=== PATIENT | female | born 1970 | race Caucasian/White ===

== ENCOUNTER 2024-10-30 11:43 | Outpatient (AMB) | payer BC, SELFPAY ==
--- NOTE | 2024-10-30 11:45 | MHC.OFFVIS ---
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 Pain started after she had right sided hammertoe surgery 09/16/2024 Endorses right foot pain, hypersensitive to touch, swelling and temperature changes. Currently taking gabapentin 300 mg twice daily with no improvement Taking Tylenol and ibuprofen with minimal improvement Has been doing home exercise program, starting physical therapy but pain persists States she is not even able to tolerate a bed sheet or socks secondary to the pain Pain today is rated as a 5/10, she reports that 5 is the best her pain is. At times pain will be 10/10 In terms of muscle damage condition is described as burning, throbbing, sharp, aching, tightness Pain is negatively impacting patient's mental health, normal function, normal sleep, ability to perform activities daily living, ambulation Denies current use of anticoagulants Denies implantable devices, pacemaker or defibrillator Denies current use of nicotine, tobacco, alcohol or illicit substances PFSH Medical History (Updated 10/30/24 @ 12:52 by Andressa Alford) Hypercholesterolemia Hypertension Depression Anxiety Migraine Headache Fibromyalgia Surgical History (Updated 10/30/24 @ 12:52 by Andressa Alford) H/O oral surgery H/O: hysterectomy H/O tubal ligation Hx of section Review of Systems Const All systems reviewed & are unremarkable except as noted in HPI and below Physical Exam Vital Signs: Last Vital Signs Pulse 61 10/30/24 11:50 BP 134/79 10/30/24 11:50 Pulse Ox 98 10/30/24 11:50 Oxygen Delivery Method Room Air 10/30/24 11:50 BMI result Body Mass Index 28.0 General: awake, alert, oriented. Answers questions appropriately. Fully engaged in examination. Skin: warm, dry, intact HEENT: Normocephalic. Hearing intact. Cardiac: External chest normal in appearance. Respiratory: No cough, audible wheezing or stridor. Abdomen: without gross distension. MS: No obvious swelling or deformities. Able to transition from sit to stand unassisted. Ambulates with bilaterally normal heel strike and toe off Right foot notable for allodynia. Compared to the left foot there are changes in color and temperature. Slight swelling noted. Neurological: Oriented to person, place, time and situation. Thought process intact. No gait abnormalities appreciated. Psychiatric: Appropriate mood and affect. Good judgment and insight. Assessment & Plan Assessment & Plan (1) CRPS (complex regional pain syndrome), lower limb: Code(s): G90.529 - Complex regional pain syndrome I of unspecified lower limb Category: Medical Plan Fifi is a very pleasant 54-year-old female who presented to the office today for evaluation and management of her right foot pain History, physical exam and provocative testing consistent with CRPS Patient has exhausted conservative therapy including home exercise program, NSAIDs, prescription medications, [id number] medications Will schedule for fluoroscopy guided lumbar sympathetic block with local anesthetic All questions and concerns were answered, patient agrees with the plan. Follow up after injection, sooner if needed Coding Level of Care Code New Pt Level 4 (51573) Complex EM visit Add On G2211 Diagnoses CRPS (complex regional pain syndrome), lower limb G90.529
[2024-10-30 11:50] VITALS: BP 134/79; PULSE 61; O2SAT 98; BMI 28.0
--- OUTSIDE RECORDS SUMMARY | 2024-10-30 12:46 | XMS_ITS ---
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 . . Patient had roz er toe surgery right foot on 09/16/24; having symptoms of CRPS/RSD, history of Firbomyalgia for 60 days 10/23/2024 Active Piroxicam 20 MG TAKE ONE CAPSULE BY MOUTH EVERY MORNING Oral for 30 Not-Taking Amitriptyline HCl No t-Taking Neurontin 300 MG 1 capsule Orally Thr ee times a day for 30 days 10/23/2024 Active Lyrica Not-Taking Wellbutrin XL 150 MG 1 tablet in the mor aspen Orally Once a day for 30 day(s) Not-Taking toprol Not-Taking Effexor XR 37.5 mg N ot-Taking Motegrity 2 MG 1 tablet Orally Once a day for 30 day(s) Not-Taking traZODone HCl 150 MG 1 tablet at bedtime Orally Once a day for 30 day(s) Active oxyCODONE HCl 5 MG 1 tablet as needed Orally every 6 hrs 09/29/2024 Active Crestor 10 MG 1 tablet Orally Once a day for 30 day(s) Active CeleBREX Not-Taking Zoloft Not-Taking Naltrexone - as directed Activ e Gabapentin Active Metoprolol Succinate 50 MG 1 capsule Orally Once a day for 30 day(s) Active Baby Aspirin Active Lisinopril 10 MG 1 tablet Orally Once a day for 30 day(s) Active Social History Tobacco Use: Social History Observation Description Date Details (start date - stop date) Never Smoker NA - NA Tobacco use other than smoking: Question Answer Notes Are you an other tobacco user? No Tobacco Control (Standard) Question Answer Notes Tobacco use: Nonsmoker Additional Findings: Tobacco non-user Current no nsmoker Problems Problem Type SNOMED Code ICD Code Onset Dates Problem Status W/U Status Risk Notes Problem [id number] Complex regional pain syndrome type 1 of right lower extremity (G90.521) Active confirmed Vital Signs Height 5ft5in in 10/23/2024 Weight 165 lbs 10/23/2024 BMI 27.45 kg/m2 10/23/2024 Blood pressure systolic 124 mm Hg 10/23/19 25 Blood pressure diastolic 65 mm Hg 025 Encounters Encounter Location Date Provider Diagnosis [facility] [address] [place] [address] 10/23/2024 Hilda Us Other hammer toe(s) (acquired), right foot M20.41 ; Complex regional pain syndrome type 1 of right lower extremity G90.521 and Pain in right foot M79.671 Assessments Encounter Date Diagnosis (ICD Code) Assessment Notes Treatment Notes Treatment Clinical Notes Section Notes 10/23/2024 Other hammer toe(s) (acquired), right foot (ICD-10 - M20.41) 10/23/2024 Complex regional pain syndrome type 1 of right lower extremity (ICD-10 - G90.521) 10/23/2024 Pain in right foot (ICD-10 - M79.671) Plan Of Treatment Medication Medication Name Sig Start Date Stop Date Notes Physical Therapy . . . Patient had roz er toe surgery right foot on 09/16/24; having symptoms of CRPS/RSD, history of Firbomyalgia for 60 days 10/23/2024 Neurontin 300 MG 1 capsule Orally Thr ee times a day for 30 days 10/23/2024 Pending Test Test Name Order Date X ray : Foot, right 3V 10/23/2024 Next Appt Details Follow Up: 3 Weeks, Reason: Provider Name:Hilda Roseanne cronin, 11/13/2024 09:30:00 AM, [address] [place], [address], Procedure Notes * Category Sub-Category Detail Notes Dressing Change: Type: dry sterile arturo ssing , a light compressive dressing Topical: bacitracin applied Removal of: sutures performed wi th sterile forceps/suture scissors or #15 blade, area cleaned with alcohol prior to removal Progress Notes * Camden CARTER MDOB:[birth year] (54 yo F)Acc No.[id number]:10/23/2024 PROGRESS NOTES Patient:?Camden CARTER Provider:?iHlda Us DPM :1970???Age:54 Y???Sex:Female D ate:10/23/2024 Address:[address] [place] [address], [id number] Pcp:Sebas Cutler MD Subjective: * Chief Complaints: * ???Post-op * HPI: ???Post-op:?The patient presents for post-op of?Hammertoe repair 2nd, 3rd, 4th toes, RIGHT foot.?Date of Surgery?:?09/16/2024 ?Current symptoms include?Pt denies fever, chills, nausea, calf pain, SOB,?.? Pt presents WB in soft clog with .? Patient relates extreme pain in her right foot including her forefoot and toes.? Pt states the pain is 10/10 even to light touch.? It wakes her up at night.? Pt states she has not been able to have anything even touch her foot including the blanket or a light sock.? Pt relates a history of fibromyalgia and saw a neurologist in the past, but it has been many years and is not being treated for it at the moment.? Pt takes Gabapentin 300mg at night only.? Pt has only started wearing a shoe today, states she has been limiting her WB and activites due to the pain.? Pt denies any issues with incisions at this time such as redness or drainage. * ROS:?General/Constitutional:?Nausea?denies.?Vomiting?denies.?Hunger Thirst?denies.?Loss appetite?denies.?Chills?denies.?Fatigue?denies.?Fever?denies.?Night Sweats?denies.?Unexplained weight loss?denies.?Unexplained weight gain?denies.?HEENTM:?Dentures?denies.?Dizziness?denies.?Glasses/contacts?admits.?Retinopathy?de nies.?Blurred/double vision?denies.?TMJ?denies.?Discharge/drainage?denies.?Implants?denies.?Sore throat?denies.?Dental implants?denies.?Hard of hearing ?denies.?Difficulty chewing/swallowing/speaking?denies.?Nose bleeds?denies.?Sore mouth?denies.?Respiratory:?On Oxygen?denies.?Pneumonia/pleurisy?denies.?Bronchitis?denies.?Emphysema?denies.?C oughing?denies.?Cough blood?denies.?Shortness of breath?admits.?Wheezing?denies.?Cardiovascular:?Pacemaker?denies.?MVP?denies.?WPW?denies.?CHF?denies.?Heart attack?denies.?Septal defect?denies.?Rapid beat?denies.?Chest pain ?denies.?Atrial Fib.?denies.?Murmur/Palpitations?denies.?Gastrointestinal:?Hemorrhoids?denies.?Stomach/Abdominal pain?denies.?Dark blood stool?denies.?Irritable bowel ?denies.?Constipation?admits.?Diarrhea?denies.?Hematology:?Swelling?denies.?Clots?denies.?Varicose Veins?denies.?Bruising?denies.?Bleeding problem?denies.?Genitourinary:?Blood urine?denies.?Frequent/Painfu/urination/bladder control?denies.?Kidney stones?denies.?Infection (UTI)?denies.?Nephropathy?denies.?sex trans dis (STD)?denies.?Prostate?denies.?Musculoskeletal:?Hammertoes?admits.?Bunions?denies.?Back Pain?denies.?Muscle Cramps/ Resting?denies.?Muscle cramps / walking?denies.?Generalized aches and pains?admits.?Weakness?admits.?Integ.:?Bertrand?denies.?Scars?denies.?Corns/calluses?denies.?Ingrown nails?denies.?Painful nails?admits.?Open Sores?denies.?Rashes?denies.?Neurologic:?Difficulty sleeping?denies.?Brain disorder?denies.?Numbness?denies.?Balance trouble?denies.?Confusion?denies.?Fainting/blackouts?denies.?Tingling?denies.?Tr emors?denies.? * Medical History:? * Surgical History:? s ection 2008tubal ligation 2008vesico vaginal fistula 2002hysterectomy 2010hammertoe repair R5T 1990oral surgery 06/02/2012Hammertoe Repair Left 2nd, 3rd, 4th, Capsulotomy Left MPJ 09/16/2024 * Hospitalization/Major Diagno stic Procedure:?Denies Past Hospitalization * Family History:?Mother: wing rivera, foot problems, diagnosed with Unspecified essential hypertension, Family history of arthritis.?Father: , poor circulation, kidney/liver disease, foot problems, diagnosed with Other malignant neoplasm of unspecified site, Diabetic - NIDDM, Unspecified essential hypertension, Unspecified heart disease.?Maternal Grand Mother: , diagnosed with Other malignant neoplasm of unspecified site.?Spouse: alive.?1 brother(s) . 1 son(s) , 1 daughter(s) . .? * Social History:?Tobacco Use:?Tobacco use other than smoking?Are you an other tobacco user??No ?Tobacco Control (Standard)?Tobacco use:?Nonsmoker ?Additional Findings: Tobacco non-user?Current nonsmoker ???Miscellaneous:?Caffeine: yes, 3-5 cups per day. ?Children: yes, 2. ?Exercise: yes, exercise. ?Marital status: . ?Occupation: works at home. * Medications:?TakingGabapenti n Naltrexone - Powder as directed Baby Aspirin Metoprolol Succinate 50 MG Capsule ER 24 Hour Sprinkle 1 capsule Orally Once a day Lisinopril 10 MG Tablet 1 tablet Orally Once a day traZODone HCl 150 MG Tablet 1 tablet at bedtime Orally Once a day Crestor 10 MG Tablet 1 tablet Orally Once a day oxyCODONE HCl 5 MG Tablet 1 tablet as needed Orally every 6 hrs Taking Gabapentin Taking Naltrexone - Powder as directed Taking Baby Aspirin Taking Metoprolol Succinate 50 MG Capsule ER 24 Hour Sprinkle 1 capsule Orally Once a day Taking Lisinopril 10 MG Tablet 1 tablet Orally Once a day Taking traZODone HCl 150 MG Tablet 1 tablet at bedtime Orally Once a day Taking Crestor 10 MG Tablet 1 tablet Orally Once a day Taking oxyCODONE HCl 5 MG Tablet 1 tablet as needed Orally every 6 hrs Not-Taking/PRNZoloft CeleBREX Motegrity 2 MG Tablet 1 tablet Orally Once a day Wellbutrin XL 150 MG Tablet Extended Release 24 Hour 1 tablet in the morning Orally Once a day Lyrica Effexor XR 37.5 mg toprol Piroxicam 20 MG Capsule TAKE ONE CAPSULE BY MOUTH EVERY MORNING Oral Mirtazapine Amitriptyline HCl Medication List reviewed and reconciled with the patientNot-Taking/PRN Zoloft Not-Taking/PRN CeleBREX Not-Taking/PRN Motegrity 2 MG Tablet 1 tablet Orally Once a day Not-Taking/PRN Wellbutrin XL 150 MG Tablet Extended Release 24 Hour 1 tablet in the morning Orally Once a day Not-Taking/PRN Lyrica Not-Taking/PRN Effexor XR 37.5 mg Not- Taking/PRN toprol Not-Taking/PRN Piroxicam 20 MG Capsule TAKE ONE CAPSULE BY MOUTH EVERY MORNING Oral Not-Taking/PRN Mirtazapine Not-Taking/PRN Amitriptyline HCl Medication List reviewed and reconciled with the patient * Allergies:?UltramAdhesive: u nsureyes[Allergies Verified] Objective: * Vitals:?Ht: 5ft5in, Wt:165, BMI:27.45, Shoe size: 8, BP:124/65mm Hg, Ht-cm: 165.1 cm, Wt-k.84 kg. * Examination: ???Dermatologic: ?SURGICAL SITE?Incisions present to the dorsal aspect of digits T6, T7, T8. Incisions are well coapted without dehiscense or redness. CFT is intact to all toes of the right foot. There is erythema and minimal edema of the digits consistent with post operative state. No ecchymosis to any digits. Severe pain to palpation or even light touch of the right toes 2, 3, 4 and forefoot right foot.? Pt relates skin color changes and temperature changes to the right foot.?Orthopedic: ?MUSCLE STRENGTH:?5/5 all groups in a symmetrical fashion, B/L.?DIGITAL DEFORMITIES:?alignment of toe is more rectus 2m 3m 4 right than pre-op, mild edema, no redness or eccymosis, severe pain with light touch to digits.?Neurological: ?SENSORY:?Neurological exam reveals intact sensorium, pain sensation hypersensative right foot , vibration sensation intact, pinprick sensation unable to be performed due to pain, Pt relates, burning, hyperesthesia, pins and needles sensation, shooting/radiating sensation, stinging, tingling, Forefoot, Right, especially in the evening.?Vascular: ?DP PULSES (B):?3/4, B/L.?PT PULSES (B):?3/4, B/L.?CAPILLARY FILL TIME:?immediate, all digits, B/L.?TROPHIC CONDITION-TEXTURE/ELASTICITY/TURGOR/HAIR GROWTH (B):?normal, B/L.?TEMPERTURE GRADIENT (C):?decreased, cool to cool, proximal to distal, B/L.?PIGMENTATION:?pale, Right.?X-Rays - IMAGING REPORT: ?Clinical Indication(s):?Evaluate for healing from surgery.?Views:?3 views of Foot, RIGHT, AP, LAT, LO, Taken by a trained Podiatric Hop Sorter ( SF ).?Findings:?normal bone and soft tissue density consistent for patients age and sex, radiolucent soft tissue gas absent, sign of osteomyelitis absent.?Digits:?show post-op digital alignment anatomic with proper resection of bone, smooth edges, and no bony spicules present, no gas visualized.?Fracture:?Negative fractures identified.? Assessment: * Assessment: 1.?Other hammer toe(s) (acqu ired), right foot - M20.41???2.?Complex regional pain syndrome type 1 of right lower extremity - G90.521 (Primary)???Specify :Acute problem, Complicated w/ Multiple Tx Options???3.?Pain in right foot - M79.671??? Plan: * Treatment: 2.?Other hammer toe(s) (acqu ired), right foot?Imaging: X ray : Foot, right 3V * Procedures:?Dressing Change::?Type:?dry sterile dressing , a light compressive dressing.?Topical:?bacitracin applied.?Removal of:?sutures performed with sterile forceps/suture scissors or #15 blade, area cleaned with alcohol prior to removal.? * Procedure Codes:?15648 X-RAY EXAM OF RIGHT FOOT 3V, Modifiers: 26 , RT * Preventive Medicine:? ??Counseling:?Post-op:?I reviewed with the patient the usual surgical post-op course. The patient is to call with any questions/complications, and will follow-up as scheduled. Discussed with pt and her in detail the diagnosis and treatment of CRPS. I explained how fibromyalgia can affect pt's post op recovery and pain and her symptoms of CRPS. I am RXed physical therapy and recommended [facility]-gave pt Alexsander John's information to schedule an appt, A referral to pain management for early treatment of CRPS, our office will reach out to [facility] management for an appt. I increased pt's Gabapentin, can start with BID and if no adverse affects can increase to 3 times a day. I saw pt today as Dr Butterfield is on maturnity leave, but will contact Dr Butterfield to discuss pt's current symptoms and treatment plan. Gave information regarding CRPS to the pt for education, encouraged pt to call with any questions or concerns. No gaurentees were given for pt's outcome, but expressed the importance of early treatment. Pt's hammertoe surgery is healing well, no issues with the bone on Xray. Pt can continue with an accom firm-soled shoe for stability and support, gradually increase activity to tolerance, The Pt. was counseled on the x-rays, continued treatment options, and the importance of following all homecare instructions, discussed the need to start Physical Therapy and the importance it will play in the pts recovery, Pt to continue to ice and elevate foot to help with post op swelling and pain as needed. Will see pt again in 3 weeks for evaluation..? * Follow Up:?3 Weeks * Images: * Sign off status: Completed true * Provider:?Hilda Us DPM Date:? Generated for Gladys tubbs/Angi/Preston on:?10/30/2024 12:45 PM EST History and Physical Notes * HPI (History of Present Illness) Category Sub-Category Detail Notes Category Not es Post-op The patient presents for post-op of Hammertoe repair 2nd, 3rd, 4th toes, RIGHT foot Pt presents WB in soft clog with . Patient relates extreme pain in her right foot including her forefoot and toes. Pt states the pain is 10/10 even to light touch. It wakes her up at night. Pt states she has not been able to have anything even touch her foot including the blanket or a light sock. Pt relates a history of fibromyalgia and saw a neurologist in the past, but it has been many years and is not being treated for it at the moment. Pt takes Gabapentin 300mg at night only. Pt has only started wearing a shoe today, states she has been limiting her WB and activites due to the pain. Pt denies any issues with incisions at this time such as redness or drainage. Current symptoms include Pt denies fever , chills, nausea, calf pain, SOB, Date of Surgery :: 09/16/2024 Examination Category Sub-Category Detail Notes Category Not es Neurological SENSORY: Neurological exa m reveals intact sensorium, pain sensation hypersensative right foot , vibration sensation intact, pinprick sensation unable to be performed due to pain, Pt relates, burning, hyperesthesia, pins and needles sensation, shooting/radiating sensation, stinging, tingling, Forefoot, Right, especially in the evening Dermatologic SURGICAL SITE Incisions presen t to the dorsal aspect of digits T6, T7, T8. Incisions are well coapted without dehiscense or redness. CFT is intact to all toes of the right foot. There is erythema and minimal edema of the digits consistent with post operative state. No ecchymosis to any digits. Severe pain to palpation or even light touch of the right toes 2, 3, 4 and forefoot right foot. Pt relates skin color changes and temperature changes to the right foot Orthopedic DIGITAL DEFORMITIES: alignment o f toe is more rectus 2m 3m 4 right than pre-op, mild edema, no redness or eccymosis, severe pain with light touch to digits MUSCLE STRENGTH: 5/5 all groups in a symmetrical fashion, B/L Vascular DP PULSES (B): 3/4, B/L PT PULSES (B): 3/4, B/L CAPILLARY FILL TIME: immediate, all digi ts, B/L TEMPERTURE GRADIENT (C): decreased, cool to cool, proximal to distal, B/L TROPHIC CONDITION-TEXTURE/ELASTICITY/TURGOR/HAIR GROWTH (B): normal, B/L PIGMENTATION: pale, Right X-Rays - IMAGING REPORT Findings: normal b one and soft tissue density consistent for patients age and sex, radiolucent soft tissue gas absent, sign of osteomyelitis absent Fracture: Negative fractures i dentified Digits: show post-op digital alignment anatomic with proper resection of bone, smooth edges, and no bony spicules present, no gas visualized Views: 3 views of Foot, RIG HT, AP, LAT, LO, Taken by a trained Podiatric Hop Sorter ( SF ) Clinical Indication(s): Evaluate for maria luz nj from surgery
--- OUTSIDE RECORDS SUMMARY | 2024-10-30 12:46 | XMS_ITS | Patient Health Record ---
Author Organization [facility] Address [address] [place] [phone] Care Team Providers Care Terminal Carman Name Role Phone Omayra GIRALDO, Sebas Primary Care Provider Unavailab RAMU Escalante Unavailable [phone] Cruz Briseida Unavailable [phone] Allergies Allergen (clinical drug ingredient) Drug/Non Drug Allergy documented on EMR Reaction Allergy Type Onset Date Status tramadol Ultram Unknown Drug Allergy Active Results Component Value Reference Range Notes LUPUS ANTICOAGULANT EVALUATI ON WITH REFLEX Reviewed date:06/17/2024 01:26:58 PM Interpretation: Performing Lab:[facility], [address], [place], [address] Suresh Arguello M.D.,PhD Notes/Report: Received Date: FASTING; FASTING LUPUS ANTICOAGULANT see note A Lupus Anticoagulant is not detected. Common causes for a prolonged screen and negative confirmatory test include factor deficiencies or anticoagulant therapy. Reference Range: Not Detected For additional information, please refer to http://education.ContinuityX Solutions.Amakem/faq/BKD85j8 (This link is being provided for informational/ educational purposes only.) This interpretation is based on the following test results. PTT-LA SCREEN 51 <=40 sec DRVVT SCREEN 35 <=45 sec HEXAGONAL PHASE CONFIRM Negative Negative URINALYSIS, COMPLETE W/REFLE X TO CULTURE Reviewed date:06/17/2024 01:26:58 PM Interpretation: Performing Lab:NL1, [facility], [address] [place] [address], [phone] Santy Salas M.D. Notes/Report: Received Date: [id number] FASTING; FASTING; FASTING; FASTING; NON-FASTING; FASTING; FA COLOR TNP TEST NOT PERFORMED Specimen leaked in transit. HLA-B27 ANTIGEN Reviewed date:06/17/2024 01:26:58 PM Interpretation: Performing Lab:[facility], [address], [place], [address] Suresh Arguello M.D.,PhD Notes/Report: Received Date: FASTING; FASTING; FASTING; FASTING; NON-FASTING; FASTING; FA HLA-B27 ANTIGEN Negative Negative QUANTIFERON(R)-TB GOLD Reviewed date:06/24/2024 08:50:14 AM Interpretation: Performing Lab:NL1, [facility], [address] [place] [address], [phone] Santy Salas M.D. Notes/Report: Received Date: FASTING; NON-FASTING; NON-FASTING; NON-FASTING; NON-FASTING QUANTIFERON(R)-TB GOLD PLUS, 1 TUBE NEGATIVE NEGATIVE Negative test result. M. tuberculosis complex infection unlikely. NIL 0.03 MITOGEN-NIL 9.69 TB1-NIL 0.01 TB2-NIL 0.00 The Nil tube value reflects the background interferon gamma immune response of the patient's blood sample. This value has been subtracted from the patient's displayed TB and Mitogen results. Lower than expected results with the Mitogen tube prevent false-negative Quantiferon readings by detecting a patient with a potential immune suppressive condition and/or suboptimal pre-analytical specimen handling. The TB1 Antigen tube is coated with the M. tuberculosis-specific antigens designed to elicit responses from TB antigen primed CD4+ helper T-lymphocytes. The TB2 Antigen tube is coated with the M. tuberculosis-specific antigens designed to elicit responses from TB antigen primed CD4+ helper and CD8+ cytotoxic T-lymphocytes. For additional information, please refer to https://education.Stardoll/faq/KSQ786 (This link is being provided for informational/ educational purposes only.) C-REACTIVE PROTEIN Reviewed date:06/17/2024 01:26:58 PM Interpretation: Performing Lab:NL1, [facility], [address] [place] [address], [phone] Santy Salas M.D. Notes/Report: Received Date: FASTING; FASTING; FASTING; FASTING; NON-FASTING; FASTING; FA C-REACTIVE PROTEIN <3.0 <8.0 mg/L THYROGLOBULIN ANTIBODIES Reviewed date:06/17/2024 01:26:58 PM Interpretation: Performing Lab:NL1, [facility], [address] [place] [address], [phone] Santy Salas M.D. Notes/Report: Received Date: FASTING; FASTING; FASTING; FASTING; NON-FASTING; FASTING; FA THYROGLOBULIN ANTIBODIES <1 < or = 1 IU/mL LYME DISEASE AB, TOTAL W/REF L WB (IGG, IGM) Reviewed date:06/24/2024 08:50:14 AM Interpretation: Performing Lab:NL1, [facility], [address] [place] [address], [phone] Santy Salas M.D. Notes/Report: Received Date: FASTING; NON-FASTING; NON-FASTING; NON-FASTING; NON-FASTING LYME AB SCREEN <0.90 Index Interpretation ----- < 0.90 Negative 0.90-1.09 Equivocal > 1.09 Positive As recommended by the Food and Drug Administration (FDA), all samples with positive or equivocal results in a Borrelia burgdorferi antibody screen will be tested using a blot method. Positive or equivocal screening test results should not be interpreted as truly positive until verified as such using a supplemental assay (e.g., B. burgdorferi blot). The screening test and/or blot for B. burgdorferi antibodies may be falsely negative in early stages of Lyme disease, including the period when erythema migrans is apparent. LYME DISEASE ANTIBODIES (IGG , IGM) WESTERN BLOT Reviewed date:06/17/2024 01:26:58 PM Interpretation: Performing Lab:REGINALD1, [facility], [address] [place] [address], [phone] Santy Salas M.D. Notes/Report: Received Date: FASTING; FASTING; FASTING; FASTING; NON-FASTING; FASTING; FA LYME DISEASE AB(IGG),BLOT NEGATIVE NEGATIVE 18 KD (IGG) BAND NON-REACTIVE 23 KD (IGG) BAND NON-REACTIVE 28 KD (IGG) BAND NON-REACTIVE 30 KD (IGG) BAND NON-REACTIVE 39 KD (IGG) BAND NON-REACTIVE 41 KD (IGG) BAND NON-REACTIVE 45 KD (IGG) BAND NON-REACTIVE 58 KD (IGG) BAND NON-REACTIVE 66 KD (IGG) BAND NON-REACTIVE 93 KD (IGG) BAND NON-REACTIVE LYME DISEASE AB(IGM),BLOT NEGATIVE NEGATIVE 23 KD (IGM) BAND REACTIVE 39 KD (IGM) BAND NON-REACTIVE 41 KD (IGM) BAND NON-REACTIVE Lyme immunoblot testing should only be performed on samples from patients who have had a Positive or Equivocal result in a screening assay. As per CDC criteria, a Lyme disease IgG Immunoblot must show reactivity to at least 5 of 10 specific borrelial proteins to be considered positive; similarly, a positive Lyme disease IgM immunoblot requires reactivity to 2 of 3 specific borrelial proteins. Although considered negative, IgG reactivity to fewer specific borrelial proteins or IgM reactivity to only 1 protein may indicate recent B. burgdorferi infection and warrant testing of a later sample. A positive IgM but negative IgG result obtained more than a month after onset of symptoms likely represents a false- positive IgM result rather than acute Lyme disease. In rare instances, Lyme disease immunoblot reactivity may represent antibodies induced by exposure to other spirochetes. HEPATITIS B CORE ANTIBODY (I GM) Reviewed date:06/17/2024 01:26:58 PM Interpretation: Performing Lab:1, [facility], [address] [place] [address], [phone] Santy Salas M.D. Notes/Report: Received Date: [id number] FASTING; FASTING; FASTING; FASTING; NON-FASTING; FASTING; FA HEPATITIS B CORE ANTIBODY (IGM) NON-REACTIVE NON-REACTIVE For additional information, please refer to http://education.ContinuityX Solutions.com/faq/HNE566 (This link is being provided for informational/ educational purposes only.) HEPATITIS B SURFACE ANTIGEN W/REFL CONFIRM Reviewed date:06/17/2024 01:26:58 PM Interpretation: Performing Lab:NL1, [facility], [address] [place] [address], [phone] Santy Salas M.D. Notes/Report: Received Date: [id number] FASTING; FASTING; FASTING; FASTING; NON-FASTING; FASTING; FA HEPATITIS B SURFACE ANTIGEN NON-REACTIVE NON-REACTIVE For additional information, please refer to http://Simplicita Software/faq/ENR822 (This link is being provided for informational/ educational purposes only.) VITAMIN B12/FOLATE, SERUM PA RAFA Reviewed date:06/17/2024 01:26:58 PM Interpretation: Performing Lab:NL1, [facility], [address] [place] [address], [phone] Santy Salas M.D. Notes/Report: Received Date: FASTING; FASTING VITAMIN B12 651 578-5144 pg/mL FOLATE, SERUM 15.9 Reference Range Low: <3.4 Borderline: 3.4-5.4 Normal: >5.4 FERRITIN Reviewed date:06/17/2024 01:26:58 PM Interpretation: Performing Lab:NL1, [facility], [address] [place] [address], [phone] Santy Slaas M.D. Notes/Report: Received Date: [id number] FASTING; FASTING; FASTING; FASTING; NON-FASTING; FASTING; FA FERRITIN 100 16-232 ng/mL HEPATITIS C ANTIBODY Reviewed date:06/24/2024 08:50:14 AM Interpretation: Performing Lab:NL1, [facility], [address] [place] [address], [phone] Santy Salas M.D. Notes/Report: Received Date: [id number] FASTING; NON-FASTING; NON-FASTING; NON-FASTING; NON-FASTING HEPATITIS C ANTIBODY NON-REACTIVE NON-REACTIVE HCV antibody was non-reactive. There is no laboratory evidence of HCV infection. In most cases, no further action is required. However, if recent HCV exposure is suspected, a test for HCV RNA (test code 75905) is suggested. For additional information please refer to http://Simplicita Software/faq/HEH70u8 (This link is being provided for informational/ educational purposes only.) TSH, 3RD GENERATION Reviewed date:06/17/2024 01:26:58 PM Interpretation: Performing Lab:NL1, [facility], [address] [place] [address], [phone] Santy Salas M.D. Notes/Report: Received Date: FASTING; FASTING; FASTING; FASTING; NON-FASTING; FASTING; FA TSH 0.79 Reference Range > or = 20 Years 0.40-4.50 Ranges First trimester 0.26-2.66 Second trimester 0.55-2.73 Third trimester 0.43-2.91 IMMUNOFIXATION IGA,IGG,IGM Q T.IMMUNOFIXATION SERUM IMMUNOGLOBULIN Reviewed date:06/17/2024 01:26:58 PM Interpretation: Performing Lab:[facility], [address] [place] [address], [phone] Santy Salas M.D. Notes/Report: Received Date: FASTING; FASTING; FASTING; FASTING; NON-FASTING; FASTING; FA ARNOLD INTERPRETATION No monoclonal proteins detected. IMMUNOGLOBULIN A 258 47-310 mg/dL IMMUNOGLOBULIN G 441 136-0073 mg/dL IMMUNOGLOBULIN M 78 50-300 mg/dL PTH, INTACT AND CALCIUM Reviewed date:06/17/2024 01:26:58 PM Interpretation: Performing Lab:[facility], [address] [place] [address], [phone] Santy Salas M.D. Notes/Report: Received Date: FASTING; FASTING PARATHYROID HORMONE, INTACT 43 16-77 pg/mL Interpretive Guide Intact PTH Calcium ------- Normal Parathyroid Normal Normal Hypoparathyroidism Low or Low Normal Low Hyperparathyroidism Primary Normal or High High Secondary High Normal or Low Tertiary High High Non-Parathyroid Hypercalcemia Low or Low Normal High CALCIUM 9.6 8.6-10.4 mg/dL PROTEIN, TOTAL AND PROTEIN E LECTROPHORESIS Reviewed date:06/17/2024 01:26:58 PM Interpretation: Performing Lab:[facility], [address] [place] [address], [phone] Santy Salas M.D. Notes/Report: Received Date: FASTING; FASTING; FASTING; FASTING; NON-FASTING; FASTING; FA PROTEIN, TOTAL 6.8 6.1-8.1 g/dL ALBUMIN 4.5 3.8-4.8 g/dL ALPHA 1 GLOBULIN 0.3 0.2-0.3 g/dL ALPHA 2 GLOBULIN 0.6 0.5-0.9 g/dL BETA 1 GLOBULIN 0.4 0.4-0.6 g/dL BETA 2 GLOBULIN 0.4 0.2-0.5 g/dL GAMMA GLOBULIN 0.7 0.8-1.7 g/dL ANCA SCREEN WITH MPO AND PR3 WITH REFLEX TO ANCA TITER Reviewed date:06/17/2024 01:26:58 PM Interpretation: Performing Lab:NL1, [facility], [address] [place] [address], [phone] Santy Salas M.D. Notes/Report: Received Date: FASTING; FASTING; FASTING; FASTING; NON-FASTING; FASTING; FA ANCA SCREEN NEGATIVE NEGATIVE ANCA screen uses indirect immunofluorescence to detect antibodies to neutrophil cytoplasmic antigens. A positive screen reflexes to titer and pattern. Patterns include cytoplasmic (c-ANCA) and perinuclear (p-ANCA) both of which are associated with vasculitis, and atypical p-ANCA which is associated with inflammatory bowel disease and other disorders. MYELOPEROXIDASE ANTIBODY <1.0 Value Interpretation ----- <1.0 No Antibody Detected > or = 1.0 Antibody Detected Autoantibodies to myeloperoxidase (MPO) are commonly associated with the following small-vessel vasculitides: microscopic polyangiitis, polyarteritis nodosa, Churg-Salvatore syndrome, necrotizing and crescentic glomerulonephritis and occasionally granulomatosis with polyangiitis (GPA, Masoud's). The perinuclear IFA pattern, (p-ANCA) is based largely on autoantibody to myeloperoxidase which serves as the primary antigen. These autoantibodies are present in active disease. PROTEINASE-3 ANTIBODY <1.0 Value Interpretation ----- <1.0 No Antibody Detected > or = 1.0 Antibody Detected Autoantibodies to proteinase-3 (IN-3) are accepted as characteristic for granulomatosis with polyangiitis (GPA, Masoud's), and are detectable in 95% of the histologically proven cases. The cytoplasmic IFA pattern, (c-ANCA), is based largely on autoantibody to IN-3 which serves as the primary antigen. These autoantibodies are present in active disease. ANGIOTENSIN CONVERTING ENZYM E (CALVIN) Reviewed date:06/17/2024 01:26:58 PM Interpretation: Performing Lab:[facility], [address] [facility] [facility] , [place], [phone] Suresh Arguello M.D.,PhD Notes/Report: Received Date: FASTING; FASTING; FASTING; FASTING; NON-FASTING; FASTING; FA [id number] ENZYME <5 9-67 U/L VITAMIN D, 25-HYDROXY, LC/MS /MS Reviewed date:06/17/2024 01:26:58 PM Interpretation: Performing Lab:NL1, [facility], [address] [place] [address], [phone] Santy Salas M.D. Notes/Report: Received Date: FASTING; FASTING; FASTING; FASTING; NON-FASTING; FASTING; FA VITAMIN D,25-OH,TOTAL,IA 55 30-100 ng/mL Vitamin D Status 25-OH Vitamin D: Deficiency: <20 ng/mL Insufficiency: 20 - 29 ng/mL Optimal: > or = 30 ng/mL For 25-OH Vitamin D testing on patients on D2-supplementation and patients for whom quantitation of D2 and D3 fractions is required, the [facility] 25-OH VIT D, (D2,D3), LC/MS/MS is recommended: order code 80935 (patients >2yrs). See Note 1 Note 1 For additional information, please refer to http://education.Kozio.com/faq/QRS861 (This link is being provided for informational/ educational purposes only.) URIC ACID Reviewed date:06/17/2024 01:26:58 PM Interpretation: Performing Lab:NL1, [facility], [address] [place] [address], [phone] Santy Salas M.D. Notes/Report: Received Date: FASTING; FASTING; FASTING; FASTING; NON-FASTING; FASTING; FA URIC ACID 5.1 2.5-7.0 mg/dL Therapeutic ta rget for gout patients: <6.0 mg/dL IRON TOTAL, TIBC, SATURATION Reviewed date:06/17/2024 01:26:58 PM Interpretation: Performing Lab:NL1, [facility], [address] [place] [address], [phone] Santy Salas M.D. Notes/Report: Received Date: FASTING; FASTING; FASTING; FASTING; NON-FASTING; FASTING; FA IRON, TOTAL 104 45-160 mcg/dL IRON BINDING CAPACITY 343 250-450 mc g/dL (calc) % SATURATION 30 16-45 % (calc) CREATINE KINASE, TOTAL Reviewed date:06/17/2024 01:26:58 PM Interpretation: Performing Lab:REGINALD1, [facility], [address] [place] [address], [phone] Santy Salas M.D. Notes/Report: Received Date: FASTING; FASTING; FASTING; FASTING; NON-FASTING; FASTING; FA CREATINE KINASE, TOTAL 197 29-143 U/L HEPATIC FUNCTION PANEL Reviewed date:06/17/2024 01:26:58 PM Interpretation: Performing Lab:REGINALD1, [facility], [address] [place] [address], [phone] Santy Salas M.D. Notes/Report: Received Date: FASTING; FASTING; FASTING; FASTING; NON-FASTING; FASTING; FA PROTEIN, TOTAL 6.8 6.1-8.1 g/dL ALBUMIN 4.6 3.6-5.1 g/dL GLOBULIN 2.2 1.9-3.7 g/dL (calc) ALBUMIN/GLOBULIN RATIO 2.1 1.0-2.5 (calc) BILIRUBIN, TOTAL 0.4 0.2-1.2 mg/dL BILIRUBIN, DIRECT 0.1 < OR = 0.2 mg/dL BILIRUBIN, INDIRECT 0.3 0.2-1.2 mg/d L (calc) ALKALINE PHOSPHATASE 57 37-153 U/L AST 21 10-35 U/L ALT 22 6-29 U/L CREATININE Reviewed date:06/17/2024 01:26:58 PM Interpretation: Performing Lab:NL1, [facility], [address] [place] [address], [phone] Santy Salas M.D. Notes/Report: Received Date: FASTING; FASTING; FASTING; FASTING; NON-FASTING; FASTING; FA CREATININE 1.20 0.50-1.03 mg/dL EGFR 54 > OR = 60 mL/min/1.73m2 CBC (INCLUDES DIFF/PLT) Reviewed date:06/17/2024 01:26:58 PM Interpretation: Performing Lab:NL1, [facility], [address] [place] [address], [phone] Santy Salas M.D. Notes/Report: Received Date: [id number] FASTING; FASTING; FASTING; FASTING; NON-FASTING; FASTING; FA WHITE BLOOD CELL COUNT 4.5 3.8-10.8 Thousand/uL RED BLOOD CELL COUNT 4.13 3.80-5.10 Million/uL HEMOGLOBIN 12.7 11.7-15.5 g/dL HEMATOCRIT 39.1 35.0-45.0 % MCV 94.7 80.0-100.0 fL MCH 30.8 27.0-33.0 pg MCHC 32.5 32.0-36.0 g/dL For adults, a slight decrease in the calculated MCHC value (in the range of 30 to 32 g/dL) is most likely not clinically significant; however, it should be interpreted with caution in correlation with other red cell parameters and the patient's clinical condition. RDW 12.8 11.0-15.0 % PLATELET COUNT 180 140-400 Thousand/uL MPV 12.5 7.5-12.5 fL ABSOLUTE NEUTROPHILS 2817 2223-6948 cells/uL ABSOLUTE LYMPHOCYTES 1279 531-6364 cells/uL ABSOLUTE MONOCYTES 293 200-950 cells/uL ABSOLUTE EOSINOPHILS 72 15-500 cells/uL ABSOLUTE BASOPHILS 41 0-200 cells/uL NEUTROPHILS 62.6 LYMPHOCYTES 28.4 MONOCYTES 6.5 EOSINOPHILS 1.6 BASOPHILS 0.9 SED RATE BY MODIFIED WESTERG DIANA Reviewed date:06/17/2024 01:26:58 PM Interpretation: Performing Lab:NL1, [facility], [address] [place], [phone] Santy Salas M.D. Notes/Report: Received Date: FASTING; FASTING; FASTING; FASTING; NON-FASTING; FASTING; FA SED RATE BY MODIFIED WESTERGREN 2 < OR = 30 mm/h HS-CRP Reviewed date:06/17/2024 01:26:58 PM Interpretation: Performing Lab:NL1, [facility], [address] [place], [phone] Santy Salas M.D. Notes/Report: Received Date: FASTING; FASTING; FASTING; FASTING; NON-FASTING; FASTING; FA HS CRP 0.6 Reference Range Optimal <1.0 Brijesh CARTAGENA et al. Endocr Pract.2017;23(Suppl 2):1-87. For ages >17 Years: hs-CRP mg/L Risk According to AHA/CDC Guidelines <1.0 Lower relative cardiovascular risk. 1.0-3.0 Average relative cardiovascular risk. 3.1-10.0 Higher relative cardiovascular risk. Consider retesting in 1 to 2 weeks to exclude a benign transient elevation in the baseline CRP value secondary to infection or inflammation. >10.0 Persistent elevation, upon retesting, may be associated with infection and inflammation. Coleman TA, Peace [place], Corey RW, et al. Markers of inflammation and cardiovascular disease: application to clinical and public health practice: A statement for healthcare professionals from the Centers for Disease Control and Prevention and the [place] [employer]. Circulation 2003; 107(3): 499-511. Celiac Disease Comprehensive Panel with Gliadin Antibody (IgG) Reviewed date:06/24/2024 08:50:14 AM Interpretation: Performing Lab:NL1, [facility], [address] [place], [address] Santy Salas M.D. Notes/Report: Received Date: FASTING; NON-FASTING; NON-FASTING; NON-FASTING; NON-FASTING TISSUE TRANSGLUTAMINASE AB, IGA <1.0 Value Interpretation ----- <15.0 Antibody not detected > or = 15.0 Antibody detected IMMUNOGLOBULIN A 259 47-310 mg/dL ANAlyzeR MARTIN,IFA with Reflex Titer/Pattern, Systemic Autoimmune Panel 1 Reviewed date:06/24/2024 08:50:14 AM Interpretation: Performing Lab:EZ, [facility],, [address] [place], [phone] Li Arriola MD,PhD,CYNDIE Notes/Report: Received Date: FASTING; NON-FASTING; NON-FASTING; NON-FASTING; NON-FASTING MARTIN SCREEN, IFA NEGATIVE NEGATIVE MARTIN IFA is a first line screen for detecting the presence of up to approximately 150 autoantibodies in various autoimmune diseases. A negative MARTIN IFA result suggests an MARTIN-associated autoimmune disease is not present at this time, but is not definitive. If there is high clinical suspicion for Sjogren's syndrome, testing for anti-SS-A/Ro antibody should be considered. Anti-Loida-1 antibody should be considered for clinically suspected inflammatory myopathies. AC-0: Negative International Consensus on MARTIN Patterns https://doi.org/10.1515/cc ju-9805-1871 For additional information, please refer to http://education.Kozio.Amakem/faq/BJF914 (This link is being provided for informational/educational purposes only.) DNA AB (DS) CRITHIDIA,IFA NEGATIVE NEGATIVE CHROMATIN (NUCLEOSOMAL) ANTIBODY <1.0 NEG <1.0 NEGATIVE AI SM ANTIBODY <1.0 NEG <1.0 NEGATIVE AI SM/CREW CHIEF ANTIBODY <1.0 NEG <1.0 NEGATIVE AI CREW CHIEF ANTIBODY <1.0 NEG <1.0 NEGATIVE AI SJOGREN'S ANTIBODY (SS-A) <1.0 NEG <1.0 NEGATIVE AI SJOGREN'S ANTIBODY (SS-B) <1.0 NEG <1.0 NEGATIVE AI SCL-70 ANTIBODY <1.0 NEG <1.0 NEGATIVE AI LOIDA-1 ANTIBODY <1.0 NEG <1.0 NEGATIVE AI CENTROMERE B ANTIBODY <1.0 NEG <1.0 NEGATIVE AI COMPLEMENT COMPONENT C3C 148 83-193 mg/dL COMPLEMENT COMPONENT C4C 22 15-57 mg/dL CARDIOLIPIN AB (IGA) <2.0 Value Interpretation ----- <20.0 Antibody not detected > or = 20.0 Antibody detected CARDIOLIPIN AB (IGG) <2.0 Value Interpretation ----- <20.0 Antibody not detected > or = 20.0 Antibody detected CARDIOLIPIN AB (IGM) <2.0 Value Interpretation ----- <20.0 Antibody not detected > or = 20.0 Antibody detected B2 GLYCOPROTEIN I (IGA)AB <2.0 Value Interpretation ----- <20.0 Antibody not detected > or = 20.0 Antibody detected B2 GLYCOPROTEIN I (IGG)AB <2.0 Value Interpretation ----- <20.0 Antibody not detected > or = 20.0 Antibody detected B2 GLYCOPROTEIN I (IGM)AB <2.0 The antiphospholipid antibody syndrome (APS) is a clinical-pathologic correlation that includes a clinical event (e.g. arterial or venous thrombosis, morbidity) and persistent positive antiphospholipid antibodies (IgM, IgG Cardiolipin or b2GPI antibodies greater than the 99th percentile; or a lupus anticoagulant). International consensus guidelines for APS suggest waiting at least 12 weeks before retesting to confirm antibody persistence. The Systemic Lupus International Collaborating Clinics immunological classification criteria for systemic lupus erythematosus (SLE) include testing for isotype IgA, which has yet to be incorporated into APS criteria. Low level antiphospholipid antibodies may sometimes be detected in the setting of infection, drug therapy or aging. For additional information, please refer to http://education.ContinuityX Solutions.Amakem/faq/QXJ589 (This link is being provided for informational/educational purposes only.) Value Interpretation ----- <20.0 Antibody not detected > or = 20.0 Antibody detected RHEUMATOID FACTOR (IGA) <5 Reference Range: <=6 NEGATIVE >6 POSITIVE RHEUMATOID FACTOR (IGG) <5 Reference Range: <=6 NEGATIVE >6 POSITIVE RHEUMATOID FACTOR (IGM) 6 Reference Range: <=6 NEGATIVE >6 POSITIVE CYCLIC CITRULLINATED PEPTIDE (CCP) AB (IGG) <16 Reference Range: NEGATIVE: <20 WEAK POSITIVE: 20-39 MODERATE POSITIVE: 40-59 STRONG POSITIVE >59 MUTATED CITRULLINATED VIMENTIN (MCV) AB <20 <20 U/mL Anti-mutated citrullinated vimentin antibody may be used as a second-line marker of rheumatoid arthritis, in addition to rheumatoid factor and anti-cyclic citrullinated peptide (CCP). THYROID PEROXIDASE ANTIBODIES 1 <9 IU/mL C-REACTIVE PROTEIN Reviewed date:08/13/2024 11:08:37 AM Interpretation: Performing Lab:NL1, [facility], [address] [place] [address], [phone] Santy Salas M.D. Notes/Report: Received Date: [id number] NON-FASTING; NON-FASTING; NON-FASTING; NON-FASTING; NON-FAST C-REACTIVE PROTEIN <3.0 <8.0 mg/L METHYLMALONIC ACID Reviewed date:08/13/2024 11:08:37 AM Interpretation: Performing Lab:[facility], [address], [place], [address] Suresh Arguello M.D.,PhD Notes/Report: Received Date: [id number] NON-FASTING; NON-FASTING; NON-FASTING; NON-FASTING; NON-FAST METHYLMALONIC ACID 134 55-335 nmol/L Serum methylmalonic acid (MMA) levels are used to diagnose and monitor several rare inborn errors of metabolism, including methylmalonic aciduria. The enzymatic conversion of MMA to succinic acid requires vitamin B12 (adenosyl-cobalamin) as a cofactor. Serum MMA levels are also used for assessing functional vitamin B12 deficiency. Vitamin B12 is essential for neurodevelopment, particularly early in . Undiagnosed maternal vitamin B12 deficiency may be associated with adverse / outcomes, such as neural tube defects and intrauterine growth restriction. [facility] utilized Multi-Modal Decomposition (MMD) analysis to establish first and second trimester- specific MMA reference intervals in , as given below: MMA, First trimester (<13 wks gestation): 58-167 nmol/L MMA, Second trimester (13-23 wks gestation): 63-241 nmol/L This test was developed and its analytical performance characteristics have been determined by [facility]. It has not been cleared or approved by the FDA. This assay has been validated pursuant to the CLIA regulations and is used for clinical purposes. CREATINE KINASE, TOTAL Reviewed date:08/13/2024 11:08:37 AM Interpretation: Performing Lab:[facility], [facility], [address] [place] [address], [phone] Santy Salas M.D. Notes/Report: Received Date: [id number] NON-FASTING; NON-FASTING; NON-FASTING; NON-FASTING; NON-FAST CREATINE KINASE, TOTAL 178 29-143 U/L ALDOLASE Reviewed date:08/13/2024 11:08:37 AM Interpretation: Performing Lab:[facility], [address], [place], [phone] Suresh Arguello M.D.,PhD Notes/Report: Received Date: [id number] NON-FASTING; NON-FASTING; NON-FASTING; NON-FASTING; NON-FAST ALDOLASE 4.4 <=8.1 U/L HEPATIC FUNCTION PANEL Reviewed date:08/13/2024 11:08:37 AM Interpretation: Performing Lab:[facility], [address] [place] [address], [phone] Santy Salas M.D. Notes/Report: Received Date: [id number] NON-FASTING; NON-FASTING; NON-FASTING; NON-FASTING; NON-FAST PROTEIN, TOTAL 6.6 6.1-8.1 g/dL ALBUMIN 4.6 3.6-5.1 g/dL GLOBULIN 2.0 1.9-3.7 g/dL (calc) ALBUMIN/GLOBULIN RATIO 2.3 1.0-2.5 (calc) BILIRUBIN, TOTAL 0.4 0.2-1.2 mg/dL BILIRUBIN, DIRECT 0.1 < OR = 0.2 mg/dL BILIRUBIN, INDIRECT 0.3 0.2-1.2 mg/d L (calc) ALKALINE PHOSPHATASE 51 37-153 U/L AST 17 10-35 U/L ALT 18 6-29 U/L CREATININE Reviewed date:08/13/2024 11:08:37 AM Interpretation: Performing Lab:[facility], [address] [place] [address], [phone] Santy Salas M.D. Notes/Report: Received Date: NON-FASTING; NON-FASTING; NON-FASTING; NON-FASTING; NON-FAST CREATININE 1.08 0.50-1.03 mg/dL EGFR 61 > OR = 60 mL/min/1.73m2 SED RATE BY MODIFIED WESTERG DIANA Reviewed date:08/13/2024 11:08:37 AM Interpretation: Performing Lab:[facility], [facility], [address] [place] [address], [phone] Santy Salas M.D. Notes/Report: Received Date: NON-FASTING; NON-FASTING; NON-FASTING; NON-FASTING; NON-FAST SED RATE BY MODIFIED WESTERGREN 2 < OR = 30 mm/h HS-CRP Reviewed date:08/13/2024 11:08:37 AM Interpretation: Performing Lab:[facility], [facility], [address] [place] [address], [phone] Santy Salas M.D. Notes/Report: Received Date: NON-FASTING; NON-FASTING; NON-FASTING; NON-FASTING; NON-FAST HS CRP 0.6 Reference Range Optimal <1.0 Brijesh PS et al. Endocr Pract.2017;23(Suppl 2):1-87. For ages >17 Years: hs-CRP mg/L Risk According to AHA/CDC Guidelines <1.0 Lower relative cardiovascular risk. 1.0-3.0 Average relative cardiovascular risk. 3.1-10.0 Higher relative cardiovascular risk. Consider retesting in 1 to 2 weeks to exclude a benign transient elevation in the baseline CRP value secondary to infection or inflammation. >10.0 Persistent elevation, upon retesting, may be associated with infection and inflammation. Coleman TA, Peace [place], Corey RW, et al. Markers of inflammation and cardiovascular disease: application to clinical and public health practice: A statement for healthcare professionals from the Centers for Disease Control and Prevention and the [place] [employer]. Circulation 2003; 107(3): 499-511. Myositis 11 Antibody Panel Reviewed date:08/13/2024 11:08:37 AM Interpretation: Performing Lab:[facility], [facility],, [address] [place], [phone] Li Arriola MD,PhD,CYNDIE Notes/Report: Received Date: NON-FASTING; NON-FASTING; NON-FASTING; NON-FASTING; NON-FAST LOIDA-1 AB <11 <[address]-7 AB <11 <[address]-12 AB <11 <11 SI EJ AB <11 <11 SI OJ AB <11 <11 SI SRP AB <11 <11 SI CA-2 ALPHA AB <11 <11 SI CA-2 BETA AB 13 <11 SI MDA5 AB <11 <11 SI TIF1 GAMMA AB <11 <11 SI NXP-2 AB <11 <11 SI Myositis-specific autoantibodies (MSAs) are highly selective, generally mutually exclusive, and are associated with a particular clinical phenotype within the myositis spectrum. Anti-synthetase syndrome is associated with MSAs to cytoplasmic enzymes and tRNAs involved with the synthesis of proteins. Target antigens include Loida-1, PL-7, PL-12, EJ, and OJ. Clinically, anti-synthetase syndrome is primarily characterized by myositis and lung inflammation. Dermatomyositis is associated with MSAs to SRP, Mi-2A, Mi-2B, and clinically this disease is characterized by myositis in association with a rash. Additionally, MSAs to MDA5 ([id number]) have been identified in patients with clinically amyopathic dermatomyositis and rapidly progressive lung disease. MSAs to TIF1-y and NXP-2, collectively, are seen in >40% of children with dermatomyositis and appear to identify those with more severe disease. Finally, TIF1-y Ab has been reported in adults with dermatomyositis and is associated with malignancy, but not in children. SRP Ab has also been associated with necrotizing myopathy, a disease with unique histological features and an aggressive clinical course. This test was developed and its analytical performance characteristics have been determined by [facility]. It has not been cleared or approved by the FDA. This assay has been validated pursuant to the CLIA regulations and is used for clinical purposes. Reason For Referral No Information Medications Medication SIG (Take, Route, Frequency, Duration) Notes Start Date End Date Status traZODone HCl 150 MG 1 tablet at bedtime Orally Once a day Active Vitamin D 25 MCG (1000 UT) 1 tablet Oral ly Once a day Active Aspirin 81 MG 1 tablet Orally Once a day Active Metoprolol Succinate 50 MG 1 capsule Ora lly Once a day Active Lisinopril 10 MG 1 tablet Orally Once a day Active methylPREDNISolone 4 MG TAKE DIRECTED ON PACKAGE Oral for 6 Days Not-Taking dexAMETHasone 4 MG 1 TABLET THREE TIMES A DAY WITH FOOD Oral for 3 Days Not-Taking Gabapentin 300 MG 1 capsule Orally Onc e a day Active Crestor 40 MG 1 tablet Orally Once a day Active Naltrexone - 4.5 mg oral daily days 07/08/2024 Active Medrol 4 MG 6 TABS FIRST DAY, TAPER BY 1 TAB A DAY UNTIL OFF Orally Once a day for 6 days 08/19/2024 Active Problems Problem Type SNOMED Code ICD Code Onset Dates Problem Status W/U Status Risk Notes Problem Solitary sacroiliitis (973024095) Sacroiliitis, not elsewhere classified (M46.1) Active confirmed Problem Cervical spondylosis without myelopathy (801996142) Spondylosis without myelopathy or radiculopathy, cervical region (M47.812) Active confirmed Problem Lumbosacral spondylosis without myelopathy (disorder) (83976567) Spondylosis without myelopathy or radiculopathy, lumbosacral region (M47.817) Active confirmed Problem Perimenopausal disorder (149553861) Other specified menopausal and perimenopausal disorders (N95.8) Active confirmed Problem Arthritis of spine (disorder) (428132448) Other specified inflammatory spondylopathies , 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) Active confirmed Seronegative Spondyloarthriti s ( inflammatory back pain that is better with moving, not relieved by rest, prolonged morning stiffness 2 hours, pain in large joints:pain 7-10/10 RT hip, lower back, SI joints, h/o enthesitis (plantar fasciitis,trigge r finger, costochondritis) Problem Gastroesophageal reflux disease (218703723) GERD (gastroesophage al reflux disease) (K21.9) Active confirmed Problem Dry eyes (349405050) Dry eyes (H04.123) Active confirmed Problem Raynaud phenomenon (630780022) Raynaud phenomenon (I73.00) Active confirmed Vital Signs Heart Rate 54 /min 08/19/2024 Temperature 35.1 C 08/19/2024 Blood pressure diastolic 82 mm Hg 08/19/2024 Height 165.8 cm 08/19/2024 Blood pressure systolic 132 mm Hg 08/19/2024 Weight 73.8 kg 06/04/2024 BMI 26.84 kg/m2 06/04/2024 Encounters Encounter Location Date Provider Diagnosis [facility] [address] [id number] 06/04/2024 Briseida Cruz MARTIN positive R76.8 ; Disorder of bone density and structure, unspecified M85.9 ; Raynaud phenomenon I73.00 ; GERD (gastroesophageal reflux disease) K21.9 ; Fatigue R53.83 ; Spondylosis without myelopathy or radiculopathy, cervical region M47.812 ; Spondylosis without myelopathy or radiculopathy, lumbosacral region M47.817 ; Trochanteric bursitis, left hip M70.62 ; Other specified menopausal and perimenopausal disorders N95.8 ; Abnormal results of kidney function studies R94.4 and Dry eyes H04.123 [facility] [address] [id number] 07/08/2024 Briseida Cruz MARTIN positive R76.8 ; Abnormal results of kidney function studies R94.4 ; Disorder of bone density and structure, unspecified M85.9 ; Raynaud phenomenon I73.00 ; GERD (gastroesophageal reflux disease) K21.9 ; Fatigue R53.83 ; Sacroiliitis, not elsewhere classified M46.1 and Effusion, right hand M25.441 [facility] [address] [id number] 08/19/2024 Briseida Cruz MARTIN positive R76.8 ; Disorder of bone density and structure, unspecified M85.9 ; Raynaud phenomenon I73.00 ; Fatigue R53.83 ; Sacroiliitis, not elsewhere classified M46.1 ; Abnormal results of kidney function studies R94.4 and Other specified inflammatory spondylopathies, site unspecified M46.80 [facility] [address] [id number] 05/27/2024 RAMU COLIN [facility] [address] [id number] 07/10/2024 RAMU COLIN [facility] [place] [facility] [address] [facility], [place] [id number] 08/03/2024 Briseida Cruz Assessments Encounter Date Diagnosis (ICD Code) Assessment Notes Treatment Notes Treatment Clinical Notes 06/04/2024 Disorder of bone density and structure, unspecified (ICD-10 - M85.9) 06/04/2024 MARTIN positive (ICD-10 - R76.8) 53yo female w/PMH +MARTIN 1:320 (2021 [facility]), IBS-C, Hypertension, Fibromyalgia and Costochondritis presents with c/o worsening polyarthralgia ( severeFatigue 03/18, AMStiff 2hrs, pain 7-8 neck, back, RT hip, knees; and new onset left hip pain. Pt is a poor historian, difficult to recall medical history and treatment information. Reports Raynaud's Phenomenon, dry eye, buttock pain, plantar fasciitis, trigger finger of her Rt middle finger off/on x1 year and Autoimmune FHx lupus- paternal GM. Exam on positive for cervical and lumbar vertebral tenderness, left hip trochanter tenderness and (B) Heberden and Alvarez's' nodes. Will start autoimmune work up and monitor. DEXA today XRay of C-spine, L-spine and Left hip today CXR- new onset inflammatory polyarthritis, rule out lesion.; cc PMD. Fasting Labs Now RTC in 4-5 weeksBriseida Cruz [employer]. Pt reviewed by Dr. Colin 07/08/2024 Abnormal results of kidney function studies (ICD-10 - R94.4) -As of 07/08/2024 labs on 06/11/2024 show Creat 1.20 (H), EGFR 54 (L). Has been increasing since 12/2023. Pt advised to f/u with PCP for further evaluation. 07/08/2024 MARTIN positive (ICD-10 - R76.8) -As 07/08/2024 labs on 06/11/2024 show Gamma Rowena 0.7 (L), CALVIN <5 (L), (T) CK 197 (H), Creat 1.20 (H), EGFR 54 (L). All autoimmune serology normal. Will evaluate elevated CK levels further. Given the amount of joint involvement. 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 Will add LDN as pt Creat level elevated and needs further work up. 53yo female w/PMH +MARTIN 1:320 (2021 [facility]), IBS-C, Hypertension, Fibromyalgia and Costochondritis presents with c/o worsening polyarthralgia (severe Fatigue /10, AMStiff 2hrs, pain 7-8/10 neck, back, RT hip, knees; and new onset left hip pain. Pt is a poor historian, difficult to recall medical history and treatment information. Reports Raynaud's Phenomenon, dry eye, buttock pain, plantar fasciitis, trigger finger of her Rt middle finger off/on x1 year and Autoimmune FHx lupus- paternal GM. Exam on positive for cervical and lumbar vertebral tenderness, left hip trochanter tenderness and (B) Heberden and Alvarez's' nodes. Will start autoimmune work up and monitor. Fasting labs 1 week before next appt- avoid strenous activity 2-3 days priorFollow up with PCP re ongoing elevated Creat levelsPlease have XR of Rt knee faxed to this officeXRay of (B) SIJ and (Rt) hand todayCXR- new onset inflammatory polyarthritis, rule out lesion.; cc PMD.RTC in 6 weeksDajabari Cruz [employer]. Pt reviewed by Dr. Quezada Naltrexone 1.5 mg once a day x 2 weeks, 3 mg once a day x 2 weeks, then 4.5 mg a day. The prescription for Low Dose Naltrexone is sent to the compounding pharmacy ([facility] (ph: [phone]) or [facility] (ph: [phone])) 08/19/2024 Disorder of bone density and structure, unspecified (ICD-10 - M85.9) 08/19/2024 MARTIN positive (ICD-10 - R76.8) -As of 08/19/2024 she had ongoing joint pain despite LDN. Pt now on LDN 4.5 mg maintenance dose. Will resume LDN as pt to have foot surgery soon. Will consider adding Methotrexate once cleared by surgeon. Repeat MARTIN neg . Negative MARTIN subserologies:,neg [id number] CHIEF- Scl 70 aB, neg Centromere ab. Negative Antiphospholipid antibody panel (neg aCL, [id number], neg LAC). No convincing evidence of autoimmune inflammatory Connective Tissue Disease is seen at present. -As 07/08/2024 labs on 06/11/2024 show Gamma Rowena 0.7 (L), CALVIN <5 (L), (T) CK 197 (H), Creat 1.20 (H), EGFR 54 (L). All autoimmune serology normal. Will evaluate elevated CK levels further. Given the amount of joint involvement. 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 Will add LDN as pt Creat level elevated and needs further work up. 53yo female w/PMH +MARTIN 1:320 (2021 [facility]), IBS-C, Hypertension, Fibromyalgia and Costochondritis presents with c/o worsening polyarthralgia (severe Fatigue 7/10, AMStiff 2hrs, pain 7-8/10 neck, back, RT hip, knees; and new onset left hip pain. Pt is a poor historian, difficult to recall medical history and treatment information. Reports Raynaud's Phenomenon, dry eye, buttock pain, plantar fasciitis, trigger finger of her Rt middle finger off/on x1 year and Autoimmune FHx lupus - paternal GM. Exam on positive for cervical and lumbar vertebral tenderness, left hip trochanter tenderness and (B) Heberden and Alvarez's' nodes. Fasting labs 1 week before next appt- avoid strenous activity 2-3 days priorMay take Medrol Dose bridgett if needed for joint flareFollow up with PCP re ongoing elevated Creat levelsConsider adding MTX, CXR normal, if Creat level normalizes and cleared by surgeonPlease have CXR- faxed to this officeRTC in 8 weeksBriseida Cruz [employer]. Pt reviewed by Dr. Cardenas Naltrexone 4.5 mg a day. The prescription for Low Dose Naltrexone is sent to the compounding pharmacy ([facility] (ph: [phone]) or [facility] (ph: [phone]) RAMU COLIN 08/19/2024 05:20:19 PM EST > 06/04/2024 Raynaud phenomenon (ICD-10 - I73.00) Raynau'd phenomenon - try Nutrasal Magnesium L-arginine cream 2-3 x a day to minimize RP 07/08/2024 Disorder of bone density and structure, unspecified (ICD-10 - M85.9) 08/19/2024 Raynaud phenomenon (ICD-10 - I73.00) 06/04/2024 GERD (gastroesophageal reflux disease) (ICD-10 - K21.9) 07/08/2024 Raynaud phenomenon (ICD-10 - I73.00) 08/19/2024 Fatigue (ICD-10 - R53.83) 06/04/2024 Fatigue (ICD-10 - R53.83) 07/08/2024 GERD (gastroesophageal reflux disease) (ICD-10 - K21.9) 08/19/2024 Sacroiliitis, not elsewhere classified (ICD-10 - M46.1) 06/04/2024 Spondylosis without myelopathy or radiculopathy, cervical region (ICD-10 - M47.812) 07/08/2024 Fatigue (ICD-10 - R53.83) 08/19/2024 Abnormal results of kidney function studies (ICD-10 - R94.4) 06/04/2024 Spondylosis without myelopathy or radiculopathy, lumbosacral region (ICD-10 - M47.817) 07/08/2024 Sacroiliitis, not elsewhere classified (ICD-10 - M46.1) 08/19/2024 Other specified inflammatory spondylopathies, site unspecified (ICD-10 - M46.80) Seronegative Spondyloarthritis ( inflammatory back pain that is better with moving, not relieved by rest, prolonged morning stiffness 2 hours, pain in large joints:pain 7-10/10 RT hip, lower back, SI joints, h/o enthesitis (plantar fasciitis,trigger finger, costochondritis) 06/04/2024 Trochanteric bursitis, left hip (ICD-10 - M70.62) 07/08/2024 Effusion, right hand (ICD-10 - M25.441) 06/04/2024 Other specified menopausal and perimenopausal disorders (ICD-10 - N95.8) 06/04/2024 Abnormal results of kidney function studies (ICD-10 - R94.4) 06/04/2024 Dry eyes (ICD-10 - H04.123) Plan Of Treatment Pending Test Test Name Order Date Chest X-ray PA and lateral 06/04/2024 CREATINE KINASE ISOENZYMES W/O TOTAL LYME AB SCREEN 06/04/2024 HEPATIC FUNCTION PANEL 08/19/2024 CREATININE 08/19/2024 CBC (INCLUDES DIFF/PLT) 08/19/2024 SED RATE BY MODIFIED WESTERGREN 08/19/20 Hep C Ab w Rfx to HCV RNA 06/04/2024 HS-CRP 08/19/2024 X ray : Hip, left 06/04/2024 DEXA Hip and Spine 06/04/2024 X ray : Cervical Spine Flex/Ext 06/04/20 X ray : Lumbosacral Spine 4v 06/04/2024 X ray : Hand, right 07/08/2024 X ray : Sacroliliac Joints 07/08/2024 Next Appt Details Provider Name:RAMU COLIN, 11/12/2024 11:00:00 AM, [address] [place] [address], [phone], Insurance Providers Payer Name Payer Address Payer Phone Subscriber Number Group Number Insured Name Patient Relationship to Insured Coverage Start Date Coverage End Date FERNANDO KOWALSKI [address] [place], [place] [id number] Fifi Carter Self - patient is the insured Medical (General) History Medical History History ICD Code arthritis: Yes Hypertention: Yes Fibromyalgia: YES Migraine Headaches w/o aura: Yes Costochondritis: Yes Positive MARTIN 1:320 sp 2021: YES Surgical History Surgery Date(Month/Year) Partial Hysterectomy 2008 Breast reduction 11.08.2021
--- OUTSIDE RECORDS SUMMARY | 2024-10-30 12:46 | XMS_ITS ---
Author Organization [facility] Address [address] [place] [id number] Care Team Providers Care Director Government Name Role Phone Sebas Cutler MD Primary Care Provider Unavailab RAMU Escalante Unavailable [phone] Briseida Cruz Unavailable [phone] Allergies Allergen (clinical drug ingredient) Drug/Non Drug Allergy documented on EMR Reaction Allergy Type Onset Date Status tramadol Ultram Unknown Drug Allergy Active REASON FOR VISIT PT last seen PMD Sebas Cutler MD 07/2024, Fatigue 02/16 , AMS 2hrs+, pain 7- 06/18 RT hip, lower back, SI joints, Lab 08/04/2024, had two falls since last visit Medications Medication SIG (Take, Route, Frequency, Duration) Notes Start Date End Date Status Vitamin D 25 MCG (1000 UT) 1 tablet Oral ly Once a day Active Aspirin 81 MG 1 tablet Orally Once a day Active Metoprolol Succinate 50 MG 1 capsule Ora lly Once a day Active Lisinopril 10 MG 1 tablet Orally Once a day Active Naltrexone - 4.5 mg oral daily 07/08/2024 Active traZODone HCl 150 MG 1 tablet at bedtime Orally Once a day Active dexAMETHasone 4 MG 1 TABLET THREE TIMES A DAY WITH FOOD Oral for 3 Days Not-Taking Gabapentin 300 MG 1 capsule Orally Onc e a day Active Crestor 40 MG 1 tablet Orally Once a day Active methylPREDNISolone 4 MG TAKE DIRECTED ON PACKAGE Oral for 6 Days Not-Taking Medrol 4 MG 6 TABS FIRST DAY, TAPER BY 1 TAB A DAY UNTIL OFF Orally Once a day for 6 days 08/19/2024 Active Problems Problem Type SNOMED Code ICD Code Onset Dates Problem Status W/U Status Risk Notes Problem Arthritis of spine (disorder) (317515664) Other specified inflammatory spondylopathie s, 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) Active confirmed Seronegative Spondyloarthritis ( inflammatory back pain that is better with moving, not relieved by rest, prolonged morning stiffness 2 hours, pain in large joints:pain 7-06/18 RT hip, lower back, SI joints, h/o enthesitis (plantar fasciitis,trigger finger, costochondritis) Vital Signs Temperature 35.1 C 08/19/2024 Blood pressure systolic 132 mm Hg 08/19/20 24 Blood pressure diastolic 82 mm Hg 024 Heart Rate 54 /min 08/19/2024 Height 165.8 cm 08/19/2024 Encounters Encounter Location Date Provider Diagnosis [facility] [address] [id number] 08/19/2024 Briseida Anthony MARTIN positive R76.8 ; Disorder of bone density and structure, unspecified M85.9 ; Raynaud phenomenon I73.00 ; Fatigue R53.83 ; Sacroiliitis, not elsewhere classified M46.1 ; Abnormal results of kidney function studies R94.4 and Other specified inflammatory spondylopathies, site unspecified M46.80 Assessments Encounter Date Diagnosis (ICD Code) Assessment Notes Treatment Notes Treatment Clinical Notes 08/19/2024 MARTIN positive (ICD-10 - R76.8) -As of 08/19/2024 she had ongoing joint pain despite LDN. Pt now on LDN 4.5 mg maintenance dose. Will resume LDN as pt to have foot surgery soon. Will consider adding Methotrexate once cleared by surgeon. Repeat MARTIN neg . Negative MARTIN subserologies:,neg apBUW-EYS-QEA-SM-CARPENTER ROUGH-S cl 70 aB, neg Centromere ab. Negative Antiphospholipid antibody panel (neg aCL, [id number], neg LAC). No convincing evidence of autoimmune [...] up. 53yo female w/PMH +MARTIN 1:320 (2021 [facility]), IBS-C, Hypertension, Fibromyalgia and Costochondritis presents [...] to this officeRTC in 8 weeksBriseida Cruz PRODUCT COMMUNICATIONS MANAGER-. Pt reviewed by Dr. Cardenas Naltrexone 4.5 mg a day. The prescription for Low Dose Naltrexone is sent to the compounding pharmacy ([facility] (ph: [phone]) or [facility] (ph: [phone]) RAMU COLIN 08/19/2024 05:20:19 PM EST > 08/19/2024 Disorder of bone density and structure, unspecified (ICD-10 - M85.9) 08/19/2024 Raynaud phenomenon (ICD-10 - I73.00) 08/19/2024 Fatigue (ICD-10 - R53.83) 08/19/2024 Sacroiliitis, not elsewhere classified (ICD-10 - M46.1) 08/19/2024 Abnormal results of kidney function studies (ICD-10 - R94.4) 08/19/2024 Other specified inflammatory spondylopathies, site unspecified (ICD-10 - M46.80) Seronegative Spondyloarthritis ( inflammatory back pain that is better with moving, not relieved by rest, prolonged morning stiffness 2 hours, pain in large joints:pain 7-06/18 RT hip, lower back, SI joints, h/o enthesitis (plantar fasciitis,trigger finger, costochondritis) Plan Of Treatment Medication Medication Name Sig Start Date Stop Date Notes Naltrexone - 4.5 mg oral daily for 90 days 07/08/2024 Medrol 4 MG 6 TABS FIRST DAY, TA PER BY 1 TAB A DAY UNTIL OFF Orally Once a day for 6 days 08/19/2024 Treatment Notes Assessment Notes MARTIN positive Fasting labs 1 week before next appt- avoid strenous activity 2-3 days priorMay take Medrol Dose bridgett if needed for joint flareFollow up with PCP re ongoing elevated Creat levelsConsider adding MTX, CXR normal, if Creat level normalizes and cleared by surgeonPlease have CXR- faxed to this officeRTC in 8 weeksBriseida Cruz PRODUCT COMMUNICATIONS MANAGER-BC. Pt reviewed by Dr. ColinConraniue Naltrexone 4.5 mg a day. The prescription for Low Dose Naltrexone is sent to the compounding pharmacy ([facility] (ph: [phone]) or [facility] (ph: [phone]) RAMU COLIN 08/19/2024 05:20:19 PM EST > Pending Test Test Name Order Date HEPATIC FUNCTION PANEL 08/19/2024 CREATININE 08/19/2024 CBC (INCLUDES DIFF/PLT) 08/19/2024 SED RATE BY MODIFIED WESTERGREN 08/19/20 24 HS-CRP 08/19/2024 Next Appt Details Follow Up: 3 Months, Reason: Provider Name:RAMU COLIN, 11/12/2024 11:00:00 AM, [address] [place] [address], [phone], Progress Notes * Examination Category Sub-Category Detail Notes Rheumatology CERVICAL SPINES: + vertebral ten derness, normal range of motion without discomfort, no paravertebral muscle spasm (B) LUMBAR SPINES: + vertebral tenderne ss, straight leg raise unremarkable, normal forward and lateral bending, normal extension with pain SHOULDERS: normal range of suze on w/o pain, No proximal muscle tenderness, (B)No proximal muscle weakness ELBOWS: no swelling, normal range of motion WRISTS: (B)wrist no synoviti s, normal range of motion without discomfort, negative Tinel's sign HANDS: (B) No synovitis MCP Js, (B) tenderness Rt III MCP, PIPJ, (B) Heberden's and Alvarez's nodes, normal range of motion, no tenderness of the flexor tendons HIPS: (B) normal range of motion, (Lt) + trochanteric tenderness, (B)no inguinal tenderness, (B)No proximal muscle tenderness , (B)No proximal muscle weakness KNEES: (B)no tenderness, no effusion, , normal alignment and range of motion ANKLES: (B)no tenderness, no swelling, ankle joint tenderness, swelling, normal range of motion, no (B)plantar fascia tenderness at the insertion into calcaneal bone, no (B)Achilles enthesis tenderness FEET: (B) full ROM, (B) MT PJ tenderness without synovitis THORACIC SPINE: no vertebral tendern ess, full ROM SACROILIAC: no tenderness, sacro iliac stressing test negative, (B) Suresh's test negative FIBROMYALGIA TENDER POINTS: No diffuse t construction laborer point tenderness allergy GENERAL APPEARANCE: in no acute distress, well developed, well nourished HEAD: normocephalic, atrau matic, Thyroid not palpable, not tender, no temporal artery tenderness (B), , temporal artery pulse 2+(B), parotid glands not enlarged, no maxillary sinus tenderness (B) EYES: pupils equal, round, reactive to light and accommodation EARS: normal THROAT: clear NECK/THYROID: no cervical lymphade nopathy, no palpable thyroid HEART: no costochondral ten derness, regular rate and rhythm, S1, S2 normal LUNGS: clear to auscultatio n bilaterally ABDOMEN: normal, bowel sounds present, no hepatosplenomegaly, no masses palpable, no rebound tenderness, soft, nontender, nondistended NEUROLOGIC: nonfocal, motor stre ngth normal upper and lower extremities, sensory exam intact SKIN: no other suspicious lesions, warm and dry, No telangiectasia, no livedo reticularis , normal skin elasticity, EXTREMITIES: no clubbing, cyanosi s, or edema, no nail pitting LYMPH NODES: no lymphadenopathy ORAL CAVITY: mucosa moist, no les ions History and Physical Notes * HPI (History of Present Illness) Category Sub-Category Detail Notes Rheumatology, Other Demographics 53yo F w/PMH +MARTIN 1:320 (2021 [facility]), IBS- C, Hypertension, Fibromyalgia and Costochondritis; + h/o Dry eye + h/o Back pain preciptated by trauma+ h/o Buttock pain + h/o plantar fasciitis+ h/o R III Trigger finger 2022; off/on+ Autoimmune FHx lupus- pateranl GM The patient presents with th e following symptoms 08/19/2024 PT last seen PMD Sebas Cutler MD 07/2024, Fatigue 02/16 , AMS 2hrs+, pain 7-06/18 RT hip, lower back, SI joints, Lab 08/04/2024, had two falls since last visit. MARTIN+- Started on LDN since last visit. Now taking LDN 4.5 mg QHS. Has not noticed much improvement. Has not spoke with her PCP re elevated Creat level. Notes FHX of CKD, father was on dialysis. Has increased her water intake since last visit. 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 Denies swollen joints today. -Reviewed labs 08/04/2024: Creat 1.08 (h), CK 178 (h), NC- 2 Beta AB 13 (H); HS CRP, Myositis Panel KRUPA-1 AB, PL-7 AB, PL-12 AB, EJ AB, OJ AB, SRP AB, NC-2 Alpha AB, NC-2 Alpha AB MDAS AB, T1F1, Gamma AB, NXP-2 AB, Methylmalonic Acid, Aldolase, Hepatic, Sed Rate, EGFR-OK -Reviewed DEXA 05/15/2024: Normal -Reviewed XR (b) SIJ 07/08/2024: possible sacroillitis -Reviewed XR (Rt) Hand 07/08/2024: Rt small bulky osteophyte 07/08/2024 PT last seen PMD 04/2024, Fatigue 04/18 , AMS 1 hr, pain 05/19 neck, lower back, RT knee, RT hand, Lab 06/11/2024, CXR none. MARTIN+- has ongoing neck, lower back, RT knee, RT hand pain. Applies Icey hot or CBD cream with some effect. Has not been taking Celebrex per PCP d/t insurance. Unsure if Celebrex was helpful. Denies swollen joints today. Notes h/o kidney stones in the past. Had to have surgey for this in the past. Last episode 10yrs ago. Pt drinks plenty of water daily. Denies changes in urine. - Reviewed labs 06/11/2024: Gamma Rowena 0.7 (L), CALVIN < 5 (L), (T) CK 197 (H), Creat 1.20 (H), EGFR 54 (L); PTH/Calcium, LAC, Vit B-12 402, Hep C, Celiac, MARTIN Analyzer, Lyme, TSH, Immunofixation, UA, ANCA, HLA B 27, Vit D 55, CRP, Uric Acid 5.1, Thyroglobulin AB, Iron. Hepatic, Hep B Core, Hep B SA, CBC, Sed Rate, Ferritin, HS CRP-OK -Reviewed DEXA 05/15/2024: Normal -Reviewed XR C-spine 06/04/2024: DJD, DDD, C5-C6, C6-C7 moderate (~5%) grade 1 osteophyte -Reviewed XR L-spine 06/04/2024: mild DJD, DDD -Reviewed XR Lt Hip 06/04/2024: small area of calcification @ the outer acetabulim brim Consult 06/04/2024 A 53yo female with PMH +MARTIN 1:320 (2021 [facility]), IBS-C, Hypertension, Fibromyalgia and Costochondritis presents for evaluation. Reports onset of low back pain for the past 20yrs. 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 She completed imaging and physical therapy at the time. Pt told her symptoms were muscle related. Has new onset left hip, LLE radicular pain to her knee. Denies loss of bowel/bladder control. She was evaluated by her PCP, she was given a short course steroid taper with some effect. Has had neck pain over the past 2-3 years. Has off/on numbness in her left > right hand. Reports new onset (b) knee pain over the past year. Has tried Motrin in the past with minimal effect. She was diagnosed with Fibromyalgia 20-30yrs ago per Neuro MD Emmanuel Álvarez in [place]. She has tried Cymbalta in the past with no effect. She started seeing a Chief Executive in [place] 4yrs ago David Louis in [facility]. This is provider is now in [place]. She transferred to another provider tommy Vasquez with practice. See's GI annually for IBC-C. Has had fatigue over the past 2 yrs, has been worse of ther past few months. Notes h/o off/on Creat elevation. Denies h/o CKD. States her PCP is monitoring it. NO Recurrent feversNO Photosensitive skin rashesNO ALOPECIAYES Raynaud's Phenomenon No fingertip ulcer No toe tip ulcerYES Dry eye, NO use of artificial tearsNO Dry mouth; NO Need to sip on water while swallowing a dry crackerNO Mouth ulcersNO GENITAL ULCERS EVERNO Ever skin biopsyYES Swollen painful jointsNO Painful but not swollen joints YES AMS 30 or more minutes NO H/o pericarditisNO H/o Pleurisy or Pleural effusionsNO DRY COUGHNO FREQUENT SINUSITISNO H/o low WBCNO H/o anemiaNO H/o low platelet countNO Ever deep vein thrombosis NO arterial thrombosis NO stroke NO AMINO H/o Obstetric problems: 2 pregnancies, 2 livingNO premature delivery before 34 week.NO spontaneous loss after 10 th week.NO recurrent spontaneous 1st trimester 3 or more lossesNO Eclampsia, NO preeclampsia, NO HELLP syndrome NO atraumatic onset of back painNO Back pain better with movement AND not relieved by restYES Back pain preciptated by traumaYES Buttock pain NO h/o tennis elbowYES h/o plantar fasciitisNO h/o frozen shoulderYES h/o Trigger finger- Rt middle finger 1 year ago; off/onNO h/o uveitis, iritisYES GI problems -YES IBS-C No food allergiesNO personal h/o Inflammatory Bowel DiseaseNO h/o celiac Sprue NO Autoimmune FHx - no psoriasis, no Psoriatic ArthritisNO Autoimmune FHx : NO FHx Crohn's colitis No FHx Ulcerative Colitis No FHx Celiac SprueNO Autoimmune FHx of NO Rheumatoid Arthritis YES FHx lupus- pateranl GM No FHX Multiple Sclerosis Medications Include *DEXAMETHASONE 4 MG TID X 3 D in - Medrol DosePack Laboratory results include Labs 04/14/20 24: BUN 26 (H), Creat 1.18 (H), EGFR 55 (L); LFTs-OK Labs 01/04/2024: Creat 1.16 (h), EGFR 56 (L); LFTs, TSH, CBC, Vit B-12 450, Vit D 27, Lyme, Sed Rate-OK Diagnostic Imaging Includes XR Lt Ribs 0 04/14/2024: Normal
--- OUTSIDE RECORDS SUMMARY | 2024-10-30 12:46 | XMS_ITS | Encounter Summary ---
Author Organization [facility] [place] [address] Care Team Providers Care Heel Trimmer Name Role Phone Vinicio Capellan Primary Care Provider [phone] Encounter Details Date Type Department Care Team [...] views INDICATION: MARTIN positive Bases appear clear. ??No infiltrates or consolidations. ??Heart size is normal without failure. ??Incidental pectus carinatum of the sternum. IMPRESSION: No infiltrate seen Report reviewed and signed by : Dr. Syed Pierre on 07/08/2024 2:19 PM. Workstation Name - [id number] Procedure Note Syed Pierre MD - 07/11/2024 Exam: X-ray chest 2 views INDICATION: MARTIN positive Bases appear clear. No infiltrates or consolidations. Heart size isnormal without failure. Incidental pectus carinatum of the sternum. IMPRESSION: No infiltrate seen Report reviewed and signed by : Dr. Syed Pierre on 07/08/2024 2:19 PM.Workstation Name - [email or web address] us Briseida Cruz PRODUCT MARKETING ANALYST IMG XR PROCEDURES Final Resul t documented in this encounter Visit Diagnoses Diagnosis Other specified abnormal immunological findings in serum documented in this encounter Care Teams Heel Trimmer Relationship Specialty Start Date End Date Vinicio Capellan [address] [place] [id number] PCP - General Internal Medicine 09/14/21 documented as of this encounter
--- OUTSIDE RECORDS SUMMARY | 2024-10-30 12:46 | XMS_ITS | Clinical Summary ---
Author Organization [facility] [place] [address] Phone Care Team Providers Care Biscuit Packer Name Role Phone Vinicio Capellan Primary Care Provider [phone] Medications rosuvastatin (CRESTOR) 40 mg tablet TAKE 1 TABLET BY MOUTH EVERYDAY AT BEDTIME 90 tablet 2 09/14/2024 Active Immunizations Name Administration Dates Next Due [facility] SARS-CoV-2 COVID-19, mRNA, LNP-S, preservative free 12/24/2020,12/03/2020 Social History Tobacco Use Types Packs/Day Years Used Date Smoking Tobacco: Never Smokeless Tobacco: Never Alcohol Use Standard Drinks/Week Comments Not Currently 0 (1 standard drink = 0.6 oz pur e alcohol) Comments Unknown Sex and Gender Information Value Date Recorded Sex Assigned at Not on file Legal Sex Female 10:48 AM EST Gender Identity Not on file Sexual Orientation Not on file Obstetrics History Last Filed Vital Signs Vital Sign Reading Time Taken Comments Blood Pressure 106/70 02/05/2024 9:55 AM EDT Pulse 48 02/05/2024 9:55 AM EDT Temperature - - Respiratory Rate - - Oxygen Saturation - - Inhaled Oxygen Concentration - - Weight 74.8 kg (165 lb) 02/05/2024 9:55 AM EDT Height 165.1 cm (5' 5 ) 02/05/2024 9:55 AM EDT Body Mass Index 27.46 02/05/2024 9:55 AM EDT Plan of Treatment Health Maintenance Due Date Last Done Comments Breast Cancer Screening 1969 DTaP,Tdap,and Td Vaccines (1 - Tdap) 1988 Hepatitis B Vaccines (1 of 3 - 19+ 3-dose series) 1988 Cervical Cancer Screening: Pap Smear 1990 Pneumococcal Vaccine: 50+ Years (1 of 1 - PCV) 2019 Zoster Vaccines (1 of 2) 2019 Cholesterol Screening (Lipid Panel) 08/13/2022 Colorectal Cancer Screening: Colonoscopy 08/13/2022 Depression Screening 08/13/2022 HIV Screening 08/13/2022 Hepatitis C Screening 08/13/2022 Social Influencers of Health Screening 08/13/2022 Hypertension/CHF/CAD Annual BMP Blood Test 04/03/2024 07/19/2022, 04/06/2022, 11/15/2020, Additional history exists COVID-19 Vaccine ( season) 2024 07/04/2021, 12/24/2020, 12/03/2020 Influenza Vaccine (#1) 2024 HIB Vaccines Aged Out No longer eligi ble based on patient's age to complete this topic HPV Vaccines Aged Out No longer eligi ble based on patient's age to complete this topic Hepatitis A Vaccines Aged Out No long er eligible based on patient's age to complete this topic IPV Vaccines Aged Out No longer eligi ble based on patient's age to complete this topic MMR Vaccines Aged Out No longer eligi ble based on patient's age to complete this topic Meningococcal ACWY Vaccine Aged Out N o longer eligible based on patient's age to complete this topic Meningococcal B Vacine Aged Out No lo nger eligible based on patient's age to complete this topic Pneumococcal Vaccine: Pediatrics (0 to 5 Years) and At-Risk Patients (6 to 64 Years) Aged Out No longer eligible based on patient's age to complete this topic RSV Immunization Patients Under 20 months Aged Out No longer eligible based on patient's age to complete this topic Varicella Vaccines Aged Out No longer eligible based on patient's age to complete this topic Care Teams Biscuit Packer Relationship Specialty Start Date End Date Vinicio Capellan [address] [place] [id number] PCP - General Internal Medicine 09/14/21
--- OUTSIDE RECORDS SUMMARY | 2024-10-30 12:46 | XMS_ITS | Clinical Summary ---
Author Organization [facility] Address [address] [place] [address] Care Team Providers Care Potato Grader Name Role Phone Sebas Cutler MD Primary Care Provider [phone] Sebas Cutler MD Unavailable Allergies Active Allergy Reactions Criticality Noted Date Comments Doxycycline Nausea And Vomiting 08/21/2019 Tramadol Other (See Comments) 03/22/2017 Pt stated she does not feel well Pt stated she does not feel well Medications Medication Sig Dispensed Refills Start Date End Date Status pregabalin (LYRICA) 150 MG capsule Take 150 mg by mouth nightly. 11/15/2020 Active traZODone (DESYREL) 50 MG tablet Take 50 mg by mouth. Active rosuvastatin (CRESTOR) 10 MG tablet Take 10 mg by mouth daily. Active metoPROLOL SUCCINATE (TOPROL-XL) 50 MG 24 hr tablet Take 50 mg by mouth daily. Active prucalopride succinate (Motegrity) 2 MG tablet Take 2 mg by mouth daily. Active lisinopril-hydrochlo rothiazide (PRINZIDE,ZESTORETIC ) 10-12.5 MG per tablet Take 1 tablet by mouth daily. Active fluticasone (FloNASE) 50 mcg/spray nasal spray 1 spray into each nostril daily. Active proMETHAZINE-dextrom ethorphan (proMETHAZINE-DM) 6.25-15 MG/5ML syrup Take by mouth every 4 (four) hours as needed for cough. Active cephalexin (KEFLEX) 500 MG capsuleIndications:S /P bilateral breast reduction Take 1 capsule (500 mg total) by mouth 3 (three) times a day. 21 capsule 11/07/2021 Active oxyCODONE-acetaminop hen (PERCOCET) 5-325 mg per tabletIndications:S/ P bilateral breast reduction Take 1 tablet by mouth every 4 (four) hours as needed for severe pain. Max Daily Amount: 6 tablets 30 tablet 11/07/2021 Active Immunizations Name Administration Dates Next Due Covid-19 MRNA Vaccine - Pfizer 12+ (Purple Cap) 12/24/2020,12/03/2020 Social History Tobacco Use Types Packs/Day Years Used Date Smoking Tobacco: Never Smokeless Tobacco: Never Alcohol Use Standard Drinks/Week Comments Not Currently 0 (1 standard drink = 0.6 oz pur e alcohol) Sex and Gender Information Value Date Recorded Sex Assigned at Not on file Gender Identity Not on file Sexual Orientation Not on file Last Filed Vital Signs Vital Sign Reading Time Taken Comments Blood Pressure 140/84 11/08/2021 11:00 AM EST Pulse 67 11/08/2021 11:00 AM EST Temperature 35.9 ??C (96.7 ??F) 11/08/2021 9:50 AM ES T Respiratory Rate 14 11/08/2021 11:00 AM EST Oxygen Saturation 100% 11/08/2021 11:00 AM EST Inhaled Oxygen Concentration - - Weight 69.4 kg (153 lb) 10/26/2021 9:50 AM EST Height 162.6 cm (5' 4 ) 10/26/2021 9:50 AM EST Body Mass Index 26.26 10/26/2021 9:50 AM EST Plan of Treatment Health Maintenance Due Date Last Done Comments Hepatitis C Virus Screening 1969 HIV Screening 1982 DTaP/Tdap/Td Vaccines (1 - Tdap) 1988 Hepatitis B Vaccines (1 of 3 - 19+ 3-dose series) 1988 Pap Smear (Ages 21-65) 1990 Mammogram 2009 Colonoscopy 2014 Pneumococcal Vaccines 50+ (1 of 1 - PCV) 2019 Zoster (Shingles) Vaccine (1 of 2) 2019 Influenza Vaccine 04/09/2024 COVID-19 Vaccine ( season) 2024, 12/03/2020 Advance Directives * Full Code (Latest Code Status on File) Date Activated Date Inactivated Comments 11/08/2021 7:18 AM Care Teams Potato Grader Relationship Specialty Start Date End Date Sebas Cutler MD PCP - General 10/12/09 Sebas Cutler MD [address] [place] [address] PCP - [employer] Attributed 11/08/23
--- OUTSIDE RECORDS SUMMARY | 2024-10-30 12:46 | XMS_ITS | Patient Health Record ---
Author Organization [facility] Address [address] [place] [address] Care Team Providers Care Campground Caretaker Name Role Phone Omayra GIRALDO, Sebas Primary Care Provider Unavailab Xenia Carey Unavailable [phone] Brock Hogan Unavailable [phone] Hilda Us Unavailable [phone] Allergies Allergen (clinical drug ingredient) Drug/Non Drug Allergy documented on EMR Reaction Allergy Type Onset Date Status tramadol Ultram Unknown Drug Allergy Active Adhesive unsure Allergy Active Reason For Referral Diagnosis 1 Other hammer toe(s) (acquired), right foot (M20.41) Diagnosis 2 Arthritis of joint o f lesser toe, right (M19.071) Diagnosis 3 Other hammer toe(s) (acquired), left foot (M20.42) Diagnosis 4 Arthritis of joint o f lesser toe, left (M19.072) Diagnosis 5 Pain in right toe(s) (M79.674) Diagnosis 6 Pain in left toe(s) (M79.675) Diagnosis 7 Achilles Tendonitis Bursitis (726.71) Referring Provider First Name Sebas Referring Provider Last Name Omayra [facility] [place] Referred Provider Xenia Butterfield Referred Address [address] [facility],[place], [place],[address], Referred Provider Specialty Podiatry Referral Priority Routine Diagnosis 1 Other hammer toe(s) (acquired), right foot (M20.41) Diagnosis 2 Arthritis of joint o f lesser toe, right (M19.071) Diagnosis 3 Other hammer toe(s) (acquired), left foot (M20.42) Diagnosis 4 Arthritis of joint o f lesser toe, left (M19.072) Diagnosis 5 Pain in right toe(s) (M79.674) Diagnosis 6 Pain in left toe(s) (M79.675) Diagnosis 7 Achilles Tendonitis Bursitis (726.71) Diagnosis 8 Plantar fascial fibr omatosis (M72.2) Referring Provider First Name Sebas Referring Provider Last Name Omayra Referred [facility] Referred Provider Brock Hogan Referred Address [address],[place], [place],[address],[place] Referred Provider Specialty Podiatry Referral Priority Routine Medications Medication SIG (Take, Route, Frequency, Duration) Notes Start Date End Date Status Naltrexone - as directed Activ e Lyrica Not-Taking Gabapentin Active Wellbutrin XL 150 MG 1 tablet in the mor aspen Orally Once a day for 30 day(s) Not-Taking Metoprolol Succinate 50 MG 1 capsule Orally Once a day for 30 day(s) Active toprol Not-Taking Baby Aspirin Active Effexor XR 37.5 mg N ot-Taking traZODone HCl 150 MG 1 tablet at bedtime Orally Once a day for 30 day(s) Active Mirtazapine Not-Taki ng Lisinopril 10 MG 1 tablet Orally Once a day for 30 day(s) Active Piroxicam 20 MG TAKE ONE CAPSULE BY MOUTH EVERY MORNING Oral for 30 Not-Taking oxyCODONE HCl 5 MG 1 tablet as needed Orally every 6 hrs 09/29/2024 Active Crestor 10 MG 1 tablet Orally Once a day for 30 day(s) Active Amitriptyline HCl No t-Taking Motegrity 2 MG 1 tablet Orally Once a day for 30 day(s) Not-Taking Physical Therapy . . . Patient had roz er toe surgery right foot on 09/16/24; having symptoms of CRPS/RSD, history of Firbomyalgia for 60 days 10/23/2024 Active CeleBREX Not-Taking Zoloft Not-Taking Neurontin 300 MG 1 capsule Orally Thr ee times a day for 30 days 10/23/2024 Active Social History Tobacco Use: Social History Observation Description Date Details (start date - stop date) Never Smoker NA - NA Alcohol Screen Question Answer Notes Did you have a drink contain ing alcohol in the past year? Yes How often did you have a dri nk containing alcohol in the past year? Monthly or less (1 point) Points 1 Interpretation Negative Tobacco use other than smoking: Question Answer Notes Are you an other tobacco user? No Tobacco Control (Standard) Question Answer Notes Tobacco use: Nonsmoker Additional Findings: Tobacco non-user Current no nsmoker Problems Problem Type SNOMED Code ICD Code Onset Dates Problem Status W/U Status Risk Notes Problem Acquired hammer toe of right foot (6529119045986540) Other hammer toe(s) (acquired), right foot (M20.41) Active confirmed Problem Acquired hammer toe of left foot (5763212581230217) Other hammer toe(s) (acquired), left foot (M20.42) Active confirmed Problem Plantar fascial fibromatosis (36168972) Plantar fascial fibromatosis (M72.2) Active confirmed Problem 915032301849704 Complex regional pain syndrome type 1 of right lower extremity (G90.521) Active confirmed Problem Localized, primary osteoarthritis of the ankle and/or foot (349356487) Arthritis of joint of lesser toe, left (M19.072) Active confirmed Problem Localized, primary osteoarthritis of the ankle and/or foot (059570377) Arthritis of joint of lesser toe, right (M19.071) Active confirmed Vital Signs Heart Rate 57 /min 09/29/2024 Blood pressure diastolic 65 mm Hg 10/23/2024 Height 5ft5in in 10/23/2024 Blood pressure systolic 124 mm Hg 10/23/2024 Weight 165 lbs 10/23/2024 BMI 27.45 kg/m2 10/23/2024 Encounters Encounter Location Date Provider Diagnosis [facility] ([facility]) [address] [place] [address] [facility] [place] [address] [address] 10/31/2023 Brock Hogan Acute left ankle leanna n M25.572 ; Sprain of anterior talofibular ligament of left ankle, initial encounter S93.492A ; Sprain of calcaneofibular ligament of left ankle, initial encounter S93.412A and Strain of peroneal tendon of left foot, initial encounter S86.312A [place] [address] [address] 07/14/2024 Xenia Butterfield Pain in right toe(s) M79.674 ; Other hammer toe(s) (acquired), right foot M20.41 ; Arthritis of joint of lesser toe, right M19.071 ; Pain in left toe(s) M79.675 ; Other hammer toe(s) (acquired), left foot M20.42 ; Arthritis of joint of lesser toe, left M19.072 and Subluxation of metatarsophalangeal joint of toe, initial encounter S93.149A [address] [address] 08/18/2024 Brock Leongunier Pain in left foot M7 9.672 ; Pain in left ankle and joints of left foot M25.572 ; Bursitis of intermetatarsal bursa of left foot M77.52 and Metatarsalgia, left foot M77.[address] [address] 09/04/2024 Xenia Butterfield Pain in right toe(s) M79.674 ; Other hammer toe(s) (acquired), right foot M20.41 ; Arthritis of joint of lesser toe, right M19.071 ; Pain in left toe(s) M79.675 ; Other hammer toe(s) (acquired), left foot M20.42 ; Arthritis of joint of lesser toe, left M19.072 and Subluxation of metatarsophalangeal joint of toe, initial encounter S93.149A [address] [address] 09/10/2024 Xenia Butterfield Pain in right toe(s) M79.674 ; Other hammer toe(s) (acquired), right foot M20.41 ; Arthritis of joint of lesser toe, right M19.071 ; Pain in left toe(s) M79.675 ; Other hammer toe(s) (acquired), left foot M20.42 ; Arthritis of joint of lesser toe, left M19.072 and Subluxation of metatarsophalangeal joint of toe, initial encounter S93.149A [facility] [address] [address] 09/22/2024 Xenia Butterfield Other hammer toe(s) (acquired), right foot M20.41 [facility] [address] [address] 09/29/2024 Xenia Butterfield Other hammer toe(s) (acquired), right foot M20.41 [facility] [address] [address] 10/09/2024 Xenia Butterfield Other hammer toe(s) (acquired), right foot M20.[address] [facility] [address] 10/23/2024 Hilda Us Other hammer toe(s) (acquired), right foot M20.41 ; Complex regional pain syndrome type 1 of right lower extremity G90.521 and Pain in right foot M79.[address] [facility] [address] 10/23/2024 Xenia Butterfield [address] [address] 07/14/2024 Brock Hogan [address] [address] 07/15/2024 Xenia Butterfield [facility] [address] 08/13/2024 Xenia Butterfield [facility] [address] 09/04/2024 Xenia Butterfield [facility] [address] 09/15/2024 Xenia Butterfield [facility] [address] 09/17/2024 Xenia Butterfield [facility] [address] 09/17/2024 [facility] [address] [facility] [address] [place] [address] 09/18/2024 Xenia [facility] [place] [address] [place] [address] 10/27/2024 Xenia [facility] [place] [address] [place] [address] 09/14/2024 Xenia Butterfield Assessments Encounter Date Diagnosis (ICD Code) Assessment Notes Treatment Notes Treatment Clinical Notes Section Notes 10/31/2023 Acute left ankle leanna n (ICD-10 - M25.572) 07/14/2024 Other hammer toe(s) (acquired), right foot (ICD-10 - M20.41) 07/14/2024 Pain in right toe(s) (ICD-10 - M79.674) 08/18/2024 Pain in left ankle a nd joints of left foot (ICD-10 - M25.572) 08/18/2024 Pain in left foot (ICD-10 - M79.672) 09/04/2024 Other hammer toe(s) (acquired), right foot (ICD-10 - M20.41) 09/04/2024 Pain in right toe(s) (ICD-10 - M79.674) 09/10/2024 Other hammer toe(s) (acquired), right foot (ICD-10 - M20.41) 09/10/2024 Pain in right toe(s) (ICD-10 - M79.674) 09/22/2024 Other hammer toe(s) (acquired), right foot (ICD-10 - M20.41) 09/29/2024 Other hammer toe(s) (acquired), right foot (ICD-10 - M20.41) 10/09/2024 Other hammer toe(s) (acquired), right foot (ICD-10 - M20.41) 10/23/2024 Other hammer toe(s) (acquired), right foot (ICD-10 - M20.41) 10/23/2024 Complex regional leanna n syndrome type 1 of right lower extremity (ICD-10 - G90.521) 10/23/2024 Pain in right foot (ICD-10 - M79.671) 09/10/2024 Arthritis of joint o f lesser toe, right (ICD-10 - M19.071) 09/04/2024 Arthritis of joint o f lesser toe, right (ICD-10 - M19.071) 08/18/2024 Bursitis of intermetatarsal bursa of left foot (ICD-10 - M77.52) 07/14/2024 Arthritis of joint o f lesser toe, right (ICD-10 - M19.071) 10/31/2023 Sprain of anterior talofibular ligament of left ankle, initial encounter (ICD-10 - S93.492A) Dx New problem, Prognosis Uncertain (4) 10/31/2023 Sprain of calcaneofibular ligament of left ankle, initial encounter (ICD-10 - S93.412A) Dx New problem, Prognosis Uncertain (4) 08/18/2024 Metatarsalgia, left foot (ICD-10 - M77.42) 07/14/2024 Pain in left toe(s) (ICD-10 - M79.675) 09/10/2024 Pain in left toe(s) (ICD-10 - M79.675) 09/04/2024 Pain in left toe(s) (ICD-10 - M79.675) 09/10/2024 Other hammer toe(s) (acquired), left foot (ICD-10 - M20.42) 09/04/2024 Other hammer toe(s) (acquired), left foot (ICD-10 - M20.42) 10/31/2023 Strain of peroneal tendon of left foot, initial encounter (ICD-10 - S86.312A) Dx New problem, Prognosis Uncertain (4) 07/14/2024 Other hammer toe(s) (acquired), left foot (ICD-10 - M20.42) 07/14/2024 Arthritis of joint o f lesser toe, left (ICD-10 - M19.072) 09/04/2024 Arthritis of joint o f lesser toe, left (ICD-10 - M19.072) 09/10/2024 Arthritis of joint o f lesser toe, left (ICD-10 - M19.072) 09/10/2024 Subluxation of metatarsophalangeal joint of toe, initial encounter (ICD-10 - S93.149A) 09/04/2024 Subluxation of metatarsophalangeal joint of toe, initial encounter (ICD-10 - S93.149A) 07/14/2024 Subluxation of metatarsophalangeal joint of toe, initial encounter (ICD-10 - S93.149A) Plan Of Treatment Pending Test Test Name Order Date X ray : Ankle, left 3V 10/31/2023 X ray : Foot, left 2V 01/26/2015 X ray : Foot, right 2V 01/26/2015 X ray : Foot, left 3V 06/21/2011 X ray : Foot, left 3V 09/18/2021 X ray : Foot, left 3V 03/19/2022 X ray : Foot, left 3V 07/14/2024 X ray : Foot, right 3V 07/14/2024 X ray : Foot, right 3V 10/23/2024 X ray : Foot, right 3V 03/19/2022 X ray : Foot, right 3V 09/18/2021 X ray : Foot, right 3V 06/12/2012 X ray : Foot, right 3V 06/21/2011 Next Appt Details Provider Name:Hilda cronin, 11/13/2024 09:30:00 AM, [address] [place] [address], [address], Insurance Providers Payer Name Payer Address Payer Phone Subscriber Number Group Number Insured Name Patient Relationship to Insured Coverage Start Date Coverage End Date [facility] [address] [place] [address] [id number] Amilcar Carter Spouse - patient is the spouse of the insured Medical (General) History Medical History History ICD Code headaches/migraines fibromyalgia chicken pox reflux back, hip, knee pain corns/calluses anxiety Depression High blood pressure Hypercholesterolemia Surgical History Surgery Date(Month/Year) section 2007 tubal ligation 2007 vesico vaginal fistula 2001 hysterectomy 2009 hammertoe repair R5T 1990 oral surgery 06/02/2012 Hammertoe Repair Left 2nd, 3rd, 4th, Cap sulotomy Left MPJ 09/16/2024
--- OUTSIDE RECORDS SUMMARY | 2024-10-30 12:46 | XMS_ITS ---
Author Organization [facility] Address [address] [place] [address] Care Team Providers Care Mold Builder Name Role Phone Oamyra GIRALDO, [facility] Primary Care Provider Unavailab Xenia Carey Unavailable [phone] REASON FOR VISIT [facility] pain managment Encounters Encounter Location Date Provider Diagnosis [address] [address] 10/23/2024 Xenia Butterfield Plan Of Treatment Next Appt Details Provider Name:Hilda cronin, 11/13/2024 09:30:00 AM, [address] [place], [address], Progress Notes * Fifi CARTER MDOB:[birth year] (54 yo F)Acc No.[id number]:10/23/2024 Patient:?Fifi CARTER :1970???Age:54 Y???Sex:Female Address:[address] [place], [address] * * Date:?
--- OUTSIDE RECORDS SUMMARY | 2024-10-30 12:46 | XMS_ITS ---
Author Organization [facility] Address [address] [place] [id number] Care Team Providers Care Stave Mill Hand Name Role Phone Omayra GIRALDO Sebas Primary Care Provider Unavailab RAMU Escalante Unavailable [phone] Briseida Cruz Unavailable [phone] Encounters Encounter Location Date Provider Diagnosis [facility] [address] [id number] 08/03/2024 Briseida Cruz Plan Of Treatment Next Appt Details Provider Name:RAMU COLIN, 11/12/2024 11:00:00 AM, [address] [place] [address], [phone],
--- OUTSIDE RECORDS SUMMARY | 2024-10-30 12:46 | XMS_ITS ---
Author Organization [facility] Address [address] [place] [address] Care Team Providers Care Security Installation Sales Technician Name Role Phone Omayra GIRALDO, [facility] Primary Care Provider Unavailab Xenia Carey Unavailable [phone] REASON FOR VISIT pain management Encounters Encounter Location Date Provider Diagnosis [address] [address] 10/27/2024 Xenia Butterfield Plan Of Treatment Next Appt Details Provider Name:Hilda cronin, 11/13/2024 09:30:00 AM, [address] [place] [address], [phone], Progress Notes * Fifi CARTER MDOB:[birth year] (54 yo F)Acc No.[id number]:10/27/2024 Patient:?Fifi CARTER :1970???Age:54 Y???Sex:Female Address:[address] [place], [address] * true * Date:? Generated for Printi ng/Faxing/eTransmitting on:?10/30/2024 12:45 PM EST
--- OUTSIDE RECORDS SUMMARY | 2024-10-30 12:47 | XMS_ITS | Clinical Summary ---
Author Organization [facility] Address [address] [place] [address] Care Team Providers Care Bench Loom Weaver Name Role Phone Vinicio Capellan MD Primary Care Provider + [phone] Allergies Active Allergy Reactions Criticality Noted Date Comments Tramadol Other (See Comments) 03/22/2017 Pt stated she does not feel well Medications Medication Sig Dispensed Refills Start Date End Date Status ibuprofen (ADVIL,MOTRIN) 400 MG tablet Take 400 mg by mouth every 6 (six) hours as needed for pain. 0 Active metoprolol succinate (TOPROL-XL) 24 hr tablet 100 mg TAKE 1 TABLET BY MOUTH EVERY DAY IN THE MORNING 3 05/26/2019 Active buPROPion (WELLBUTRIN) 75 MG tablet Take 75 mg by mouth 2 (two) times a day. 0 Active lisinopril (PRINIVIL,ZESTRIL) tablet 2.5 mg Take 2.5 mg by mouth daily. 0 Active pregabalin (LYRICA) capsule 100 mg Take 100 mg by mouth 2 (two) times a day. 0 Active pregabalin (LYRICA) capsule 50 mg Take 50 mg by mouth 3 (three) times a day. 0 Active Active Problems Problem Noted Date Diagnosed Date Anxiety and depression 06/11/2019 Chronic tension-type headache, not intractable 1 Intractable migraine with aura without status mi grainosus 02/11/2017 Resolved Problems Problem Noted Date Diagnosed Date Resolved Date Spondylosis of cervical jeet on without myelopathy or radiculopathy 02/11/2017 07/15/2017 Family History Medical History Relation Name Comments No Sig Med Hx Brother Diabetes Father Hypertension Father No Sig Med Hx Maternal Aunt No Sig Med Hx Maternal Grandfather No Sig Med Hx Maternal Grandmother No Sig Med Hx Maternal Uncle Diabetes Mother Hypertension Mother No Sig Med Hx Paternal Aunt No Sig Med Hx Paternal Grandfather No Sig Med Hx Paternal Grandmother No Sig Med Hx Paternal Uncle No Sig Med Hx Sister Relation Name Status Comments Brother Father Maternal Aunt Maternal Grandfather Maternal Grandmother Maternal Uncle Mother Paternal Aunt Paternal Grandfather Paternal Grandmother Paternal Uncle Sister Social History Tobacco Use Types Packs/Day Years Used Date Smoking Tobacco: Never Smokeless Tobacco: Never Tobacco Cessation:Counseling Given: No Alcohol Use Standard Drinks/Week Comments No 0 (1 standard drink = 0.6 oz pur e alcohol) Sex and Gender Information Value Date Recorded Sex Assigned at Female 06/21/2019 4:05 PM EDT Gender Identity Not on file Sexual Orientation Not on file Job Start Date Occupation Industry Not on file Not on file Not on file Last Filed Vital Signs Vital Sign Reading Time Taken Comments Blood Pressure 96/60 09/14/2021 1:44 PM EST Pulse 60 06/11/2019 3:15 PM EDT Temperature 37.2 ??C (98.9 ??F) 07/15/2017 9:53 AM ES T Respiratory Rate 14 09/14/2021 1:44 PM EST Oxygen Saturation 97% 06/11/2019 3:15 PM EDT Inhaled Oxygen Concentration - - Weight 70.3 kg (155 lb) 09/14/2021 1:44 PM EST Height 165.1 cm (5' 5 ) 09/14/2021 1:44 PM EST Body Mass Index 25.79 09/14/2021 1:44 PM EST Plan of Treatment Health Maintenance Due Date Last Done Comments Hepatitis B Vaccines (1 of 3 - 3-dose series) 1970 Hepatitis C Screening 1970 Depression Screening 1981 Preventative Health Evaluation 1987 DTap / Tdap / Td (1 - Tdap) 1988 Cervical Cancer Screening (Pap Smear) 1990 Colon Cancer Screening (Colonoscopy) 2014 Breast Cancer Screening (Mammogram) 2019 Shingrix-Zoster Vaccine (1 o f 2) 2019 BMI Counseling 09/14/2022 09/14/2021, 06/11/2019 COVID-19 Vaccine (2023-2 5 season) 2024 07/04/2021, 12/24/2020, 12/03/2020 Influenza Vaccine (#1) 2024 Pneumococcal Vaccine Aged Out No long er eligible based on patient's age to complete this topic RSV Ped < 20 months Aged Out No longe r eligible based on patient's age to complete this topic Advance Directives For more information, please contact: [phone] Documents on File Type Date Recorded Patient Cardiovascular Technologist Expl anation Advance Directive and Living Will 08/22/2020 12:20 PM Power of Laborer Operator 08/22/2020 ORDER Care Teams Bench Loom Weaver Relationship Specialty Start Date End Date Vinicio Capellan MD PCP - General Internal Medicine 09/14/21
--- OUTSIDE RECORDS SUMMARY | 2024-10-30 12:47 | XMS_ITS | Continuity of Care Document ---
Author Organization [facility] Address [address] [place] [address] [address] [place] [address] Phone Care Team Providers Care Condominium Association Manager Name Role Phone Mann Jacobo MD Unavailable Unavailable Procedures Procedure Date Office/Oupt E&M New Pt 30 Mins Advance Directives Directive Yes / No Effective Date File Name No Information Encounters Encounter Description Practice Location Reason(s) For Visit Diagnoses Date Provider Providers Copied on Encounter [facility], [address] [place] [address] [address], [id number], [place] tel:[phone] CHATA Smith MD - [place] No Information 3 Donnell Darnell. [address] [facility] [address], [place], [address], [place]. tel:[phone] Office/Oupt E&M New Pt 30 Mins [facility], [address] [place] [address] [address], [id number], [place] tel:[phone] CHATA Sauer [facility] - (Telangiecta uli)Restless legs syndrome Riky Xie MD FACS [facility] Tacos Quiroz. [address] [place] [address], [facility] [place], [address], [place]. tel:[phone] Referring Provider: Tacos Xie MD FACS [facility]T [facility], [facility], [facility] [address] [place], [address]. tel:[phone] Family History Family Member Type Diagnosis Age At Onset No Information Payers Payer name Insurance type Covered green party ID Celeste sheriff (s) [facility] [id number] Social History Type Description Quantity Date Captured [...]
--- OUTSIDE RECORDS SUMMARY | 2024-10-30 12:47 | XMS_ITS ---
Author Organization [facility] Address [address] [place] [phone] Care Team Providers Care Binder Stripper Hand Name Role Phone Sebas Cutler MD Primary Care Provider Unavailab RAMU Escalante Unavailable [phone] Briseida Cruz Unavailable [phone] Allergies Allergen (clinical drug ingredient) Drug/Non Drug Allergy documented on EMR Reaction Allergy Type Onset Date Status tramadol Ultram Unknown Drug Allergy Active REASON FOR VISIT PT last seen PMD Sebas Cutler MD, Fatigue, AMS, pain, Lab 08/04/2024 Medications Medication SIG (Take, Route, Frequency, Duration) Notes Start Date End Date Status Aspirin 81 MG 1 tablet Orally Once a day Active Metoprolol Succinate 50 MG 1 capsule Ora lly Once a day Active Zoloft 50 MG 1 tablet Orally Once a day Active Lisinopril 10 MG 1 tablet Orally Once a day Active Naltrexone - 1.5 mg once a day x 2 weeks, 3 mg once a day x 2 weeks, then stay on 4.5 mg once a day oral daily for 30 days 07/08/2024 Active Gabapentin 300 MG 1 capsule Orally Onc e a day Active Crestor 40 MG 1 tablet Orally Once a day Active traZODone HCl 150 MG 1 tablet at bedtime Orally Once a day Active Vitamin D 25 MCG (1000 UT) 1 tablet Orally Once a day Active Encounters Encounter Location Date Provider Diagnosis [facility] [address] [phone] 08/19/2024 Briseida Cruz Plan Of Treatment Next Appt Details Provider Name:RAMU COLIN, 11/12/2024 11:00:00 AM, [address] [place] [address], [phone], History and Physical Notes * HPI (History of Present Illness) Category Sub-Category Detail Notes Rheumatology, Other Demographics 53yo F w/PMH +MARTIN 1:320 (2021 [facility]), IBS- C, Hypertension, Fibromyalgia and Costochondritis;+ h/o Raynaud's Phenomenon+ h/o Dry eye+ h/o Back pain preciptated by trauma+ h/o Buttock pain+ h/o plantar fasciitis+ h/o Trigger finger- Rt middle finger 1 year ago; off/on+ Autoimmune FHx lupus- pateranl GM The patient presents with th e following symptoms 08/19/2024 07/08/2024 PT last seen PMD , Fatigue 04/18 , AMS 1 hr, pain [...] labs 06/11/2024: Gamma Rowena 0.7 (L), CALVIN <5 (L), (T) CK 197 (H), Creat 1.20 (H), EGFR 54 (L); PTH/Calcium, LAC, Vit B-12 402, Hep C, Celiac, MARTIN Analyzer, Lyme, TSH, Immunofixation, UA, ANCA, HLA B 27, Vit D 55, CRP, Uric Acid 5.1, Thyroglobulin AB, Iron. Hepatic, Hep B Core, Hep B SA, CBC, Sed Rate, Ferritin, HS CRP-OK -Reviewed DEXA 05/15/2024: Normal - Reviewed XR C-spine 06/04/2024: DJD, DDD, C5-C6, C6-C7 moderate (~5%) grade 1 osteophyte - Reviewed XR L-spine 06/04/2024: mild DJD, DDD -Reviewed XR Lt Hip 06/04/2024: small area of calcification @ the outer acetabulim brim Consult 06/04/2024 A 53yo female with PMH +MARTIN 1:320 (2021 [facility]), IBS-C, Hypertension, Fibromyalgia and Costochondritis presents [...] ago per Neuro MD Emmanuel Álvarez in [place]. She has tried Cymbalta in the past with no effect. She started seeing a Motor Coach Supervisor in [place] 4yrs ago David Louis in [facility]. This is provider is now in [place]. She transferred to another provider tommy Vasquez [...] lupus- pateranl GM No FHX Multiple Sclerosis Laboratory results include Labs 04/14/20 24: BUN 26 (H), Creat 1.18 (H), EGFR 55 (L); LFTs-OK Labs 01/04/2024: Creat 1.16 (h), EGFR 56 (L); LFTs, TSH, CBC, Vit B-12 450, Vit D 27, Lyme, Sed Rate-OK Diagnostic Imaging Includes XR Lt Ribs 0 04/14/2024: Normal
== END 2024-10-30 12:14 | disposition home or self-care (01) ==
PROVIDERS: PCP Internal Medicine; Referring Provider Podiatrist; Visit Provider Registered Nurse Emergency
DX: G90.529 Complex regional pain syndrome I of unspecified lower limb (principal)
CPT/HCPCS: 99204

== ENCOUNTER 2024-12-09 12:11 | Outpatient (AMB) | payer BC, SELFPAY ==
--- NOTE | 2024-12-09 12:12 | A.OFFVIS_ITS ---
Intake Visit Reasons: procedure questions/per Aren Allergies tramadol [From Ultram] Allergy (Unknown, Verified 10/30/24 12:48) Unknown HPI Comments Details: Telephone visit completed today for follow-up, review of planned procedure Patient is scheduled for lumbar sympathetic block tomorrow for CRPS. She has questions about the procedure. Patient frustrated, states she has a reach out to the office several times but has yet to receive a call back. Unsure where the breakdown in communication falls; chart was reviewed, no messages were received by the provider or medical art therapist requesting call back by the patient. Prior: Fifi is a very pleasant 54-year-old female who presents to the office today for evaluation management of her right foot pain She has been suffering with this pain for approximately 6 weeks. Pain started after she had right sided hammertoe surgery 09/16/2024 Endorses right foot pain, hypersensitive to touch, swelling and temperature changes. Currently taking gabapentin 300 mg twice daily with no improvement Taking Tylenol and ibuprofen with minimal improvement Has been doing home exercise program, starting physical therapy but pain persists States she is not even able to tolerate a bed sheet or socks secondary to the pain Pain today is rated as a 5/10, she reports that 5 is the best her pain is. At times pain will be 10/10 In terms of muscle damage condition is described as burning, throbbing, sharp, aching, tightness Pain is negatively impacting patient's mental health, normal function, normal sleep, ability to perform activities daily living, ambulation Denies current use of anticoagulants Denies implantable devices, pacemaker or defibrillator Denies current use of nicotine, tobacco, alcohol or illicit substances PFSH Medical History (Updated 10/30/24 @ 12:52 by Andressa Alford) Hypercholesterolemia Hypertension Depression Anxiety Migraine Headache Fibromyalgia Surgical History (Updated 10/30/24 @ 12:52 by Andressa Alford) H/O oral surgery H/O: hysterectomy H/O tubal ligation Hx of section Review of Systems Const All systems reviewed & are unremarkable except as noted in HPI and below Physical Exam Telephone visit only, vital signs and physical exam deferred Telehealth Telehealth Telehealth Platform: Telephone Location of provider rendering services: practice address Location of patient: address on file Patient Identification confirmed using: Name, : Yes Telehealth method: voice only Patient verbally consented to treatment: Yes Patient verbally consented to billing insurance company: Yes Patient informed of any privacy concerns related to visit: Yes Minutes spent on Phone/Video with Pt.: 10 Assessment & Plan Assessment & Plan (1) CRPS (complex regional pain syndrome), lower limb: Code(s): G90.529 - Complex regional pain syndrome I of unspecified lower limb Category: Medical Plan Telephone visit completed today for follow-up. Patient is scheduled for lumbar sympathetic block tomorrow. Questions regarding this procedure were discussed at length with the patient today. Patient verbalized understanding. She denied further questions or concerns. States she will be here for the procedure tomorrow at 09:00. All questions and concerns were answered, patient agrees with the plan. Follow up after injection, sooner if needed Coding Level of Care Code Tele Est Pt Level 3 (40384) Complex EM visit Add On G2211 Diagnoses CRPS (complex regional pain syndrome), lower limb G90.529
--- OUTSIDE RECORDS SUMMARY | 2024-12-09 14:45 | XMS_ITS ---
Author Organization [facility] [place] [facility] Address [address] [place] [id number] Care Team Providers Care Assembler Golf Wood Head Name Role Phone Sebas Cutler MD Primary Care Provider Unavailab RAMU Escalante Unavailable [phone] Allergies Allergen (clinical drug ingredient) Drug/Non Drug Allergy documented on EMR Reaction Allergy Type Onset Date Status tramadol Ultram Unknown Drug Allergy Active REASON FOR VISIT Pt last saw PCP Dr Sebas Cutler , lab 2., RT foot surgery (navneet) 1. Xenia Leal, recently diagnosed w/CRPS chronic regional pain syndrome, doing PT and seeing pain mgmt, schedule for Lumbar injection for the foot pain beginning of by pain management, fatigue 8/10, AMS varies, pain 6-8/10 neck, lower back, RT foot, DAPSA Score = 46 Medications Medication SIG (Take, Route, Frequency, Duration) Notes Start Date End Date Status Naltrexone - 6 mg oral daily for 30 days 07/08/2024 Active Lisinopril 10 MG 1 tablet Orally Once a day Active Crestor 40 MG 1 tablet Orally Once a day Active Metoprolol Succinate 50 MG 1 capsule Ora lly Once a day Active Aspirin 81 MG 1 tablet Orally Once a day Active Vitamin D 25 MCG (1000 UT) 1 tablet Orally Once a day Active traZODone HCl 150 MG 1 tablet at bedtime Orally Once a day Active Gabapentin 300 MG 1 capsule Orally thr ee times a day Active Problems Problem Type SNOMED Code ICD Code Onset Dates Problem Status W/U Status Risk Notes Problem Psoriatic spondylitis ([id number]) Psoriatic spondylitis (L40.53) Active confirmed polyarthralgia, inflammatory back pain that is better with moving, not relieved by rest, prolonged morning stiffness 2 hours, pain in large joints:pain 7-10/10 RT hip, lower back, SI joints,, h/o enthesitis -Achilles enthesitis per exam 11.12.24, plantar fasciitis, Rt III trigger finger '2022, h/o costochondritis , h/o h/o Buttock pain, h/o Rt thumb painful decreased ROM, H/o Kidney stone, Achilles enthesitis Left on exam 11.12.24, limited painful flexion (B) hand MCPJs, PIPJs; Pt needs a DMARD. Due to chronic renal Insufficiency we will avoid Methotrexate. autoimmune FHx lupus- paternal GM. As of 11.12.24 the pt awaits lubar spine injection 12.10.24 for Rt foot CRPS (Chronic Regional Pain Syndrome) that developed after Rt foot surgery . Vital Signs Temperature 36.0 C 11/12/2024 Blood pressure systolic 109 mm Hg 11/13/19 25 Blood pressure diastolic 72 mm Hg 025 Heart Rate 52 /min 11/12/2024 Encounters Encounter Location Date Provider Diagnosis [facility] [place] [address] [id number] 11/12/2024 RAMU DIXIE MARTIN positive R76.8 ; Psoriatic spondylitis L40.53 ; Disorder of bone density and structure, unspecified M85.9 ; Raynaud phenomenon I73.00 ; Fatigue R53.83 ; Sacroiliitis, not elsewhere classified M46.1 ; Abnormal results of kidney function studies R94.4 ; Effusion, left hand M25.442 and Complex regional pain syndrome I of right lower limb G90.521 Assessments Encounter Date Diagnosis (ICD Code) Assessment Notes Treatment Notes Treatment Clinical Notes 11/12/2024 MARTIN positive (ICD-10 - R76.8) OV 11.12.24 pt developed CRPS (Chronic Regional Pain Syndrome) after Rt foot surgery , scheduled for spinal injection 12.10.24. Flare of Left buttock pain, diffuse MSK pain. Psoriatic Arthritis to consider. No evidence of MARTIN associated autoimmune inflammatory Connective Tissue Disease. She had ongoing joint pain despite LDN. Repeat MARTIN neg . Negative MARTIN subserologies:,neg [id number]-[id number] DRIVER-S cl 70 aB, neg Centromere ab. Negative Antiphospholipid antibody panel (neg aCL, [id number], neg LAC). No convincing evidence of autoimmune [...] female w/PMH +MARTIN 1:320 (2021 [facility]), IBS-C, Hypertension, Fibromyalgia and Costochondritis presents with [...] tenderness and (B) Heberden and Alvarez's' nodes. Pain Clinic re: flare of low back pain. RTC 2 weeks after lumbar spibne injection. Will discuss Psoriatic Arthritis, will consider bDMARD. LT HAND XR. 11/12/2024 Psoriatic spondylitis (ICD-10 - L40.53) polyarthralgia, inflammatory back pain that is better with moving, not relieved by rest, prolonged morning stiffness 2 hours, pain in large joints:pain 7-10/10 RT hip, lower back, SI joints,, h/o enthesitis -Achilles enthesitis per exam 3.6.25, plantar fasciitis, Rt III trigger finger '2022, h/o costochondritis, h/o h/o Buttock pain, h/o Rt thumb painful decreased ROM, H/o Kidney stone, Achilles enthesitis Left on exam 3.6.25, limited painful flexion (B) hand MCPJs, PIPJs; Pt needs a DMARD. Due to chronic renal Insufficiency we will avoid Methotrexate. autoimmune FHx lupus- paternal GM. As of 11.12.24 the pt awaits lubar spine injection 12.10.24 for Rt foot CRPS (Chronic Regional Pain Syndrome) that developed after Rt foot surgery . 11/12/2024 Disorder of bone density and structure, unspecified (ICD-10 - M85.9) 11/12/2024 Raynaud phenomenon (ICD-10 - I73.00) 11/12/2024 Fatigue (ICD-10 - R53.83) 11/12/2024 Sacroiliitis, not elsewhere classified (ICD-10 - M46.1) 11/12/2024 Abnormal results of kidney function studies (ICD-10 - R94.4) 11/12/2024 Effusion, left hand (ICD-10 - M25.442) 11/12/2024 Complex regional pain syndrome I of right lower limb (ICD-10 - G90.521) Plan Of Treatment Medication Medication Name Sig Start Date Stop Date Notes Naltrexone - 6 mg oral daily for 30 days 07/08/2024 Treatment Notes Assessment Notes MARTIN positive Pain Clinic re: flare of low back pain. RTC 2 weeks after lumbar spibne injection. Will discuss Psoriatic Arthritis, will consider bDMARD. LT HAND XR. Pending Test Test Name Order Date X ray : Hand, left 11/12/2024 Next Appt Details Follow Up: 4 Weeks, Reason: Provider Name:Chas Acosta, 12/29/2024 10:00:00 AM, [address] [place] [address], [phone], Progress Notes * Examination Category Sub-Category Detail Notes Rheumatology CERVICAL SPINES: + vertebral ten derness, normal range of motion without discomfort, no paravertebral muscle spasm (B) LUMBAR SPINES: + vertebral tenderne ss, 3+ tender Left buttock, SHOULDERS: normal range of suze on w/o pain, No proximal muscle tenderness, (B)No proximal muscle weakness ELBOWS: no swelling, normal range of motion WRISTS: (B)wrist no synoviti s, normal range of motion without discomfort, negative Tinel's sign HANDS: (B) No synovitis MCP Js, (B) tenderness Rt III MCP, PIPJ, (B) Heberden's and Alvarez's nodes, , limited flexion with discomfort;, KAGE, RAMU 11/12/2024 01:26:16 PM EST > HIPS: (B) normal range of motion, (Lt) + trochanteric tenderness, (B)no inguinal tenderness, (B)No proximal muscle tenderness , (B)No proximal muscle weakness KNEES: (B)no tenderness, no effusion, , normal alignment and range of motion ANKLES: left,no ankle joint tenderness, or swelling, normal range of motion, 1+Lt plantar fascia tenderness at the insertion into calcaneal bone, 3+ Lt Achilles enthesis tenderness; right, shiny skin, scars p/ surgery on Rt II,I toe, limited active rOM; no further examination of Rt foot carried out d/t severe pain, RAMU COLIN 11/12/2024 01:28:06 PM EST > FEET: (B) full ROM, (B) MT PJ tenderness without synovitis THORACIC SPINE: no vertebral tendern ess, full ROM SACROILIAC: no tenderness, sacro iliac stressing test negative, (B) Suresh's test negative FIBROMYALGIA TENDER POINTS: No diffuse t radio rigger point tenderness allergy GENERAL APPEARANCE: in no [...] F w/PMH +MARTIN 1:320 (2021 [facility]), IBS- C, Hypertension, Fibromyalgia and Costochondritis; + h/o Dry eye + h/o Back pain preciptated by trauma+ h/o Buttock pain + h/o plantar fasciitis+ h/o R III Trigger finger 2022; off/on+ Autoimmune FHx lupus- pateranl GM The patient presents with th e following symptoms 3. Pt last saw PCP Dr Sebas Cutler , lab 2., RT foot surgery (navneet) 1. Xenia Leal, recently diagnosed w/CRPS chronic regional pain syndrome, doing PT and seeing pain mgmt, schedule for Lumbar injection for the foot pain beginning of by pain management, fatigue 8/10, AMS varies, pain 6- 8/10 neck, lower back, RT foot, DAPSA Score = 46. 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 Denies swollen joints today. -Reviewed labs 08/04/2024: Creat 1.08 (h), CK 178 (h), KY-2 Beta AB 13 (H); HS CRP, Myositis Panel KRUPA-1 AB, PL-7 AB, PL-12 AB, EJ AB, OJ AB, SRP AB, KY-2 Alpha AB, KY-2 Alpha AB MDAS AB, T1F1, Gamma AB, NXP-2 AB, Methylmalonic Acid, Aldolase, Hepatic, Sed Rate, EGFR-OK - Reviewed DEXA 05/15/2024: Normal -Reviewed XR (b) SIJ 07/08/2024: possible sacroillitis - Reviewed XR (Rt) Hand 07/08/2024: Rt small bulky [...] of water daily. Denies changes in urine. -Reviewed labs 06/11/2024: Gamma Rowena 0.7 (L), CALVIN [...] with PMH +MARTIN 1:320 (2021 [facility]), IBS- C, Hypertension, Fibromyalgia and Costochondritis presents for evaluation. [...] ago per Neuro MD Emmanuel Álvarez in [place]. She has tried Cymbalta in the past with no effect. She started seeing a Certified Medical Coder in [place] 4yrs ago David Louis in [facility]. This is provider is now in [place]. She transferred to another provider tommy Vasquez [...]
--- OUTSIDE RECORDS SUMMARY | 2024-12-09 14:45 | XMS_ITS ---
Author Name [facility] Organization Unknown Encounters Encounter Type Encounter Reason Primary Diagnosis Location Date Ambulatory Hypertrophy of breast [facility] Voiceboard 11/08/2021 Care Team Organization Name Specialty Phone Email Start Date End [facility] Chinedu Barker Primary Care 01/07/2024 [facility] SEBAS CUTLER Primary Care 11/08/2021 11/09/19 [facility] Sebas Cutler Primary Care 11/08/2021
--- OUTSIDE RECORDS SUMMARY | 2024-12-09 14:45 | XMS_ITS | Clinical Summary ---
Author Organization [facility] Address [address] [place] [address] Care Team Providers Care Process Area Supervisor Name Role Phone Sebas Cutler MD Primary Care Provider [phone] Sebas Cutler MD Unavailable [phone] Allergies Active Allergy Reactions Criticality Noted Date [...] Inactivated Comments 11/08/2021 7:18 AM Care Teams Process Area Supervisor Relationship Specialty Start Date End Date Sebas Cutler MD PCP - General 10/12/09 Sebas Cutler MD [address] [place] [address] PCP - [place] [employer] Attributed 11/08/23
--- OUTSIDE RECORDS SUMMARY | 2024-12-09 14:45 | XMS_ITS ---
Author Organization [facility] Address [address] [place] [address] Care Team Providers Care [place] Seamer Name Role Phone Omayra GIRALDO [facility] Primary Care Provider Unavailab Xenia Carey Unavailable [phone] REASON FOR VISIT [facility] Pain management Encounters Encounter Location Date Provider Diagnosis [address] [id number] 12/08/2024 Xenia Butterfield Plan Of Treatment Next Appt Details Provider Name:Xenia luis, 12/14/2024 09:00:00 AM, [address] [place], [address], Progress Notes * Fifi CARTER MDOB:[birth year] (54 yo F)Acc No.[id number]:12/08/2024 Patient:?Fifi CARTER :1970???Age:54 Y???Sex:Female Address:[address] [place], [address] * true * Date:? Generated for Printi ng/Faxing/eTransmitting on:?12/09/2024 02:45 PM EDT
--- OUTSIDE RECORDS SUMMARY | 2024-12-09 14:45 | XMS_ITS | Clinical Summary ---
Author Organization [facility] [place] [address] Phone Care Team Providers Care Rv Parts And Service Director Name Role Phone Vinicio Capellan Primary Care Provider [phone] Medications rosuvastatin (CRESTOR) 40 mg tablet TAKE 1 TABLET BY MOUTH EVERYDAY AT BEDTIME 90 tablet 2 09/14/2024 Active Immunizations Name Administration Dates Next Due [facility] SARS-CoV-2 COVID-19, mRNA, LNP-S, preservative free 12/24/2020,12/03/2020 [...] age to complete this topic Care Teams Rv Parts And Service Director Relationship Specialty Start Date End Date Vinicio Capellan [address] [place] [phone] PCP - General Internal Medicine 09/14/21
--- OUTSIDE RECORDS SUMMARY | 2024-12-09 14:45 | XMS_ITS ---
Author Organization [facility] Address [address] [place] [phone] Care Team Providers Care Core Machine Operator Name Role Phone Sebas Cutler MD Primary Care Provider Unavailab RAMU Escalante Unavailable [phone] Briseida Cruz Unavailable [phone] Allergies Allergen (clinical drug ingredient) Drug/Non Drug Allergy documented on EMR Reaction Allergy Type Onset Date Status tramadol Ultram Unknown Drug Allergy Active Results Component Value Reference Range Notes HEPATIC FUNCTION PANEL Reviewed date:11/09/2024 09:17:58 AM Interpretation: Performing Lab:NL1, [email or web address], [address] [place] [address], [phone] Santy Salas M.D. Notes/Report: Received Date: NON-FASTING; NON-FASTING; NON-FASTING; NON-FASTING; NON-FAST FASTING:YES FASTING: YES PROTEIN, TOTAL 7.0 6.1-8.1 g/dL ALBUMIN 4.7 3.6-5.1 g/dL GLOBULIN 2.3 1.9-3.7 g/dL (calc) ALBUMIN/GLOBULIN RATIO 2.0 1.0-2.5 (calc) BILIRUBIN, TOTAL 0.4 0.2-1.2 mg/dL BILIRUBIN, DIRECT 0.1 < OR = 0.2 mg/dL BILIRUBIN, INDIRECT 0.3 0.2-1.2 mg/dL (calc) ALKALINE PHOSPHATASE 51 37-153 U/L AST 19 10-35 U/L ALT 20 6-29 U/L CREATININE Reviewed date:11/09/2024 09:17:58 AM Interpretation: Performing Lab:NL1, [email or web address], [address] [place] [address], [phone] Santy Salas M.D. Notes/Report: Received Date: NON-FASTING; NON-FASTING; NON-FASTING; NON-FASTING; NON-FAST FASTING:YES FASTING: YES CREATININE 1.07 0.50-1.03 mg/dL EGFR 61 > OR = 60 mL/min/1.73m2 CBC (INCLUDES DIFF/PLT) Reviewed date:11/09/2024 09:17:58 AM Interpretation: Performing Lab:NL1, [facility], [address] [place] [address], [phone] Santy Salas M.D. Notes/Report: Received Date: NON-FASTING; NON-FASTING; NON-FASTING; NON-FASTING; NON-FAST FASTING:YES FASTING: YES WHITE BLOOD CELL COUNT 4.6 3.8-10.8 Thousand/ uL RED BLOOD CELL COUNT 4.56 3.80-5.10 Million/uL HEMOGLOBIN 13.7 11.7-15.5 g/dL HEMATOCRIT 41.3 35.0-45.0 % MCV 90.6 80.0-100.0 fL MCH 30.0 27.0-33.0 pg MCHC 33.2 32.0-36.0 g/dL For adults, a slight decrease in the calculated MCHC value (in the range of 30 to 32 g/dL) is most likely not clinically significant; however, it should be interpreted with caution in correlation with other red cell parameters and the patient's clinical condition. RDW 12.9 11.0-15.0 % PLATELET COUNT 211 140-400 Thousand/uL MPV 12.1 7.5-12.5 fL ABSOLUTE NEUTROPHILS 2558 [phone] cells/uL ABSOLUTE LYMPHOCYTES 2245 534-1966 cells/uL ABSOLUTE MONOCYTES 290 200-950 cells/uL ABSOLUTE EOSINOPHILS 41 15-500 cells/uL ABSOLUTE BASOPHILS 32 0-200 cells/uL NEUTROPHILS 55.6 LYMPHOCYTES 36.5 MONOCYTES 6.3 EOSINOPHILS 0.9 BASOPHILS 0.7 SED RATE BY MODIFIED WESTERG DIANA Reviewed date:11/09/2024 09:17:58 AM Interpretation: Performing Lab:NL1, [facility], [address] [place] [address], [phone] Santy Salas M.D. Notes/Report: Received Date: NON-FASTING; NON-FASTING; NON-FASTING; NON-FASTING; NON-FAST FASTING:YES FASTING: YES SED RATE BY MODIFIED WESTERGREN 6 < OR = 30 mm/h HS-CRP Reviewed date:11/09/2024 09:17:58 AM Interpretation: Performing Lab:NL1, [facility], [address] [place] [address], [phone] Santy Salas M.D. Notes/Report: Received Date: NON-FASTING; NON-FASTING; NON-FASTING; NON-FASTING; NON-FAST FASTING:YES FASTING: YES HS CRP 0.4 Reference Range Optimal <1.0 Jepradip PS et al. Endocr Pract.2017;23(Suppl 2):1-87. For [...] for Disease Control and Prevention and the [place] [employer]. Circulation 2003; 107(3): 499-511. 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 Due to chronic renal Insufficiency we will avoid Methotrexate. Vital Signs Temperature 35.1 C 08/19/2024 Blood pressure systolic 132 mm Hg 08/19/20 24 Blood pressure diastolic 82 mm Hg 024 Heart Rate 54 /min 08/19/2024 Height 165.8 cm 08/19/2024 Encounters Encounter Location Date Provider Diagnosis [facility] [address] [phone] 08/19/2024 Briseida Cruz MARTIN positive R76.8 ; [...] Repeat MARTIN neg . Negative MARTIN subserologies:,neg yyORS-[facility]-FTF-SM-ORGAN TUNER-S cl 70 aB, neg Centromere ab. Negative Antiphospholipid antibody panel (neg aCL, vjtC3TG3, neg LAC). No convincing evidence of autoimmune [...] up. 53yo female w/PMH +MARTIN 1:320 (2021 [facility]), IBS-C, Hypertension, Fibromyalgia and Costochondritis presents with [...] to this officeRTC in 8 weeksBriseida Cruz [facility]-. Pt reviewed by Dr. Cardenas Naltrexone 4.5 mg a day. The prescription for Low Dose Naltrexone is sent to the compounding pharmacy ([facility] (ph: [phone]) or [facility] (ph: [phone]) ISHMAELJACEY GILBERTARA 08/19/2024 05:20:19 PM EST > 08/19/2024 Disorder [...] stiffness 2 hours, pain in large joints:pain -06/18 RT hip, lower back, SI joints, h/o [...] to this officeRTC in 8 weeksBriseida Cruz [facility]-. Pt reviewed by Dr. Cardenas Naltrexone 4.5 mg a day. The prescription for Low Dose Naltrexone is sent to the compounding pharmacy ([facility] (ph: [phone]) or [facility] (ph: [phone]) ISHMAELVLADIMIRRAMU 08/19/2024 05:20:19 PM EST > Next Appt Details Follow Up: 3 Months, Reason: Provider Name:Chas Acosta, 12/29/2024 10:00:00 AM, [address] [place] [address], [phone], Progress Notes * Examination Category Sub-Category Detail [...] negative FIBROMYALGIA TENDER POINTS: No diffuse t engineer intern point tenderness allergy GENERAL APPEARANCE: in no [...] Demographics 53yo F w/PMH +MARTIN 1:320 (2021 [facility]), IBS- C, Hypertension, Fibromyalgia and Costochondritis; + h/o Dry eye + h/o Back pain preciptated by trauma+ h/o Buttock pain + h/o plantar fasciitis+ h/o R III Trigger finger 2022; off/on+ Autoimmune FHx lupus- pateranl GM The patient presents with th e following symptoms 08/19/2024 PT last seen PMD Sebas Cutler MD 07/2024, Fatigue 02/16 , AMS 2hrs+, pain 7-10/10 RT hip, [...] 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 Denies swollen joints today. -Reviewed labs 08/04/2024: Creat 1.08 (h), CK 178 (h), MO- 2 Beta AB 13 (H); HS CRP, Myositis Panel KRUPA-1 AB, PL-7 AB, PL-12 AB, EJ AB, OJ AB, SRP AB, MO-2 Alpha AB, MO-2 Alpha AB MDAS AB, T1F1, Gamma AB, [...] 53yo female with PMH +MARTIN 1:320 (2021 [facility]), IBS-C, Hypertension, Fibromyalgia and Costochondritis presents for [...] ago per Neuro MD Emmanuel Álvarez in [place]. She has tried Cymbalta in the past with no effect. She started seeing a Leaf Fat Scraper in [place] 4yrs ago David Louis in [facility]. This is provider is now in [place]. She transferred to another provider tommy Vasquez [...]
--- OUTSIDE RECORDS SUMMARY | 2024-12-09 14:45 | XMS_ITS | Encounter Summary ---
Author Organization [facility] [place] [address] Care Team Providers Care Burr Picker Name Role Phone Vinicio Capellan Primary Care Provider [phone] Encounter Details Date Type Department Care Team [...] on 07/08/2024 2:19 PM. Workstation Name - [employer] Procedure Note Syed Pierre MD - 07/11/2024 Exam: X-ray chest 2 views INDICATION: MARTIN positive Bases appear clear. No infiltrates or consolidations. Heart size isnormal without failure. Incidental pectus carinatum of the sternum. IMPRESSION: No infiltrate seen Report reviewed and signed by : Dr. Syed Pierre on 07/08/2024 2:19 PM.Workstation Name - [employer] us Briseida Cruz MANAGER NEONATAL IMG XR PROCEDURES Final Resul t documented in this encounter Visit Diagnoses Diagnosis Other specified abnormal immunological findings in serum documented in this encounter Care Teams Burr Picker Relationship Specialty Start Date End Date Vinicio Capellan [address] [place] [id number] PCP - General Internal Medicine 09/14/21 documented as of this encounter
--- OUTSIDE RECORDS SUMMARY | 2024-12-09 14:46 | XMS_ITS | Patient Health Record ---
Author Organization [facility] Address [address] [place] [address] Care Team Providers Care Restoration Technician Name Role Phone Omayra GIRALDO, Sebas Primary Care Provider Unavailab Xenia Carey Unavailable [phone] Brock Hogan Unavailable [phone] Hilda Us Unavailable [phone] Allergies Allergen (clinical drug ingredient) Drug/Non Drug [...] Referring Provider Last Name Omayra [facility] Referred Provider Xeina Butterfield Referred Address [address] [facility],[place], [place],[address], Referred Provider Specialty Podiatry Referral Priority Routine [...] First Name Sebas Referring Provider Last Name Omyara Referred [facility] Referred Provider Brock Hogan Referred Address [address] ,[place], [place],[address],[place] Referred Provider Specialty Podiatry Referral Priority Routine Medications Medication SIG (Take, Route, Frequency, Duration) Notes Start Date End Date Status Office visit . . . Patient can only stand or walk for 10-15min increments at a time due to severe pain in right foot. for 90 days 12/08/2024 Active Baby Aspirin Active Wellbutrin XL 150 MG 1 tablet in the mor aspen Orally Once a day for 30 day(s) Not-Taking Naltrexone - as directed Activ e Motegrity 2 MG 1 tablet Orally Once a day for 30 day(s) Not-Taking Lisinopril 10 MG 1 tablet Orally Once a day for 30 day(s) Active Metoprolol Succinate 50 MG 1 capsule Orally Once a day for 30 day(s) Active Lyrica Not-Taking traZODone HCl 150 MG 1 tablet at bedtime Orally Once a day for 30 day(s) Active toprol Not-Taking Effexor XR 37.5 mg N ot-Taking oxyCODONE HCl 5 MG 1 tablet as needed Orally every 6 hrs 09/29/2024 Active Mirtazapine Not-Taki ng Crestor 10 MG 1 tablet Orally Once a day for 30 day(s) Active Piroxicam 20 MG TAKE ONE CAPSULE BY MOUTH EVERY MORNING Oral for 30 Not-Taking Neurontin 300 MG 1 capsule Orally Thr ee times a day for 30 days 10/23/2024 Active Physical Therapy . . . Patient had roz er toe surgery right foot on 09/16/24; having symptoms of CRPS/RSD, history of Firbomyalgia for 60 days 10/23/2024 Active Amitriptyline HCl No t-Taking Gabapentin Active CeleBREX Not-Taking Zoloft Not-Taking Social History Tobacco Use: Social History Observation Description Date Details (start date - stop date) Never Smoker NA - NA Tobacco use other than smoking: Question Answer Notes Are you an other tobacco user? No Tobacco Control (Standard) Question Answer Notes Tobacco use: Nonsmoker Additional Findings: Tobacco non-user Current no nsmoker AUDIT-C (Standard) Question Answer Notes Did you have a drink containing alcohol in the p ast year? No Points 0 Interpretation Negative Problems Problem Type SNOMED Code ICD Code Onset Dates Problem Status W/U Status Risk Notes Problem Acquired hammer toe of right foot (6329127571826951) Other hammer toe(s) (acquired), right foot (M20.41) Active confirmed Problem Acquired hammer toe of left foot (1540016714689347) Other hammer toe(s) (acquired), left foot (M20.42) Active confirmed Problem Plantar fascial fibromatosis (94283469) Plantar fascial fibromatosis (M72.2) Active confirmed Problem [id number] Complex regional pain syndrome type 1 of right lower extremity (G90.521) Active confirmed Problem Localized, primary osteoarthritis of the ankle and/or foot (752013003) Arthritis of joint of lesser toe, left (M19.072) Active confirmed Problem Localized, primary osteoarthritis of the ankle and/or foot (335609100) Arthritis of joint of lesser toe, right (M19.071) Active confirmed Vital Signs Heart Rate 57 /min 09/29/2024 Blood pressure diastolic 70 mm Hg 12/08/2024 Height 5ft5in in 12/08/2024 Blood pressure systolic 100 mm Hg 12/08/2024 Weight 170 lbs 12/08/2024 BMI 28.29 kg/m2 12/08/2024 Encounters Encounter Location Date Provider Diagnosis Surgery [facility] (Angel/ADAR[facility]) [address] [place] [address] 09/16/2024 Xenia Butterfield [facility] [address] [address] 07/14/2024 Xenia Butterfield Pain in right toe(s) M79.674 ; Other hammer toe(s) (acquired), right foot M20.41 ; Arthritis of joint of lesser toe, right M19.071 ; Pain in left toe(s) M79.675 ; Other hammer toe(s) (acquired), left foot M20.42 ; Arthritis of joint of lesser toe, left M19.072 and Subluxation of metatarsophalangeal joint of toe, initial encounter S93.149A [address] [address] 08/18/2024 Brock Edison Pain in left foot M7 9.672 ; Pain in left ankle and joints of left foot M25.572 ; Bursitis of intermetatarsal bursa of left foot M77.52 and Metatarsalgia, left foot M77.[address] [address] 09/04/2024 Xenia Butterfield Pain in right toe(s) M79.674 ; Other hammer toe(s) (acquired), right foot M20.41 ; Arthritis of joint of lesser toe, right M19.071 ; Pain in left toe(s) M79.675 ; Other hammer toe(s) (acquired), left foot M20.42 ; Arthritis of joint of lesser toe, left M19.072 and Subluxation of metatarsophalangeal joint of toe, initial encounter S93.149A [address] [address] 09/10/2024 Xenia Butterfield Pain in right toe(s) M79.674 ; Other hammer toe(s) (acquired), right foot M20.41 ; Arthritis of joint of lesser toe, right M19.071 ; Pain in left toe(s) M79.675 ; Other hammer toe(s) (acquired), left foot M20.42 ; Arthritis of joint of lesser toe, left M19.072 and Subluxation of metatarsophalangeal joint of toe, initial encounter S93.149A [address] [address] 09/22/2024 Xenia Butterfield Other hammer toe(s) (acquired), right foot M20.[address] [address] 09/29/2024 Xenia Hatchaker Other hammer toe(s) (acquired), right foot M20.41 [facility] [address] [address] 10/09/2024 Xenia Hatchaker Other hammer toe(s) (acquired), right foot M20.[address] [facility] [address] 10/23/2024 Hilda Perica Other hammer toe(s) (acquired), right foot M20.41 ; Complex regional pain syndrome type 1 of right lower extremity G90.521 and Pain in right foot M79.[address] [facility] [address] 11/13/2024 Hilda Perica Other hammer toe(s) (acquired), right foot M20.41 ; Complex regional pain syndrome type 1 of right lower extremity G90.521 and Pain in right foot M79.[address] [facility] [address] 12/08/2024 Hilda Perica Other hammer toe(s) (acquired), right foot M20.41 ; Complex regional pain syndrome type 1 of right lower extremity G90.521 and Pain in right foot M79.[address] [facility] [address] 10/23/2024 Xenia Butterfield [facility] [address] [address] 12/09/2024 [facility] Butter[facility] [address] [address] 07/14/2024 Brock Hogan [facility] [address] [address] 07/15/2024 Xenia Butterfield [facility] [address] 08/13/2024 Xenia Butterfield [facility] [address] 09/04/2024 [facility] [address] [address] 09/15/2024 [facility] [address] [address] 09/17/2024 [facility] [address] [address] 09/17/2024 [facility] [address] [place] [address] 09/18/2024 [facility] [address] [address] 10/27/2024 [facility] [address] [address] 11/13/2024 [facility]enia Butterfield [facility] [address] [place] [address] 12/02/2024 [facility] [address] [address] 12/08/2024 Xenia Butterfield [facility] [address] 09/14/2024 Xenia Butterfield Assessments Encounter Date Diagnosis (ICD Code) Assessment Notes Treatment Notes Treatment Clinical Notes Section Notes 07/14/2024 Other hammer toe(s) (acquired), right foot [...] of right lower extremity (ICD-10 - G90.521) 11/13/2024 Other hammer toe(s) (acquired), right foot (ICD-10 - M20.41) 12/08/2024 Other hammer toe(s) (acquired), right foot (ICD-10 - M20.41) 11/13/2024 Complex regional leanna n syndrome type 1 of right lower extremity (ICD-10 - G90.521) 12/08/2024 Complex regional leanna n syndrome type 1 [...] lesser toe, right (ICD-10 - M19.071) 08/18/2024 Metatarsalgia, left foot (ICD-10 - M77.42) 07/14/2024 Pain in left toe(s) (ICD-10 - M79.675) 09/10/2024 Pain in left toe(s) (ICD-10 - M79.675) 09/04/2024 Pain in left toe(s) (ICD-10 - M79.675) 12/08/2024 Pain in right foot (ICD-10 - M79.671) 11/13/2024 Pain in right foot (ICD-10 - M79.671) 09/10/2024 Other hammer toe(s) (acquired), left foot (ICD-10 - M20.42) 09/04/2024 Other hammer toe(s) (acquired), left foot (ICD-10 - M20.42) 07/14/2024 Other hammer toe(s) (acquired), left foot [...] 06/21/2011 X ray : Foot, left 3V 07/14/2024 X ray : Foot, left 3V 09/18/2021 X ray : Foot, left 3V 03/19/2022 X ray : Foot, right 3V 03/19/2022 X ray : Foot, right 3V 09/18/2021 X ray : Foot, right 3V 07/14/2024 X ray : Foot, right 3V 10/23/2024 X ray : Foot, right 3V 06/21/2011 X ray : Foot, right 3V 06/12/2012 Next Appt Details Provider Name:Xenia luis, 12/14/2024 09:00:00 AM, [address] [facility], [place], [address], Insurance Providers Payer Name Payer Address Payer Phone Subscriber Number Group Number Insured Name Patient Relationship to Insured Coverage Start Date Coverage End Date [facility] [address] [place] [address] [id number] Amilcar Carter Spouse - patient is the spouse of the insured Medical (General) History Medical History History ICD Code headaches/migraines fibromyalgia chicken pox reflux back, hip, knee pain corns/calluses anxiety Depression High blood pressure Hypercholesterolemia Surgical History Surgery Date(Month/Year) section 2007 tubal ligation 2008 vesico vaginal fistula 2002 hysterectomy 2009 hammertoe repair R5T 1989 oral surgery 06/02/2012 Hammertoe Repair Left 2nd, 3rd, 4th, Cap sulotomy Left MPJ 09/16/2024
--- OUTSIDE RECORDS SUMMARY | 2024-12-09 14:46 | XMS_ITS ---
Author Organization [facility] Address [address] [place] [address] Care Team Providers Care Printing Press Operator Name Role Phone Omayra GIRALDO, Sebas Primary Care Provider Unavailab Xenia Carey Unavailable [phone] Brock Hogan Unavailable [phone] REASON FOR VISIT ERROR Encounters Encounter Location Date Provider Diagnosis [facility] [address] [place] [address] 12/08/2024 Brock Hogan Plan Of Treatment Next Appt Details Provider Name:Xenia Trip luis, 12/14/2024 09:00:00 AM, [address] [place], [address], Progress Notes * Camden CARTER MDOB:[birth year] (54 yo F)Acc No.[id number]:12/08/2024 PROGRESS NOTES Patient:?Camden CARTER Provider:?Brock Hogan DPM :1970???Age:54 Y???Sex:Female D ate:12/08/2024 [facility] [facility] Pcp:Sebas Cutler MD Subjective: * Chief Complaints: * ???1. ERROR. * Medical History:? Objective: * Vitals:? Assessment: Plan: * Treatment: * Images: * The named appointment provid er may or may not be the originator of this progress note, and it is not deemed complete until electronically signed by the appointment provider. Sign off status: Pending * Provider:Dino Hogan DPM Date:?2024 Generated for Gladys tubbs/Angi/Preston on:?12/09/2024 02:46 PM EDT
--- OUTSIDE RECORDS SUMMARY | 2024-12-09 14:46 | XMS_ITS ---
Author Organization [facility] Address [address] [place] [phone] Care Team Providers Care Immigration Law Specialist Name Role Phone Sebas Cutler MD Primary Care Provider Unavailab RAMU Escalante Unavailable [phone] Briseida Cruz Unavailable [phone] Allergies Allergen (clinical drug ingredient) Drug/Non Drug [...] Active Encounters Encounter Location Date Provider Diagnosis [facility] [address] [phone] 08/19/2024 Briseida Cruz Plan Of Treatment Next Appt Details Provider Name:Chas Acosta, 12/29/2024 10:00:00 AM, [address] [place] [address], [phone], History and Physical Notes * HPI (History of Present Illness) Category Sub-Category Detail Notes Rheumatology, Other Demographics 53yo F w/PMH +MARTIN 1:320 (2021 [facility]), IBS- C, Hypertension, Fibromyalgia and Costochondritis;+ [...] with PMH +MARTIN 1:320 (2021 [facility]), IBS-C, Hypertension, Fibromyalgia and Costochondritis presents [...] ago per Neuro MD Emmanuel Álvarez in [place]. She has tried Cymbalta in the past with no effect. She started seeing a Hedge Trimmer in [place] 4yrs ago David Louis in [facility]. This is provider is now in [place]. She transferred to another provider tommy Vasquez [...]
--- OUTSIDE RECORDS SUMMARY | 2024-12-09 14:46 | XMS_ITS | Patient Health Record ---
Author Organization [facility] Address [address] [place] [address] [phone] Care Team Providers Care Dredge Runner Name Role Phone Omayra GIRALDO, Sebas Primary Care Provider Unavailab RAMU Escalante Unavailable [phone] Cruz Briseida Unavailable [phone] Allergies Allergen (clinical drug ingredient) Drug/Non Drug Allergy documented on EMR Reaction Allergy Type Onset Date Status tramadol Ultram Unknown Drug Allergy Active Results Component Value Reference Range Notes LUPUS ANTICOAGULANT EVALUATI ON WITH REFLEX Reviewed date:06/17/2024 01:26:58 PM Interpretation: Performing Lab:[facility], [address], [place], [address] Suresh Arguello M.D.,PhD Notes/Report: Received Date: FASTING; FASTING LUPUS ANTICOAGULANT see note A Lupus Anticoagulant is not detected. Common causes for a prolonged screen and negative confirmatory test include factor deficiencies or anticoagulant therapy. Reference Range: Not Detected For additional information, please refer to http://education.ForceManager.Thinkfuse/faq/CQM63g1 (This link is being provided for informational/ educational purposes only.) This interpretation is based on the following test results. PTT-LA SCREEN 51 <=40 sec DRVVT SCREEN 35 <=45 sec HEXAGONAL PHASE CONFIRM Negative Negative URINALYSIS, COMPLETE W/REFLE X TO CULTURE Reviewed date:06/17/2024 01:26:58 PM Interpretation: Performing Lab:NL1, [facility], [address] [place] [address], [phone] Santy Salas M.D. Notes/Report: Received Date: [id number] FASTING; FASTING; FASTING; FASTING; NON-FASTING; FASTING; FA COLOR TNP TEST NOT PERFORMED Specimen leaked in transit. HLA-B27 ANTIGEN Reviewed date:06/17/2024 01:26:58 PM Interpretation: Performing Lab:[facility], [address], [place], [address] Suresh Arguello M.D.,PhD Notes/Report: Received Date: FASTING; FASTING; FASTING; FASTING; NON-FASTING; FASTING; FA HLA-B27 ANTIGEN Negative Negative QUANTIFERON(R)-TB GOLD Reviewed date:06/24/2024 08:50:14 AM Interpretation: Performing Lab:NL1, [facility], [address] [place] [address], [phone] Santy Salas M.D. Notes/Report: Received Date: FASTING; [...] T-lymphocytes. For additional information, please refer to https://education.Itaconix/faq/FQF908 (This link is being provided for informational/ educational purposes only.) C-REACTIVE PROTEIN Reviewed date:06/17/2024 01:26:58 PM Interpretation: Performing Lab:NL1, [facility], [address] [place] [address], [phone] Santy Salas M.D. Notes/Report: Received Date: FASTING; FASTING; FASTING; FASTING; NON-FASTING; FASTING; FA C-REACTIVE PROTEIN <3.0 <8.0 mg/L THYROGLOBULIN ANTIBODIES Reviewed date:06/17/2024 01:26:58 PM Interpretation: Performing Lab:NL1, [email or web address], [address] [place] [address], [phone] Santy Salas M.D. Notes/Report: Received Date: FASTING; FASTING; FASTING; FASTING; NON-FASTING; FASTING; FA THYROGLOBULIN ANTIBODIES <1 < or = 1 IU/mL LYME DISEASE AB, TOTAL W/REF L WB (IGG, IGM) Reviewed date:06/24/2024 08:50:14 AM Interpretation: Performing Lab:NL1, [email or web address], [address] [place] [address], [phone] Santy Salas M.D. Notes/Report: Received Date: FASTING; [...] Reviewed date:06/17/2024 01:26:58 PM Interpretation: Performing Lab:REGINALD1, [email or web address], [address] [place] [address], [phone] Santy Salas M.D. Notes/Report: Received Date: FASTING; [...] Reviewed date:06/17/2024 01:26:58 PM Interpretation: Performing Lab:1, [email or web address], [address] [place] [address], [phone] Santy Salas M.D. Notes/Report: Received Date: [id number] FASTING; FASTING; FASTING; FASTING; NON-FASTING; FASTING; FA HEPATITIS B CORE ANTIBODY (IGM) NON-REACTIVE NON-REACTIVE For additional information, please refer to http://education.ForceManager.com/faq/BRB637 (This link is being provided for informational/ educational purposes only.) HEPATITIS B SURFACE ANTIGEN W/REFL CONFIRM Reviewed date:06/17/2024 01:26:58 PM Interpretation: Performing Lab:NL1, [email or web address], [address] [place] [address], [phone] Santy Salas M.D. Notes/Report: Received Date: [id number] FASTING; FASTING; FASTING; FASTING; NON-FASTING; FASTING; FA HEPATITIS B SURFACE ANTIGEN NON-REACTIVE NON-REACTIVE For additional information, please refer to http://AbsolutData/faq/LXE733 (This link is being provided for informational/ educational purposes only.) VITAMIN B12/FOLATE, SERUM PA RAFA Reviewed date:06/17/2024 01:26:58 PM Interpretation: Performing Lab:NL1, [email or web address], [address] [place] [address], [phone] Santy Salas M.D. Notes/Report: Received Date: FASTING; FASTING VITAMIN B12 684 868-8044 pg/mL FOLATE, SERUM 15.9 Reference Range Low: <3.4 Borderline: 3.4-5.4 Normal: >5.4 FERRITIN Reviewed date:06/17/2024 01:26:58 PM Interpretation: Performing Lab:NL1, [email or web address], [address] [place] [address], [phone] Santy Salas M.D. Notes/Report: Received Date: [id number] FASTING; FASTING; FASTING; FASTING; NON-FASTING; FASTING; FA FERRITIN 100 16-232 ng/mL HEPATITIS C ANTIBODY Reviewed date:06/24/2024 08:50:14 AM Interpretation: Performing Lab:NL1, [email or web address], [address] [place] [address], [phone] Santy Salas M.D. Notes/Report: Received Date: [id number] FASTING; NON-FASTING; NON-FASTING; NON-FASTING; NON-FASTING HEPATITIS C ANTIBODY NON-REACTIVE NON-REACTIVE HCV antibody was non-reactive. There is no laboratory evidence of HCV infection. In most cases, no further action is required. However, if recent HCV exposure is suspected, a test for HCV RNA (test code 50181) is suggested. For additional information please refer to http://AbsolutData/faq/NTT54m2 (This link is being provided for informational/ educational purposes only.) TSH, 3RD GENERATION Reviewed date:06/17/2024 01:26:58 PM Interpretation: Performing Lab:NL1, [email or web address], [address] [place] [address], [phone] Santy Salas M.D. Notes/Report: Received Date: FASTING; FASTING; FASTING; FASTING; NON-FASTING; FASTING; FA TSH 0.79 Reference Range > or = 20 Years 0.40-4.50 Ranges First trimester 0.26-2.66 Second trimester 0.55-2.73 Third trimester 0.43-2.91 IMMUNOFIXATION IGA,IGG,IGM Q T.IMMUNOFIXATION SERUM IMMUNOGLOBULIN Reviewed date:06/17/2024 01:26:58 PM Interpretation: Performing Lab:DEVYN [email or web address], [address] [place] [address], [phone] Santy Salas M.D. Notes/Report: Received Date: FASTING; FASTING; FASTING; FASTING; NON-FASTING; FASTING; FA ARNOLD INTERPRETATION No monoclonal proteins detected. IMMUNOGLOBULIN A 258 47-310 mg/dL IMMUNOGLOBULIN G 857 458-5441 mg/dL IMMUNOGLOBULIN M 78 50-300 mg/dL PTH, INTACT AND CALCIUM Reviewed date:06/17/2024 01:26:58 PM Interpretation: Performing Lab:DEVYN [email or web address], [address] [place] [address], [phone] Santy Salas M.D. Notes/Report: Received Date: FASTING; [...] Reviewed date:06/17/2024 01:26:58 PM Interpretation: Performing Lab:DEVYN [email or web address], [address] [place] [address], [phone] Santy Salas M.D. Notes/Report: Received Date: FASTING; [...] Reviewed date:06/17/2024 01:26:58 PM Interpretation: Performing Lab:NL1, [facility], [address] [place] [address], [phone] Santy Salas M.D. Notes/Report: Received Date: FASTING; [...] date:06/17/2024 01:26:58 PM Interpretation: Performing Lab:[facility], [address] [facility] , [place], [address] Suresh Arguello M.D.,PhD Notes/Report: Received Date: FASTING; FASTING; FASTING; FASTING; NON-FASTING; FASTING; FA [id number]-UXDUWOYERE ENZYME <5 9-67 U/L VITAMIN D, 25-HYDROXY, LC/MS /MS Reviewed date:06/17/2024 01:26:58 PM Interpretation: Performing Lab:NL1, [facility], [address] [place] [address], [phone] Santy Salas M.D. Notes/Report: Received Date: FASTING; [...] D, (D2,D3), LC/MS/MS is recommended: order code 91265 (patients >2yrs). See Note 1 Note 1 For additional information, please refer to http://education.Coremetrics.com/faq/TDF206 (This link is being provided for informational/ educational purposes only.) URIC ACID Reviewed date:06/17/2024 01:26:58 PM Interpretation: Performing Lab:NL1, [facility], [address] [place] [address], [phone] Santy Salas M.D. Notes/Report: Received Date: FASTING; FASTING; FASTING; FASTING; NON-FASTING; FASTING; FA URIC ACID 5.1 2.5-7.0 mg/dL Therapeutic ta rget for gout patients: <6.0 mg/dL IRON TOTAL, TIBC, SATURATION Reviewed date:06/17/2024 01:26:58 PM Interpretation: Performing Lab:NL1, [email or web address], [address] [place] [address], [phone] Santy Salas M.D. Notes/Report: Received Date: FASTING; FASTING; FASTING; FASTING; NON-FASTING; FASTING; FA IRON, TOTAL 104 45-160 mcg/dL IRON BINDING CAPACITY 343 250-450 mc g/dL (calc) % SATURATION 30 16-45 % (calc) CREATINE KINASE, TOTAL Reviewed date:06/17/2024 01:26:58 PM Interpretation: Performing Lab:REGINALD1, [email or web address], [address] [place] [address], [phone] Santy Salas M.D. Notes/Report: Received Date: FASTING; FASTING; FASTING; FASTING; NON-FASTING; FASTING; FA CREATINE KINASE, TOTAL 197 29-143 U/L HEPATIC FUNCTION PANEL Reviewed date:06/17/2024 01:26:58 PM Interpretation: Performing Lab:REGINALD1, [email or web address], [address] [place] [address], [phone] Santy Salas M.D. Notes/Report: Received Date: FASTING; [...] Reviewed date:06/17/2024 01:26:58 PM Interpretation: Performing Lab:NL1, [email or web address], [address] [place] [address], [phone] Santy Salas M.D. Notes/Report: Received Date: FASTING; FASTING; FASTING; FASTING; NON-FASTING; FASTING; FA CREATININE 1.20 0.50-1.03 mg/dL EGFR 54 > OR = 60 mL/min/1.73m2 CBC (INCLUDES DIFF/PLT) Reviewed date:06/17/2024 01:26:58 PM Interpretation: Performing Lab:NL1, [email or web address], [address] [place] [address], [phone] Santy Salas M.D. Notes/Report: Received Date: [id number] FASTING; FASTING; FASTING; FASTING; NON-FASTING; FASTING; FA [...] MPV 12.5 7.5-12.5 fL ABSOLUTE NEUTROPHILS 2817 8278-0885 cells/uL ABSOLUTE LYMPHOCYTES 4333 179-1699 cells/uL ABSOLUTE MONOCYTES 293 200-950 cells/uL ABSOLUTE EOSINOPHILS 72 15-500 cells/uL ABSOLUTE BASOPHILS 41 0-200 cells/uL NEUTROPHILS 62.6 LYMPHOCYTES 28.4 MONOCYTES 6.5 EOSINOPHILS 1.6 BASOPHILS 0.9 SED RATE BY MODIFIED WESTERG DIANA Reviewed date:06/17/2024 01:26:58 PM Interpretation: Performing Lab:NL1, [email or web address], [address] [place], [phone] Santy Salas M.D. Notes/Report: Received Date: FASTING; FASTING; FASTING; FASTING; NON-FASTING; FASTING; FA SED RATE BY MODIFIED WESTERGREN 2 < OR = 30 mm/h HS-CRP Reviewed date:06/17/2024 01:26:58 PM Interpretation: Performing Lab:NL1, [email or web address], [address] [place], [address] Santy Salas M.D. Notes/Report: Received Date: FASTING; [...] for Disease Control and Prevention and the [place] [employer]. Circulation 2003; 107(3): 499-511. Celiac Disease Comprehensive Panel with Gliadin Antibody (IgG) Reviewed date:06/24/2024 08:50:14 AM Interpretation: Performing Lab:NL1, [email or web address], [address] [place], [phone] Santy Salas M.D. Notes/Report: Received Date: FASTING; NON-FASTING; NON-FASTING; NON-FASTING; NON-FASTING TISSUE TRANSGLUTAMINASE AB, IGA <1.0 Value Interpretation ----- <15.0 Antibody not detected > or = 15.0 Antibody detected IMMUNOGLOBULIN A 259 47-310 mg/dL ANAlyzeR MARTIN,IFA with Reflex Titer/Pattern, Systemic Autoimmune Panel 1 Reviewed date:06/24/2024 08:50:14 AM Interpretation: Performing Lab:EZ, [facility],, [address] [place], [address] Li Arriola MD,PhD,CYNDIE Notes/Report: Received Date: FASTING; [...] Negative International Consensus on MARTIN Patterns https://doi.org/10.1515/cc sl-7921-2555 For additional information, please refer to http://education.Coremetrics.Thinkfuse/faq/FMJ941 (This link is being provided for informational/educational purposes only.) DNA AB (DS) CRITHIDIA,IFA NEGATIVE NEGATIVE CHROMATIN (NUCLEOSOMAL) ANTIBODY <1.0 NEG <1.0 NEGATIVE AI SM ANTIBODY <1.0 NEG <1.0 NEGATIVE AI SM/GROUND NUCLEAR WEAPONS ASSEMBLY OFFICER ANTIBODY <1.0 NEG <1.0 NEGATIVE AI GROUND NUCLEAR WEAPONS ASSEMBLY OFFICER ANTIBODY <1.0 NEG <1.0 NEGATIVE AI SJOGREN'S [...] aging. For additional information, please refer to http://education.ForceManager.Thinkfuse/faq/XSC156 (This link is being provided for informational/educational [...] Reviewed date:08/13/2024 11:08:37 AM Interpretation: Performing Lab:NL1, [facility], [address] [place] [address], [phone] Santy Salas M.D. Notes/Report: Received Date: [id number] NON-FASTING; NON-FASTING; NON-FASTING; NON-FASTING; NON-FAST C-REACTIVE PROTEIN <3.0 <8.0 mg/L METHYLMALONIC ACID Reviewed date:08/13/2024 11:08:37 AM Interpretation: Performing Lab:[facility], [address], [place], [address] Suresh Arguello M.D.,PhD Notes/Report: Received Date: [id number] NON-FASTING; NON-FASTING; NON-FASTING; NON-FASTING; NON-FAST METHYLMALONIC ACID [...] neural tube defects and intrauterine growth restriction. [facility] utilized Multi-Modal Decomposition (MMD) analysis to establish first and second trimester- specific MMA reference intervals in , as given below: MMA, First trimester (<13 wks gestation): 58-167 nmol/L MMA, Second trimester (13-23 wks gestation): 63-241 nmol/L This test was developed and its analytical performance characteristics have been determined by [facility]. It has not been cleared or approved by the FDA. This assay has been validated pursuant to the CLIA regulations and is used for clinical purposes. CREATINE KINASE, TOTAL Reviewed date:08/13/2024 11:08:37 AM Interpretation: Performing Lab:DEVYN, [facility], [address] [place] [address], [phone] Santy Salas M.D. Notes/Report: Received Date: [id number] NON-FASTING; NON-FASTING; NON-FASTING; NON-FASTING; NON-FAST CREATINE KINASE, TOTAL 178 29-143 U/L ALDOLASE Reviewed date:08/13/2024 11:08:37 AM Interpretation: Performing Lab:[facility], [address], [place], [address] Suresh Arguello M.D.,PhD Notes/Report: Received Date: [id number] NON-FASTING; NON-FASTING; NON-FASTING; NON-FASTING; NON-FAST ALDOLASE 4.4 <=8.1 U/L HEPATIC FUNCTION PANEL Reviewed date:08/13/2024 11:08:37 AM Interpretation: Performing Lab:DEVYN, [facility], [address] [place] [address], [phone] Santy Salas M.D. Notes/Report: Received Date: [id number] NON-FASTING; NON-FASTING; NON-FASTING; NON-FASTING; NON-FAST PROTEIN, TOTAL [...] Reviewed date:08/13/2024 11:08:37 AM Interpretation: Performing Lab:DEVYN, [facility], [address] [place] [address], [phone] Santy Salas M.D. Notes/Report: Received Date: NON-FASTING; NON-FASTING; NON-FASTING; NON-FASTING; NON-FAST CREATININE 1.08 0.50-1.03 mg/dL EGFR 61 > OR = 60 mL/min/1.73m2 SED RATE BY MODIFIED WESTERG DIANA Reviewed date:08/13/2024 11:08:37 AM Interpretation: Performing Lab:NL1, [email or web address], [address] [place] [address], [phone] Santy Salas M.D. Notes/Report: Received Date: NON-FASTING; NON-FASTING; NON-FASTING; NON-FASTING; NON-FAST SED RATE BY MODIFIED WESTERGREN 2 < OR = 30 mm/h HS-CRP Reviewed date:08/13/2024 11:08:37 AM Interpretation: Performing Lab:NL1, [email or web address], [address] [place] [address], [phone] Santy Salas M.D. Notes/Report: Received Date: NON-FASTING; [...] for Disease Control and Prevention and the [place] [employer]. Circulation 2003; 107(3): 499-511. Myositis 11 Antibody Panel Reviewed date:08/13/2024 11:08:37 AM Interpretation: Performing Lab:EZ, [facility],, [address] [place], [phone] Li Arriola MD,PhD,CYNDIE Notes/Report: Received Date: NON-FASTING; NON-FASTING; NON-FASTING; NON-FASTING; NON-FAST LOIDA-1 AB <11 <[address]-7 AB <11 <[address]-12 AB <11 <11 SI EJ AB <11 <11 SI OJ AB <11 <11 SI SRP AB <11 <11 SI NE-2 ALPHA AB <11 <11 SI NE-2 BETA AB 13 <11 SI MDA5 AB [...] with a rash. Additionally, MSAs to MDA5 (SICU934) have been identified in patients with clinically [...] analytical performance characteristics have been determined by [facility]. It has not been cleared or approved by the FDA. This assay has been validated pursuant to the CLIA regulations and is used for clinical purposes. HEPATIC FUNCTION PANEL Reviewed date:11/09/2024 09:17:58 AM Interpretation: Performing Lab:NL1, [facility], [address] [place] [address], [phone] Santy Salas M.D. Notes/Report: Received Date: NON-FASTING; [...] Reviewed date:11/09/2024 09:17:58 AM Interpretation: Performing Lab:NL1, [email or web address], [address] [place] [address], [phone] Santy Salas M.D. Notes/Report: Received Date: NON-FASTING; NON-FASTING; NON-FASTING; NON-FASTING; NON-FAST FASTING:YES FASTING: YES CREATININE 1.07 0.50-1.03 mg/dL EGFR 61 > OR = 60 mL/min/1.73m2 CBC (INCLUDES DIFF/PLT) Reviewed date:11/09/2024 09:17:58 AM Interpretation: Performing Lab:NL1, [email or web address], [address] [place] [address], [phone] Santy Salas M.D. Notes/Report: Received Date: NON-FASTING; NON-FASTING; NON-FASTING; NON-FASTING; NON-FAST FASTING:YES FASTING: YES WHITE BLOOD CELL COUNT 4.6 3.8-10.8 Thousand/uL RED BLOOD CELL COUNT 4.56 3.80-5.10 Million/uL [...] MPV 12.1 7.5-12.5 fL ABSOLUTE NEUTROPHILS 2558 3303-8147 cells/uL ABSOLUTE LYMPHOCYTES 7984 847-2814 cells/uL ABSOLUTE MONOCYTES 290 200-950 cells/uL ABSOLUTE EOSINOPHILS 41 15-500 cells/uL ABSOLUTE BASOPHILS 32 0-200 cells/uL NEUTROPHILS 55.6 LYMPHOCYTES 36.5 MONOCYTES 6.3 EOSINOPHILS 0.9 BASOPHILS 0.7 SED RATE BY MODIFIED WESTERG DIANA Reviewed date:11/09/2024 09:17:58 AM Interpretation: Performing Lab:NL1, [email or web address], [address] [place] [address], [phone] Santy Salas M.D. Notes/Report: Received Date: [id number] NON-FASTING; NON-FASTING; NON-FASTING; NON-FASTING; NON-FAST FASTING:YES FASTING: YES SED RATE BY MODIFIED WESTERGREN 6 < OR = 30 mm/h HS-CRP Reviewed date:11/09/2024 09:17:58 AM Interpretation: Performing Lab:NL1, [email or web address], [address] [place] [address], [phone] Santy Salas M.D. Notes/Report: Received Date: [id number] NON-FASTING; NON-FASTING; NON-FASTING; NON-FASTING; NON-FAST FASTING:YES FASTING: YES HS CRP 0.4 Reference Range Optimal <1.0 Brijesh PS et [...] for Disease Control and Prevention and the [place] [employer]. Circulation 2003; 107(3): 499-511. Reason For Referral No Information Medications Medication SIG (Take, Route, Frequency, Duration) Notes Start Date End Date Status Crestor 40 MG 1 tablet Orally Once a day Active Gabapentin 300 MG 1 capsule Orally thr ee times a day Active Metoprolol Succinate 50 MG 1 capsule Ora lly Once a day Active Naltrexone - 6 mg oral daily for 30 days 07/08/2024 Active Aspirin 81 MG 1 tablet Orally Once a day Active Vitamin D 25 MCG (1000 UT) 1 tablet Orally Once a day Active traZODone HCl 150 MG 1 tablet at bedtime Orally Once a day Active Lisinopril 10 MG 1 tablet Orally Once a day Active Problems Problem Type SNOMED Code ICD Code Onset Dates Problem Status W/U Status Risk Notes Problem Psoriatic spondylitis (922554007) Psoriatic spondylitis (L40.53) Active confirmed polyarthralgia, inflammatory [...] that developed after Rt foot surgery . Problem Solitary sacroiliitis (348014659) Sacroiliitis, not elsewhere classified (M46.1) Active confirmed Problem Cervical spondylosis without myelopathy (167054771) Spondylosis without myelopathy or radiculopathy, cervical region (M47.812) Active confirmed Problem Lumbosacral spondylosis without myelopathy (disorder) (45897024) Spondylosis without myelopathy or radiculopathy, lumbosacral region (M47.817) Active confirmed Problem Perimenopausal disorder (107044513) Other specified menopausal and perimenopausal disorders (N95.8) Active confirmed Problem Arthritis of spine (disorder) (673068757) Other specified inflammatory spondylopathies , 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) Active confirmed Seronegative Spondyloarthriti s ( inflammatory back pain that is better with moving, not relieved by rest, prolonged morning stiffness 2 hours, pain in large joints:pain 7-10/10 RT hip, lower back, SI joints, h/o enthesitis (plantar fasciitis,trigge r finger, costochondritis) , Achilles enthesitis Left on exam 3.6.25, limited painful flexion (B) hand MCPJs, PIPJs; Pt needs a DMARD. Due to chronic renal Insufficiency we will avoid Methotrexate. Problem Gastroesophageal reflux disease (852055147) GERD (gastroesophage al reflux disease) (K21.9) Active confirmed Problem Dry eyes (823272293) Dry eyes (H04.123) Active confirmed Problem Raynaud phenomenon (857303453) Raynaud phenomenon (I73.00) Active confirmed Vital Signs Heart Rate 52 /min 11/12/2024 Temperature 36.0 C 11/12/2024 Blood pressure diastolic 72 mm Hg 11/12/2024 Height 165.8 cm 08/19/2024 Blood pressure systolic 109 mm Hg 11/12/2024 Weight 73.8 kg 06/04/2024 BMI 26.84 kg/m2 06/04/2024 Encounters Encounter Location Date Provider Diagnosis [facility] [address] [id number] 06/04/2024 Briseida Cruz MARTIN positive R76.8 ; [...] R94.4 and Dry eyes H04.123 [facility] [address] [place] [id number] 07/08/2024 Briseida Cruz MARTIN positive R76.8 ; Abnormal results of kidney function studies R94.4 ; Disorder of bone density and structure, unspecified M85.9 ; Raynaud phenomenon I73.00 ; GERD (gastroesophageal reflux disease) K21.9 ; Fatigue R53.83 ; Sacroiliitis, not elsewhere classified M46.1 and Effusion, right hand M25.441 [facility] [address] [place] [id number] 08/19/2024 Briseida Cruz MARTIN positive R76.8 ; Disorder of bone density and structure, unspecified M85.9 ; Raynaud phenomenon I73.00 ; Fatigue R53.83 ; Sacroiliitis, not elsewhere classified M46.1 ; Abnormal results of kidney function studies R94.4 and Other specified inflammatory spondylopathies, site unspecified M46.80 [facility] [address] [place] [id number] 11/12/2024 RAMU COLIN MARTIN positive R76.8 ; Psoriatic spondylitis L40.53 ; Disorder of bone density and structure, unspecified M85.9 ; Raynaud phenomenon I73.00 ; Fatigue R53.83 ; Sacroiliitis, not elsewhere classified M46.1 ; Abnormal results of kidney function studies R94.4 ; Effusion, left hand M25.442 and Complex regional pain syndrome I of right lower limb G90.521 [facility] [address] [place] [id number] 05/27/2024 RAMU COLIN [facility] [address] [place] [id number] 07/10/2024 RAMU COLIN [facility] [address] [place] [id number] 08/03/2024 Briseida Cruz Assessments Encounter Date Diagnosis (ICD Code) Assessment Notes Treatment Notes Treatment Clinical Notes 06/04/2024 Disorder of bone density and structure, unspecified (ICD-10 - M85.9) 06/04/2024 MARTIN positive (ICD-10 - R76.8) 53yo female w/PMH +MARTIN 1:320 (2021 [facility]), IBS-C, Hypertension, Fibromyalgia and Costochondritis presents with c/o worsening polyarthralgia ( severeFatigue 710, AMStiff 2hrs, pain 7-8/10 neck, back, RT [...] Labs Now RTC in 4-5 weeksBriseida Cruz 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 Pt reviewed by Dr. 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 Pt reviewed by Dr. Quezada Naltrexone 1.5 mg once a day x 2 weeks, 3 mg once a day x 2 weeks, then 4.5 mg a day. The prescription for Low Dose Naltrexone is sent to the compounding pharmacy ([facility] (ph: [phone]) or [facility] (ph: [phone])) 08/19/2024 Disorder of bone density and structure, unspecified (ICD-10 - M85.9) 08/19/2024 MARTIN positive (ICD-10 - R76.8) -As of 08/19/2024 she had ongoing joint pain despite LDN. Pt now on LDN 4.5 mg maintenance dose. Will resume LDN as pt to have foot surgery soon. Will consider adding Methotrexate once cleared by surgeon. Repeat MARTIN neg . 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 Negative Antiphospholipid antibody panel (neg aCL, [id number], neg LAC). No convincing evidence of autoimmune [...] female w/PMH +MARTIN 1:320 (2021 [facility]), IBS-C, Hypertension, Fibromyalgia and Costochondritis presents with c/o worsening polyarthralgia (severe Fatigue 10, AMStiff 2hrs, pain 7-8/10 neck, back, RT [...] to this officeRTC in 8 weeksBriseida Cruz [facility] Pt reviewed by Dr. Cardenas Naltrexone 4.5 mg a day. The prescription for Low Dose Naltrexone is sent to the compounding pharmacy ([facility] (ph: [phone]) or [facility] (ph: [phone]) RAMU COLIN 08/19/2024 05:20:19 PM EST > 11/12/2024 Psoriatic spondylitis (ICD-10 - L40.53) polyarthralgia, [...] developed after Rt foot surgery . 11/12/2024 MARTIN positive (ICD-10 - R76.8) OV 11.12.24 pt developed CRPS (Chronic Regional Pain Syndrome) after Rt foot surgery , scheduled for spinal injection 12.10.24. Flare of Left buttock pain, diffuse MSK pain. Psoriatic Arthritis to consider. No evidence of MARTIN associated autoimmune inflammatory Connective Tissue Disease. She had ongoing joint pain despite LDN. Repeat MARTIN neg . 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 Negative Antiphospholipid antibody panel (neg aCL, [id number], neg LAC). No convincing evidence of autoimmune [...] female w/PMH +MARTIN 1:320 (2021 [facility]), IBS-C, Hypertension, Fibromyalgia and Costochondritis presents [...] Arthritis, will consider bDMARD. LT HAND XR. 06/04/2024 Raynaud phenomenon (ICD-10 - I73.00) Raynau'd phenomenon - try Nutrasal Magnesium L-arginine cream 2-3 x a day to minimize RP 07/08/2024 Disorder of bone density and structure, unspecified (ICD-10 - M85.9) 08/19/2024 Raynaud phenomenon (ICD-10 - I73.00) 11/12/2024 Disorder of bone density and structure, unspecified (ICD-10 - M85.9) 06/04/2024 GERD (gastroesophageal reflux disease) (ICD-10 - K21.9) 07/08/2024 Raynaud phenomenon (ICD-10 - I73.00) 08/19/2024 Fatigue (ICD-10 - R53.83) 11/12/2024 Raynaud phenomenon (ICD-10 - I73.00) 06/04/2024 Fatigue (ICD-10 - R53.83) 07/08/2024 GERD (gastroesophageal reflux disease) (ICD-10 - K21.9) 08/19/2024 Sacroiliitis, not elsewhere classified (ICD-10 - M46.1) 11/12/2024 Fatigue (ICD-10 - R53.83) 06/04/2024 Spondylosis without myelopathy or radiculopathy, cervical region (ICD-10 - M47.812) 07/08/2024 Fatigue (ICD-10 - R53.83) 08/19/2024 Abnormal results of kidney function studies (ICD-10 - R94.4) 11/12/2024 Sacroiliitis, not elsewhere classified (ICD-10 - M46.1) 06/04/2024 Spondylosis without myelopathy or radiculopathy, lumbosacral region (ICD-10 - M47.817) 07/08/2024 Sacroiliitis, not elsewhere classified (ICD-10 - M46.1) 08/19/2024 Other specified inflammatory spondylopathies, site unspecified (ICD-10 - M46.80) Seronegative Spondyloarthritis ( inflammatory back pain that is better with moving, not relieved by rest, prolonged morning stiffness 2 hours, pain in large joints:pain 7-10 RT hip, lower back, SI joints, h/o enthesitis (plantar fasciitis,trigger finger, costochondritis) 11/12/2024 Abnormal results of kidney function studies (ICD-10 - R94.4) 06/04/2024 Trochanteric bursitis, left hip (ICD-10 - M70.62) 07/08/2024 Effusion, right hand (ICD-10 - M25.441) 11/12/2024 Effusion, left hand (ICD-10 - M25.442) 06/04/2024 Other specified menopausal and perimenopausal disorders (ICD-10 - N95.8) 11/12/2024 Complex regional pain syndrome I of right lower limb (ICD-10 - G90.521) 06/04/2024 Abnormal results of kidney function studies (ICD-10 - R94.4) 06/04/2024 Dry eyes (ICD-10 - H04.123) Plan Of Treatment Pending Test Test Name Order Date X ray : Hand, left 11/12/2024 Chest X-ray PA and lateral 06/04/2024 CREATINE KINASE ISOENZYMES W/O TOTAL LYME AB SCREEN 06/04/2024 Hep C Ab w Rfx to HCV RNA 06/04/2024 X ray : Hip, left 06/04/2024 DEXA Hip and Spine 06/04/2024 X ray : Cervical Spine Flex/Ext 06/04/20 24 X ray : Lumbosacral Spine 4v 06/04/2024 X ray : Hand, right 07/08/2024 X ray : Sacroliliac Joints 07/08/2024 Next Appt Details Provider Name:Rashmiiris Acosta, 12/29/2024 10:00:00 AM, [address] [place] [address], [phone], Insurance Providers Payer Name Payer Address Payer Phone Subscriber Number Group Number Insured Name Patient Relationship to Insured Coverage Start Date Coverage End Date FERNANDO KOWALSKI [address], [place] [id number] Fifi Carter Self - patient is the insured Medical (General) History Medical History History ICD Code arthritis: Yes Hypertention: Yes Fibromyalgia: YES Migraine Headaches w/o aura: Yes Costochondritis: Yes Positive MARTIN 1:320 sp 2021: YES RLE CRPS chronic regional pain syndrome 1.2024 Surgical History Surgery Date(Month/Year) RT foot surgery (navneet) Xenia Leal, recently diagnosed w/CRPS chronic regional pain syndrome, doing PT and seeing pain mgmt 1.8 Partial Hysterectomy 2009 Breast reduction 3.
--- OUTSIDE RECORDS SUMMARY | 2024-12-09 14:46 | XMS_ITS | Clinical Summary ---
Author Organization [facility] Address [address] [place] [address] Care Team Providers Care Firer Locomotive Name Role Phone Vinicio Capellan MD Primary Care Provider + [phone] Allergies Active Allergy Reactions Criticality Noted Date [...] Advance Directives For more information, please contact: [phone] Documents on File Type Date Recorded Patient Educator Senior Clinical Expl anation Advance Directive and Living Will 08/22/2020 12:20 PM Power of Proofer Apprentice 08/22/2020 ORDER Care Teams Firer Locomotive Relationship Specialty Start Date End Date Vinicio Capellan MD PCP - General Internal Medicine 09/14/21
--- OUTSIDE RECORDS SUMMARY | 2024-12-09 14:46 | XMS_ITS ---
Author Organization [facility] Address [address] [place] [address] Care Team Providers Care Product Safety Expert Name Role Phone Omayra GIRALDO [facility] Primary Care Provider Unavailab Xenia Carey Unavailable [phone] REASON FOR VISIT Insurance referrals Encounters Encounter Location Date Provider Diagnosis [address] [address] 12/09/2024 Xenia Butterfield Plan Of Treatment Next Appt Details Provider Name:Xenia luis, 12/14/2024 09:00:00 AM, [address] [place] [address], [phone], Progress Notes * Fifi CARTER MDOB:[birth year] (54 yo F)Acc No.[id number]:12/09/2024 Patient:?Fifi CARTER :1970???Age:54 Y???Sex:Female Address:[address] [place], [address] * * Date:?
== END 2024-12-09 12:25 | disposition home or self-care (01) ==
LOC: HO.PMC 12:11
PROVIDERS: PCP Internal Medicine; Visit Provider Registered Nurse Emergency
DX: G90.529 Complex regional pain syndrome I of unspecified lower limb (principal)
CPT/HCPCS: 99213

== ENCOUNTER → 2024-12-09 12:11 | Outpatient (BNVA) | payer BC, SELFPAY | PROVIDERS: PCP Internal Medicine; Visit Provider Registered Nurse Emergency ==

== ENCOUNTER 2024-12-10 07:44 | Outpatient (REF) | payer BC, SELFPAY ==
--- NOTE | ~2024-12-10 | FL_ITS ---
EXAMINATION: FL GUIDANCE ONLY HISTORY: G90.529 - Complex regional pain syndrome I of unspecified lower limb COMPARISON: None available. TECHNIQUE: Fluoroscopy time: 0.6 minutes. Cumulative Dose: 13 mGy. DAP: 0.0635 mGym2 Images: 3. FINDINGS: Images demonstrate a needle and contrast material in the lumbar region on the right. FL/FL guidance in treatment room IMPRESSION: Fluoroscopy during procedure. Please see procedure report for additional information. Electronically signed by: Junior Patten MD 12/10/2024 03:03 PM EDT
--- OUTSIDE RECORDS SUMMARY | 2024-12-10 07:49 | XMS_ITS | Clinical Summary ---
Author Organization [facility] [place] [address] Phone Care Team Providers Care Journeyman Glazier Name Role Phone Vinicio Capellan Primary Care Provider [phone] Medications rosuvastatin (CRESTOR) 40 mg tablet TAKE 1 TABLET BY MOUTH EVERYDAY AT BEDTIME 90 tablet 2 09/14/2024 Active Immunizations Name Administration Dates Next Due [facility] SARS-CoV-2 COVID-19, mRNA, LNP-S, preservative free [...] age to complete this topic Care Teams Journeyman Glazier Relationship Specialty Start Date End Date Vinicio Capellan [address] [place] [id number] PCP - General Internal Medicine 09/14/21
--- OUTSIDE RECORDS SUMMARY | 2024-12-10 07:49 | XMS_ITS ---
Author Organization [facility] Address [address] [place] [phone] Care Team Providers Care Mail Teller Name Role Phone Sebas Cutler MD Primary Care Provider Unavailab RAMU Escalante Unavailable [phone] Allergies Allergen (clinical drug ingredient) Drug/Non Drug [...] W/U Status Risk Notes Problem Psoriatic spondylitis ([id number]) Psoriatic spondylitis (L40.53) Active confirmed polyarthralgia, inflammatory [...] Encounter Location Date Provider Diagnosis [facility] [address] [phone] 11/12/2024 RAMU DIXIE MARTIN positive R76.8 ; [...] Repeat MARTIN neg . 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 Negative Antiphospholipid antibody panel (neg aCL, [id number], neg LAC). No convincing evidence of autoimmune [...] up. 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 Denies swollen joints today. -Reviewed labs 08/04/2024: Creat 1.08 (h), CK 178 (h), IN-2 Beta AB 13 (H); HS CRP, Myositis Panel KRUPA-1 AB, PL-7 AB, PL-12 AB, EJ AB, OJ AB, SRP AB, IN-2 Alpha AB, IN-2 Alpha AB MDAS AB, T1F1, Gamma AB, [...] 53yo female with PMH +MARTIN 1:320 (2021 [facility]), IBS- C, Hypertension, Fibromyalgia and Costochondritis presents [...] ago per Neuro MD Emmanuel Álvarez in [place]. She has tried Cymbalta in the past with no effect. She started seeing a Heatset Winder Operator in [place] 4yrs ago David Louis in [facility]. This is provider is now in [place]. She transferred to another provider tommy Vasquez [...]
--- OUTSIDE RECORDS SUMMARY | 2024-12-10 07:49 | XMS_ITS ---
Author Organization [facility] Address [address] [place] [address] Care Team Providers Care Tourist Information Officer Name Role Phone Omayra GIRALDO, Sebas Primary Care Provider Unavailab Xenia Carey Unavailable [phone] Brock Hogan Unavailable [phone] REASON FOR VISIT ERROR Encounters Encounter Location Date Provider Diagnosis [facility] [address] [place] [address] 12/08/2024 Brock Hogan Plan Of Treatment Next Appt Details Provider Name:Xenia Trip luis, 12/14/2024 09:00:00 AM, [address] [place], [phone], Progress Notes * Camden CARTER MDOB:[birth year] (54 yo F)Acc No.[id number]:12/08/2024 PROGRESS NOTES Patient:?Camden CARTER Provider:?Brock Hogan DPM :1970???Age:54 Y???Sex:Female D ate:12/08/2024 [facility] [id number] Pcp:Sebas Cutler MD Subjective: * Chief Complaints: [...] Hogan DPM Date:?2024 Generated for Gladys tubbs/Angi/Preston on:?12/10/2024 07:49 AM EDT
--- OUTSIDE RECORDS SUMMARY | 2024-12-10 07:49 | XMS_ITS | Encounter Summary ---
Author Organization [facility] [place] [address] Care Team Providers Care Linotype Machinist Name Role Phone Vinicio Capellan Primary Care Provider [phone] Encounter Details Date Type Department Care Team [...] on 07/08/2024 2:19 PM. Workstation Name - [id number] Procedure Note Syed Pierre MD - 07/11/2024 Exam: X-ray chest 2 views INDICATION: MARTIN positive Bases appear clear. No infiltrates or consolidations. Heart size isnormal without failure. Incidental pectus carinatum of the sternum. IMPRESSION: No infiltrate seen Report reviewed and signed by : Dr. Syed Pierre on 07/08/2024 2:19 PM.Workstation Name - [id number] us Briseida Cruz [facility] FORMER IMG XR PROCEDURES Final Resul t documented in this encounter Visit Diagnoses Diagnosis Other specified abnormal immunological findings in serum documented in this encounter Care Teams Linotype Machinist Relationship Specialty Start Date End Date Vinicio Capellan [address] [place] [id number] PCP - General Internal Medicine 09/14/21 documented as of this encounter
--- OUTSIDE RECORDS SUMMARY | 2024-12-10 07:49 | XMS_ITS ---
Author Organization [facility] Address [address] [place] [phone] Care Team Providers Care Asbestos Shingle Inspector Name Role Phone Sebas Cutler MD Primary Care Provider Unavailab RAMU Escalante Unavailable [phone] Briseida Cruz Unavailable [phone] Allergies Allergen (clinical drug ingredient) Drug/Non Drug [...] Active Encounters Encounter Location Date Provider Diagnosis [facility] [address] [phone] 08/19/2024 Briseida Cruz Plan Of Treatment Next Appt Details Provider Name:Chas Acosta, 12/29/2024 10:00:00 AM, [address] [place] [address], [phone], History and Physical Notes * HPI (History of Present Illness) Category Sub-Category Detail Notes Rheumatology, Other Demographics 53yo F w/PMH +MARTIN 1:320 (2021 [facility]), IBS- C, Hypertension, Fibromyalgia and Costochondritis;+ h/o [...] 53yo female with PMH +MARTIN 1:320 (2021 [facility]), IBS-C, Hypertension, Fibromyalgia and Costochondritis presents for [...] ago per Neuro MD Emmanuel Álvarez in [place]. She has tried Cymbalta in the past with no effect. She started seeing a Costumed Character Entertainer in [place] 4yrs ago David Louis in [facility]. This is provider is now in [place]. She transferred to another provider tommy Vasquez [...]
--- OUTSIDE RECORDS SUMMARY | 2024-12-10 07:49 | XMS_ITS | Patient Health Record ---
Author Organization [facility] Address [address] [place] [phone] Care Team Providers Care Student Ambassador Name Role Phone Omayra GIRALDO, Sebas Primary Care Provider Unavailab RAMU Escalante Unavailable [phone] Cruz Briseida Unavailable [phone] Allergies Allergen (clinical drug ingredient) Drug/Non Drug Allergy documented on EMR Reaction Allergy Type Onset Date Status tramadol Ultram Unknown Drug Allergy Active Results Component Value Reference Range Notes LUPUS ANTICOAGULANT EVALUATI ON WITH REFLEX Reviewed date:06/17/2024 01:26:58 PM Interpretation: Performing Lab:[facility], [address], [place], [address] Suresh Arguello M.D.,PhD Notes/Report: Received Date: FASTING; FASTING LUPUS ANTICOAGULANT see note A Lupus Anticoagulant is not detected. Common causes for a prolonged screen and negative confirmatory test include factor deficiencies or anticoagulant therapy. Reference Range: Not Detected For additional information, please refer to http://education.FlyBridGe.Denty's/faq/BET92g0 (This link is being provided for informational/ educational purposes only.) This interpretation is based on the following test results. PTT-LA SCREEN 51 <=40 sec DRVVT SCREEN 35 <=45 sec HEXAGONAL PHASE CONFIRM Negative Negative URINALYSIS, COMPLETE W/REFLE X TO CULTURE Reviewed date:06/17/2024 01:26:58 PM Interpretation: Performing Lab:NL1, [facility], [address] [place] [address], [address] Santy Salas M.D. Notes/Report: Received Date: [id number] FASTING; FASTING; FASTING; FASTING; NON-FASTING; FASTING; FA COLOR TNP TEST NOT PERFORMED Specimen leaked in transit. HLA-B27 ANTIGEN Reviewed date:06/17/2024 01:26:58 PM Interpretation: Performing Lab:Carlos FLOWER [facility], [address], [place], [address] Suresh Arguello M.D.,PhD Notes/Report: Received Date: FASTING; FASTING; FASTING; FASTING; NON-FASTING; FASTING; FA HLA-B27 ANTIGEN Negative Negative QUANTIFERON(R)-TB GOLD Reviewed date:06/24/2024 08:50:14 AM Interpretation: Performing Lab:NL1, [facility], [address] [place] [address], [address] Santy Salas M.D. Notes/Report: Received Date: FASTING; [...] T-lymphocytes. For additional information, please refer to https://education.Zafgen/faq/NWD377 (This link is being provided for informational/ educational purposes only.) C-REACTIVE PROTEIN Reviewed date:06/17/2024 01:26:58 PM Interpretation: Performing Lab:NL1, [facility], [address] [place] [address], [phone] Santy Salas M.D. Notes/Report: Received Date: FASTING; FASTING; FASTING; FASTING; NON-FASTING; FASTING; FA C-REACTIVE PROTEIN <3.0 <8.0 mg/L THYROGLOBULIN ANTIBODIES Reviewed date:06/17/2024 01:26:58 PM Interpretation: Performing Lab:NL1, [facility], [address] [place] [address], [phone] Santy Salas M.D. Notes/Report: Received Date: FASTING; FASTING; FASTING; FASTING; NON-FASTING; FASTING; FA THYROGLOBULIN ANTIBODIES <1 < or = 1 IU/mL LYME DISEASE AB, TOTAL W/REF L WB (IGG, IGM) Reviewed date:06/24/2024 08:50:14 AM Interpretation: Performing Lab:NL1, [facility], [address] [place] [address], [address] Santy Salas M.D. Notes/Report: Received Date: FASTING; [...] Reviewed date:06/17/2024 01:26:58 PM Interpretation: Performing Lab:REGINALD1, [facility], [address] [place] [address], [address] Santy Salas M.D. Notes/Report: Received Date: FASTING; [...] Reviewed date:06/17/2024 01:26:58 PM Interpretation: Performing Lab:1, [facility], [address] [place] [address], [address] Santy Salas M.D. Notes/Report: Received Date: [id number] FASTING; FASTING; FASTING; FASTING; NON-FASTING; FASTING; FA HEPATITIS B CORE ANTIBODY (IGM) NON-REACTIVE NON-REACTIVE For additional information, please refer to http://education.FlyBridGe.com/faq/WFL148 (This link is being provided for informational/ educational purposes only.) HEPATITIS B SURFACE ANTIGEN W/REFL CONFIRM Reviewed date:06/17/2024 01:26:58 PM Interpretation: Performing Lab:NL1, [facility], [address] [place] [address], [address] Santy Salas M.D. Notes/Report: Received Date: [id number] FASTING; FASTING; FASTING; FASTING; NON-FASTING; FASTING; FA HEPATITIS B SURFACE ANTIGEN NON-REACTIVE NON-REACTIVE For additional information, please refer to http://Voltafield Technology/faq/MOH764 (This link is being provided for informational/ educational purposes only.) VITAMIN B12/FOLATE, SERUM PA RAFA Reviewed date:06/17/2024 01:26:58 PM Interpretation: Performing Lab:NL1, [facility], [address] [place] [address], [address] Santy Salas M.D. Notes/Report: Received Date: FASTING; FASTING VITAMIN B12 826 631-1962 pg/mL FOLATE, SERUM 15.9 Reference Range Low: <3.4 Borderline: 3.4-5.4 Normal: >5.4 FERRITIN Reviewed date:06/17/2024 01:26:58 PM Interpretation: Performing Lab:NL1, [facility], [address] [place] [address], [phone] Santy Salas M.D. Notes/Report: Received Date: [id number] FASTING; FASTING; FASTING; FASTING; NON-FASTING; FASTING; FA FERRITIN 100 16-232 ng/mL HEPATITIS C ANTIBODY Reviewed date:06/24/2024 08:50:14 AM Interpretation: Performing Lab:NL1, [facility], [address] [place] [address], [phone] Santy Salas M.D. Notes/Report: Received Date: [id number] FASTING; NON-FASTING; NON-FASTING; NON-FASTING; NON-FASTING HEPATITIS C ANTIBODY NON-REACTIVE NON-REACTIVE HCV antibody was non-reactive. There is no laboratory evidence of HCV infection. In most cases, no further action is required. However, if recent HCV exposure is suspected, a test for HCV RNA (test code 58706) is suggested. For additional information please refer to http://Voltafield Technology/faq/KHL26g9 (This link is being provided for informational/ educational purposes only.) TSH, 3RD GENERATION Reviewed date:06/17/2024 01:26:58 PM Interpretation: Performing Lab:NL1, [facility], [address] [place] [address], [address] Santy Salas M.D. Notes/Report: Received Date: FASTING; FASTING; FASTING; FASTING; NON-FASTING; FASTING; FA TSH 0.79 Reference Range > or = 20 Years 0.40-4.50 Ranges First trimester 0.26-2.66 Second trimester 0.55-2.73 Third trimester 0.43-2.91 IMMUNOFIXATION IGA,IGG,IGM Q T.IMMUNOFIXATION SERUM IMMUNOGLOBULIN Reviewed date:06/17/2024 01:26:58 PM Interpretation: Performing Lab:DEVYN [facility], [address] [place] [address], [phone] Santy Salas M.D. Notes/Report: Received Date: FASTING; FASTING; FASTING; FASTING; NON-FASTING; FASTING; FA ARNOLD INTERPRETATION No monoclonal proteins detected. IMMUNOGLOBULIN A 258 47-310 mg/dL IMMUNOGLOBULIN G 448 500-5554 mg/dL IMMUNOGLOBULIN M 78 50-300 mg/dL PTH, INTACT AND CALCIUM Reviewed date:06/17/2024 01:26:58 PM Interpretation: Performing Lab:DEVYN [facility], [address] [place] [address], [phone] Santy Salas M.D. Notes/Report: Received Date: FASTING; [...] Reviewed date:06/17/2024 01:26:58 PM Interpretation: Performing Lab:DEVYN [facility], [address] [place] [address], [address] Santy Salas M.D. Notes/Report: Received Date: FASTING; [...] Reviewed date:06/17/2024 01:26:58 PM Interpretation: Performing Lab:NL1, [facility], [address] [place] [address], [phone] Santy Salas M.D. Notes/Report: Received Date: FASTING; [...] = 1.0 Antibody Detected Autoantibodies to proteinase-3 (NH-3) are accepted as characteristic for granulomatosis with polyangiitis (GPA, Masoud's), and are detectable in 95% of the histologically proven cases. The cytoplasmic IFA pattern, (c-ANCA), is based largely on autoantibody to NH-3 which serves as the primary antigen. These autoantibodies are present in active disease. ANGIOTENSIN CONVERTING ENZYM E (CALVIN) Reviewed date:06/17/2024 01:26:58 PM Interpretation: Performing Lab:[facility], [address] [facility] , [place], [address] Suresh Arguello M.D.,PhD Notes/Report: Received Date: FASTING; FASTING; FASTING; FASTING; NON-FASTING; FASTING; FA [id number] ENZYME <5 9-67 U/L VITAMIN D, 25-HYDROXY, LC/MS /MS Reviewed date:06/17/2024 01:26:58 PM Interpretation: Performing Lab:NL1, [facility], [address] [place] [address], [address] Santy Salas M.D. Notes/Report: Received Date: FASTING; [...] D, (D2,D3), LC/MS/MS is recommended: order code 69483 (patients >2yrs). See Note 1 Note 1 For additional information, please refer to http://education.EPIS.com/faq/WDH504 (This link is being provided for informational/ educational purposes only.) URIC ACID Reviewed date:06/17/2024 01:26:58 PM Interpretation: Performing Lab:NL1, [facility], [address] [place] [address], [phone] Santy Salas M.D. Notes/Report: Received Date: FASTING; FASTING; FASTING; FASTING; NON-FASTING; FASTING; FA URIC ACID 5.1 2.5-7.0 mg/dL Therapeutic ta rget for gout patients: <6.0 mg/dL IRON TOTAL, TIBC, SATURATION Reviewed date:06/17/2024 01:26:58 PM Interpretation: Performing Lab:NL1, [facility], [address] [place] [address], [address] Santy Salas M.D. Notes/Report: Received Date: FASTING; FASTING; FASTING; FASTING; NON-FASTING; FASTING; FA IRON, TOTAL 104 45-160 mcg/dL IRON BINDING CAPACITY 343 250-450 mc g/dL (calc) % SATURATION 30 16-45 % (calc) CREATINE KINASE, TOTAL Reviewed date:06/17/2024 01:26:58 PM Interpretation: Performing Lab:REGINALD1, [facility], [address] [place] [address], [address] Santy Salas M.D. Notes/Report: Received Date: FASTING; FASTING; FASTING; FASTING; NON-FASTING; FASTING; FA CREATINE KINASE, TOTAL 197 29-143 U/L HEPATIC FUNCTION PANEL Reviewed date:06/17/2024 01:26:58 PM Interpretation: Performing Lab:REGINALD1, [facility], [address] [place] [address], [address] Santy Salas M.D. Notes/Report: Received Date: FASTING; [...] Reviewed date:06/17/2024 01:26:58 PM Interpretation: Performing Lab:NL1, [facility], [address] [place] [address], [address] Santy Salas M.D. Notes/Report: Received Date: FASTING; FASTING; FASTING; FASTING; NON-FASTING; FASTING; FA CREATININE 1.20 0.50-1.03 mg/dL EGFR 54 > OR = 60 mL/min/1.73m2 CBC (INCLUDES DIFF/PLT) Reviewed date:06/17/2024 01:26:58 PM Interpretation: Performing Lab:NL1, [facility], [address] [place] [address], [address] Santy Salas M.D. Notes/Report: Received Date: [id number] FASTING; FASTING; FASTING; FASTING; NON-FASTING; FASTING; FA [...] MPV 12.5 7.5-12.5 fL ABSOLUTE NEUTROPHILS 2817 0889-6421 cells/uL ABSOLUTE LYMPHOCYTES 3080 619-5401 cells/uL ABSOLUTE MONOCYTES 293 200-950 cells/uL ABSOLUTE EOSINOPHILS 72 15-500 cells/uL ABSOLUTE BASOPHILS 41 0-200 cells/uL NEUTROPHILS 62.6 LYMPHOCYTES 28.4 MONOCYTES 6.5 EOSINOPHILS 1.6 BASOPHILS 0.9 SED RATE BY MODIFIED WESTERG DIANA Reviewed date:06/17/2024 01:26:58 PM Interpretation: Performing Lab:NL1, [facility], [address] [place], [address] Santy Salas M.D. Notes/Report: Received Date: FASTING; FASTING; FASTING; FASTING; NON-FASTING; FASTING; FA SED RATE BY MODIFIED WESTERGREN 2 < OR = 30 mm/h HS-CRP Reviewed date:06/17/2024 01:26:58 PM Interpretation: Performing Lab:NL1, [facility], [address] [place], [address] Santy Salas M.D. Notes/Report: Received Date: FASTING; [...] for Disease Control and Prevention and the [place] [employer]. Circulation 2003; 107(3): 499-511. Celiac Disease Comprehensive Panel with Gliadin Antibody (IgG) Reviewed date:06/24/2024 08:50:14 AM Interpretation: Performing Lab:NL1, [facility], [address] [place], [address] Santy Salas M.D. Notes/Report: Received Date: FASTING; NON-FASTING; NON-FASTING; NON-FASTING; NON-FASTING TISSUE TRANSGLUTAMINASE AB, IGA <1.0 Value Interpretation ----- <15.0 Antibody not detected > or = 15.0 Antibody detected IMMUNOGLOBULIN A 259 47-310 mg/dL ANAlyzeR MARTIN,IFA with Reflex Titer/Pattern, Systemic Autoimmune Panel 1 Reviewed date:06/24/2024 08:50:14 AM Interpretation: Performing Lab:EZ, [facility],, [address] [place], [address] Li Arriola MD,PhD,CYNDIE Notes/Report: Received Date: FASTING; [...] Negative International Consensus on MARTIN Patterns https://doi.org/10.1515/cc [email or web address]-1500-3906 For additional information, please refer to http://education.EPIS.Denty's/faq/XLC673 (This link is being provided for informational/educational purposes only.) DNA AB (DS) CRITHIDIA,IFA NEGATIVE NEGATIVE CHROMATIN (NUCLEOSOMAL) ANTIBODY <1.0 NEG <1.0 NEGATIVE AI SM ANTIBODY <1.0 NEG <1.0 NEGATIVE AI SM/CERTIFIED SURGICAL FIRST ASSISTANT ANTIBODY <1.0 NEG <1.0 NEGATIVE AI CERTIFIED SURGICAL FIRST ASSISTANT ANTIBODY <1.0 NEG <1.0 NEGATIVE AI SJOGREN'S [...] aging. For additional information, please refer to http://education.FlyBridGe.Denty's/faq/ROE587 (This link is being provided for informational/educational [...] Reviewed date:08/13/2024 11:08:37 AM Interpretation: Performing Lab:NL1, [facility], [address] [place] [address], [phone] Santy Salas M.D. Notes/Report: Received Date: [id number] NON-FASTING; NON-FASTING; NON-FASTING; NON-FASTING; NON-FAST C-REACTIVE PROTEIN <3.0 <8.0 mg/L METHYLMALONIC ACID Reviewed date:08/13/2024 11:08:37 AM Interpretation: Performing Lab:[facility], [address], [place], [address] Suresh Arguello M.D.,PhD Notes/Report: Received Date: [id number] NON-FASTING; NON-FASTING; NON-FASTING; NON-FASTING; NON-FAST METHYLMALONIC ACID [...] neural tube defects and intrauterine growth restriction. [facility] utilized Multi-Modal Decomposition (MMD) analysis to establish first and second trimester- specific MMA reference intervals in , as given below: MMA, First trimester (<13 wks gestation): 58-167 nmol/L MMA, Second trimester (13-23 wks gestation): 63-241 nmol/L This test was developed and its analytical performance characteristics have been determined by [employer] [facility]. It has not been cleared or approved by the FDA. This assay has been validated pursuant to the CLIA regulations and is used for clinical purposes. CREATINE KINASE, TOTAL Reviewed date:08/13/2024 11:08:37 AM Interpretation: Performing Lab:DEVYN, [facility], [address] [place] [address], [address] Santy Salas M.D. Notes/Report: Received Date: [id number] NON-FASTING; NON-FASTING; NON-FASTING; NON-FASTING; NON-FAST CREATINE KINASE, TOTAL 178 29-143 U/L ALDOLASE Reviewed date:08/13/2024 11:08:37 AM Interpretation: Performing Lab:CHING [facility], [address], [place], [address] Suresh Arguello M.D.,PhD Notes/Report: Received Date: [id number] NON-FASTING; NON-FASTING; NON-FASTING; NON-FASTING; NON-FAST ALDOLASE 4.4 <=8.1 U/L HEPATIC FUNCTION PANEL Reviewed date:08/13/2024 11:08:37 AM Interpretation: Performing Lab:DEVYN, [facility], [address] [place] [address], [address] Santy Salas M.D. Notes/Report: Received Date: [id number] NON-FASTING; NON-FASTING; NON-FASTING; NON-FASTING; NON-FAST PROTEIN, TOTAL [...] Reviewed date:08/13/2024 11:08:37 AM Interpretation: Performing Lab:DEVYN, [facility], [address] [place] [address], [phone] Santy Salas M.D. Notes/Report: Received Date: NON-FASTING; NON-FASTING; NON-FASTING; NON-FASTING; NON-FAST CREATININE 1.08 0.50-1.03 mg/dL EGFR 61 > OR = 60 mL/min/1.73m2 SED RATE BY MODIFIED WESTERG DIANA Reviewed date:08/13/2024 11:08:37 AM Interpretation: Performing Lab:NL1, [facility], [address] [place] [address], [address] Santy Salas M.D. Notes/Report: Received Date: NON-FASTING; NON-FASTING; NON-FASTING; NON-FASTING; NON-FAST SED RATE BY MODIFIED WESTERGREN 2 < OR = 30 mm/h HS-CRP Reviewed date:08/13/2024 11:08:37 AM Interpretation: Performing Lab:NL1, [facility], [address] [place] [address], [address] Santy Salas M.D. Notes/Report: Received Date: NON-FASTING; [...] for Disease Control and Prevention and the [place] [employer]. Circulation 2003; 107(3): 499-511. Myositis 11 Antibody Panel Reviewed date:08/13/2024 11:08:37 AM Interpretation: Performing Lab:EZ, [facility],, [address] [place], [address] Li Arriola MD,PhD,CYNDIE Notes/Report: Received Date: NON-FASTING; NON-FASTING; NON-FASTING; NON-FASTING; NON-FAST LOIDA-1 AB <11 <[address]-7 AB <11 <[address]-12 AB <11 <11 SI EJ AB <11 <11 SI OJ AB <11 <11 SI SRP AB <11 <11 SI CO-2 ALPHA AB <11 <11 SI CO-2 BETA AB 13 <11 SI MDA5 AB [...] with a rash. Additionally, MSAs to MDA5 ([id number]) have been identified in patients with clinically [...] analytical performance characteristics have been determined by [employer] [facility]. It has not been cleared or approved by the FDA. This assay has been validated pursuant to the CLIA regulations and is used for clinical purposes. HEPATIC FUNCTION PANEL Reviewed date:11/09/2024 09:17:58 AM Interpretation: Performing Lab:NL1, [facility], [address] [place] [address], [address] Santy Salas M.D. Notes/Report: Received Date: NON-FASTING; [...] Reviewed date:11/09/2024 09:17:58 AM Interpretation: Performing Lab:NL1, [facility], [address] [place] [address], [address] Santy Salas M.D. Notes/Report: Received Date: NON-FASTING; NON-FASTING; NON-FASTING; NON-FASTING; NON-FAST FASTING:YES FASTING: YES CREATININE 1.07 0.50-1.03 mg/dL EGFR 61 > OR = 60 mL/min/1.73m2 CBC (INCLUDES DIFF/PLT) Reviewed date:11/09/2024 09:17:58 AM Interpretation: Performing Lab:NL1, [facility], [address] [place] [address], [address] Santy Salas M.D. Notes/Report: Received Date: NON-FASTING; [...] MPV 12.1 7.5-12.5 fL ABSOLUTE NEUTROPHILS 2558 7030-1839 cells/uL ABSOLUTE LYMPHOCYTES 0600 583-0895 cells/uL ABSOLUTE MONOCYTES 290 200-950 cells/uL ABSOLUTE EOSINOPHILS 41 15-500 cells/uL ABSOLUTE BASOPHILS 32 0-200 cells/uL NEUTROPHILS 55.6 LYMPHOCYTES 36.5 MONOCYTES 6.3 EOSINOPHILS 0.9 BASOPHILS 0.7 SED RATE BY MODIFIED WESTERG DIANA Reviewed date:11/09/2024 09:17:58 AM Interpretation: Performing Lab:NL1, [facility], [address] [place] [address], [address] Santy Salas M.D. Notes/Report: Received Date: [id number] NON-FASTING; NON-FASTING; NON-FASTING; NON-FASTING; NON-FAST FASTING:YES FASTING: YES SED RATE BY MODIFIED WESTERGREN 6 < OR = 30 mm/h HS-CRP Reviewed date:11/09/2024 09:17:58 AM Interpretation: Performing Lab:NL1, [facility], [address] [place] [address], [address] Santy Salas M.D. Notes/Report: Received Date: [id number] NON-FASTING; NON-FASTING; NON-FASTING; NON-FASTING; NON-FAST FASTING:YES FASTING: [...] for Disease Control and Prevention and the [place] Heart [employer]. Circulation 2003; 107(3): 499-511. Reason [...] W/U Status Risk Notes Problem Psoriatic spondylitis (386423322) Psoriatic spondylitis (L40.53) Active confirmed polyarthralgia, inflammatory [...] Rt foot surgery . Problem Solitary sacroiliitis (904227273) Sacroiliitis, not elsewhere classified (M46.1) Active confirmed Problem Cervical spondylosis without myelopathy (731019333) Spondylosis without myelopathy or radiculopathy, cervical region (M47.812) Active confirmed Problem Lumbosacral spondylosis without myelopathy (disorder) (76773787) Spondylosis without myelopathy or radiculopathy, lumbosacral region (M47.817) Active confirmed Problem Perimenopausal disorder (893801955) Other specified menopausal and perimenopausal disorders (N95.8) Active confirmed Problem Arthritis of spine (disorder) (375664178) Other specified inflammatory spondylopathies , site unspecified [...] will avoid Methotrexate. Problem Gastroesophageal reflux disease (421361760) GERD (gastroesophage al reflux disease) (K21.9) Active confirmed Problem Dry eyes (497725643) Dry eyes (H04.123) Active confirmed Problem Raynaud phenomenon (891595024) Raynaud phenomenon (I73.00) Active confirmed Vital Signs Heart Rate 52 /min 11/12/2024 Temperature 36.0 C 11/12/2024 Blood pressure diastolic 72 mm Hg 11/12/2024 Height 165.8 cm 08/19/2024 Blood pressure systolic 109 mm Hg 11/12/2024 Weight 73.8 kg 06/04/2024 BMI 26.84 kg/m2 06/04/2024 Encounters Encounter Location Date Provider Diagnosis [facility] [address] [id number] 06/04/2024 Briseida Cruz MARTIN positive R76.8 ; [...] R94.4 and Dry eyes H04.123 [facility] [address] [place] [id number] 07/08/2024 Briseida Cruz MARTIN positive R76.8 ; Abnormal results of kidney function studies R94.4 ; Disorder of bone density and structure, unspecified M85.9 ; Raynaud phenomenon I73.00 ; GERD (gastroesophageal reflux disease) K21.9 ; Fatigue R53.83 ; Sacroiliitis, not elsewhere classified M46.1 and Effusion, right hand M25.441 [facility] [address] [place] [id number] 08/19/2024 Briseida Cruz MARTIN positive R76.8 ; Disorder of bone density and structure, unspecified M85.9 ; Raynaud phenomenon I73.00 ; Fatigue R53.83 ; Sacroiliitis, not elsewhere classified M46.1 ; Abnormal results of kidney function studies R94.4 and Other specified inflammatory spondylopathies, site unspecified M46.80 [facility] [address] [place] [id number] 11/12/2024 RAMU COLIN MARTIN positive R76.8 ; Psoriatic spondylitis L40.53 ; Disorder of bone density and structure, unspecified M85.9 ; Raynaud phenomenon I73.00 ; Fatigue R53.83 ; Sacroiliitis, not elsewhere classified M46.1 ; Abnormal results of kidney function studies R94.4 ; Effusion, left hand M25.442 and Complex regional pain syndrome I of right lower limb G90.521 [facility] [employer] [address] [place] [id number] 05/27/2024 RAMU COLIN [facility] [place] [employer] [address] [place] [id number] 07/10/2024 RAMU COLIN [facility] [employer] [address] [place] [address] [id number] 08/03/2024 Briseida Cruz Assessments Encounter Date Diagnosis (ICD Code) Assessment Notes Treatment Notes Treatment Clinical Notes 06/04/2024 Disorder of bone density and structure, unspecified (ICD-10 - M85.9) 06/04/2024 MARTIN positive (ICD-10 - R76.8) 53yo female w/PMH +MARTIN 1:320 ([facility] [...] Labs Now RTC in 4-5 weeksBriseida Cruz PHOTOGRAPHIC LITHOGRAPHER-BC. Pt reviewed by Dr. Colin 07/08/2024 Abnormal [...] lesion.; cc PMD.RTC in 6 weeksBriseida Cruz PHOTOGRAPHIC LITHOGRAPHER-BC. Pt reviewed by Dr. Quezada Naltrexone 1.5 mg once a day x 2 weeks, 3 mg once a day x 2 weeks, then 4.5 mg a day. The prescription for Low Dose Naltrexone is sent to the compounding pharmacy ([facility] (ph: [phone]) or [facility] (ph: [phone])) 08/19/2024 Disorder of bone density and structure, unspecified (ICD-10 - M85.9) 08/19/2024 MARTIN positive (ICD-10 - R76.8) -As of 08/19/2024 she had ongoing joint pain despite LDN. Pt now on LDN 4.5 mg maintenance dose. Will resume LDN as pt to have foot surgery soon. Will consider adding Methotrexate once cleared by surgeon. Repeat MARTIN neg . Negative MARTIN subserologies:,neg mdMZA-[id number]-CSL-SM-CERTIFIED SURGICAL FIRST ASSISTANT- Scl 70 aB, neg Centromere ab. Negative Antiphospholipid antibody panel (neg aCL, [id number], neg LAC). No convincing evidence of autoimmune [...] to this officeRTC in 8 weeksBriseida Cruz [facility]-. Pt reviewed by Dr. Cardenas Naltrexone 4.5 mg a day. The prescription for Low Dose Naltrexone is sent to the compounding pharmacy ([facility] (ph: [phone]) or [facility] (ph: [phone]) RAMU COLIN 08/19/2024 05:20:19 PM EST > [...] Repeat MARTIN neg . Negative MARTIN subserologies:,neg [id number]-CQN-SM-CERTIFIED SURGICAL FIRST ASSISTANT- Scl 70 aB, neg Centromere ab. Negative Antiphospholipid antibody panel (neg aCL, [id number], neg LAC). No convincing evidence of autoimmune [...] Details Provider Name:Rashmiiris Acosta, 12/29/2024 10:00:00 AM, [address] [place] [address], [phone], Insurance Providers Payer Name Payer Address Payer Phone Subscriber Number Group Number Insured Name Patient Relationship to Insured Coverage Start Date Coverage End Date FERNANDO KOWALSKI [address] [place], [place] [id number] Fifi Carter Self - patient is the [...]
--- OUTSIDE RECORDS SUMMARY | 2024-12-10 07:49 | XMS_ITS | Patient Health Record ---
Author Organization [facility] Address [address] [place] [address] Care Team Providers Care Farm Owner Operator Name Role Phone Omayra GIRALDO, Sebas Primary Care Provider Unavailab Xenia Carey Unavailable [phone] Brock Hogan Unavailable [phone] Hilda Us Unavailable [phone] Allergies Allergen (clinical drug ingredient) Drug/Non Drug [...] Referring Provider Last Name Omayra [facility] Referred Provider Xenia Butterfield Referred Address [address] [facility],[place], [place],[address], Referred Provider Specialty Podiatry Referral Priority Routine [...] Sebas Referring Provider Last Name Omayra Referred [facility] Referred Provider Brock Hogan Referred Address [address] [facility] ,[place], [place],[address],[place] Referred Provider Specialty Podiatry Referral Priority Routine [...] Problem Acquired hammer toe of right foot (6397302611710968) Other hammer toe(s) (acquired), right foot (M20.41) Active confirmed Problem Acquired hammer toe of left foot (8930575673770194) Other hammer toe(s) (acquired), left foot (M20.42) Active confirmed Problem Plantar fascial fibromatosis (70315765) Plantar fascial fibromatosis (M72.2) Active confirmed Problem [id number] Complex regional pain syndrome type 1 of right lower extremity (G90.521) Active confirmed Problem Localized, primary osteoarthritis of the ankle and/or foot (004099782) Arthritis of joint of lesser toe, left (M19.072) Active confirmed Problem Localized, primary osteoarthritis of the ankle and/or foot (375501855) Arthritis of joint of lesser toe, right (M19.071) Active confirmed Vital Signs Heart Rate 57 /min 09/29/2024 Blood pressure diastolic 70 mm Hg 12/08/2024 Height 5ft5in in 12/08/2024 Blood pressure systolic 100 mm Hg 12/08/2024 Weight 170 lbs 12/08/2024 BMI 28.29 kg/m2 12/08/2024 Encounters Encounter Location Date Provider Diagnosis [facility] ([facility]) [address] [place] [address] 09/16/2024 Xenia Butterfield [facility] [place] [address] [address] 07/14/2024 Xenia Butterfield Pain in right toe(s) M79.674 ; Other hammer toe(s) (acquired), right foot M20.41 ; Arthritis of joint of lesser toe, right M19.071 ; Pain in left toe(s) M79.675 ; Other hammer toe(s) (acquired), left foot M20.42 ; Arthritis of joint of lesser toe, left M19.072 and Subluxation of metatarsophalangeal joint of toe, initial encounter S93.149A [address] [address] 08/18/2024 Brock Edison Pain in left foot M7 9.672 ; Pain in left ankle and joints of left foot M25.572 ; Bursitis of intermetatarsal bursa of left foot M77.52 and Metatarsalgia, left foot M77.[address] [address] 09/04/2024 Xenia Butterfield Pain in right toe(s) M79.674 ; Other hammer toe(s) (acquired), right foot M20.41 ; Arthritis of joint of lesser toe, right M19.071 ; Pain in left toe(s) M79.675 ; Other hammer toe(s) (acquired), left foot M20.42 ; Arthritis of joint of lesser toe, left M19.072 and Subluxation of metatarsophalangeal joint of toe, initial encounter S93.149A [address] [address] 09/10/2024 Xenia Butterfield Pain in right toe(s) M79.674 ; Other hammer toe(s) (acquired), right foot M20.41 ; Arthritis of joint of lesser toe, right M19.071 ; Pain in left toe(s) M79.675 ; Other hammer toe(s) (acquired), left foot M20.42 ; Arthritis of joint of lesser toe, left M19.072 and Subluxation of metatarsophalangeal joint of toe, initial encounter S93.149A [address] [address] 09/22/2024 Xenia Butterfield Other hammer toe(s) (acquired), right foot M20.[address] [address] 09/29/2024 Xenia Hatchaker Other hammer toe(s) (acquired), right foot M20.41 [facility] [address] [address] 10/09/2024 Xenia Hatchaker Other hammer toe(s) (acquired), right foot M20.[address] [facility] [address] 10/23/2024 Hilda Perica Other hammer toe(s) (acquired), right foot M20.41 ; Complex regional pain syndrome type 1 of right lower extremity G90.521 and Pain in right foot M79.[address] [facility] [address] 11/13/2024 Hilda Perica Other hammer toe(s) (acquired), right foot M20.41 ; Complex regional pain syndrome type 1 of right lower extremity G90.521 and Pain in right foot M79.[address] [facility] [address] 12/08/2024 Hilda Perica Other hammer toe(s) (acquired), right foot M20.41 ; Complex regional pain syndrome type 1 of right lower extremity G90.521 and Pain in right foot M79.[address] [facility] [address] 10/23/2024 Xenia Butterfield [facility] [address] [address] 12/09/2024 [facility]enia Butterfield [facility] [address] [address] 07/14/2024 Brock Hogan [facility] [address] [address] 07/15/2024 Xenia Butterfield [facility] [address] 08/13/2024 Xenia Butterfield [facility] [address] 09/04/2024 X[facility] [address] [address] 09/15/2024 X[facility] [address] [address] 09/17/2024 X[facility] [address] [address] 09/17/2024 [facility] [address] [place] [address] 09/18/2024 X[facility] [address] [address] 10/27/2024 X[facility] [address] [address] 11/13/2024 Xenia Butterfield [facility] [address] [place] [address] 12/02/2024 X[facility] [address] [address] 12/08/2024 Xenia Butterfield [facility] [address] 09/14/2024 Xenia Butterfield Assessments Encounter Date Diagnosis [...] right 3V 06/21/2011 Next Appt Details Provider Name:Xenia luis, 12/14/2024 09:00:00 AM, [address] [facility], [place], [address], Insurance Providers Payer Name Payer Address Payer Phone Subscriber Number Group Number Insured Name Patient Relationship to Insured Coverage Start Date Coverage End Date [facility] [address] [place] [address] [id number] Amilcar Carter Spouse - patient is [...]
--- OUTSIDE RECORDS SUMMARY | 2024-12-10 07:49 | XMS_ITS | Clinical Summary ---
Author Organization [facility] Address [address] [place] [address] Care Team Providers Care Storage Center Manager Name Role Phone Sebas Cutler MD Primary Care Provider [phone] Sebas Cutler MD Unavailable [phone] Allergies Active Allergy Reactions Criticality Noted [...] Inactivated Comments 11/08/2021 7:18 AM Care Teams Storage Center Manager Relationship Specialty Start Date End Date Sebas Cutler MD PCP - General 10/12/09 Sebas Cutler MD [address] [place] [address] PCP - [place] Commercial Attributed 11/08/23
--- OUTSIDE RECORDS SUMMARY | 2024-12-10 07:49 | XMS_ITS ---
Author Organization [facility] Address [address] [place] [address] Care Team Providers Care Corrosion Engineer Name Role Phone Omayra GIRALDO [facility] Primary Care Provider Unavailab Xeina Carey Unavailable [phone] REASON FOR VISIT [facility] Pain management Encounters Encounter Location Date Provider Diagnosis [address] [address] 12/08/2024 Xenia Butterfield Plan Of Treatment Next Appt Details Provider Name:Xenia luis, 12/14/2024 09:00:00 AM, [address] [place], [address], Progress Notes * Fifi CARTER MDOB:[birth year] (54 yo F)Acc No.[id number]:12/08/2024 Patient:?Fifi CARTER :1970???Age:54 Y???Sex:Female Address:[address] [place], [address] * true * Date:? Generated for Printi ng/Faxing/eTransmitting on:?12/10/2024 07:48 AM EDT
--- OUTSIDE RECORDS SUMMARY | 2024-12-10 07:49 | XMS_ITS ---
Author Organization [facility] Address [address] [place] [id number] Care Team Providers Care Sketch Maker Name Role Phone Sebas Cutler MD Primary Care Provider Unavailab RAMU Escalante Unavailable [phone] Briseida Cruz Unavailable [phone] Allergies Allergen (clinical drug ingredient) Drug/Non Drug Allergy documented on EMR Reaction Allergy Type Onset Date Status tramadol Ultram Unknown Drug Allergy Active Results Component Value Reference Range Notes HEPATIC FUNCTION PANEL Reviewed date:11/09/2024 09:17:58 AM Interpretation: Performing Lab:NL1, [facility], [address] [place] [address], [phone] Santy Salas M.D. Notes/Report: Received Date: NON-FASTING; [...] Reviewed date:11/09/2024 09:17:58 AM Interpretation: Performing Lab:NL1, [facility], [address] [place] [address], [phone] Santy Salas M.D. Notes/Report: Received Date: NON-FASTING; NON-FASTING; NON-FASTING; NON-FASTING; NON-FAST FASTING:YES FASTING: YES CREATININE 1.07 0.50-1.03 mg/dL EGFR 61 > OR = 60 mL/min/1.73m2 CBC (INCLUDES DIFF/PLT) Reviewed date:11/09/2024 09:17:58 AM Interpretation: Performing Lab:NL1, [facility], [address] [place] [address], [phone] Santy Salas M.D. Notes/Report: Received Date: NON-FASTING; [...] MPV 12.1 7.5-12.5 fL ABSOLUTE NEUTROPHILS 2558 6935-5452 cells/uL ABSOLUTE LYMPHOCYTES 8073 113-0301 cells/uL ABSOLUTE MONOCYTES 290 200-950 cells/uL ABSOLUTE EOSINOPHILS 41 15-500 cells/uL ABSOLUTE BASOPHILS 32 0-200 cells/uL NEUTROPHILS 55.6 LYMPHOCYTES 36.5 MONOCYTES 6.3 EOSINOPHILS 0.9 BASOPHILS 0.7 SED RATE BY MODIFIED WESTERG DIANA Reviewed date:11/09/2024 09:17:58 AM Interpretation: Performing Lab:NL1, [facility], [address] [place] [address], [phone] Santy Salas M.D. Notes/Report: Received Date: NON-FASTING; NON-FASTING; NON-FASTING; NON-FASTING; NON-FAST FASTING:YES FASTING: YES SED RATE BY MODIFIED WESTERGREN 6 < OR = 30 mm/h HS-CRP Reviewed date:11/09/2024 09:17:58 AM Interpretation: Performing Lab:NL1, [facility], [address] [place] [address], [phone] Santy Salas M.D. Notes/Report: Received Date: NON-FASTING; [...] for Disease Control and Prevention and the [place] [employer]. Circulation 2003; 107(3): 499-511. REASON [...] Risk Notes Problem Arthritis of spine (disorder) (840648729) Other specified inflammatory spondylopathie s, site unspecified [...] Encounter Location Date Provider Diagnosis [facility] [address] [phone] 08/19/2024 Briseida Cruz MARTIN positive R76.8 ; [...] Repeat MARTIN neg . Negative MARTIN subserologies:,neg qbFBI-BJI-DBA-SM-INCIDENT RESPONSE SPECIALIST-S cl 70 aB, neg Centromere ab. Negative Antiphospholipid antibody panel (neg aCL, qlnF1WF9, neg LAC). No convincing evidence of autoimmune [...] up. 53yo female w/PMH +MARTIN 1:320 (2021 [facility]), IBS-C, Hypertension, Fibromyalgia and Costochondritis presents with [...] to this officeRTC in 8 weeksBriseida Cruz [facility] Pt reviewed by Dr. Cardenas Naltrexone 4.5 mg a day. The prescription for Low Dose Naltrexone is sent to the compounding pharmacy ([facility] (ph: [phone]) or [facility] (ph: [phone]) ISHMAELJACEY GILBERTARA 08/19/2024 05:20:19 PM EST > [...] to this officeRTC in 8 weeksBriseida Cruz [facility]-. Pt reviewed by Dr. Cardenas Naltrexone 4.5 mg a day. The prescription for Low Dose Naltrexone is sent to the compounding pharmacy ([facility] (ph: [phone]) or [facility] (ph: [phone]) ISHMAELVLADIMIRRAMU 08/19/2024 05:20:19 PM EST > Next Appt Details Follow Up: 3 Months, Reason: Provider Name:Chas Acosta, 12/29/2024 10:00:00 AM, [address] [place] [address], [phone], Progress Notes * Examination Category Sub-Category Detail [...] negative FIBROMYALGIA TENDER POINTS: No diffuse t cook vacuum kettle point tenderness allergy GENERAL APPEARANCE: in no [...] Demographics 53yo F w/PMH +MARTIN 1:320 (2021 [facility]), IBS- C, Hypertension, Fibromyalgia and Costochondritis; + [...] hammer toe correction 09/16/[address] Thorne hand pattern marker. Denies swollen joints today. -Reviewed labs 08/04/2024: Creat 1.08 (h), CK 178 (h), WY- 2 Beta AB 13 (H); HS CRP, Myositis Panel KRUPA-1 AB, PL-7 AB, PL-12 AB, EJ AB, OJ AB, SRP AB, WY-2 Alpha AB, WY-2 Alpha AB MDAS AB, T1F1, Gamma AB, [...] 53yo female with PMH +MARTIN 1:320 (2021 [facility]), IBS-C, Hypertension, Fibromyalgia and Costochondritis presents for [...] ago per Neuro MD Emmanuel Álvarez in [place]. She has tried Cymbalta in the past with no effect. She started seeing a Territory Sales Representative in [place] 4yrs ago David Louis in [facility]. This is provider is now in [place]. She transferred to another provider tommy Vasquez [...]
--- OUTSIDE RECORDS SUMMARY | 2024-12-10 07:50 | XMS_ITS ---
Author Organization [facility] Address [address] [place] [address] Care Team Providers Care Clinical Lab Assistant Name Role Phone Omayra GIRALDO [facility] Primary Care Provider Unavailab Xenia Carey Unavailable [phone] REASON FOR VISIT Insurance referrals Encounters Encounter Location Date Provider Diagnosis [address] [address] 12/09/2024 Xenia Butterfield Plan Of Treatment Next Appt Details Provider Name:Xenia luis, 12/14/2024 09:00:00 AM, [address] [place] [address], [phone], Progress Notes * Fifi CARTER MDOB:[birth year] (54 yo F)Acc No.[id number]:12/09/2024 Patient:?Fifi CARTER :1970???Age:54 Y???Sex:Female Address:[address] [place], [address] * * Date:?
--- OUTSIDE RECORDS SUMMARY | 2024-12-10 07:50 | XMS_ITS | Clinical Summary ---
Author Organization [facility] Address [address] [place] [address] Care Team Providers Care Senior Systems Architect Name Role Phone Vinicio Capellan MD Primary Care Provider [phone] Allergies Active Allergy Reactions Criticality Noted Date [...] Advance Directives For more information, please contact: [phone] Documents on File Type Date Recorded Patient Engineering Mathematician Expl anation Advance Directive and Living Will 08/22/2020 12:20 PM Power of Heel Scourer 08/22/2020 ORDER Care Teams Senior Systems Architect Relationship Specialty Start Date End Date Vinicio Capellan MD PCP - General Internal Medicine 09/14/21
== END 2024-12-10 07:45 | disposition home or self-care (01) ==
LOC: CF 07:44
PROVIDERS: Visit Provider Internal Medicine
DX: G90.521 Complex regional pain syndrome I of right lower limb (principal)
CPT/HCPCS: 64520; J2003; J2795; J3301; Q9967

== ENCOUNTER 2024-12-10 08:54 | Outpatient (AMB) | payer BC, SELFPAY ==
[2024-12-10 09:02] VITALS: BP 109/70; PULSE 53; RESP 16; O2SAT 98
--- NOTE | 2024-12-10 09:02 | MHC.OFFVIS ---
Vital Signs 12/10/24 09:02 12/10/24 09:59 BP 109/70 117/77 Blood Pressure Location Lt brachial Lt brachial Position Sitting Sitting Respiration 16 16 Pulse 53 54 Pulse Source Pulse Oximeter Pulse Oximeter Pulse Oximetry (%) 98 100 Oxygen Delivery Method Room Air Room Air Intake Visit Reasons: Right lumbar sympathetic block Disaster Recovery Specialist Required: No Allergies tramadol [From Ultram] Allergy (Unknown, Verified 12/10/24 09:03) Unknown Medication List - Last Reconciled 12/10/24 by Inga Lorenzo LPN aspirin 81 mg PO DAILY gabapentin 300 mg PO TID lisinopril 10 mg PO DAILY metoprolol succinate ER 50 mg PO DAILY oxycodone 5 mg PO BID PRN rosuvastatin (Crestor) 10 mg PO DAILY trazodone 150 mg PO BEDTIME PRN HPI HPI Right lumbar sympathetic block: Details: Patient presents for scheduled procedure. Denies any recent cough, cold, infection, fever or other significant changes in medical history since last office visit. [facility] (Updated 10/30/24 @ 12:52 by Andressa Alford) Hypercholesterolemia Hypertension Depression Anxiety Migraine Headache Fibromyalgia Surgical History (Updated 10/30/24 @ 12:52 by Andressa Alford) H/O oral surgery H/O: hysterectomy H/O tubal ligation Hx of section Physical Exam Vital Signs: Last Vital Signs Pulse 53 12/10/24 09:02 Resp 16 12/10/24 09:02 BP 109/70 12/10/24 09:02 Pulse Ox 98 12/10/24 09:02 Oxygen Delivery Method Room Air 12/10/24 09:02 Office Procedures Nerve Block Details: Lumbar Sympathetic Block, Right After obtaining written consent, pre-procedure blood pressure and heart rate were stable and recorded in the nursing record. The patient was placed in the prone position. The lumbar area was widely prepped with chloraprep and draped in sterile fashion. Fluoroscopic guidance was used to identify the L2 vertebral body. With L2 vertebral body squared off in the AP position, the shadow of the L2 transverse process was noted to be enclosed with in the projection of the vertebral body at 30 degrees ipsilateral oblique imaging. Subcutaneous 0.5% lidocaine was used to anesthetize the skin overlying the lower third of the anterolateral border of the L2 vertebral body. A 5 inch 22-gauge Quinke needle with a small bend on the tip was advanced towards the left lumbar sympathetic chain under ipsilateral oblique, AP and lateral fluoroscopic views. Under lateral imaging, the needle was advanced slightly beyond the anterior border of the L2 vertebral body. There was no evidence of heme or CSF and no paresthesias were elicited with needle placement. Next 2 ml Omnipaque 180 was injected under live fluoroscopy with cephalad and caudad contrast spread in the vicinity of the sympathetic chain without vascular uptake. Next, 8cc of ropivacaine 0.5% was injected with negative aspiration every 2 mL. The needle was removed, skin cleansed and a sterile bandage was applied. The patient tolerated the procedure well and no complications were encountered. Following the procedure the patient's vital signs were stable. The patient was monitored in post-procedure revovery for 30 minutes before being discharged home in good condition with post-procedural instructions. Time Out: Immediately prior to the procedure, the following was verbally confirmed that there is a signed consent form and that the correct patient, planned procedure, site and side are consistent with documentation and that necessary equipment and/or blood products are available prior to the start of the case. Complications: none EBL: <5 cc Additional procedure code (CPT) needed Assessment & Plan Assessment & Plan (1) CRPS (complex regional pain syndrome), lower limb: Code(s): G90.529 - Complex regional pain syndrome I of unspecified lower limb Category: Medical Plan Patient is status post right lumbar sympathetic block. Patient tolerated procedure well and was discharged home in stable condition with discharge instructions. All questions were answered. We will follow-up via telephone or in clinic to assess response to therapy. A follow-up appointment was made during today's visit. Orders: Orders FL guidance in treatment room Today G90.529 - Complex regional pain syndrome I of unspecified lower limb Coding Level of Care Code Procedure Only Diagnoses CRPS (complex regional pain syndrome), lower limb G90.529
--- OUTSIDE RECORDS SUMMARY | 2024-12-10 09:03 | XMS_ITS | Encounter Summary ---
Author Organization [facility] [place] [address] Care Team Providers Care Watch Inspector Final Movement Name Role Phone Vinicio Capellan Primary Care Provider [phone] Encounter Details Date Type Department Care Team [...] PM EDT) Anatomical Region Laterality Modality Radiographic Jauny ging 07/08/2024 1:58 PM EDT Narrative 07/08/2024 2:19 PM EDT Exam: X-ray chest 2 views INDICATION: MARTIN positive Bases appear clear. ??No infiltrates or consolidations. ??Heart size is normal without failure. ??Incidental pectus carinatum of the sternum. IMPRESSION: No infiltrate seen Report reviewed and signed by : Dr. Syed Pierre on 07/08/2024 2:19 PM. Workstation Name - [id number] Procedure Note Syed Pierre MD - 07/11/2024 Exam: X-ray chest 2 views INDICATION: MARTIN positive Bases appear clear. No infiltrates or consolidations. Heart size isnormal without failure. Incidental pectus carinatum of the sternum. IMPRESSION: No infiltrate seen Report reviewed and signed by : Dr. Syed Pierre on 07/08/2024 2:19 PM.Workstation Name - [id number] us Briseida Cruz OPERATING ENGINEER IMG XR PROCEDURES Final Resul t documented in this encounter Visit Diagnoses Diagnosis Other specified abnormal immunological findings in serum documented in this encounter Care Teams Watch Inspector Final Movement Relationship Specialty Start Date End Date Vinicio Capellan [address] [place] [address] PCP - General Internal Medicine 09/14/21 documented as of this encounter
--- OUTSIDE RECORDS SUMMARY | 2024-12-10 09:03 | XMS_ITS | Clinical Summary ---
Author Organization [facility] [place] [address] Phone Care Team Providers Care Borough Coordinator Name Role Phone Vinicio Capellan Primary Care Provider [phone] Medications rosuvastatin (CRESTOR) 40 mg tablet TAKE 1 TABLET BY MOUTH EVERYDAY AT BEDTIME 90 tablet 2 09/14/2024 Active Immunizations Name Administration Dates Next Due [facility] SARS-CoV-2 COVID-19, mRNA, LNP-S, preservative free 12/24/2020,12/03/2020 [...] season) 2024 07/04/2021, 12/24/2020, 12/03/2020 Influenza Vaccine (Season Ended) 2025 HIB Vaccines Aged Out No longer eligi [...] age to complete this topic Care Teams Borough Coordinator Relationship Specialty Start Date End Date Vinicio Capellan [address] [place] [address] PCP - General Internal Medicine 09/14/21
--- OUTSIDE RECORDS SUMMARY | 2024-12-10 09:03 | XMS_ITS | Clinical Summary ---
Author Organization [facility] Address [address] [place] [address] Care Team Providers Care Dynamite Packing Machine Feeder Name Role Phone Sebas Cutler MD Primary Care Provider [phone] Sebas Cutler MD Unavailable [phone] Allergies Active Allergy Reactions Criticality Noted [...] Inactivated Comments 11/08/2021 7:18 AM Care Teams Dynamite Packing Machine Feeder Relationship Specialty Start Date End Date Sebas Cutler MD PCP - General 10/12/09 Sebas Cutler MD [address] [place] [address] PCP - [place] Commercial Attributed 11/08/23
--- OUTSIDE RECORDS SUMMARY | 2024-12-10 09:04 | XMS_ITS | Clinical Summary ---
Author Organization [facility] Address [address] [place] [address] Care Team Providers Care Carton Stamper Name Role Phone Vinicio Capellan MD Primary Care Provider + [phone] Allergies Active Allergy Reactions Criticality Noted Date [...] Advance Directives For more information, please contact: [phone] Documents on File Type Date Recorded Patient Electrical Systems Design Engineer Expl anation Advance Directive and Living Will 08/22/2020 12:20 PM Power of Real Estate Operations Manager 08/22/2020 ORDER Care Teams Carton Stamper Relationship Specialty Start Date End Date Vinicio Capellan MD PCP - General Internal Medicine 09/14/21
[2024-12-10 09:59] VITALS: BP 117/77; PULSE 54; RESP 16; O2SAT 100
== END 2024-12-10 10:13 | disposition home or self-care (01) ==
LOC: HO.PMCPRC 08:54
PROVIDERS: PCP Internal Medicine; Visit Provider Internal Medicine
DX: G90.521 Complex regional pain syndrome I of right lower limb (principal)
CPT/HCPCS: 64520

== ENCOUNTER 2024-12-16 13:03 | Outpatient (AMB) | payer BC, SELFPAY ==
--- NOTE | 2024-12-16 13:10 | A.OFFVIS_ITS ---
Vital Signs 12/16/24 13:11 Height 5 ft 5 in Weight 163 lb BMI 27.1 BP 118/75 Blood Pressure Location Lt brachial Position Sitting Respiration 16 Pulse 63 Pulse Source Pulse Oximeter Pulse Oximetry (%) 100 Oxygen Delivery Method Room Air Intake Visit Reasons: s/p right lumbar sympathetic block Die Tester Required: No Allergies tramadol [From Ultram] Allergy (Unknown, Verified 12/16/24 13:13) Unknown Medication List - Last Reconciled 12/16/24 by Inga Lorenzo LPN aspirin 81 mg PO DAILY gabapentin 300 mg PO TID lisinopril 10 mg PO DAILY metoprolol succinate ER 50 mg PO DAILY rosuvastatin (Crestor) 10 mg PO DAILY trazodone 150 mg PO BEDTIME PRN HPI Comments Details: The patient is a 54-year-old female presenting for follow up, 6 days s/p right lumbar sympathetic block. There has been no significant improvement in symptoms. She does report improvement in the temperature changes. Her daily activities are increasingly hindered, particularly those involving prolonged standing or walking, due to fluctuations in pain severity throughout the day. The patient describes changes in her ability to wear certain footwear comfortably and remaining active with family activities, which have been affected adversely due to her current pain state. The patient reported some relief with relaxed positions, but pressure from everyday necessities like blankets remains challenging. Current medication regimens, including Gabapentin taken up to three times daily and Trazodone at night, have not provided the desired pain relief or improved her sleeping difficulties. - Onset: Post-surgical - Quality: Persistent soreness, bursts of pain, occasional sensitivity without sudden shocks - Location: Tops of toes at the surgical site - Exacerbating Factors: Standing for prolonged periods, walking, pressure from blankets or shoes - Relieving Factors: Resting foot, keeping it elevated - Interference: Activities of daily living, sleep, choice of footwear - Affect: The patient experiences frustration and anxiety about future events due to her persistent pain and functional limitations. - Analgesia: Currently taking Gabapentin 300 mg three times a day and Trazodone, with no significant improvement in reported pain levels. - Adverse Effects: No adverse effects of medications reported, but no positive results either. - Activities of Daily Living: Pain substantially limits walking, standing, and other routine activities; affects sleep. - Aberrant Drug Related Behaviors: None reported, patient is compliant with current medication regimen. Prior: Telephone visit completed today for follow-up, review of planned procedure Patient is scheduled for lumbar sympathetic block tomorrow for CRPS. She has questions about the procedure. Patient frustrated, states she has a reach out to the office several times but has yet to receive a call back. Unsure where the breakdown in communication falls; chart was reviewed, no messages were received by the provider or medical billing instructor requesting call back by the patient. Prior: Fifi is a very pleasant 54-year-old female who presents to the office today for evaluation management of her right foot pain She has been suffering with this pain for approximately 6 weeks. Pain started after she had right sided hammertoe surgery 09/16/2024 Endorses right foot pain, hypersensitive to touch, swelling and temperature changes. Currently taking gabapentin 300 mg twice daily with no improvement Taking Tylenol and ibuprofen with minimal improvement Has been doing home exercise program, starting physical therapy but pain persists States she is not even able to tolerate a bed sheet or socks secondary to the pain Pain today is rated as a 5/10, she reports that 5 is the best her pain is. At times pain will be 10/10 In terms of muscle damage condition is described as burning, throbbing, sharp, aching, tightness Pain is negatively impacting patient's mental health, normal function, normal sleep, ability to perform activities daily living, ambulation Denies current use of anticoagulants Denies implantable devices, pacemaker or defibrillator Denies current use of nicotine, tobacco, alcohol or illicit substances PFSH Medical History (Updated 12/17/24 @ 14:48 by Colleen Chau APRN, ASSISTANT FEDERAL PUBLIC DEFENDER) Hypercholesterolemia Hypertension Depression Anxiety Migraine Headache Fibromyalgia Surgical History (Updated 12/17/24 @ 14:48 by Colleen Chau APRN, ASSISTANT FEDERAL PUBLIC DEFENDER) H/O oral surgery H/O: hysterectomy H/O tubal ligation Hx of section Review of Systems Const Details: - Neurological: Reports altered sensation in the surgical area - Musculoskeletal: Reports persistent foot pain and sensitivity - Psychological: Reports anxiety related to pain and its management Physical Exam Vital Signs: Last Vital Signs Pulse 63 12/16/24 13:11 Resp 16 12/16/24 13:11 BP 118/75 12/16/24 13:11 Pulse Ox 100 12/16/24 13:11 Oxygen Delivery Method Room Air 12/16/24 13:11 BMI result Body Mass Index 27.1 General: awake, alert, oriented. Answers questions appropriately. Fully engaged in examination. Skin: warm, dry, intact HEENT: Normocephalic. Hearing intact. Cardiac: External chest normal in appearance. Respiratory: No cough, audible wheezing or stridor. Abdomen: without gross distension. MS: No obvious swelling or deformities. Able to transition from sit to stand unassisted. Neurological: Oriented to person, place, time and situation. Thought process intact. No gait abnormalities appreciated. Psychiatric: Appropriate mood and affect. Good judgment and insight. Assessment & Plan Assessment & Plan (1) CRPS (complex regional pain syndrome), lower limb: Code(s): G90.529 - Complex regional pain syndrome I of unspecified lower limb Category: Medical (2) Right foot pain: Code(s): M79.671 - Pain in right foot Category: Medical (3) S/P hammer toe correction: Code(s): Z98.890 - Other specified postprocedural states; Z87.39 - Personal history of other diseases of the musculoskeletal system and connective tissue Category: Surgical Plan In managing the patient's chronic pain related to CRPS post-surgery, a transition to Pregabalin Lyrica) is recommended to assess its efficacy in providing improved neuropathic pain relief. Concurrently, a Peripheral Nerve Stimulator is considered for use over eight weeks to help reduce pain through neural signal disruption. I have discussed the procedural implications, expected outcomes, and risks, with an understanding that insurance approval will be so ught before moving forward. Additional support for managing Fibromyalgia, which coexists with the patient's CRPS and affects her quality of life, supports this comprehensive pain strategy. During the consultation, I outlined the diagnostic and therapeutic options focusing on her chronic post-surgical pain and CRPS. I discussed transitioning from Gabapentin to Lyrica (Pregabalin) and the introduction of a Peripheral Nerve Stimulator trial for neuropathic pain management. We reviewed the procedural plan for the neural stimulator, which intends to block pain signals to the brain over an eight-week period, potentially delivering relief for up to a year. I addressed the procedure, including benefits, risks, insurance processes, and the patient?s post-procedural expectations and consent nuances. Engagement in socially supportive measures for Fibromyalgia aspects was also noted, ensuring a holistic management scope. Will schedule for Right Tibial Sprint PNS with local anesthetic under ultrasound guidance. Patient was informed and verbally consented to the use of an ambient scribe for clinic note documentation during this visit. Medications: New pregabalin (Lyrica) Discontinue gabapentin for starting this medication 75 mg PO BID 60 caps 3RF Patient Instructions: - Begin taking Pregabalin as instructed, transitioning from Gabapentin. - Look out for notifications regarding the approval of the Peripheral Nerve Stim ulator trial. - Attend follow-up appointments and notify if experiencing any unexpected side effects from new medication. - Maintain supportive measures for Fibromyalgia and chronic pain management. - Limit activities that exacerbate pain; consider more time for rest and foot elevation. - Contact the office with questions about pain management strategies or medication changes. Coding Level of Care Code Est Pt Level 3 (36292) Complex EM visit Add On G2211 Diagnoses CRPS (complex regional pain syndrome), lower limb G90.529 Right foot pain M79.671 S/P hammer toe correction Z98.890; Z87.39
[2024-12-16 13:11] VITALS: BP 118/75; PULSE 63; RESP 16; O2SAT 100; BMI 27.1
--- OUTSIDE RECORDS SUMMARY | 2024-12-16 15:10 | XMS_ITS | Encounter Summary ---
Author Organization [facility] [place] [address] Care Team Providers Care Economic Forecaster Name Role Phone Vinicio Capellan Primary Care Provider [phone] Encounter Details Date Type Department Care Team [...] on 07/08/2024 2:19 PM. Workstation Name - [email or web address] Procedure Note Syed Pierre MD - 07/11/2024 Exam: X-ray chest 2 views INDICATION: MARTIN positive Bases appear clear. No infiltrates or consolidations. Heart size isnormal without failure. Incidental pectus carinatum of the sternum. IMPRESSION: No infiltrate seen Report reviewed and signed by : Dr. Syed Pierre on 07/08/2024 2:19 PM.Workstation Name - Octavian2 us Briseida Cruz INDUSTRIAL RELATIONS OFFICER IMG XR PROCEDURES Final Resul t documented in this encounter Visit Diagnoses Diagnosis Other specified abnormal immunological findings in serum documented in this encounter Care Teams Economic Forecaster Relationship Specialty Start Date End Date Vinicio Capellan [address] [place] [id number] PCP - General Internal Medicine 09/14/21 documented as of this encounter
--- OUTSIDE RECORDS SUMMARY | 2024-12-16 15:10 | XMS_ITS | Clinical Summary ---
Author Organization [facility] Address [address] [place] [address] Care Team Providers Care Associate Entertainment Editor Name Role Phone Sebas Cutler MD Primary Care Provider [phone] Sebas Cutler MD Unavailable [phone] Allergies Active Allergy Reactions Criticality Noted [...] Inactivated Comments 11/08/2021 7:18 AM Care Teams Associate Entertainment Editor Relationship Specialty Start Date End Date Sebas Cutler MD PCP - General 10/12/09 Sebas Cutler MD [address] [place] [address] PCP - Garibaldi Commercial Attributed 11/08/23
--- OUTSIDE RECORDS SUMMARY | 2024-12-16 15:10 | XMS_ITS ---
Author Organization [facility] Address [address] [place] [id number] Care Team Providers Care Furnace Charging Machine Operator Name Role Phone Sebas Cutler MD Primary Care Provider Unavailab RAMU Escalante Unavailable [phone] Allergies Allergen (clinical drug ingredient) Drug/Non Drug [...] W/U Status Risk Notes Problem Psoriatic spondylitis (061754056) Psoriatic spondylitis (L40.53) Active confirmed polyarthralgia, inflammatory [...] Encounter Location Date Provider Diagnosis [facility] [address] [phone] 11/12/2024 RAMU DIXIE MARTIN positive R76.8 ; [...] Repeat MARTIN neg . Negative MARTIN subserologies:,neg [id number] MONITORING ANALYST-S cl 70 aB, neg Centromere ab. Negative Antiphospholipid antibody panel (neg aCL, [id number], neg LAC). No convincing evidence of autoimmune [...] up. 53yo female w/PMH +MARTIN 1:320 (2021 [facility]), IBS-C, Hypertension, Fibromyalgia and Costochondritis presents with [...] Reason: Provider Name:Chas Acosta, 12/29/2024 10:00:00 AM, [address] [place] [address], [id number], Progress Notes * Examination Category Sub-Category Detail [...] negative FIBROMYALGIA TENDER POINTS: No diffuse t dimensional engineer point tenderness allergy GENERAL APPEARANCE: in no [...] Demographics 53yo F w/PMH +MARTIN 1:320 (2021 [facility]), IBS- C, Hypertension, Fibromyalgia and Costochondritis; + [...] hammer toe correction 09/16/[address] 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 Denies swollen joints today. -Reviewed labs 08/04/2024: Creat 1.08 (h), CK 178 (h), CO-2 Beta AB 13 (H); HS CRP, Myositis Panel KRUPA-1 AB, PL-7 AB, PL-12 AB, EJ AB, OJ AB, SRP AB, CO-2 Alpha AB, CO-2 Alpha AB MDAS AB, T1F1, Gamma AB, [...] 53yo female with PMH +MARTIN 1:320 (2021 [facility]), IBS- C, Hypertension, Fibromyalgia and Costochondritis presents [...] ago per Neuro MD Emmanuel Álvarez in [place]. She has tried Cymbalta in the past with no effect. She started seeing a Telecasting Engineer in [place] 4yrs ago David Louis in [facility]. This is provider is now in [place]. She transferred to another provider tommy Vasquez [...]
--- OUTSIDE RECORDS SUMMARY | 2024-12-16 15:10 | XMS_ITS | Clinical Summary ---
Author Organization [facility] [place] [address] Phone Care Team Providers Care Petroleum Inspector Name Role Phone Vinicio Capellan Primary Care Provider [phone] Medications rosuvastatin (CRESTOR) 40 mg tablet TAKE 1 TABLET BY MOUTH EVERYDAY AT BEDTIME 90 tablet 2 09/14/2024 Active Immunizations Name Administration Dates Next Due [facility] SARS-CoV-2 COVID-19, mRNA, LNP-S, preservative free [...] age to complete this topic Meningococcal B Vaccine Aged Out No l onger eligible based on patient's age to complete [...] age to complete this topic Care Teams Petroleum Inspector Relationship Specialty Start Date End Date Vinicio Capellan [address] [place] [address] PCP - General Internal Medicine 09/14/21
--- OUTSIDE RECORDS SUMMARY | 2024-12-16 15:11 | XMS_ITS ---
Author Organization [facility] Address [address] [place] [address] Care Team Providers Care Curator Horticultural Museum Name Role Phone Omayra GIRALDO [facility] Primary Care Provider Unavailab Xenia Carey Unavailable [phone] REASON FOR VISIT Insurance referrals Encounters Encounter Location Date Provider Diagnosis [address] [address] 12/09/2024 Xenia Butterfield Plan Of Treatment Next Appt Details Provider Name:Xenia luis, 01/07/2025 08:30:00 AM, [address] [place] [address], [phone], Progress Notes * Fifi CARTER MDOB:[birth year] (54 yo F)Acc No.[id number]:12/09/2024 Patient:?Fifi CARTER :1970???Age:54 Y???Sex:Female Address:[address] [place], [address] * true * Date:? Generated for Printi ng/Faxing/eTransmitting on:?12/16/2024 03:11 PM EDT
--- OUTSIDE RECORDS SUMMARY | 2024-12-16 15:11 | XMS_ITS | Patient Health Record ---
Author Organization [facility] Address [address] [place] [address] Care Team Providers Care Pot Maker Name Role Phone Omayra GIRALDO, Sebas Primary Care Provider Unavailab Xenia Carey Unavailable [phone] Brock Hogan Unavailable [phone] Hilda Us Unavailable [phone] Allergies Allergen (clinical drug ingredient) Drug/Non Drug [...] Referring Provider Last Name Omayra [facility] Referred Provider Xenia Butterfield Referred Address [address] [facility],[place],[address], Referred Provider Specialty Podiatry Referral Priority Routine [...] First Name Sebas Referring Provider Last Name [facility] So [facility] Referred Provider Brock Hogan Referred Address [address] [facility],[place],[address],[place] Referred Provider Specialty Podiatry Referral Priority Routine Diagnosis 1 Other hammer toe(s) (acquired), right foot (M20.41) Diagnosis 2 Arthritis of joint o f lesser toe, right (M19.071) Diagnosis 3 Other hammer toe(s) (acquired), left foot (M20.42) Diagnosis 4 Arthritis of joint o f lesser toe, left (M19.072) Diagnosis 5 Plantar fascial fibr omatosis (M72.2) Diagnosis 6 Complex regional leanna n syndrome type 1 of right lower extremity (G90.521) Diagnosis 7 Pain in left toe(s) (M79.675) Diagnosis 8 Pain in right foot ( M79.671) Referring Provider First Name Sebas [facility]erred Provider Hilda Us Referred Address [address] [facility],[place],[address],[place] Referred Provider Specialty Podiatry Referral Priority Routine Medications Medication SIG (Take, Route, Frequency, Duration) Notes Start Date End Date Status Wellbutrin XL 150 MG 1 tablet in the mor aspen Orally Once a day for 30 day(s) Not-Taking Motegrity 2 MG 1 tablet Orally Once a day for 30 day(s) Not-Taking CeleBREX Not-Taking Zoloft Not-Taking Office visit . . . Patient can only stand or walk for 10-15min increments at a time due to severe pain in right foot. for 90 days 12/08/2024 Active Neurontin 300 MG 1 capsule Orally Thr ee times a day for 30 days 10/23/2024 Active Amitriptyline HCl No t-Taking Physical Therapy . . . Patient had roz er toe surgery right foot on 09/16/24; having symptoms of CRPS/RSD, history of Firbomyalgia for 60 days 10/23/2024 Active Mirtazapine Not-Taki ng oxyCODONE HCl 5 MG 1 tablet as needed Orally every 6 hrs 09/29/2024 Active Piroxicam 20 MG TAKE ONE CAPSULE BY MOUTH EVERY MORNING Oral for 30 Not-Taking Crestor 10 MG 1 tablet Orally Once a day for 30 day(s) Active toprol Not-Taking traZODone HCl 150 MG 1 tablet at bedtime Orally Once a day for 30 day(s) Active Effexor XR 37.5 mg N ot-Taking Lisinopril 10 MG 1 tablet Orally Once a day for 30 day(s) Active Lyrica Not-Taking Metoprolol Succinate 50 MG 1 capsule Orally Once a day for 30 day(s) Active Baby Aspirin Active Naltrexone - as directed Activ e Gabapentin Active Social History Tobacco Use: Social History [...] Problem Acquired hammer toe of right foot (8545442667021206) Other hammer toe(s) (acquired), right foot (M20.41) Active confirmed Problem Acquired hammer toe of left foot (9896691165074331) Other hammer toe(s) (acquired), left foot (M20.42) Active confirmed Problem Plantar fascial fibromatosis (82951128) Plantar fascial fibromatosis (M72.2) Active confirmed Problem [id number] Complex regional pain syndrome type 1 of right lower extremity (G90.521) Active confirmed Problem Localized, primary osteoarthritis of the ankle and/or foot (258566737) Arthritis of joint of lesser toe, left (M19.072) Active confirmed Problem Localized, primary osteoarthritis of the ankle and/or foot (158809289) Arthritis of joint of lesser toe, right (M19.071) Active confirmed Vital Signs Heart Rate 57 /min 09/29/2024 Blood pressure diastolic 70 mm Hg 12/14/2024 Height 5ft5in in 12/14/2024 Blood pressure systolic 115 mm Hg 12/14/2024 Weight 170 lbs 12/14/2024 BMI 28.29 kg/m2 12/14/2024 Encounters Encounter Location Date Provider Diagnosis Surgery [facility] ([facility] [address] 09/16/2024 Xenia Butterfield [address] [address] 07/14/2024 Xenia Butterfield Pain in right toe(s) M79.674 ; Other hammer toe(s) (acquired), right foot M20.41 ; Arthritis of joint of lesser toe, right M19.071 ; Pain in left toe(s) M79.675 ; Other hammer toe(s) (acquired), left foot M20.42 ; Arthritis of joint of lesser toe, left M19.072 and Subluxation of metatarsophalangeal joint of toe, initial encounter S93.149A [facility] [address] 08/18/2024 Brock Edison Pain in left foot M7 9.672 ; Pain in left ankle and joints of left foot M25.572 ; Bursitis of intermetatarsal bursa of left foot M77.52 and Metatarsalgia, left foot M77.[address] [address] 09/04/2024 Xenia Butterfield Pain in right toe(s) M79.674 ; Other hammer toe(s) (acquired), right foot M20.41 ; Arthritis of joint of lesser toe, right M19.071 ; Pain in left toe(s) M79.675 ; Other hammer toe(s) (acquired), left foot M20.42 ; Arthritis of joint of lesser toe, left M19.072 and Subluxation of metatarsophalangeal joint of toe, initial encounter S93.149A [address] [address] 09/10/2024 Xenia Butterfield Pain in right toe(s) M79.674 ; Other hammer toe(s) (acquired), right foot M20.41 ; Arthritis of joint of lesser toe, right M19.071 ; Pain in left toe(s) M79.675 ; Other hammer toe(s) (acquired), left foot M20.42 ; Arthritis of joint of lesser toe, left M19.072 and Subluxation of metatarsophalangeal joint of toe, initial encounter S93.149A [address] [address] 09/22/2024 Xenia Butterfield Other hammer toe(s) (acquired), right foot M20.[address] [address] 09/29/2024 Xenia Butterfield Other hammer toe(s) (acquired), right foot M20.[address] [address] 10/09/2024 Xenia Butterfield Other hammer toe(s) (acquired), right foot M20.[address] [address] 10/23/2024 Hilda Perica Other hammer toe(s) (acquired), right foot M20.41 ; Complex regional pain syndrome type 1 of right lower extremity G90.521 and Pain in right foot M79.[address] [address] 11/13/2024 Hilda Perica Other hammer toe(s) (acquired), right foot M20.41 ; Complex regional pain syndrome type 1 of right lower extremity G90.521 and Pain in right foot M79.[address] [address] 12/08/2024 Hilda Perica Other hammer toe(s) (acquired), right foot M20.41 ; Complex regional pain syndrome type 1 of right lower extremity G90.521 and Pain in right foot M79.671 [facility] [address] [address] 12/14/2024 Xeniaeduarda Butterfield Other hammer toe(s) (acquired), right foot M20.41 ; Complex regional pain syndrome type 1 of right lower extremity G90.521 and Pain in right foot M79.671 [facility] [address] [address] 10/23/2024 Xenia Butterfield [facility] [address] [address] 07/14/2024 Brock Hogan [facility] [address] [address] 07/15/2024 [facility] [address] [address] 08/13/2024 [facility] [address] [address] 09/04/2024 [facility] [address] [address] 09/15/2024 [facility] [address] [address] 09/17/2024 [facility] [address] [address] 09/17/2024 [facility] [address] [address] 09/18/2024 [facility] [address] [address] 10/27/2024 Xenia Butterfield [facility] [address] [address] 11/13/2024 Xenia Butterfield [facility] [place] [address] [place] [address] 12/02/2024 Xenia Butterfield [facility] [address] [address] 12/08/2024 Xenia Butterfield [facility] [address] [address] 12/09/2024 Xenia Butterfield [facility] [address] [address] 09/14/2024 Xenia Butterfield Assessments Encounter Date Diagnosis [...] toe(s) (acquired), right foot (ICD-10 - M20.41) 12/14/2024 Other hammer toe(s) (acquired), right foot (ICD-10 - M20.41) 11/13/2024 Complex regional leanna n syndrome type 1 of right lower extremity (ICD-10 - G90.521) 12/08/2024 Complex regional leanna n syndrome type 1 of right lower extremity (ICD-10 - G90.521) 12/14/2024 Complex regional leanna n syndrome type 1 [...] Pain in left toe(s) (ICD-10 - M79.675) 12/14/2024 Pain in right foot (ICD-10 - M79.671) 12/08/2024 Pain in right foot (ICD-10 - [...] 3V 06/21/2011 Next Appt Details Provider Name:Xenia lusi, 01/07/2025 08:30:00 AM, [address] [place], [address], Insurance Providers Payer Name Payer Address Payer Phone Subscriber Number Group Number Insured Name Patient Relationship to Insured Coverage Start Date Coverage End Date [facility] [address] [place] [address] [id number] Amilcar Carter Spouse - patient is [...]
--- OUTSIDE RECORDS SUMMARY | 2024-12-16 15:11 | XMS_ITS | Clinical Summary ---
Author Organization [facility] Address [address] [place] [address] Care Team Providers Care Bundling Machine Operator Name Role Phone Vinicio Capellan MD Primary Care Provider + [phone] Allergies Active Allergy Reactions Criticality Noted Date [...] Advance Directives For more information, please contact: [phone] Documents on File Type Date Recorded Patient Wafer Fabrication Technician Expl anation Advance Directive and Living Will 08/22/2020 12:20 PM Power of Group Social Worker 08/22/2020 ORDER Care Teams Bundling Machine Operator Relationship Specialty Start Date End Date Vinicio Capellan MD PCP - General Internal Medicine 09/14/21
== END 2024-12-16 13:38 | disposition home or self-care (01) ==
LOC: HO.PMC 13:06
PROVIDERS: PCP Internal Medicine; Visit Provider Registered Nurse Emergency
DX: G90.529 Complex regional pain syndrome I of unspecified lower limb (principal); M79.671 Pain in right foot; Z98.890 Other specified postprocedural states; Z87.39 Personal history of other diseases of the musculoskeletal system and connective tissue
CPT/HCPCS: 99213

== ENCOUNTER → 2024-12-16 13:03 | Outpatient (BNVA) | payer BC, SELFPAY | PROVIDERS: PCP Internal Medicine; Visit Provider Registered Nurse Emergency ==

== ENCOUNTER 2025-04-22 07:27 | Outpatient (REF) | payer BC, SELFPAY ==
--- OUTSIDE RECORDS SUMMARY | 2025-04-22 07:30 | XMS_ITS | Clinical Summary ---
Author Organization [facility] [place] [address] Phone Care Team Providers Care Brim Pouncing Machine Operator Name Role Phone Vinicio Capellan Primary Care Provider [phone] Medications rosuvastatin (CRESTOR) 40 mg tablet TAKE 1 TABLET BY MOUTH EVERYDAY AT BEDTIME 90 tablet 2 09/14/2024 Active lisinopril-hydr oCHLOROthiazide (PRINZIDE,ZESTO RETIC) 10-12.5 mg per tablet TAKE 1 TABLET BY MOUTH EVERY DAY 90 tablet 1 12/17/2024 Active Immunizations Name Administration Dates Next Due [facility] SARS-CoV-2 COVID-19, mRNA, LNP-S, preservative free [...] 19+ 3-dose series) 1988 Cervical Cancer Screening: P ap Smear 1990 Pneumococcal Vaccine: 50+ Years (1 of 1 - PCV) 2019 Zoster Vaccines (1 of 2) 2019 Colorectal Cancer Screening: Colonoscopy 08/13/2022 HIV Screening 08/13/2022 Hepatitis C Screening 08/13/2022 Social Influencers of Health Screening 08/13/2022 COVID-19 Vaccine (4 - 2023-2 5 season) 2024 07/04/2021, 12/24/2020, 12/03/2020 Depression Screening 09/09/2024 Influenza Vaccine (#1) 2025 HIB Vaccines Aged Out No longer [...] 20 months Aged Out No longer eligible b ased on patient's age to complete this topic Varicella Vaccines Aged Out No longer eligible based on patient's age to complete this topic Care Teams Brim Pouncing Machine Operator Relationship Specialty Start Date End Date Vinicio Capellan [address] [place] [id number] PCP - General Internal Medicine 09/14/21
--- OUTSIDE RECORDS SUMMARY | 2025-04-22 07:30 | XMS_ITS | Patient Health Record ---
[facility] Address [address] [place] [address] Care Team Providers Care Salad Bar Clerk Name Role Phone Omayra GIRALDO, Sebas Primary Care Provider Unavailab Xenia Carey Unavailable [phone] Brock Hogan Unavailable [phone] Hilda Us Unavailable [phone] Allergies Allergen (clinical drug ingredient) Drug/Non Drug [...] Referring Provider Last Name Omayra [facility] Referred Provider Xenia Butterfield Referred Address [address] [facility],[place],[address], Referred Provider Specialty Podiatry Referral Priority Routine [...] First Name Sebas Referring Provider Last Name [facility] Referred Provider Brock Hogan Referred Address [address] [facility],[place],[address],[place] Referred Provider Specialty Podiatry Referral Priority Routine [...] First Name Sebas [facility] Xenia Butterfield Referred Address [address] [facility],[place],[address],[place] Referred Provider Specialty Podiatry General Notes This referral is cathy id under VPA group NPI # Referral Priority Routine Medications Medication SIG (Take, Route, Frequency, Duration) Notes Start Date End Date Status Gabapentin Not-Takin g Crestor 10 MG 1 tablet Orally Once a day; Duration: 30 day(s) Active Effexor XR 37.5 mg N ot-Taking oxyCODONE HCl 5 MG 1 tablet as needed Orally every 6 hrs 09/29/2024 Active toprol Not-Taking Physical Therapy . . . Patient had roz er toe surgery right foot on 09/16/24; having symptoms of CRPS/RSD, history of Firbomyalgia; Duration: 60 days 10/23/2024 Active Piroxicam 20 MG TAKE ONE CAPSULE BY MOUTH EVERY MORNING Oral; Duration: 30 Not-Taking Neurontin 300 MG 1 capsule Orally Thr ee times a day; Duration: 30 days 10/23/2024 Active Mirtazapine Not-Taki ng Baby Aspirin Active Zoloft Not-Taking Metoprolol Succinate 50 MG 1 capsule Ora lly Once a day; Duration: 30 day(s) Active CeleBREX Not-Taking Lisinopril 10 MG 1 tablet Orally Once a day; Duration: 30 day(s) Active Motegrity 2 MG 1 tablet Orally Once a day; Duration: 30 day(s) Not-Taking traZODone HCl 150 MG 1 tablet at bedtime Orally Once a day; Duration: 30 day(s) Active Wellbutrin XL 150 MG 1 tablet in the morning Orally Once a day; Duration: 30 day(s) Not-Taking Office visit . . . Patient can only stand or walk for 10-15min increments at a time due to severe pain in right foot.; Duration: 90 days 12/08/2024 Active Amitriptyline HCl No t-Taking Lyrica Active predniSONE 5 MG 5 tablets once a day for 3 days, 4 tablets once a day for 3 days, 3 tablets once a day for 3 days, 2 tablets once a day for 3 days, 1 tablet once a day for 3 days Orally; Duration: 15 days 03/29/2025 Active Naltrexone - as directed Activ e Immunizations Vaccine Route Administration Date Status Comme nts Influenza Unknown 06/09/2024 Administered Social History Tobacco Use: Social History Observation [...] Problem Acquired hammer toe of right foot (3364927990113659) Other hammer toe(s) (acquired), right foot (M20.41) Active confirmed Problem Acquired hammer toe of left foot (7859408486419136) Other hammer toe(s) (acquired), left foot (M20.42) Active confirmed Problem Plantar fascial fibromatosis (72606697) Plantar fascial fibromatosis (M72.2) Active confirmed Problem Mononeuropathy of lower limb (988088771) Neuritis of right foot (G57.91) Active confirmed Problem Complex regional pain syndrome type I of right lower limb (disorder) (735029447894760) Complex regional pain syndrome type 1 of right lower extremity (G90.521) Active confirmed Problem Localized, primary osteoarthritis of the ankle and/or foot (957344368) Arthritis of joint of lesser toe, left (M19.072) Active confirmed Problem Localized, primary osteoarthritis of the ankle and/or foot (019831945) Arthritis of joint of lesser toe, right (M19.071) Active confirmed Vital Signs Heart Rate 57 /min 09/29/2024 Blood pressure diastolic 65 mm Hg 03/29/2025 Height 5ft5in in 03/29/2025 Blood pressure systolic 128 mm Hg 03/29/2025 Weight 170 lbs 03/29/2025 BMI 28.29 kg/m2 03/29/2025 Encounters Encounter Location Date Provider Diagnosis Surgery [facility] ([facility] [address] [place] [phone] 09/16/2024 [facility]field [facility] [address] [place] [address] 07/14/2024 Xenia Buttrefield Pain in right toe(s) M79.674 ; Other hammer toe(s) (acquired), right foot M20.41 ; Arthritis of joint of lesser toe, right M19.071 ; Pain in left toe(s) M79.675 ; Other hammer toe(s) (acquired), left foot M20.42 ; Arthritis of joint of lesser toe, left M19.072 and Subluxation of metatarsophalangeal joint of toe, initial encounter S93.149A [facility] [address] [place] [address] 08/18/2024 Brock Edison Pain in left foot M7 9.672 ; Pain in left ankle and joints of left foot M25.572 ; Bursitis of intermetatarsal bursa of left foot M77.52 and Metatarsalgia, left foot M77.42 [facility] [address] [address] 09/04/2024 Xenia Butterfield Pain in right toe(s) M79.674 ; Other hammer toe(s) (acquired), right foot M20.41 ; Arthritis of joint of lesser toe, right M19.071 ; Pain in left toe(s) M79.675 ; Other hammer toe(s) (acquired), left foot M20.42 ; Arthritis of joint of lesser toe, left M19.072 and Subluxation of metatarsophalangeal joint of toe, initial encounter S93.149A [address] [address] 09/10/2024 Xenia Butterfield Pain in right toe(s) M79.674 ; Other hammer toe(s) (acquired), right foot M20.41 ; Arthritis of joint of lesser toe, right M19.071 ; Pain in left toe(s) M79.675 ; Other hammer toe(s) (acquired), left foot M20.42 ; Arthritis of joint of lesser toe, left M19.072 and Subluxation of metatarsophalangeal joint of toe, initial encounter S93.149A [address] [address] 09/22/2024 Xenia Butterfield Other hammer toe(s) (acquired), right foot M20.[address] [address] 09/29/2024 Xenia Butterfield Other hammer toe(s) (acquired), right foot M20.[address] [address] 10/09/2024 Xenia Butterfield Other hammer toe(s) (acquired), right foot M20.[address] [address] 10/23/2024 Hilda Us Other hammer toe(s) (acquired), right foot M20.41 ; Complex regional pain syndrome type 1 of right lower extremity G90.521 and Pain in right foot M79.[address] [address] 11/13/2024 Hilda Drewa Other hammer toe(s) (acquired), right foot M20.41 ; Complex regional pain syndrome type 1 of right lower extremity G90.521 and Pain in right foot M79.[address] [address] 12/08/2024 Hilda Drewa Other hammer toe(s) (acquired), right foot M20.41 ; Complex regional pain syndrome type 1 of right lower extremity G90.521 and Pain in right foot M79.[address] [address] 12/14/2024 Xenia Butterfield Other hammer toe(s) (acquired), right foot M20.41 ; Complex regional pain syndrome type 1 of right lower extremity G90.521 and Pain in right foot M79.[address] [address] 01/07/2025 Xenia Butterfield Other hammer toe(s) (acquired), right foot M20.41 ; Complex regional pain syndrome type 1 of right lower extremity G90.521 and Pain in right foot M79.[address] [address] 03/04/2025 Xenia Butterfield Other hammer toe(s) (acquired), right foot M20.41 ; Complex regional pain syndrome type 1 of right lower extremity G90.521 and Pain in right foot M79.[address] [address] 03/29/2025 Xenia Butterfield Other hammer toe(s) (acquired), right foot M20.41 ; Complex regional pain syndrome type 1 of right lower extremity G90.521 ; Pain in right foot M79.671 and Neuritis of right foot G57.91 [facility] [address] [address] 07/14/2024 [facility] [address] [place] [address] 07/15/2024 Xenia [facility] [address] [place] [address] 08/13/2024 Xenia [facility] [address] [place] [address] 09/04/2024 Xenia [facility] [address] [place] [address] 09/15/2024 Xenia [facility] [address] [place] [address] 09/17/2024 Xenia Butterfield [facility] [address] [place] [address] 09/17/2024 Xenia Butterfield [facility] [address] [place] [phone] 09/18/2024 Xenia Butterfield [facility] [address] [place] [address] 10/23/2024 Xenia [facility] [address] [place] [address] 10/27/2024 Xenia Butterfield [facility] [address] [place] [address] 11/13/2024 Xenia Butterfield [facility] [address] [place] [address] 12/02/2024 Xenia Butterfield [facility] [address] [place] [address] 12/08/2024 Xenia Butterfield [facility] [address] [place] [address] 12/09/2024 Xenia [facility] [address] [place] [address] 01/07/2025 Xenia [facility] [address] [address] 01/13/2025 Xenia Butterfield [facility] [address] [address] 02/25/2025 Xenia Butterfield [facility] [address] [address] 09/14/2024 Xenia Butterfield Assessments Encounter Date Diagnosis [...] toe(s) (acquired), right foot (ICD-10 - M20.41) 01/07/2025 Other hammer toe(s) (acquired), right foot (ICD-10 - M20.41) 03/04/2025 Other hammer toe(s) (acquired), right foot (ICD-10 - M20.41) 03/29/2025 Other hammer toe(s) (acquired), right foot (ICD-10 - M20.41) 12/14/2024 Complex regional leanna n syndrome type 1 of right lower extremity (ICD-10 - G90.521) 01/07/2025 Complex regional leanna n syndrome type 1 of right lower extremity (ICD-10 - G90.521) 11/13/2024 Complex regional leanna n syndrome type 1 of right lower extremity (ICD-10 - G90.521) 12/08/2024 Complex regional leanna n syndrome type 1 of right lower extremity (ICD-10 - G90.521) 03/04/2025 Complex regional leanna n syndrome type 1 of right lower extremity (ICD-10 - G90.521) 03/29/2025 Complex regional leanna n syndrome type 1 [...] Pain in right foot (ICD-10 - M79.671) 01/07/2025 Pain in right foot (ICD-10 - M79.671) 03/29/2025 Pain in right foot (ICD-10 - M79.671) 03/04/2025 Pain in right foot (ICD-10 - M79.671) 03/29/2025 Neuritis of right fo ot (ICD-10 - G57.91) 09/10/2024 Other hammer toe(s) (acquired), left foot [...] 3V 06/21/2011 Next Appt Details Provider Name:Xenia Dominique toby, 04/29/2025 01:00:00 PM, [address] [place] [address], [address], Insurance Providers Payer Name Payer Address Payer Phone Subscriber Number Group Number Insured Name Patient Relationship to Insured Coverage Start Date Coverage End Date [facility] [address] [place] [address] [id number] Amilcar Carter Spouse - patient is the spouse of the insured Medical (General) History Medical History History ICD Code headaches/migraines fibromyalgia chicken pox reflux back, hip, knee pain corns/calluses anxiety Depression High blood pressure Hypercholesterolemia Surgical History Surgery Date(Month/Year) section 2008 tubal ligation 2008 vesico vaginal fistula 2002 hysterectomy 2009 hammertoe repair R5T 1989 oral surgery 06/02/2012 Hammertoe Repair Left 2nd, 3rd, 4th, Cap sulotomy Left MPJ 09/16/2024
--- OUTSIDE RECORDS SUMMARY | 2025-04-22 07:30 | XMS_ITS | Patient Health Record ---
Author Organization [facility] Address [address], [place] [id number] Care Team Providers Care Art Preparator Name Role Phone Omayra GIRALDO, Sebas Primary Care Provider Unavailab RAMU Escalante Unavailable [phone] CruzBriseida davis Unavailable [phone] AcostaChas camara Unavailable [phone] Allergies Allergen (clinical drug ingredient) Drug/Non Drug Allergy documented on EMR Reaction Allergy Type Onset Date Status tramadol Ultram Unknown Drug Allergy Active Results Component Value Reference Range Notes HS-CRP Reviewed date:02/25/2025 12:38:57 PM Interpretation: Performing Lab:NL1, [facility], [address] [place] [address], [phone] Santy Salas M.D. Notes/Report: Received Date: FASTING; FASTING; FASTING; FASTING; FASTING FASTING:NO FASTING: NO HS CRP 0.7 Reference Range Optimal <1.0 Jelladela PS et al. Endocr Pract.2017;23(Suppl 2):1-87. For [...] for Disease Control and Prevention and the [place] [employer]. Circulation 2003; 107(3): 499-511. SED RATE BY MODIFIED WESTERG DIANA Reviewed date:02/25/2025 12:38:57 PM Interpretation: Performing Lab:REGINALD1, [facility], [address] [place] [address], [address] Santy Salas M.D. Notes/Report: Received Date: FASTING; FASTING; FASTING; FASTING; FASTING FASTING:NO FASTING: NO SED RATE BY MODIFIED WESTERGREN 2 < OR = 30 mm/h CBC (INCLUDES DIFF/PLT) Reviewed date:02/25/2025 12:38:57 PM Interpretation: Performing Lab:NL1, [facility], [address] [place] [address], [phone] Santy Salas M.D. Notes/Report: Received Date: FASTING; FASTING; FASTING; FASTING; FASTING FASTING:NO FASTING: NO WHITE BLOOD CELL COUNT 4.3 3.8-10.8 Thousand/uL RED BLOOD CELL COUNT 4.28 3.80-5.10 Million/uL HEMOGLOBIN 13.0 11.7-15.5 g/dL HEMATOCRIT 40.3 35.0-45.0 % MCV 94.2 80.0-100.0 fL MCH 30.4 27.0-33.0 pg MCHC 32.3 32.0-36.0 g/dL For adults, a slight decrease in the calculated MCHC value (in the range of 30 to 32 g/dL) is most likely not clinically significant; however, it should be interpreted with caution in correlation with other red cell parameters and the patient's clinical condition. RDW 14.1 11.0-15.0 % PLATELET COUNT 196 140-400 Thousand/uL MPV 12.1 7.5-12.5 fL ABSOLUTE NEUTROPHILS 2696 6936-7284 cells/uL ABSOLUTE LYMPHOCYTES 7941 882-1632 cells/uL ABSOLUTE MONOCYTES 366 200-950 cells/uL ABSOLUTE EOSINOPHILS 39 15-500 cells/uL ABSOLUTE BASOPHILS 39 0-200 cells/uL NEUTROPHILS 62.7 LYMPHOCYTES 27.0 MONOCYTES 8.5 EOSINOPHILS 0.9 BASOPHILS 0.9 CREATININE Reviewed date:02/25/2025 12:38:57 PM Interpretation: Performing Lab:NL1, [facility], [address] [place] [address], [phone] Santy Salas M.D. Notes/Report: Received Date: [id number] FASTING; FASTING; FASTING; FASTING; FASTING FASTING:NO FASTING: NO CREATININE 1.34 0.50-1.03 mg/dL EGFR 47 > OR = 60 mL/min/1.73m2 HEPATIC FUNCTION PANEL Reviewed date:02/25/2025 12:38:57 PM Interpretation: Performing Lab:NL1, [facility], [address] [place] [address], [phone] Santy Salas M.D. Notes/Report: Received Date: [id number] FASTING; FASTING; FASTING; FASTING; FASTING FASTING:NO FASTING: NO PROTEIN, TOTAL 6.7 6.1-8.1 g/dL ALBUMIN 4.5 3.6-5.1 g/dL GLOBULIN 2.2 1.9-3.7 g/dL (calc) ALBUMIN/GLOBULIN RATIO 2.0 1.0-2.5 (calc) BILIRUBIN, TOTAL 0.3 0.2-1.2 mg/dL BILIRUBIN, DIRECT 0.1 < OR = 0.2 mg/dL BILIRUBIN, INDIRECT 0.2 0.2-1.2 mg/d L (calc) ALKALINE PHOSPHATASE 58 37-153 U/L AST 17 10-35 U/L ALT 24 6-29 U/L HS-CRP Reviewed date:04/14/2025 10:27:55 AM Interpretation: Performing Lab:NL1, [facility], [address] [place] [address], [phone] Santy Salas M.D. Notes/Report: Received Date: [id number] FASTING; FASTING; FASTING; FASTING; FASTING FASTING:YES FASTING: YES HS CRP 0.6 Reference Range Optimal <1.0 [...] may be associated with infection and inflammation. Coleamn TA, Peace GA, Corey RW, et al. Markers of inflammation and cardiovascular disease: application to clinical and public health practice: A statement for healthcare professionals from the Centers for Disease Control and Prevention and the [place] [employer]. Circulation 2003; 107(3): 499-511. SED RATE BY MODIFIED WESTERG DIANA Reviewed date:04/14/2025 10:27:55 AM Interpretation: Performing Lab:NL1, [facility], [address] [place] [address], [phone] Santy Salas M.D. Notes/Report: Received Date: [id number] FASTING; FASTING; FASTING; FASTING; FASTING FASTING:YES FASTING: YES SED RATE BY MODIFIED ROLFREN 9 < OR = 30 mm/h CBC (INCLUDES DIFF/PLT) Reviewed date:04/14/2025 10:27:55 AM Interpretation: Performing Lab:NL1, [facility], [address] [place] [address], [phone] Santy Salas M.D. Notes/Report: Received Date: [id number] FASTING; FASTING; FASTING; FASTING; FASTING FASTING:YES FASTING: YES WHITE BLOOD CELL COUNT 5.8 3.8-10.8 Thousand/uL RED BLOOD CELL COUNT 4.33 3.80-5.10 Million/uL HEMOGLOBIN 13.5 11.7-15.5 g/dL HEMATOCRIT 41.8 35.0-45.0 % MCV 96.5 80.0-100.0 fL MCH 31.2 27.0-33.0 pg MCHC 32.3 32.0-36.0 g/dL For adults, a slight decrease in the calculated MCHC value (in the range of 30 to 32 g/dL) is most likely not clinically significant; however, it should be interpreted with caution in correlation with other red cell parameters and the patient's clinical condition. RDW 13.7 11.0-15.0 % PLATELET COUNT 202 140-400 Thousand/uL MPV 11.3 7.5-12.5 fL ABSOLUTE NEUTROPHILS 3445 0456-5304 cells/uL ABSOLUTE LYMPHOCYTES 6392 628-3587 cells/uL ABSOLUTE MONOCYTES 452 200-950 cells/uL ABSOLUTE EOSINOPHILS 58 15-500 cells/uL ABSOLUTE BASOPHILS 58 0-200 cells/uL NEUTROPHILS 59.4 LYMPHOCYTES 30.8 MONOCYTES 7.8 EOSINOPHILS 1.0 BASOPHILS 1.0 CREATININE Reviewed date:04/14/2025 10:27:55 AM Interpretation: Performing Lab:REGINALD1, [facility], [address] [place] [address], [phone] Santy Salas M.D. Notes/Report: Received Date: [id number] FASTING; FASTING; FASTING; FASTING; FASTING FASTING:YES FASTING: YES CREATININE 1.47 0.50-1.03 mg/dL EGFR 42 > OR = 60 mL/min/1.73m2 HEPATIC FUNCTION PANEL Reviewed date:04/14/2025 10:27:55 AM Interpretation: Performing Lab:REGINALD1, [facility], [address] [place] [address], [phone] Santy Salas M.D. Notes/Report: Received Date: FASTING; FASTING; FASTING; FASTING; FASTING FASTING:YES FASTING: YES PROTEIN, TOTAL 6.3 6.1-8.1 g/dL ALBUMIN 4.3 3.6-5.1 g/dL GLOBULIN 2.0 1.9-3.7 g/dL (calc) ALBUMIN/GLOBULIN RATIO 2.2 1.0-2.5 (calc) BILIRUBIN, TOTAL 0.5 0.2-1.2 mg/dL BILIRUBIN, DIRECT 0.1 < OR = 0.2 mg/dL BILIRUBIN, INDIRECT 0.4 0.2-1.2 mg/d L (calc) ALKALINE PHOSPHATASE 56 37-153 U/L AST 17 10-35 U/L ALT 23 6-29 U/L QUANTIFERON(R)-TB GOLD Reviewed date:03/23/2025 09:48:31 AM Interpretation: Performing Lab:[facility]!, [facility], [address] [place] [address], [phone] Santy Salas M.D. Notes/Report: Received Date: [id number] FASTING FASTING:NO FASTING: NO QUANTIFERON(R)-TB GOLD PLUS, 1 TUBE NEGATIVE NEGATIVE Negative test result. M. tuberculosis complex infection unlikely. NIL 0.08 MITOGEN-NIL >10.00 TB1-NIL 0.00 TB2-NIL 0.01 The Nil tube value reflects the background [...] T-lymphocytes. For additional information, please refer to https://education.ADOR/faq/JAH075 (This link is being provided for informational/ educational purposes only.) HS-CRP Reviewed date:11/09/2024 09:17:58 AM Interpretation: Performing Lab:NL1, [facility], [address] [place] [address], [phone] Santy Salas M.D. Notes/Report: Received Date: [id number] NON-FASTING; NON-FASTING; NON-FASTING; NON-FASTING; NON-FAST FASTING:YES FASTING: [...] for Disease Control and Prevention and the [place] [employer]. Circulation 2003; 107(3): 499-511. SED RATE BY MODIFIED ROLF DIANA Reviewed date:11/09/2024 09:17:58 AM Interpretation: Performing Lab:NL1, [facility], [address] [place] [address], [phone] Santy Salas M.D. Notes/Report: Received Date: [id number] NON-FASTING; NON-FASTING; NON-FASTING; NON-FASTING; NON-FAST FASTING:YES FASTING: YES SED RATE BY MODIFIED WESTERGREN 6 < OR = 30 mm/h CBC (INCLUDES DIFF/PLT) Reviewed date:11/09/2024 09:17:58 AM Interpretation: Performing Lab:NL1, [facility], [address] [place] [address], [phone] Santy Salas M.D. Notes/Report: Received Date: [id number] NON-FASTING; NON-FASTING; NON-FASTING; NON-FASTING; NON-FAST FASTING:YES FASTING: [...] MPV 12.1 7.5-12.5 fL ABSOLUTE NEUTROPHILS 2558 7615-1019 cells/uL ABSOLUTE LYMPHOCYTES 7161 717-9441 cells/uL ABSOLUTE MONOCYTES 290 200-950 cells/uL ABSOLUTE EOSINOPHILS 41 15-500 cells/uL ABSOLUTE BASOPHILS 32 0-200 cells/uL NEUTROPHILS 55.6 LYMPHOCYTES 36.5 MONOCYTES 6.3 EOSINOPHILS 0.9 BASOPHILS 0.7 CREATININE Reviewed date:11/09/2024 09:17:58 AM Interpretation: Performing Lab:NL1, [facility], [address] [place] [address], [phone] Santy Salas M.D. Notes/Report: Received Date: [id number] NON-FASTING; NON-FASTING; NON-FASTING; NON-FASTING; NON-FAST FASTING:YES FASTING: YES CREATININE 1.07 0.50-1.03 mg/dL EGFR 61 > OR = 60 mL/min/1.73m2 HEPATIC FUNCTION PANEL Reviewed date:11/09/2024 09:17:58 AM Interpretation: Performing Lab:NL1, [facility], [address] [place] [address], [phone] Santy Salas M.D. Notes/Report: Received Date: [id number] NON-FASTING; NON-FASTING; NON-FASTING; NON-FASTING; NON-FAST FASTING:YES FASTING: YES PROTEIN, TOTAL 7.0 6.1-8.1 g/dL ALBUMIN 4.7 3.6-5.1 g/dL GLOBULIN 2.3 1.9-3.7 g/dL (calc) ALBUMIN/GLOBULIN RATIO 2.0 1.0-2.5 (calc) BILIRUBIN, TOTAL 0.4 0.2-1.2 mg/dL BILIRUBIN, DIRECT 0.1 < OR = 0.2 mg/dL BILIRUBIN, INDIRECT 0.3 0.2-1.2 mg/d L (calc) ALKALINE PHOSPHATASE 51 37-153 U/L AST 19 10-35 U/L ALT 20 6-29 U/L HS-CRP Reviewed date:01/19/2025 09:23:34 AM Interpretation: Performing Lab:NL1, [facility], [address] [place] [address], [phone] Santy Salas M.D. Notes/Report: Received Date: [id number] NON-FASTING; NON-FASTING; NON-FASTING; NON-FASTING FASTING:YES FASTING: YES HS CRP 0.2 Reference Range Optimal <1.0 Brijesh CARTAGENA et [...] for Disease Control and Prevention and the [place] [employer]. Circulation 2003; 107(3): 499-511. CREATININE Reviewed date:01/19/2025 09:23:34 AM Interpretation: Performing Lab:NL1, [facility], [address] [place] [address], [phone] Santy Salas M.D. Notes/Report: Received Date: [id number] NON-FASTING; NON-FASTING; NON-FASTING; NON-FASTING FASTING:YES FASTING: YES CREATININE 1.07 0.50-1.03 mg/dL EGFR 61 > OR = 60 mL/min/1.73m2 Myositis 11 Antibody Panel Reviewed date:08/13/2024 11:08:37 AM Interpretation: Performing Lab:EZ, [facility], [address] [place], [phone] Li Arriloa MD,PhD,CYNDIE Notes/Report: Received Date: [id number] NON-FASTING; NON-FASTING; NON-FASTING; NON-FASTING; NON-FAST LOIDA-1 AB <11 <[address]-7 AB <11 <[address]-12 AB <11 <11 SI EJ AB <11 <11 SI OJ AB <11 <11 SI SRP AB <11 <11 SI ME-2 ALPHA AB <11 <11 SI ME-2 BETA AB 13 <11 SI MDA5 AB [...] with a rash. Additionally, MSAs to MDA5 ([id number]) have been identified in patients with clinically [...] analytical performance characteristics have been determined by [facility]. It has not been cleared or approved by the FDA. This assay has been validated pursuant to the CLIA regulations and is used for clinical purposes. HS-CRP Reviewed date:08/13/2024 11:08:37 AM Interpretation: Performing Lab:NL1, [facility], [address] [place] [address], [phone] Santy Salas M.D. Notes/Report: Received Date: NON-FASTING; NON-FASTING; NON-FASTING; NON-FASTING; NON-FAST HS CRP 0.6 Reference Range Optimal <1.0 Jepradip PS et [...] for Disease Control and Prevention and the [place] [employer]. Circulation 2003; 107(3): 499-511. SED RATE BY MODIFIED WESTERG DIANA Reviewed date:08/13/2024 11:08:37 AM Interpretation: Performing Lab:NL1, [facility], [address] [place] [address], [phone] Santy Salas M.D. Notes/Report: Received Date: NON-FASTING; NON-FASTING; NON-FASTING; NON-FASTING; NON-FAST SED RATE BY MODIFIED WESTERGREN 2 < OR = 30 mm/h CREATININE Reviewed date:08/13/2024 11:08:37 AM Interpretation: Performing Lab:REGINALD1, [facility], [address] [place] [address], [phone] Santy Salas M.D. Notes/Report: Received Date: NON-FASTING; NON-FASTING; NON-FASTING; NON-FASTING; NON-FAST CREATININE 1.08 0.50-1.03 mg/dL EGFR 61 > OR = 60 mL/min/1.73m2 HEPATIC FUNCTION PANEL Reviewed date:08/13/2024 11:08:37 AM Interpretation: Performing Lab:DEVYN, [facility], [address] [place] [address], [phone] Santy Salas M.D. Notes/Report: Received Date: NON-FASTING; NON-FASTING; NON-FASTING; NON-FASTING; NON-FAST PROTEIN, TOTAL 6.6 6.1-8.1 g/dL ALBUMIN 4.6 3.6-5.1 g/dL GLOBULIN 2.0 1.9-3.7 g/dL (calc) ALBUMIN/GLOBULIN RATIO 2.3 1.0-2.5 (calc) BILIRUBIN, TOTAL 0.4 0.2-1.2 mg/dL BILIRUBIN, DIRECT 0.1 < OR = 0.2 mg/dL BILIRUBIN, INDIRECT 0.3 0.2-1.2 mg/d L (calc) ALKALINE PHOSPHATASE 51 37-153 U/L AST 17 10-35 U/L ALT 18 6-29 U/L ALDOLASE Reviewed date:08/13/2024 11:08:37 AM Interpretation: Performing Lab:CHING [facility], [address], [place], [place], Suresh Arguello M.D.,PhD Notes/Report: Received Date: [id number] NON-FASTING; NON-FASTING; NON-FASTING; NON-FASTING; NON-FAST ALDOLASE 4.4 <=8.1 U/L CREATINE KINASE, TOTAL Reviewed date:08/13/2024 11:08:37 AM Interpretation: Performing Lab:NL1, [facility], [address] [place] [address], [phone] Santy Salas M.D. Notes/Report: Received Date: [id number] NON-FASTING; NON-FASTING; NON-FASTING; NON-FASTING; NON-FAST CREATINE KINASE, TOTAL 178 29-143 U/L METHYLMALONIC ACID Reviewed date:08/13/2024 11:08:37 AM Interpretation: Performing Lab:[facility] [email or web address] [facility], [address], [place], [place], Suresh Arguello M.D.,PhD Notes/Report: Received Date: [id number] NON-FASTING; NON-FASTING; NON-FASTING; NON-FASTING; NON-FAST METHYLMALONIC ACID [...] neural tube defects and intrauterine growth restriction. [facility] utilized Multi-Modal Decomposition (MMD) analysis to establish first and second trimester- specific MMA reference intervals in , as given below: MMA, First trimester (<13 wks gestation): 58-167 nmol/L MMA, Second trimester (13-23 wks gestation): 63-241 nmol/L This test was developed and its analytical performance characteristics have been determined by [facility]. It has not been cleared or approved by the FDA. This assay has been validated pursuant to the CLIA regulations and is used for clinical purposes. C-REACTIVE PROTEIN Reviewed date:08/13/2024 11:08:37 AM Interpretation: Performing Lab:NL1, [facility], [address] [place] [address], [phone] Santy Salas M.D. Notes/Report: Received Date: [id number] NON-FASTING; NON-FASTING; NON-FASTING; NON-FASTING; NON-FAST C-REACTIVE PROTEIN <3.0 <8.0 mg/L ANAlyzeR MARTIN,IFA with Reflex Titer/Pattern, Systemic Autoimmune Panel 1 Reviewed date:06/24/2024 08:50:14 AM Interpretation: Performing Lab:EZ, [email or web address], [address] [place], [phone] Li Arriola MD,PhD,CYNDIE Notes/Report: Received Date: [id number] FASTING; NON-FASTING; NON-FASTING; NON-FASTING; NON-FASTING MARTIN SCREEN, [...] Negative International Consensus on MARTIN Patterns https://doi.org/10.1515/cc cz-0696-6232 For additional information, please refer to http://education.Livestar.com/faq/DOZ372 (This link is being provided for informational/educational purposes only.) DNA AB (DS) CRITHIDIA,IFA NEGATIVE NEGATIVE CHROMATIN (NUCLEOSOMAL) ANTIBODY <1.0 NEG <1.0 NEGATIVE AI SM ANTIBODY <1.0 NEG <1.0 NEGATIVE AI SM/WASHER HAND ANTIBODY <1.0 NEG <1.0 NEGATIVE AI WASHER HAND ANTIBODY <1.0 NEG <1.0 NEGATIVE AI SJOGREN'S [...] aging. For additional information, please refer to http://education.[employer]/faq/COP325 (This link is being provided for informational/educational [...] (CCP). THYROID PEROXIDASE ANTIBODIES 1 <9 IU/mL Celiac Disease Comprehensive Panel with Gliadin Antibody (IgG) Reviewed date:06/24/2024 08:50:14 AM Interpretation: Performing Lab:NL1, [facility], [address] [place] [address], [phone] Santy Salas M.D. Notes/Report: Received Date: [id number] FASTING; NON-FASTING; NON-FASTING; NON-FASTING; NON-FASTING INTERPRETATION No serological evidence for celiac disease is present. tTg may normalize in individuals with celiac disease who maintain a gluten free diet. If high suspicion of celiac disease, consider HLA DQ2 and DQ8 testing to rule out celiac disease. TISSUE TRANSGLUTAMINASE AB, IGA <1.0 Value Interpretation ----- <15.0 Antibody not detected > or = 15.0 Antibody detected IMMUNOGLOBULIN A 259 47-310 mg/dL HS-CRP Reviewed date:06/17/2024 01:26:58 PM Interpretation: Performing Lab:NL1, [facility], [address] [place] [address], [phone] Santy Salas M.D. Notes/Report: Received Date: [id number] FASTING; FASTING; FASTING; FASTING; NON-FASTING; FASTING; FA [...] for Disease Control and Prevention and the [place] [employer]. Circulation 2003; 107(3): 499-511. SED RATE BY MODIFIED WESTERG DIANA Reviewed date:06/17/2024 01:26:58 PM Interpretation: Performing Lab:NL1, [facility], [address] [place] [address], [phone] Santy Salas M.D. Notes/Report: Received Date: [id number] FASTING; FASTING; FASTING; FASTING; NON-FASTING; FASTING; FA SED RATE BY MODIFIED WESTERGREN 2 < OR = 30 mm/h CBC (INCLUDES DIFF/PLT) Reviewed date:06/17/2024 01:26:58 PM Interpretation: Performing Lab:NL1, [facility], [address] [place] [address], [phone] Santy Salas M.D. Notes/Report: Received Date: [id number] FASTING; FASTING; FASTING; FASTING; NON-FASTING; FASTING; FA [...] MPV 12.5 7.5-12.5 fL ABSOLUTE NEUTROPHILS 2817 6679-7840 cells/uL ABSOLUTE LYMPHOCYTES 8608 187-4571 cells/uL ABSOLUTE MONOCYTES 293 200-950 cells/uL ABSOLUTE EOSINOPHILS 72 15-500 cells/uL ABSOLUTE BASOPHILS 41 0-200 cells/uL NEUTROPHILS 62.6 LYMPHOCYTES 28.4 MONOCYTES 6.5 EOSINOPHILS 1.6 BASOPHILS 0.9 CREATININE Reviewed date:06/17/2024 01:26:58 PM Interpretation: Performing Lab:REGINALD1, [facility], [address] [place] [address], [phone] Santy Salas M.D. Notes/Report: Received Date: FASTING; FASTING; FASTING; FASTING; NON-FASTING; FASTING; FA CREATININE 1.20 0.50-1.03 mg/dL EGFR 54 > OR = 60 mL/min/1.73m2 HEPATIC FUNCTION PANEL Reviewed date:06/17/2024 01:26:58 PM Interpretation: Performing Lab:DEVYN, [facility], [address] [place] [address], [phone] Santy Salas M.D. Notes/Report: Received Date: [id number] FASTING; FASTING; FASTING; FASTING; NON-FASTING; FASTING; FA PROTEIN, TOTAL 6.8 6.1-8.1 g/dL ALBUMIN 4.6 3.6-5.1 g/dL GLOBULIN 2.2 1.9-3.7 g/dL (calc) ALBUMIN/GLOBULIN RATIO 2.1 1.0-2.5 (calc) BILIRUBIN, TOTAL 0.4 0.2-1.2 mg/dL BILIRUBIN, DIRECT 0.1 < OR = 0.2 mg/dL BILIRUBIN, INDIRECT 0.3 0.2-1.2 mg/d L (calc) ALKALINE PHOSPHATASE 57 37-153 U/L AST 21 10-35 U/L ALT 22 6-29 U/L CREATINE KINASE, TOTAL Reviewed date:06/17/2024 01:26:58 PM Interpretation: Performing Lab:NL1, [facility], [address] [place] [address], [phone] Santy Salas M.D. Notes/Report: Received Date: [id number] FASTING; FASTING; FASTING; FASTING; NON-FASTING; FASTING; FA CREATINE KINASE, TOTAL 197 29-143 U/L IRON TOTAL, TIBC, SATURATION Reviewed date:06/17/2024 01:26:58 PM Interpretation: Performing Lab:DEVYN, [facility], [address] [place] [address], [phone] Santy Salas M.D. Notes/Report: Received Date: FASTING; FASTING; FASTING; FASTING; NON-FASTING; FASTING; FA IRON, TOTAL 104 45-160 mcg/dL IRON BINDING CAPACITY 343 250-450 mc g/dL (calc) % SATURATION 30 16-45 % (calc) URIC ACID Reviewed date:06/17/2024 01:26:58 PM Interpretation: Performing Lab:[facility], [address] [place] [address], [phone] Santy Salas M.D. Notes/Report: Received Date: FASTING; FASTING; FASTING; FASTING; NON-FASTING; FASTING; FA URIC ACID 5.1 2.5-7.0 mg/dL Therapeutic ta rget for gout patients: <6.0 mg/dL VITAMIN D, 25-HYDROXY, LC/MS /MS Reviewed date:06/17/2024 01:26:58 PM Interpretation: Performing Lab:[facility], [address] [place] [address], [phone] Santy Salas M.D. Notes/Report: Received Date: FASTING; FASTING; FASTING; FASTING; NON-FASTING; FASTING; FA VITAMIN D,25-OH,TOTAL,IA 55 30-100 ng/mL Vitamin D Status 25-OH Vitamin D: Deficiency: <20 ng/mL Insufficiency: 20 - 29 ng/mL Optimal: > or = 30 ng/mL For 25-OH Vitamin D testing on patients on D2-supplementation and patients for whom quantitation of D2 and D3 fractions is required, the [facility](TM) 25-OH VIT D, (D2,D3), LC/MS/MS is recommended: order code 04743 (patients >2yrs). See Note 1 Note 1 For additional information, please refer to http://education.Compressus/faq/IVK742 (This link is being provided for informational/ educational purposes only.) ANGIOTENSIN CONVERTING ENZYM E (CALVIN) Reviewed date:06/17/2024 01:26:58 PM Interpretation: Performing Lab:[facility], [facility], [address] [facility] , [place], [address] Suresh Arguello M.D.,PhD Notes/Report: Received Date: FASTING; FASTING; FASTING; FASTING; NON-FASTING; FASTING; FA [id number] ENZYME <5 9-67 U/L ANCA SCREEN WITH MPO AND PR3 WITH REFLEX TO ANCA TITER Reviewed date:06/17/2024 01:26:58 PM Interpretation: Performing Lab:NL1, [facility], [address] [place] [address], [phone] Santy Salas M.D. Notes/Report: Received Date: FASTING; [...] = 1.0 Antibody Detected Autoantibodies to proteinase-3 (CT-3) are accepted as characteristic for granulomatosis with polyangiitis (GPA, Masoud's), and are detectable in 95% of the histologically proven cases. The cytoplasmic IFA pattern, (c-ANCA), is based largely on autoantibody to CT-3 which serves as the primary antigen. These autoantibodies are present in active disease. PROTEIN, TOTAL AND PROTEIN E LECTROPHORESIS Reviewed date:06/17/2024 01:26:58 PM Interpretation: Performing Lab:NL1, [facility], [address] [place] [address], [phone] Santy Salas M.D. Notes/Report: Received Date: [id number] FASTING; FASTING; FASTING; FASTING; NON-FASTING; FASTING; FA PROTEIN, TOTAL 6.8 6.1-8.1 g/dL ALBUMIN 4.5 3.8-4.8 g/dL ALPHA 1 GLOBULIN 0.3 0.2-0.3 g/dL ALPHA 2 GLOBULIN 0.6 0.5-0.9 g/dL BETA 1 GLOBULIN 0.4 0.4-0.6 g/dL BETA 2 GLOBULIN 0.4 0.2-0.5 g/dL GAMMA GLOBULIN 0.7 0.8-1.7 g/dL INTERPRETATION Consistent with hypogammaglobulinemia. Serum free light chains or urine immunofixation should be considered if plasma cell dyscrasias are a possible clinical diagnosis. PTH, INTACT AND CALCIUM Reviewed date:06/17/2024 01:26:58 PM Interpretation: Performing Lab:NL1, [facility], [address] [place] [address], [phone] Santy Salas M.D. Notes/Report: Received Date: [id number] FASTING; FASTING PARATHYROID HORMONE, INTACT 43 16-77 pg/mL Interpretive Guide Intact PTH Calcium ------- Normal Parathyroid Normal Normal Hypoparathyroidism Low or Low Normal Low Hyperparathyroidism Primary Normal or High High Secondary High Normal or Low Tertiary High High Non-Parathyroid Hypercalcemia Low or Low Normal High CALCIUM 9.6 8.6-10.4 mg/dL IMMUNOFIXATION IGA,IGG,IGM Q T.IMMUNOFIXATION SERUM IMMUNOGLOBULIN Reviewed date:06/17/2024 01:26:58 PM Interpretation: Performing Lab:1, [facility], [address] [place] [address], [phone] Santy Salas M.D. Notes/Report: Received Date: [id number] FASTING; FASTING; FASTING; FASTING; NON-FASTING; FASTING; FA ARNOLD INTERPRETATION No monoclonal proteins detected. IMMUNOGLOBULIN A 258 47-310 mg/dL IMMUNOGLOBULIN G 094 163-6883 mg/dL IMMUNOGLOBULIN M 78 50-300 mg/dL TSH, 3RD GENERATION Reviewed date:06/17/2024 01:26:58 PM Interpretation: Performing Lab:1, [facility], [address] [place] [address], [phone] Santy Salas M.D. Notes/Report: Received Date: FASTING; FASTING; FASTING; FASTING; NON-FASTING; FASTING; FA TSH 0.79 Reference Range > or = 20 Years 0.40-4.50 Ranges First trimester 0.26-2.66 Second trimester 0.55-2.73 Third trimester 0.43-2.91 HEPATITIS C ANTIBODY Reviewed date:06/24/2024 08:50:14 AM Interpretation: Performing Lab:[facility], [employer] [employer] [facility], [address] [place] [address], [phone] Santy Salas M.D. Notes/Report: Received Date: [id number] FASTING; NON-FASTING; NON-FASTING; NON-FASTING; NON-FASTING HEPATITIS C ANTIBODY NON-REACTIVE NON-REACTIVE HCV antibody was non-reactive. There is no laboratory evidence of HCV infection. In most cases, no further action is required. However, if recent HCV exposure is suspected, a test for HCV RNA (test code 03976) is suggested. For additional information please refer to http://education.Vizolution.Eko/faq/GSX18d8 (This link is being provided for informational/ educational purposes only.) FERRITIN Reviewed date:06/17/2024 01:26:58 PM Interpretation: Performing Lab:[facility], [facility], [address] [place] [address], [phone] Santy Salas M.D. Notes/Report: Received Date: [id number] FASTING; FASTING; FASTING; FASTING; NON-FASTING; FASTING; FA FERRITIN 100 16-232 ng/mL VITAMIN B12/FOLATE, SERUM PA RAFA Reviewed date:06/17/2024 01:26:58 PM Interpretation: Performing Lab:[facility], [facility], [address] [place] [address], [phone] Santy Salas M.D. Notes/Report: Received Date: [id number] FASTING; FASTING VITAMIN B12 207 526-8204 pg/mL FOLATE, SERUM 15.9 Reference Range Low: <3.4 Borderline: 3.4-5.4 Normal: >5.4 HEPATITIS B SURFACE ANTIGEN W/REFL CONFIRM Reviewed date:06/17/2024 01:26:58 PM Interpretation: Performing Lab:[facility], [facility], [address] [place] [address], [phone] Santy Salas M.D. Notes/Report: Received Date: [id number] FASTING; FASTING; FASTING; FASTING; NON-FASTING; FASTING; FA HEPATITIS B SURFACE ANTIGEN NON-REACTIVE NON-REACTIVE For additional information, please refer to http://OGPlanet.U [employer]/faq/QKY308 (This link is being provided for informational/ educational purposes only.) HEPATITIS B CORE ANTIBODY (I GM) Reviewed date:06/17/2024 01:26:58 PM Interpretation: Performing Lab:[facility], [facility], [address] [place] [address], [phone] Santy Salas M.D. Notes/Report: Received Date: [id number] FASTING; FASTING; FASTING; FASTING; NON-FASTING; FASTING; FA HEPATITIS B CORE ANTIBODY (IGM) NON-REACTIVE NON-REACTIVE For additional information, please refer to http://OGPlanet.[employer]/faq/BVV068 (This link is being provided for informational/ educational purposes only.) LYME DISEASE ANTIBODIES (IGG , IGM) WESTERN BLOT Reviewed date:06/17/2024 01:26:58 PM Interpretation: Performing Lab:[facility], [employer], [address] [place] [address], [phone] Santy Salas M.D. Notes/Report: Received Date: FASTING; [...] antibodies induced by exposure to other spirochetes. LYME DISEASE AB, TOTAL W/REF L WB (IGG, IGM) Reviewed date:06/24/2024 08:50:14 AM Interpretation: Performing Lab:[facility], [employer], [address] [place] [address], [phone] Santy Salas M.D. Notes/Report: Received Date: FASTING; [...] the period when erythema migrans is apparent. THYROGLOBULIN ANTIBODIES Reviewed date:06/17/2024 01:26:58 PM Interpretation: Performing Lab:[facility], [facility], [address] [place] [address], [phone] Santy Salas M.D. Notes/Report: Received Date: [id number] FASTING; FASTING; FASTING; FASTING; NON-FASTING; FASTING; FA THYROGLOBULIN ANTIBODIES <1 < or = 1 IU/mL C-REACTIVE PROTEIN Reviewed date:06/17/2024 01:26:58 PM Interpretation: Performing Lab:[facility], [address] [place] [address], [phone] Santy Salas M.D. Notes/Report: Received Date: [id number] FASTING; FASTING; FASTING; FASTING; NON-FASTING; FASTING; FA C-REACTIVE PROTEIN <3.0 <8.0 mg/L QUANTIFERON(R)-TB GOLD Reviewed date:06/24/2024 08:50:14 AM Interpretation: Performing Lab:[facility], [address] [place] [address], [phone] Santy Salas M.D. Notes/Report: Received Date: [id number] FASTING; NON-FASTING; NON-FASTING; NON-FASTING; NON-FASTING QUANTIFERON(R)-TB GOLD [...] T-lymphocytes. For additional information, please refer to https://education.ADOR/faq/UFO873 (This link is being provided for informational/ educational purposes only.) HLA-B27 ANTIGEN Reviewed date:06/17/2024 01:26:58 PM Interpretation: Performing Lab:[facility], [address], [place], [place], Suresh Arguello M.D.,PhD Notes/Report: Received Date: FASTING; FASTING; FASTING; FASTING; NON-FASTING; FASTING; FA HLA-B27 ANTIGEN Negative Negative URINALYSIS, COMPLETE W/REFLE X TO CULTURE Reviewed date:06/17/2024 01:26:58 PM Interpretation: Performing Lab:[facility], [facility], [address] [place] [address], [phone] Santy Salas M.D. Notes/Report: Received Date: FASTING; FASTING; FASTING; FASTING; NON-FASTING; FASTING; FA COLOR TNP TEST NOT PERFORMED Specimen leaked in transit. LUPUS ANTICOAGULANT EVALUATI ON WITH REFLEX Reviewed date:06/17/2024 01:26:58 PM Interpretation: Performing Lab:[facility], [address], [place], [place], Suresh Arguello M.D.,PhD Notes/Report: Received Date: FASTING; FASTING LUPUS ANTICOAGULANT see note A Lupus Anticoagulant is not detected. Common causes for a prolonged screen and negative confirmatory test include factor deficiencies or anticoagulant therapy. Reference Range: Not Detected For additional information, please refer to http://education.Vizolution.Eko/faq/OYM40m6 (This link is being provided for informational/ educational purposes only.) This interpretation is based on the following test results. PTT-LA SCREEN 51 <=40 sec DRVVT SCREEN 35 <=45 sec HEXAGONAL PHASE CONFIRM Negative Negative CBC (INCLUDES DIFF/PLT) Reviewed date:01/19/2025 09:23:34 AM Interpretation: Performing Lab:[facility], [facility], [address] [place] [address], [phone] Santy Salas M.D. Notes/Report: Received Date: NON-FASTING; NON-FASTING; NON-FASTING; NON-FASTING FASTING:YES FASTING: YES WHITE BLOOD CELL COUNT 3.6 3.8-10.8 Thousand/uL RED BLOOD CELL COUNT 4.27 3.80-5.10 Million/uL HEMOGLOBIN 13.1 11.7-15.5 g/dL HEMATOCRIT 40.0 35.0-45.0 % MCV 93.7 80.0-100.0 fL MCH 30.7 27.0-33.0 pg MCHC 32.8 32.0-36.0 g/dL For adults, a slight decrease in the calculated MCHC value (in the range of 30 to 32 g/dL) is most likely not clinically significant; however, it should be interpreted with caution in correlation with other red cell parameters and the patient's clinical condition. RDW 13.0 11.0-15.0 % PLATELET COUNT 187 140-400 Thousand/uL MPV 11.5 7.5-12.5 fL ABSOLUTE NEUTROPHILS 2164 9320-7672 cells/uL ABSOLUTE LYMPHOCYTES 8050 138-6461 cells/uL ABSOLUTE MONOCYTES 252 200-950 cells/uL ABSOLUTE EOSINOPHILS 50 15-500 cells/uL ABSOLUTE BASOPHILS 22 0-200 cells/uL NEUTROPHILS 60.1 LYMPHOCYTES 30.9 MONOCYTES 7.0 EOSINOPHILS 1.4 BASOPHILS 0.6 HEPATIC FUNCTION PANEL Reviewed date:01/19/2025 09:23:34 AM Interpretation: Performing Lab:[facility], [facility], [address] [place] [address], [phone] Santy Salas M.D. Notes/Report: Received Date: NON-FASTING; NON-FASTING; NON-FASTING; NON-FASTING FASTING:YES FASTING: YES PROTEIN, TOTAL 6.3 6.1-8.1 g/dL ALBUMIN 4.4 3.6-5.1 g/dL GLOBULIN 1.9 1.9-3.7 g/dL (calc) ALBUMIN/GLOBULIN RATIO 2.3 1.0-2.5 (calc) BILIRUBIN, TOTAL 0.5 0.2-1.2 mg/dL BILIRUBIN, DIRECT 0.1 < OR = 0.2 mg/dL BILIRUBIN, INDIRECT 0.4 0.2-1.2 mg/d L (calc) ALKALINE PHOSPHATASE 53 37-153 U/L AST 21 10-35 U/L ALT 24 6-29 U/L Reason For Referral Reason Consult Nephrology: Creat 1.47 (h), EGFR 42 (L); Diagnosis 1 Glomerular disorders in diseases classified elsewhere (N08) Referral Organization [facility] [place] [facility] [place] [employer] Referring Provider First Name RAMU Referring Provider Last Name DIXIE [facility]erring [facility] Referred Provider Specialty Nephrology Referral Priority Routine Medications Medication SIG (Take, Route, Frequency, Duration) Notes Start Date End Date Status cloNIDine HCl 0.1 MG 1 tablet Oral Once a day; Duration: 30 days Active Taltz (ixekizumab) Initial 80 mg 2 injections (160 mg) starting dose subcutaneous once only; Duration: 28 days 03/04/2025 Active Medrol 4 MG 6 TABS FIRST DAY, TA PER BY 1 TAB A DAY UNTIL OFF Orally Once a day; Duration: 6 days 03/04/2025 Not-Taking Folic Acid 1 MG TAKE 3 TABLETS BY [facility] ONCE DAILY EXCEPT ON THE METHOTREXATE DAY; Duration: 90 Not-Taking Aspirin 81 MG 1 tablet Orally as needed Active Metoprolol Succinate 25 MG 1 capsule Orally Once a day Active Crestor 40 MG 1 tablet Orally Once a day Active traZODone HCl 150 MG 1 tablet at bedtime Orally Once a day Active Naltrexone - 6 mg oral daily 07/08/2024 Active Lisinopril 10 MG 1 tablet Orally Once a day Active Taltz 80 MG/ML 80 milligrams Subcutaneous every 4 weeks 03/04/2025 Active Pregabalin 75 MG Oral; Duration: 30 Days Active Problems Problem Type SNOMED Code ICD Code Onset Dates Problem Status W/U Status Risk Notes Problem Complex regional pain syndrome type I of right lower limb (disorder) (681558157582095) Complex regional pain syndrome I of right lower limb (G90.521) Active confirmed -As of 04/19/2025 pt to have TENS units placed. -OV 01.26.25 ongoing pain, peripheral nerve stimulator to be placed 02.04.25 per Pain Clinic; OV 12.29.2024 Pt. on LDN 6mg and continues working with pain clinic and had LS injection 11/2024 which was ineffective. Problem Psoriatic spondylitis (944850406) Psoriatic spondylitis (L40.53) Active confirmed -As of 04/19/2025 she has ongoing Rt foot and neck pain despite loading dose of Taltz. Will resume Taltz for now and monitor. -As of 03/04/2025 labs on 02/24/2025 show Creat 1.43 (h), EGFR 47 (L). Given worsening Creat levels will d/c MTX and switch to IL-17.Will avoid TNF Blockers d/t pt h/o complex pain syndrome. -As of 01/26/2025 ongoing joint pain despite x3 doses of MTX 8 tabs. Will treat flare and resume MTX for now. Will consider biologics if no improvement at next appt. -OV 12.29.2024 Pt. on LDN 6mg. Ongoing fatigue, pain and prolong morning stiffness. Acute R shoulder pain, will evaluate. Polyarthralgia, inflammatory back pain that is better with [...] Rt foot surgery . Problem Solitary sacroiliitis (125236963) Sacroiliitis, not elsewhere classified (M46.1) Active confirmed Problem Cervical spondylosis without myelopathy (394511893) Spondylosis without myelopathy or radiculopathy, cervical region (M47.812) Active confirmed Problem Lumbosacral spondylosis without myelopathy (disorder) (54296189) Spondylosis without myelopathy or radiculopathy, lumbosacral region (M47.817) Active confirmed Problem Glomerular disease (139989268) Glomerular disorders in diseases classified elsewhere (N08) Active confirmed Problem Perimenopausal disorder (735569120) Other specified menopausal and perimenopausal disorders (N95.8) Active confirmed Problem Arthritis of spine (disorder) (970457462) Other specified inflammatory spondylopathies , 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) Active confirmed Seronegative Spondyloarthriti s ( inflammatory back pain that is better with moving, not relieved by rest, prolonged morning stiffness 2 hours, pain in large joints:pain 7-10/10 RT hip, lower back, SI joints, h/o enthesitis (plantar fasciitis,trigge r finger, costochondritis) Problem Gastroesophageal reflux disease (726178572) GERD (gastroesophage al reflux disease) (K21.9) Active confirmed Problem Dry eyes (843738285) Dry eyes (H04.123) Active confirmed Problem Raynaud phenomenon (993656641) Raynaud phenomenon (I73.00) Active confirmed Vital Signs Heart Rate 57 /min 04/19/2025 Temperature 35.4 C 04/19/2025 Blood pressure diastolic 62 mm Hg 04/19/2025 Height 165.8 cm 04/19/2025 Blood pressure systolic 115 mm Hg 04/19/2025 Weight 73.8 kg 06/04/2024 BMI 26.84 kg/m2 06/04/2024 Encounters Encounter Location Date Provider Diagnosis [facility] [address] [id number] 06/04/2024 Briseida Cruz MARTIN positive R76.8 ; [...] R94.4 and Dry eyes H04.123 [facility] [address] [id number] 07/08/2024 Briseida Cruz MARTIN positive R76.8 ; Abnormal results of kidney function studies R94.4 ; Disorder of bone density and structure, unspecified M85.9 ; Raynaud phenomenon I73.00 ; GERD (gastroesophageal reflux disease) K21.9 ; Fatigue R53.83 ; Sacroiliitis, not elsewhere classified M46.1 and Effusion, right hand M25.441 [facility] [address] [id number] 08/19/2024 Briseida Cruz MARTIN positive R76.8 ; Disorder of bone density and structure, unspecified M85.9 ; Raynaud phenomenon I73.00 ; Fatigue R53.83 ; Sacroiliitis, not elsewhere classified M46.1 ; Abnormal results of kidney function studies R94.4 and Other specified inflammatory spondylopathies, site unspecified M46.80 [facility] [address] [id number] 11/12/2024 RAMU COLIN MARTIN positive R76.8 ; Psoriatic spondylitis L40.53 ; Disorder of bone density and structure, unspecified M85.9 ; Raynaud phenomenon I73.00 ; Fatigue R53.83 ; Sacroiliitis, not elsewhere classified M46.1 ; Abnormal results of kidney function studies R94.4 ; Effusion, left hand M25.442 and Complex regional pain syndrome I of right lower limb G90.521 [facility] [address] [place] [id number] 12/29/2024 Chas Acosta MARTIN positive R76.8 ; Psoriatic spondylitis L40.53 ; Disorder of bone density and structure, unspecified M85.9 ; Raynaud phenomenon I73.00 ; Fatigue R53.83 ; Sacroiliitis, not elsewhere classified M46.1 ; Abnormal results of kidney function studies R94.4 ; Complex regional pain syndrome I of right lower limb G90.521 ; Other specified inflammatory spondylopathies, site unspecified M46.80 and Other shoulder lesions, right shoulder M75.81 [facility] [address] [id number] 01/26/2025 Briseida Cruz Psoriatic spondylitis L40.53 ; MARTIN positive R76.8 ; Fatigue R53.83 ; Disorder of bone density and structure, unspecified M85.9 and Complex regional pain syndrome I of right lower limb G90.521 [facility] [address] [id number] 03/04/2025 Briseida Antoineuld Psoriatic spondylitis L40.53 ; MARTIN positive R76.8 ; Fatigue R53.83 ; Disorder of bone density and structure, unspecified M85.9 and Complex regional pain syndrome I of right lower limb G90.521 [facility] [address] [id number] 04/19/2025 Briseida Antoineuld Psoriatic spondylitis L40.53 ; MARTIN positive R76.8 ; Fatigue R53.83 ; Abnormal results of kidney function studies R94.4 ; Complex regional pain syndrome I of right lower limb G90.521 and Disorder of bone density and structure, unspecified M85.9 [facility] [address] [id number] 04/19/2025 Briseida Cruz [facility] [address] [id number] 05/27/2024 RAMU COLIN [facility] [address] [id number] 07/10/2024 RAMU COLIN [facility] [address] [id number] 08/03/2024 Briseida Cruz [facility] [address] [id number] 02/22/2025 RAMU COLIN Psoriatic spondylitis L40.53 [facility] [address] [id number] 04/14/2025 Briseida Cruz Assessments Encounter Date Diagnosis (ICD Code) Assessment Notes Treatment Notes Treatment Clinical Notes Section Notes 06/04/2024 Disorder of bone density and structure, unspecified (ICD-10 - M85.9) 06/04/2024 MARTIN positive (ICD-10 - R76.8) 53yo female w/PMH +MARTIN 1:320 (20[facility]), IBS-C, Hypertension, Fibromyalgia and Costochondritis presents with c/o worsening polyarthralgia ( severeFatigue 7/10, AMStiff 2hrs, pain 7-8/10 neck, back, [...] Labs Now RTC in 4-5 weeksBriseida Cruz RATE MANAGER-BC. Pt reviewed by Dr. Colin 02/22/2025 Psoriatic spondylitis (ICD-10 - L40.53) -As of 01/26/2025 ongoing joint pain despite x3 doses of MTX 8 tabs. Will treat flare and resume MTX for now. Will consider biologics if no improvement at next appt. -OV 12.29.2024 Pt. on LDN 6mg. On going fatigue, pain and prolong morning stiffness. Acute R shoulder pain, will evaluate. polyarthralgia, inflammatory back pain that is better [...] 11.12.24 the pt awaits lubar spine injection 4.325 for Rt foot CRPS (Chronic Regional Pain Syndrome) that developed after Rt foot surgery . 04/19/2025 Psoriatic spondylitis (ICD-10 - L40.53) -As of 04/19/2025 she has ongoing Rt foot and neck pain despite loading dose of Taltz. Will resume Taltz for now and monitor. -As of 03/04/2025 labs on 02/24/2025 show Creat 1.43 (h), EGFR 47 (L). Given worsening Creat levels will d/c MTX and switch to IL-17.Will avoid TNF Blockers d/t pt h/o complex pain syndrome. -As of 01/26/2025 ongoing joint pain despite x3 doses of MTX 8 tabs. Will treat flare and resume MTX for now. Will consider biologics if no improvement at next appt. -OV 4..2024 Pt. on LDN 6mg. Ongoing fatigue, pain and prolong morning stiffness. Acute R shoulder pain, will evaluate. Polyarthralgia, inflammatory back pain that is better with [...] 11.12.24 the pt awaits lubar spine injection .325 for Rt foot CRPS (Chronic Regional Pain Syndrome) that developed after Rt foot surgery . Fasting labs 1 week before next appt Follow up with PCP re worsening kidney function Follow up with cardiology re SOB with activity Consult Nephrology (Dr. Read, Dr. Akers ph: [phone]) re: labs 04/13/2025: Creat 1.47 (h), EGFR 42 (L) Discussed suprascapular NB with pt, pt declined d/t high deductible- consider PT for neck pain once PT for foot pain completed Follow up with pain clinic for Tens unit placement for Rt foot pain Follow up with Dr. Abrams podiatry re ongoing Rt foot pain RTC in 8 weeks Briseida Cruz RATE MANAGER-BC. Pt reviewed by Dr. Colin 04/19/2025 MARTIN positive (ICD-10 - R76.8) - OV 4..2024 Pt. on LDN 6mg and continues working with pain clinic and had LS injection which was ineffective. OV 3.03.03 pt developed CRPS (Chronic Regional Pain Syndrome) after Rt foot surgery , scheduled for spinal injection 12.10.24. Flare of Left buttock pain, diffuse MSK pain. Psoriatic Arthritis to consider. No evidence of MARTIN associated autoimmune inflammatory Connective Tissue Disease. She had ongoing joint pain despite LDN. Repeat MARTIN neg . Negative MARTIN subserologies:,neg [id number] P-Scl 70 aB, neg Centromere ab. Negative Antiphospholipid antibody panel (neg aCL, [id number], neg LAC). No convincing evidence of autoimmune inflammatory Connective Tissue Disease is seen at present. -As 07/08/2024 labs on 06/11/2024 show Gamma Rowena 0.7 (L), CALVIN less than5 (L), (T) CK 197 (H), Creat 1.20 (H), EGFR 54 (L). All autoimmune serology normal. Will evaluate elevated CK levels further. Given the amount of joint involvement. 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 Will add LDN as pt Creat level elevated and needs further work up. 53yo female w/PMH +MARTIN 1:320 (2021 [facility]), IBS-C, Hypertension, Fibromyalgia and Costochondritis [...] tenderness and (B) Heberden and Alvarez's' nodes. 03/04/2025 Psoriatic spondylitis (ICD-10 - L40.53) -As of 03/04/2025 labs on 02/24/2025 show Creat 1.43 (h), EGFR 47 (L). Given worsening Creat levels will d/c MTX and switch to IL-17.Will avoid TNF Blockers d/t pt h/o complex pain syndrome. -As of 01/26/2025 ongoing joint pain despite x3 doses of MTX 8 tabs. Will treat flare and resume MTX for now. Will consider biologics if no improvement at next appt. -OV 4. Pt. on LDN 6mg. Ongoing fatigue, pain and prolong morning stiffness. Acute R shoulder pain, will evaluate. Polyarthralgia, inflammatory back pain that is better with moving, not relieved by rest, prolonged morning stiffness 2 hours, pain in large joints:pain 7-10/10 RT hip, lower back, SI joints,, h/o enthesitis -Achilles enthesitis per exam 3.03.03, plantar fasciitis, Rt III trigger finger '2022, h/o costochondritis, h/o h/o Buttock pain, h/o Rt thumb painful decreased ROM, H/o Kidney stone, Achilles enthesitis Left on exam 3.03.03, limited painful flexion (B) hand MCPJs, PIPJs; Pt needs a DMARD. Due to chronic renal Insufficiency we will avoid Methotrexate. autoimmune FHx lupus- paternal GM. As of 11.12.24 the pt awaits lubar spine injection .12.01 for Rt foot CRPS (Chronic Regional Pain Syndrome) that developed after Rt foot surgery . Fasting labs 1 week before next appt Follow up with PCP re worsening kidney function Discussed suprascapular NB with pt, pt declined d/t high deductible- consider PT for neck pain once PT for foot pain completed Medrol Dose juvencio for joint pain Follow up with pain clinic for Tens unit placement for Rt foot pain Follow up with Dr. Abrams podiatry re ongoing Rt foot pain RTC in 6 weeks. Pt reviewed by Dr. Dixie Cruz [facility]. Pt reviewed by Dr. Turner in Taltz co-pay assistance program. We will request a Prior Authorization for Taltz from your health insurance company and WE WILL TEXT YOU to let you know when approved. You will then call your pharmacy to order Taltz. Schedule a Taltz teaching session with our Registered Nurse with our office samples OR bring your own Taltz with you. Hold Taltz if you develop any allergic skin rash outside of the injection site. It is common to have an irritated skin at the Taltz injection site. Hold Taltz if you develop any infection. Covid -19 vaccines and Taltz- no adjustment of the timing of the vaccine in relation to Taltz is needed. No rheumatic contraindications to any inactivated (killed) vaccines. All Covid-19 vaccines are inactivated vaccines. Avoid live vaccines. Follow up with your PMD re: age appropriate vaccinations. Annual screening for tuberculosis with either a blood test (Quantiferon TB Gold) or PPD is advised when treated with Taltz. 03/04/2025 MARTIN positive (ICD-10 - R76.8) - OV 4.22.2024 Pt. on LDN 6mg and continues working with pain clinic and had LS injection which was ineffective. OV 3.6.25 pt developed CRPS (Chronic Regional Pain Syndrome) after Rt foot surgery , scheduled for spinal injection .12.01. Flare of Left buttock pain, diffuse MSK pain. Psoriatic Arthritis to consider. No evidence of MARTIN associated autoimmune inflammatory Connective Tissue Disease. She had ongoing joint pain despite LDN. Repeat MARTIN neg . Negative MARTIN subserologies:,neg [id number] P-Scl 70 aB, neg Centromere ab. Negative Antiphospholipid antibody panel (neg aCL, [id number], neg LAC). No convincing evidence of autoimmune inflammatory Connective Tissue Disease is seen at present. -As 07/08/2024 labs on 06/11/2024 show Gamma Rowena 0.7 (L), CALVIN less than5 (L), (T) CK 197 (H), Creat 1.20 (H), EGFR 54 (L). All autoimmune serology normal. Will evaluate elevated CK levels further. Given the amount of joint involvement. 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 Will add LDN as pt Creat level elevated and needs further work up. 53yo female w/PMH +MARTIN 1:320 (2021 [facility]), IBS-C, Hypertension, Fibromyalgia and Costochondritis [...] tenderness and (B) Heberden and Alvarez's' nodes. 12/29/2024 Psoriatic spondylitis (ICD-10 - L40.53) - OV ..2024 Pt. on LDN 6mg. On going fatigue, pain and prolong morning stiffness. Acute R shoulder pain, will evaluate. polyarthralgia, inflammatory back pain that is better with moving, not relieved by rest, prolonged morning stiffness 2 hours, pain in large joints:pain 7-10/10 RT hip, lower back, SI joints,, h/o enthesitis -Achilles enthesitis per exam 3.03.03, plantar fasciitis, Rt III trigger finger '2022, h/o costochondritis, h/o h/o Buttock pain, h/o Rt thumb painful decreased ROM, H/o Kidney stone, Achilles enthesitis Left on exam 3.03.03, limited painful flexion (B) hand MCPJs, PIPJs; Pt needs a DMARD. Due to chronic renal Insufficiency we will avoid Methotrexate. autoimmune FHx lupus- paternal GM. As of 11.12.24 the pt awaits lubar spine injection .12.01 for Rt foot CRPS (Chronic Regional Pain Syndrome) that developed after Rt foot surgery . Take Medrol dose Juvencio for R shoulder pain. Pain Clinic re: flare of low back pain. Start Methotrexate once a week with dinner. You may take 6 tabs once a week the first week, then increase to 8 tabs once a week. Stop Methotrexate if you develop any shortness of breath or cough and let us know. Hold Methotrexate if you have any infection, and especially if you are on any antibiotic. Avoid Cipro, sulfa based medications, and alcohol while on Methotrexate. Annual skin exam by Dermatology while on Methotrexate. Methotrexate is a strong teratogen hence a reliable contraception for female patients is mandatory. For female patients it is advised to hold Methotrexate for 3 months before attempting to conceive. Take Folic acid daily. Do not take Folic acid on the Methotrexate day since it may decrease the effectiveness of Methotrexate. Fasting Labs few days after 3rd dose Methotrexate. RTC in 6 weeks. Also schedule with Dr. Barclay next available R shoulder and C spine XR RTC for R shoulder US if pain persists 12/29/2024 MARTIN positive (ICD-10 - R76.8) - OV 12.29.2024 Pt. on LDN 6mg and continues working with pain clinic and had LS injection which was ineffective. OV 3.03.03 pt developed CRPS (Chronic Regional Pain Syndrome) after Rt foot surgery , scheduled for spinal injection 12.10.24. Flare of Left buttock pain, diffuse MSK pain. Psoriatic Arthritis to consider. No evidence of MARTIN associated autoimmune inflammatory Connective Tissue Disease. She had ongoing joint pain despite LDN. Repeat MARTIN neg . Negative MARTIN subserologies:,neg [id number] P-Scl 70 aB, neg Centromere ab. Negative Antiphospholipid antibody panel (neg aCL, [id number], neg LAC). No convincing evidence of autoimmune inflammatory Connective Tissue Disease is seen at present. -As 07/08/2024 labs on 06/11/2024 show Gamma Rowena 0.7 (L), CALVIN less than5 (L), (T) CK 197 (H), Creat 1.20 (H), EGFR 54 (L). All autoimmune serology normal. Will evaluate elevated CK levels further. Given the amount of joint involvement. 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 Will add LDN as pt Creat level elevated and needs further work up. 53yo female w/PMH +MARTIN 1:320 (2021 [facility]), IBS-C, Hypertension, Fibromyalgia and Costochondritis [...] tenderness and (B) Heberden and Alvarez's' nodes. 11/12/2024 Psoriatic spondylitis (ICD-10 - L40.53) polyarthralgia, inflammatory back pain that is better with moving, not relieved by rest, prolonged morning stiffness 2 hours, pain in large joints:pain 7-06/18 RT hip, lower back, SI joints,, h/o enthesitis -Achilles enthesitis per exam .03.03, plantar fasciitis, Rt III trigger finger '2022, h/o costochondritis, h/o h/o Buttock pain, h/o Rt thumb painful decreased ROM, H/o Kidney stone, Achilles enthesitis Left on exam .03.03, limited painful flexion (B) hand MCPJs, PIPJs; Pt needs a DMARD. Due to chronic renal Insufficiency we will avoid Methotrexate. autoimmune FHx lupus- paternal GM. As of 11.12.24 the pt awaits lubar spine injection .12.01 for Rt foot CRPS (Chronic Regional Pain Syndrome) that developed after Rt foot surgery . 11/12/2024 MARTIN positive (ICD-10 - R76.8) OV .03.03 pt developed CRPS (Chronic Regional Pain Syndrome) after Rt foot surgery , scheduled for spinal injection 12.10.24. Flare of Left buttock pain, diffuse MSK pain. Psoriatic Arthritis to consider. No evidence of MARTIN associated autoimmune inflammatory Connective Tissue Disease. She had ongoing joint pain despite LDN. Repeat MARTIN neg . Negative MARTIN subserologies:,neg [id number] P-Scl 70 aB, neg Centromere ab. Negative Antiphospholipid antibody panel (neg aCL, [id number], neg LAC). No convincing evidence of autoimmune [...] up. 53yo female w/PMH +MARTIN 1:320 (2021 [facility]), IBS-C, Hypertension, Fibromyalgia and Costochondritis [...] Arthritis, will consider bDMARD. LT HAND XR. 08/19/2024 Disorder of bone density and structure, unspecified (ICD-10 - M85.9) 08/19/2024 MARTIN positive (ICD-10 - R76.8) -As of 08/19/2024 she had ongoing joint pain despite LDN. Pt now on LDN 4.5 mg maintenance dose. Will resume LDN as pt to have foot surgery soon. Will consider adding Methotrexate once cleared by surgeon. Repeat MARTIN neg . Negative MARTIN subserologies:,neg [id number] P-Scl 70 aB, neg Centromere ab. Negative Antiphospholipid antibody panel (neg aCL, [id number], neg LAC). No convincing evidence of autoimmune [...] up. 53yo female w/PMH +MARTIN 1:320 (2021 [facility]), IBS-C, Hypertension, Fibromyalgia and Costochondritis [...] activity 2-3 days priorMay take Medrol Dose juvencio if needed for joint flareFollow up with PCP re ongoing elevated Creat levelsConsider adding MTX, CXR normal, if Creat level normalizes and cleared by surgeonPlease have CXR- faxed to this officeRTC in 8 weeksBriseida Cruz [facility]-. Pt reviewed by Dr. Queenue Naltrexone 4.5 mg a day. The prescription for Low Dose Naltrexone is sent to the compounding pharmacy ([facility] (ph: [phone]) or [facility] (ph: [phone]) RAMU COLIN 08/19/2024 05:20:19 PM EST > 07/08/2024 Abnormal results of kidney function studies [...] up. 53yo female w/PMH +MARTIN 1:320 (2021 [facility]), IBS-C, Hypertension, Fibromyalgia and Costochondritis [...] lesion.; cc PMD.RTC in 6 weeksBriseida Cruz [facility]. Pt reviewed by Dr. Quezada Naltrexone 1.5 mg once a day x 2 weeks, 3 mg once a day x 2 weeks, then 4.5 mg a day. The prescription for Low Dose Naltrexone is sent to the compounding pharmacy ([facility] (ph: [phone]) or [facility] (ph: [phone])) 01/26/2025 Psoriatic spondylitis (ICD-10 - L40.53) -As of 01/26/2025 ongoing joint pain despite x3 doses of MTX 8 tabs. Will treat flare and resume MTX for now. Will consider biologics if no improvement at next appt. -OV 4..2024 Pt. on LDN 6mg. On going fatigue, pain and prolong morning stiffness. Acute R shoulder pain, will evaluate. polyarthralgia, inflammatory back pain that is better [...] that developed after Rt foot surgery . Fasting labs 1 week before next appt Consider physical therapy if neck pain worsens Increase Folic Acid tabs to 3 tabs/day except MTX days Resume MTX 8 tabs/week for now Follow up with pain clinic for Tens unit placement for Rt foot pain Follow up with Dr. Abrams podiatry re ongoing Rt foot pain RTC in 4 weeks. Pt reviewed by Dr. Dixie Cruz [facility]-. Pt reviewed by Dr. Colin 01/26/2025 MARTIN positive (ICD-10 - R76.8) - OV 12.29.2024 Pt. on LDN 6mg and continues working with pain clinic and had LS injection which was ineffective. OV 11.12.24 pt developed CRPS (Chronic Regional Pain Syndrome) after Rt foot surgery , scheduled for spinal injection 12.10.24. Flare of Left buttock pain, diffuse MSK pain. Psoriatic Arthritis to consider. No evidence of MARTIN associated autoimmune inflammatory Connective Tissue Disease. She had ongoing joint pain despite LDN. Repeat MARTIN neg . Negative MARTIN subserologies:,neg [id number] P-Scl 70 aB, neg Centromere ab. Negative Antiphospholipid antibody panel (neg aCL, [id number], neg LAC). No convincing evidence of autoimmune inflammatory Connective Tissue Disease is seen at present. -As 07/08/2024 labs on 06/11/2024 show Gamma Rowena 0.7 (L), CALVIN less than5 (L), (T) CK 197 (H), Creat 1.20 (H), EGFR 54 (L). All autoimmune serology normal. Will evaluate elevated CK levels further. Given the amount of joint involvement. 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 Will add LDN as pt Creat level elevated and needs further work up. 53yo female w/PMH +MARTIN 1:320 (2021 [facility]), IBS-C, Hypertension, Fibromyalgia and Costochondritis presents with c/o worsening polyarthralgia (severe Fatigue 710, AMStiff 2hrs, pain 7-8/10 neck, back, [...] tenderness and (B) Heberden and Alvarez's' nodes. 01/26/2025 Fatigue (ICD-10 - R53.83) 07/08/2024 Disorder of bone density and structure, unspecified (ICD-10 - M85.9) 08/19/2024 Raynaud phenomenon (ICD-10 - I73.00) 11/12/2024 Disorder of bone density and structure, unspecified (ICD-10 - M85.9) 03/04/2025 Fatigue (ICD-10 - R53.83) 12/29/2024 Disorder of bone density and structure, unspecified (ICD-10 - M85.9) 04/19/2025 Fatigue (ICD-10 - R53.83) 06/04/2024 Raynaud phenomenon (ICD-10 - I73.00) Raynau'd phenomenon - try Nutrasal Magnesium L-arginine cream 2-3 x a day to minimize RP 06/04/2024 GERD (gastroesophagea l reflux disease) (ICD-10 - K21.9) 04/19/2025 Abnormal results of kidney function studies (ICD-10 - R94.4) -As of 04/19/2025 labs 04/13/2025 show Creat 1.47 (h), EGFR 42 (L). Nephrology referral given. 03/04/2025 Disorder of bone density and structure, unspecified (ICD-10 - M85.9) 12/29/2024 Raynaud phenomenon (ICD-10 - I73.00) 11/12/2024 Raynaud phenomenon (ICD-10 - I73.00) 08/19/2024 Fatigue (ICD-10 - R53.83) 07/08/2024 Raynaud phenomenon (ICD-10 - I73.00) 01/26/2025 Disorder of bone density and structure, unspecified (ICD-10 - M85.9) 01/26/2025 Complex regional pain syndrome I of right lower limb (ICD-10 - G90.521) OV 5.20.25 ongoing pain, peripheral nerve stimulator to be placed 5.29.25 per Pain Clinic; OV 4..2024 Pt. on LDN 6mg and continues working with pain clinic and had LS injection 11/2024 which was ineffective. 07/08/2024 GERD (gastroesophagea l reflux disease) (ICD-10 - K21.9) 11/12/2024 Fatigue (ICD-10 - R53.83) 08/19/2024 Sacroiliitis, not elsewhere classified (ICD-10 - M46.1) 12/29/2024 Fatigue (ICD-10 - R53.83) 03/04/2025 Complex regional pain syndrome I of right lower limb (ICD-10 - G90.521) OV 5.20.25 ongoing pain, peripheral nerve stimulator to be placed 5.29.25 per Pain Clinic; OV 4.22.2024 Pt. on LDN 6mg and continues working with pain clinic and had LS injection 11/2024 which was ineffective. 04/19/2025 Complex regional pain syndrome I of right lower limb (ICD-10 - G90.521) -As of 04/19/2025 pt to have TENS units placed. -OV 5.20.25 ongoing pain, peripheral nerve stimulator to be placed 5.29.25 per Pain Clinic; OV 4.22.2024 Pt. on LDN 6mg and continues working with pain clinic and had LS injection 11/2024 which was ineffective. 06/04/2024 Fatigue (ICD-10 - R53.83) 06/04/2024 Spondylosis without myelopathy or radiculopathy, cervical region (ICD-10 - M47.812) 04/19/2025 Disorder of bone density and structure, unspecified (ICD-10 - M85.9) 11/12/2024 Sacroiliitis, not elsewhere classified (ICD-10 - M46.1) 12/29/2024 Sacroiliitis, not elsewhere classified (ICD-10 - M46.1) 08/19/2024 Abnormal results of kidney function studies (ICD-10 - R94.4) 07/08/2024 Fatigue (ICD-10 - R53.83) 07/08/2024 Sacroiliitis, not elsewhere classified (ICD-10 - [...] of kidney function studies (ICD-10 - R94.4) 12/29/2024 Abnormal results of kidney function studies (ICD-10 - R94.4) 06/04/2024 Spondylosis without myelopathy or radiculopathy, lumbosacral region (ICD-10 - M47.817) 06/04/2024 Trochanteric bursitis, left hip (ICD-10 - M70.62) 12/29/2024 Complex regional pain syndrome I of right lower limb (ICD-10 - G90.521) - OV 4..2024 Pt. on LDN 6mg and continues working with pain clinic and had LS injection 11/2024 which was ineffective. 11/12/2024 Effusion, left hand (ICD-10 - M25.442) 07/08/2024 Effusion, right hand (ICD-10 - M25.441) 11/12/2024 Complex regional pain syndrome I of right lower limb (ICD-10 - G90.521) 12/29/2024 Other specified inflammatory spondylopathies, site unspecified (ICD-10 - M46.80) Seronegative Spondyloarthritis ( inflammatory back pain that is better with moving, not relieved by rest, prolonged morning stiffness 2 hours, pain in large joints:pain 7-10/10 RT hip, lower back, SI joints, h/o enthesitis (plantar fasciitis,trigger finger, costochondritis) 06/04/2024 Other specified menopausal and perimenopausal disorders (ICD-10 - N95.8) 06/04/2024 Abnormal results of kidney function studies (ICD-10 - R94.4) 12/29/2024 Other shoulder lesions, right shoulder (ICD-10 - M75.81) 06/04/2024 Dry eyes (ICD-10 - H04.123) Plan Of Treatment Pending Test Test Name Order Date X ray : Hand, left 11/12/2024 X ray : Shoulder, right 12/29/2024 Chest X-ray PA and lateral 06/04/2024 QUANTIFERON(R)-TB GOLD 04/19/2025 CREATINE KINASE ISOENZYMES W/O TOTAL LYME AB SCREEN 06/04/2024 HEPATIC FUNCTION PANEL 04/19/2025 CREATININE 04/19/2025 CBC (INCLUDES DIFF/PLT) 04/19/2025 SED RATE BY MODIFIED WESTERGREN 04/19/20 25 Hep C Ab w Rfx to HCV RNA 06/04/2024 HS-CRP 04/19/2025 X ray : Hip, left 06/04/2024 DEXA Hip and Spine 06/04/2024 X ray : Cervical Spine Flex/Ext 06/04/20 24 X ray : Lumbosacral Spine 4v 06/04/2024 X ray : Hand, right 07/08/2024 X ray : Sacroliliac Joints 07/08/2024 Next Appt Details Provider Name:Briseida Cruz , 06/14/2025 08:40:00 AM, [address] [place] [address], [phone], Insurance Providers Payer Name Payer Address Payer Phone Subscriber Number Group Number Insured Name Patient Relationship to Insured Coverage Start Date Coverage End Date FERNANDO [address]amar[address]pa [address] [place], [place] [phone] [id number] Fifi Carter Self - patient is the insured Medical (General) History Medical History History ICD Code arthritis: Yes Hypertention: Yes Fibromyalgia: YES Migraine Headaches w/o aura: Yes Costochondritis: Yes Positive MARTIN 1:320 sp 2021: YES RLE CRPS chronic regional pain syndrome 1.2024 Surgical History Surgery Date(Month/Year) Breast reduction 3.2.2021 [facility] Hysterectomy [facility] Xenia Leal, recently diagnosed w/CRPS chronic regional pain syndrome, doing PT and seeing pain mgmt 1.
--- OUTSIDE RECORDS SUMMARY | 2025-04-22 07:30 | XMS_ITS ---
Author Name [facility] Organization Unknown Encounters Encounter Type Encounter Reason Primary Diagnosis Location Date Ambulatory Hypertrophy of breast [facility] 11/08/2021 Care Team Organization Name Specialty Phone Email Start Date End [facility] Chinedu Barker Primary [facility] 01/07/2024 02/08/2025 [facility] Jim Cutler Primary Care 11/08/2021 [facility] JIM CUTLER Primary Care 11/08/2021 11/09/19
--- OUTSIDE RECORDS SUMMARY | 2025-04-22 07:30 | XMS_ITS | Clinical Summary ---
Author Organization [facility] Address [address] [place] [address] Care Team Providers Care Tier In Name Role Phone Vinicio Capellan MD Primary Care Provider + [phone] Allergies Active Allergy Reactions Criticality Noted Date [...] 60 06/11/2019 3:15 PM EDT Temperature 37.2 C (98.9 F) 07/15/2017 9:53 AM EST Respiratory Rate 14 09/14/2021 1:44 PM EST [...] 2024 07/04/2021, 12/24/2020, 12/03/2020 Influenza Vaccine (#1) 2025 Pneumococcal Vaccine Aged Out No long er eligible based on patient's age to complete this topic RSV Ped < 20 months Aged Out No longe r eligible based on patient's age to complete this topic Advance Directives For more information, please contact: [phone] Documents on File Type Date Recorded 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
--- OUTSIDE RECORDS SUMMARY | 2025-04-22 07:30 | XMS_ITS | Clinical Summary ---
Author Organization [facility] Address [address] [place] [address] Phone Care Team Providers Care Textile Converter Name Role Phone Sebas Cutler MD Primary Care Provider Allergies Active Allergy Reactions Criticality Noted Date Comments Doxycycline Monohydrate Nausea and/or Vomiting 08/21/2019 Cephalexin Nausea and/or Vomiting 12/07/2021 Tramadol 03/22/2017 Pt stated she does not feel well Medications metoprolol succinate (TOPROL-XL) 100 MG 24 hr tablet Take 50 mg by mouth daily. 05/26/2019 Active traZODone (DESYREL) 50 MG tablet Take 150 mg by mouth nightly at bedtime. Active lisinopril-hydr oCHLOROthiazide (PRINZIDE,ZESTO RETIC) 10-12.5 mg per tablet Take 1 tablet by mouth daily. Active rosuvastatin (CRESTOR) 10 MG tablet Take 10 mg by mouth daily. Active sertraline (ZOLOFT) 100 MG tablet Take 100 mg by mouth daily. 05/08/2022 Active diclofenac sodium (VOLTAREN) 75 MG EC tabletIndicatio ns:Acute left-sided low back pain without sciatica Take once daily with food as needed for pain 90 tablet 11/13/2023 Active Active Problems Problem Noted Date Diagnosed Date Generalized osteoarthritis of hand 10/10/2023 Assessment & Plan (10/10/2023 12:58 PM EST): Most symptomatic right basilar thumb; again clinical picture is not c/w rheumatoid or other inflammatory arthritis. For dedicated re-evaluation on f/u. Positive MARTIN (antinuclear antibody) 02/18/2022 Overview (10/10/2023): 1:320 sp (2021 - [facility]) ENAs neg 03/2022 Assessment & Plan (10/10/2023 12:57 PM EST): No specific objective e/o SLE or related connective tissue disease, on clear indication for continued low dose hydroxychloroquine. Will monitor clinically. Assessment & Plan (04/08/2022 9:17 AM EDT): Hx of pos MARTIN More hand arthralagia, no obvious synovitis Additional labs ordered last visit but were not done-she will have done today Recent XR - she will obtain copy of report for my review Assessment & Plan (02/18/2022 10:40 PM EDT): Hx of pos MARTIN More hand arthralagia, no obvious synovitis Check additional labs Recent XR - she will obtain copy of report for my review Chronic pain of right knee 02/18/2022 Overview (02/18/2022): No trauma No swelling. + tender medial joint line and PF crepitus Suspect PF syndrome but check XR ? Early OA Consider PT if persistent pain Assessment & Plan (07/19/2022 2:49 PM EST): No hx trauma More mechanical symptoms + tender medial joint line and PF crepitus XR Confirmed mild OA/degenerative changes Declines PT MRI will be obtained r/o meniscal tear Assessment & Plan (04/08/2022 9:20 AM EDT): No trauma No swelling. + tender medial joint line and PF crepitus XR Confirmed mild OA/degenerative changes Declines PT Injection prn Assessment & Plan (02/18/2022 10:43 PM EDT): No trauma No swelling. + tender medial joint line and PF crepitus Suspect PF syndrome but check XR ? Early OA Consider PT if persistent pain Tendinitis of left rotator cuff 02/14/2021 Assessment & Plan (02/14/2021 8:43 PM EDT): Physical therapy stretching, strengthening exercises. Heat, muscle rubs with lidocaine. Acute left-sided low back pain without sciatica 02/14/2021 Assessment & Plan (10/10/2023 12:54 PM EST): Onset of acute left sided thoracolumbar back pain approx 2 wks ago; persistent sxs severe enough to interfere with ADLs. Cyclobenzaprine has not been effective. No current radicular sxs. D/w patient that I typically do not manage acute (non-inflammatory) back pain and she has already been seen by her PCP. Recommended consideration of both tizanidine instead of cyclobenzaprine and PT and she will f/u with her PCP regarding both of these options. She is amenable to trial of short term oral diclofenac to replace ibuprofen. Assessment & Plan (02/14/2021 8:43 PM EDT): Increase Lyrica to 150 mg PO BID. Change of skin color 01/28/2020 Facial rash 01/28/2020 Fibromyalgia 10/30/2019 Overview (10/10/2023): Prominent fatigue and skin sensitivity Did not tolerate pregabalin due to impaired balance Assessment & Plan (10/10/2023 12:52 PM EST): Dedicated discussion deferred today given patient's preference to focus on acute back pain; no clear indication for ongoing rheum-specific mgmt Assessment & Plan (07/19/2022 2:50 PM EST): Continue current meds for sleep and mood Encouraged daily exercise Assessment & Plan (04/08/2022 9:19 AM EDT): Hx of FM , poor sleep and depressed mood with widespread pain Lyrica 300 mg q hs was prescribed but D/c'd due to loss of balance Will Not restart Lyrica until further workup She needs to discuss Encouraged daily exercise in small amounts Maintain close f/u with advanced practice psychiatric nurse For mood Assessment & Plan (02/18/2022 10:38 PM EDT): Hx of FM , poor sleep and depressed mood with widespread pain Lyrica 300 mg q hs was prescribed but ran out of med several days ago She reports several neurological symptoms including loss of balance Will Not restart Lyrica until further workup She needs to discuss symptoms with PCP--consider neuro work up Encouraged daily exercise in small amounts Maintain close f/u with advanced practice psychiatric nurse Assessment & Plan (02/14/2021 8:44 PM EDT): Increase Lyrica to 150 mg PO BID. Continue good sleep routine. Continue Melatonin 5 mg Take 2 pills PO qhs. Aerobic exercise to 4 days a week at 20-30 minutes. Assessment & Plan (10/04/2020 10:56 AM EST): Trial of Prednisone 10 mg Take 2 pills PO daily for 4 days, then taper to 1 pill PO daily for 4 days. Patient will continue Flexeril and Physical therapy for neck, hip pain relief. Will increase Cymbalta to 60 mg PO daily for Fibromyalgia muscle tenderness, neck pain, hip pain relief. Degenerative disc disease, cervical 08/21/2019 Assessment & Plan (07/19/2022 2:51 PM EST): Increase pain Repeat MRI Cervical spine May continue Celebrex if helpful BP stable, labs normal Consider PT, pain clinic for injections, chiropractic tx or accupuncture Assessment & Plan (02/14/2021 8:41 PM EDT): Patient will be starting physical therapy tomorrow. Also has scheduled cortisone injection. Increase Lyrica to 150 mg PO BID. Assessment & Plan (11/15/2020 3:49 PM EST): Continue stretching, strengthening exercises. Patient will monitor to see if Lyrica medication helps with neck tenderness relief. Assessment & Plan (10/04/2020 10:58 AM EST): Continue Physical therapy strengthening exercises. Continue Flexeril muscle relaxer as needed. Would consider cortisone injection of posterior paravertebral cervical muscles if Prednisone and Cymbalta therapy do not calm down symptoms. History of fibromyalgia 08/21/2019 Assessment & Plan (09/07/2021 5:42 PM EST): Hx of FM , poor sleep and depressed mood with widespread pain On Lyrica 300 mg q day - ineffective for pain Started Wellbutrin 2 weeks ago Suggested try Lyrica 300 mg q hs If ineffective we can try Gabapentin or consider muscle relaxant Encouraged daily exercise in small amounts Maintain close f/u with advanced practice psychiatric nurse for dose adjustment Resolved Problems Problem Noted Date Diagnosed Date Resolved Date Rheumatoid arthritis involvi ng right hand with positive rheumatoid factor 07/19/2022 10/10/19 24 Overview (10/10/2023): Hydroxychloroquine 200 mg once daily 07/2022-10/2023 for ? early OA Assessment & Plan (10/10/2023 12:55 PM EST): No current clinical features to confirm rheumatoid arthritis. Dc hydroxychloroquine. For clinical re-evaluation on f/u. Assessment & Plan (07/19/2022 12:23 PM EST): 51 yo female with hx of FM who devloped increase hand arthralgias associated with AM stiffness Positive MARTIN 1:320 on outside labs Further workup showed low positive MARTIN , otherwise normal labs Hnad XR - she will obtain copy of report for my review Suspect pt has early RA with tender joints, new trigger finger and low pos MARTIN Trial of Plaquenil 200 mg daily ?? Hydroxychloroquine (Plaquenil) side effects were discussed with patient ? Side Effects: ? Hydroxychloroquine is typically very well tolerated, and serious side effects are rare. ? ? The most common side effects are:? - Nausea and diarrhea, which often improve with time or by taking the medication with food or milk. ? ? ?Less common side effects include:? - Skin rashes? - Changes in skin pigment (such as darkening or dark spots)? - Hair changes (bleaching or thinning of hair) - Anemia (rare) ? - Vision changes or loss of vision (rare). This is more likely in individuals taking high doses for many years, those over the age of 60, or in those with significant kidney disease. ? ? Pt understands the need to have regular (annual) eye exams while taking the drug. Fibromyalgia 11/15/2020 10/10/2023 Assessment & Plan (12/08/2021 7:13 AM EDT): Hx of FM , poor sleep and depressed mood with widespread pain Lyrica 300 mg q hs was helpful for pain and sleep but ran out of med Will restart Lyrica If ineffective , we can \consider muscle relaxant Encouraged daily exercise in small amounts Maintain close f/u with advanced practice psychiatric nurse for mood Assessment & Plan (11/15/2020 3:48 PM EST): Hip injection Hip injection site was identified. Injection site was swabbed with alcohol. Local anesthesia was obtained with ethyl chloride spray. Posterior right hip upper gluteus muscle was injected with 40 mg Depo medrol and 1 ml of 1% Lidocaine. Posterior left upper gluteus muscle was injected with 40 mg Depo medrol and 1 ml of 1 % Lidocaine. Hemostasis was obtained with pressure. A bandage was applied. Post injection care was discussed with the patient. Post injection activity was discussed with the patient. [facility] # [id number] [facility] # [id number] Lot # [id number] Exp. 09/30 Patient will taper down off Cymbalta. Decrease to 40 mg PO daily for one week. Then taper to 20 mg PO daily for one week. Will trial Lyrica 75 mg Take one pill PO BID for Fibromyalgia muscle tenderness relief. Methocarbamol 750 mg Take one pill PO qhs. Family History Medical History Relation Comments Diabetes Father Heart failure Father Hypertension Father Coronary artery disease Mother Diabetes Mother Hypertension Mother Lupus Paternal Grandmother Relation Status Comments Father Alive Maternal Grandfather Maternal Grandmother Mother Alive Paternal Grandfather Paternal Grandmother Social History Tobacco Use Types Packs/Day Years Used Date Smoking Tobacco: Never Smokeless Tobacco: Never Tobacco Cessation:Counseling Given: Not Answered Alcohol Use Standard Drinks/Week Comments Never 0 (1 standard drink = 0.6 oz pur e alcohol) Education Answer Date Recorded Are you interested in more education? Not on nathaniel e 01/04/2023 Are you concerned about learning? Not on file 01/04/2023 No 01/04/2023 No 01/04/2023 Digital Access Answer Date Recorded No 02/02/2023 No 02/02/2023 Reliable internet access at home? Not on file 02/02/2023 Device with a working camera? Not on file Comments Unknown Sex and Gender Information Value Date Recorded Sex Assigned at Not on file Legal Sex Female 2:43 PM EDT Gender Identity Not on file Sexual Orientation Not on file Last Filed Vital Signs Vital Sign Reading Time Taken Comments Blood Pressure 110/76 10/10/2023 11:11 AM EST Pulse 62 10/10/2023 11:11 AM EST Temperature 36.8 C (98.2 F) 11/15/2020 9:42 AM EST Respiratory Rate 16 07/19/2022 8:42 AM EST Oxygen Saturation 99% 10/10/2023 11:11 AM EST Inhaled Oxygen Concentration - - Weight 74.8 kg (165 lb) 10/10/2023 11:11 AM EST with shoes Height 165.5 cm (5' 5.16 ) 10/10/2023 11:[address] Body Mass Index 27.33 10/10/2023 11:11 AM EST Plan of Treatment Health Maintenance Due Date Last Done Comments Adult Td,Tdap Booster 1969 LIPID PANEL 1969 DEPRESSION SCREENING 1981 HEPATITIS C SCREENING 1987 HIV ONE-TIME SCREENING (18-65 YEARS) 1987 PAP SMEAR 1990 MAMMOGRAM 2009 COLOGUARD 2014 COLONOSCOPY 2014 COLORECTAL CANCER SCREENING 2014 FIT TEST 2014 FOBT 2014 SIGMOIDOSCOPY 2014 VIRTUAL COLONOSCOPY 2014 PNEUMOCOCCAL VACCINES (50+ years) (1 of 1 - PCV) 2019 ZOSTER VACCINES (1 of 2) 2019 CREATININE LEVEL 07/19/2023 07/19/2022, , 11/15/2020, Additional history exists POTASSIUM LEVEL 07/19/2023 07/19/2022, 07/2 05/2022, 11/15/2020, Additional history exists COVID-19 VACCINE ( season) 2024 07/04/2021 SCREENING FOR DIABETES 07/19/2025 07/19/2022 SMOKING STATUS SCREENING (Once After 26 Yrs) Completed 10/10/2023 HEPATITIS A VACCINES Aged Out No long er eligible based on patient's age to complete this topic HIB VACCINES Aged Out No longer eligi ble based on patient's age to complete this topic MENINGOCOCCAL VACCINES (ACWY) Aged Out No longer eligible based on patient's age to complete this topic MENINGOCOCCAL VACCINES (B) Aged Out N o longer eligible based on patient's age to complete this topic Medical Devices Not on file Procedures Procedure Name Priority Date/Time Associated Diagnosis Comments COMPREHENSIVE METABOLIC PANEL Routine 07/19/2022 9:39 AM EST Degenerative disc disease, cervical from Last 3 Months or Most Recently Relevant to Health Maintenance Results * (ABNORMAL) Comprehensive metabolic panel (07/19/2022 9:39 AM EST) SODIUM 139 133 - 146 mmol/L [facility] POTASSIUM 4.6 3.3 - 5.1 mmol/L [facility] CHLORIDE 100 96 - 108 mmol/L [facility] CO2 30 21 - 35 mmol/L [facility] BUN 24(H) 6 - 19 mg/dL [facility] CREATININE 1.10 0.5 - 1.5 mg/dL [facility] GLUCOSE 100(H) 70 - 99 mg/dL [facility] ALBUMIN 4.8 3.9 - 4.8 g/dL [facility] TOTAL PROTEIN 7.1 6.5 - 8.0 g/dL [facility] CALCIUM 10.0 8.4 - 10.3 mg/dL [facility] ALKALINE PHOSPHATASE 86 39 - 117 U/L [facility] TOTAL BILIRUBIN 0.2 0.0 - 1.2 mg/dL [facility] AST 33 0 - 37 U/L [facility] ALT 37 0 - 40 U/L [facility] GLOBULIN 2.3 1 - 4.8 g/dL [facility] EGFR 60 >59 mL/min/1.7 3m2 [facility] Comment:Estimated glomerular filtration rate calculated using the CKD-EPI refit equation. ANION GAP 14 10 - 20 mmol/L [facility] Blood 07/19/2022 9:39 AM EST 07/19/2022 9:40 AM EST us Fifi ORTIZ LAB BLOOD ORDERABLES Fin al Result Performing Organization Address City/State/[facility] Co de Phone Number [facility] [address] [place] [address] from Last 3 Months or Most Recently Relevant to Health Maintenance Insurance [facility] Member Subscriber Plan / Payer (Ef fective 2019-Present) Name:Fifi Carter Relation to Subscriber:Spouse Name:AMILCAR CARTER Date of :1900 (Home) Address: [address] [place] [address] Payer ID:Not on file Type:O Address: [address] [facility] Care Teams Textile Converter Relationship Specialty Start Date End Date Sebas Cutler MD [address] [place] [address] PCP - General Internal Medicine 07/08/19 Additional Source Comments The information contained in this document represents components of the legal health record. It is not the complete legal health record.[facility]
== END 2025-04-22 07:28 | disposition home or self-care (01) ==
LOC: CF 07:27
PROVIDERS: Visit Provider Internal Medicine
DX: M79.671 Pain in right foot (principal)
CPT/HCPCS: 64555; C1778; J2003

== ENCOUNTER 2025-04-22 09:11 | Outpatient (AMB) | payer BC, SELFPAY ==
[2025-04-22 09:20] VITALS: BP 112/70; PULSE 51; RESP 16; O2SAT 98; BMI 27.1
--- NOTE | 2025-04-22 09:20 | A.OFFVIS_ITS ---
Vital Signs 04/22/25 09:20 04/22/25 10:03 Height 5 ft 5 in Weight 163 lb BMI 27.1 BP 112/70 120/67 Blood Pressure Location Lt brachial Rt brachial Position Sitting Right Lateral Respiration 16 16 Pulse 51 50 Pulse Source Pulse Oximeter Pulse Oximeter Pulse Oximetry (%) 98 99 Oxygen Delivery Method Room Air Room Air Intake Visit Reasons: Right tibial Sprint Allergies tramadol (From Ultram) Allergy (Unknown, Verified 12/16/24 13:13) Unknown HPI HPI Right tibial Sprint: Details: Patient presents for scheduled procedure. Denies any recent cough, cold, infection, fever or other significant changes in medical history since last office visit. PFSH Medical History (Updated 12/17/24 @ 14:48 by Colleen Chau APRN, NICOLAS) Hypercholesterolemia Hypertension Depression Anxiety Migraine Headache Fibromyalgia Surgical History (Updated 12/17/24 @ 14:48 by Colleen Chau APRN, NURSE TRANSPLANT) H/O oral surgery H/O: hysterectomy H/O tubal ligation Hx of section Physical Exam Vital Signs: Last Vital Signs Pulse 51 04/22/25 09:20 Resp 16 04/22/25 09:20 BP 112/70 04/22/25 09:20 Pulse Ox 98 04/22/25 09:20 Oxygen Delivery Method Room Air 04/22/25 09:20 BMI result Body Mass Index 27.1 Office Procedures Details: Peripheral Nerve Stimulation Temporary Lead Placement, Ultrasound-Guided, Tibial Nerve, Right ? After the risks, benefits and alternatives were discussed with the patient and informed consentwas obtained, patient was placed in the lateral position and padded to foster comfort. Appropriate skin and bony landmarks were identified, and pertinent vascular structures were located. The skin overlying the needle entry site was prepped and draped in sterile fashion. Ultrasound was used to identify the popliteal artery, the peroneal nerve and the tibial nerve. After identifying and marking the intended target along the course of the tibial nerve, the skin around the planned entry point and the subcutaneous tissues were injected with local anesthetic. An introducer needle and stimulating probe were assembled, inserted and advanced along the intended course of the tibial nerve, taking care to maintain the proper depth of insertion as the introducer was advanced under ultrasound guidance. The introducer needle was delivered to a location in proximity to the nerve taking care not to puncture the popliteal artery. Multiple stimulation parameters were used to deliver stimulation to the tibial nerve in concert with stimulating at multiple positions around the nerve. Nerve target acquisition was confirmed noting generation of sensory and mild motor effects (paresthesia, muscle tension, etc) in the foot and ankle; corresponding to the distribution of the tibial nerve. Various electrical parameter combinations were tested, and the lead location was adjusted (physically relocated under ultrasound guidance) until the patient indicated medial knee paresthesia and tension overlapping the distribution of the patient?s typical region of pain. The stimulating probe was removed from the introducer and a percutaneous lead was guided through the needle and delivered to a location in similar proximity to the nerve. Final location was verified with electrical stimulation and documented. The introducer needle was removed, and the exposed end of the percutaneous lead was attached to an external stimulator unit. Various electrical parameter combinations were again tested until the patient indicated paresthesia and muscle tension overlapping the distribution of the patient?s typical region of pain. After confirming that lead impedance was in the normal range, the external unit was detached, the needle was removed, and the lead was anchored at the skin. The lead was threaded into the connector block and electrical continuity and desired patient response was confirmed. The connector block was attached to the external stimulator unit. The site was covered with a sterile occlusive dressing. A final ultrasound image was taken to document final placement. The patient was observed for stability of vital signs and comfort. Sprint PNS Device: Sprint PNS Device [id number] Percutaneous Peripheral Neuroelectrode Procedure: 16885 - Percutaneous Peripheral Neuroelectrode Procedure code (CPT) selection complete Office Meds lidocaine HCl 10 mg/mL (1 %) injection solution Performing Provider: Colleen Chau APRN, NICOLAS Performing Location: [facility] Administered by: Karlos Harding MD on 04/22/25 10:03 Dose Route Admin Location Dispensed Lot Number Expiration Date ND [employer] 10 mL subcut 10 mL Total Dispensed Waste 10 mL 0 % Assessment & Plan Assessment & Plan (1) Right foot pain: Code(s): M79.671 - Pain in right foot Category: Medical Plan Patient is status post right tibial stimulator placement for right foot pain. Patient tolerated procedure well and was discharged home in stable condition with discharge instructions. All questions were answered. We will follow-up via telephone or in clinic to assess response to therapy. A follow-up appointment was made during today's visit. Orders: Orders AMB Sprint PNS Today M79.671 - Pain in right foot Coding Level of Care Code Procedure Only Diagnoses Right foot pain M79.671 CPT Codes Sprint PNS - Sprint PNS Device: Sprint PNS Device ([id number]) Sprint PNS - SPRINT: 94210 - Percutaneous Peripheral Neuroelectrode ([id number]) Implantable Device Implantable Device Implantable Devices Qty [employer] Implant Date Expiration Date Analgesic PENS system 1 [employer] 04/22/25
--- OUTSIDE RECORDS SUMMARY | 2025-04-22 09:36 | XMS_ITS | Clinical Summary ---
Author Organization [facility] Address [address] [place] [address] Care Team Providers Care Gas Meter Installer Helper Name Role Phone Sebas Cutler MD Primary Care Provider [phone] Sebas Cutler MD Unavailable [phone] Allergies Active Allergy Reactions Criticality Noted Date Comments Doxycycline Nausea And Vomiting 08/21/2019 Tramadol Other (See Comments) 03/22/2017 Pt stated she does not feel well Pt stated she does not feel well Medications pregabalin (LYRICA) 150 MG capsule Take 150 [...] Take 2 mg by mouth daily. Active lisinopril-hydr ochlorothiazide (PRINZIDE,ZESTO RETIC) 10-12.5 MG per tablet Take 1 tablet by mouth daily. Active fluticasone (FloNASE) 50 mcg/spray nasal spray 1 spray into each nostril daily. Active proMETHAZINE-de xtromethorphan (proMETHAZINE-D M) 6.25-15 MG/5ML syrup Take by mouth every 4 (four) hours as needed for cough. Active cephalexin (KEFLEX) 500 MG capsuleIndicati ons:S/P bilateral breast reduction Take 1 capsule (500 mg total) by mouth 3 (three) times a day. 21 capsule 11/07/2021 Active oxyCODONE-aceta minophen (PERCOCET) 5-325 mg per tabletIndicatio ns:S/P bilateral breast reduction Take 1 tablet by mouth every 4 (four) hours as needed for severe pain. Max Daily Amount: 6 tablets 30 tablet 11/07/2021 Active Immunizations Immunization Administration Dates Next Due Covid-19 MRNA Vaccine - Pfizer 12+ (Purple Cap) 12/24/2020,12/03/2020 Social History Tobacco Use Types Packs/Day Years Used Date Smoking Tobacco: Never Smokeless Tobacco: Never Alcohol Use Standard Drinks/Week Comments Not Currently 0 (1 standard drink = 0.6 oz pur e alcohol) Comments No Sex and Gender Information Value Date Recorded Sex Assigned at Not on file Legal Sex Female 1:42 PM EDT Gender Identity Not on file Sexual Orientation Not on file Last Filed Vital Signs Vital Sign Reading Time Taken Comments Blood Pressure 140/84 11/08/2021 11:00 AM EST Pulse 67 11/08/2021 11:00 AM EST Temperature 35.9 C (96.7 F) 11/08/2021 9:50 AM EST Respiratory Rate 14 11/08/2021 11:00 AM EST [...] Zoster (Shingles) Vaccine (1 of 2) 2019 COVID-19 Vaccine (3 - 2023- season) 2024, 12/03/2020 Influenza Vaccine 04/09/2025 Insurance [facility] Advance Directives * Full Code (Latest Code Status on File) Date Activated Date Inactivated Comments 11/08/2021 7:18 AM Care Teams Gas Meter Installer Helper Relationship Specialty Start Date End Date Sebas Cutler MD PCP - General 10/12/09 Sebas Cutler MD [address] [place] [address] PCP - [employer] Attributed 11/08/23
[2025-04-22 10:03] VITALS: BP 120/67; PULSE 50; RESP 16; O2SAT 99
== END 2025-04-22 10:13 | disposition home or self-care (01) ==
LOC: HO.PMCPRC 09:11
PROVIDERS: PCP Internal Medicine; Visit Provider Internal Medicine
DX: M79.671 Pain in right foot (principal)
CPT/HCPCS: 64555; 76942

== ENCOUNTER 2025-04-28 09:07 | Outpatient (AMB) | payer BC, SELFPAY ==
--- OUTSIDE RECORDS SUMMARY | 2023-05-06 03:10 | XMS_ITS | Continuity of Care Document ---
Author Organization [facility] Address [address] [place] [address] [address] [place] [address] Phone Care Team Providers Care Shredder Tender Name Role Phone Mann Jacobo MD Unavailable Unavailable Procedures Procedure Date Office/Oupt E&M New Pt 30 Mins 23 Advance Directives Directive Yes / No Effective Date File Name No Information Encounters Encounter Description Practice Location Reason(s) For Visit Diagnoses Date Provider Providers Copied on Encounter [facility], [address] [place] [address] [address], [id number], [place] tel:[phone] CHATA Smith MD - [place] No Information 3 Donnell Darnell. [address] [facility] [address], [place], [address], [place]. tel:[phone] Office/Oupt E&M New Pt 30 Mins [facility], [address] [place] [address] [address], [id number], [place] tel:[phone] CHATA Smith MA - Cristiane [facility] - (Telangiecta uli)Restless legs syndrome Riky Xie MD FACS RVT RPVI [place] Quiroz. [address] [address], [facility] [place], [address], [place]. tel:[phone] Referring Provider: Tacos Xie MD FACS RVT RPVI, [facility] [address] [place], [address]. tel:[phone] Family History Family Member Type Diagnosis Age At Onset No Information Payers Payer name Insurance type Covered alliance party ID Celeste sheriff (s) [facility] [id number] Social History Type Description Quantity Date Captured Comments Sex Female Smoking Status No Information Chief Complaint And Reason For Visit No Information Reason For Referral Reason For Referral No Information Plan Of Treatment Date Type Action Status Goal Diet education completed Referral Ordered: Weight management: Referral to physician timeframe: 3 Months (related to Body mass index (BMI) 26.0-26.9, adult) ordered History Of Present Illness Encounter Date Complaint History Of Prese nt Illness No Information Functional Status Date Functional Assessmen t No Information Instructions Date Instruction Additional Infor mation Diet education Related to Body mass index (BMI) 26.0-26.9, adult Giving Encouragement to exercise Related to Body mass index (BMI) 26.0-26.9, adult Lifestyle education Related to B junior mass index (BMI) 26.0-26.9, adult Patient education booklet given Related to Spider Veins - (Telangiectasia) Compression stocking usage as conservative measure Related to Spider Veins - (Telangiectasia) Assessments Type Assessment Date No Information Patient Care Teams Name Effective Dates (start - stop) Status Members No Information
--- NOTE | 2025-04-28 09:09 | A.OFFVIS_ITS ---
Vital Signs 04/28/25 09:18 Height 5 ft 5 in Weight 164 lb BMI 27.3 BP 135/79 Blood Pressure Location Rt brachial Position Sitting Respiration 16 Pulse 57 Pulse Source Pulse Oximeter Pulse Oximetry (%) 97 Oxygen Delivery Method Room Air Intake Visit Reasons: s/p Sprint Intake Note: Dressing was changed. Site looks clean and healed. Accompanied by: Self / Same As Patient Allergies tramadol (From Ultram) Allergy (Unknown, Verified 04/28/25 09:19) Unknown HPI Comments Details: The patient is a 54-year-old female presenting with Complex Regional Pain Syndrome (CRPS) management, status post right tibial sprint PNS placement. She is tolerating the advised well. Current stimulation at 65. She does endorse localized discomfort in the muscle if she increases stimulation, this resolves with lowering the device. She has not noticed any change foot pain since device placement. The patient has been undergoing physical therapy since the end of March, which has been gradually reduced. She has not been able to engage in biking exercises due to a recent vacation and environmental conditions, which may have contributed to her slight worsening pain over the last 2 weeks. - Onset and Timing: Pain primarily in the foot, exacerbated by device overstimulation. - Quality and Character: Intense pain with localized discomfort and muscle twitching when device is turned up too high. - Exacerbating Factors: Device overstimulation, lack of exercise. - Relieving Factors: Reducing device stimulation. - Affect: Patient expresses frustration with pain management and device issues. - Analgesia: Device used for nerve pain blocking; patient adjusts stimulation levels. - Adverse Effects: Localized discomfort and muscle twitching from overstimulation. - Activities of Daily Living: Pain limits footwear options and exercise routines. [facility] Medical History (Updated 12/17/24 @ 14:48 by Colleen Chau APRN, ACCOUNTING MANAGER CONTROLLER) Hypercholesterolemia Hypertension Depression Anxiety Migraine Headache Fibromyalgia Surgical History (Updated 12/17/24 @ 14:48 by Colleen Chau APRN, ACCOUNTING MANAGER CONTROLLER) H/O oral surgery H/O: hysterectomy H/O tubal ligation Hx of section Review of Systems Const Details: - Musculoskeletal: Reports right foot pain - Neurological: Reports pain in foot, exacerbated by device overstimulation. Physical Exam Exam Exam: General: awake, alert, oriented. Answers questions appropriately. Fully engaged in examination. Skin: warm, dry, intact HEENT: Normocephalic. Hearing intact. Cardiac: External chest normal in appearance. Respiratory: No cough, audible wheezing or stridor. Abdomen: without gross distension. MS: No obvious swelling or deformities. Able to transition from sit to stand unassisted. Neurological: Oriented to person, place, time and situation. Thought process intact. No gait abnormalities appreciated. Psychiatric: Appropriate mood and affect. Good judgment and insight. Sprint dressing change: Existing dressing removed, Area cleansed with chloraprep. Site dry, clean without redness, swelling, warmth, bruising or drainage. Lead secure device removed. Area cleansed again with chloraprep, once dry skin barrier protectant wipe applied. New lead secure device applied, tegaderm applied. Patient tolerated procedure well. Vital Signs: Last Vital Signs Pulse 57 04/28/25 09:18 Resp 16 04/28/25 09:18 BP 135/79 04/28/25 09:18 Pulse Ox 97 04/28/25 09:18 Oxygen Delivery Method Room Air 04/28/25 09:18 BMI result Body Mass Index 27.3 Assessment & Plan Assessment & Plan (1) CRPS (complex regional pain syndrome), lower limb: Code(s): G90.529 - Complex regional pain syndrome I of unspecified lower limb Category: Medical (2) Right foot pain: Code(s): M79.671 - Pain in right foot Category: Medical (3) S/P hammer toe correction: Code(s): Z98.890 - Other specified postprocedural states; Z87.39 - Personal history of other diseases of the musculoskeletal system and connective tissue Category: Surgical Plan The patient is advised to manage the device stimulation carefully to avoid overstimulation and resultant discomfort. She should continue with physical therapy and gradually reintroduce biking exercises as tolerated. Continue dressing changes at least once weekly. Patient was advised to reach out to the spine graphic art sales representative 20 questions and concerns regarding the device as well as if new supplies as needed. Continue with medications as prescribed. All questions and concerns were answered, patient agrees with the plan. Follow- up as scheduled for device removal, sooner if needed. Patient was informed and verbally consented to the use of an ambient scribe for clinic note documentation during this visit. Patient Instructions: - Adjust device stimulation to a comfortable level to avoid discomfort. - Continue physical therapy and gradually resume biking exercises. - Continue medications as prescribed Coding Level of Care Code Est Pt Level 3 (96606) Complex EM visit Add On G2211 Diagnoses CRPS (complex regional pain syndrome), lower limb G90.529 Right foot pain M79.671 S/P hammer toe correction Z98.890; Z87.39
[2025-04-28 09:18] VITALS: BP 135/79; PULSE 57; RESP 16; O2SAT 97; BMI 27.3
--- OUTSIDE RECORDS SUMMARY | 2025-04-28 09:49 | XMS_ITS | Clinical Summary ---
Author Organization [facility] Address [address] [place] [address] Phone Care Team Providers Care Diamond Powder Mixer Name Role Phone Sebas Cutler MD Primary [...] 02/18/2022 Overview (10/10/2023): 1:320 sp (2021 - [facility]) ENAs neg 03/2022 Assessment & Plan (10/10/2023 [...] in small amounts Maintain close f/u with mental health unit lead psychologist For mood Assessment & Plan (02/18/2022 10:38 [...] in small amounts Maintain close f/u with mental health unit lead psychologist Assessment & Plan (02/14/2021 8:44 PM EDT): [...] in small amounts Maintain close f/u with mental health unit lead psychologist for dose adjustment Resolved Problems Problem Noted [...] in small amounts Maintain close f/u with mental health unit lead psychologist for mood Assessment & Plan (11/15/2020 3:48 [...] injection activity was discussed with the patient. [facility] # 1110-8748-28 [facility] # [id number] Lot # [id number] Exp. 09/30 Patient will [...] EST) SODIUM 139 133 - 146 mmol/L [facility] POTASSIUM 4.6 3.3 - 5.1 mmol/L [facility] CHLORIDE 100 96 - 108 mmol/L [facility] CO2 30 21 - 35 mmol/L [facility] BUN 24(H) 6 - 19 mg/dL [facility] CREATININE 1.10 0.5 - 1.5 mg/dL [facility] GLUCOSE 100(H) 70 - 99 mg/dL [facility] ALBUMIN 4.8 3.9 - 4.8 g/dL [facility] TOTAL PROTEIN 7.1 6.5 - 8.0 g/dL [facility] CALCIUM 10.0 8.4 - 10.3 mg/dL [facility] ALKALINE PHOSPHATASE 86 39 - 117 U/L [facility] TOTAL BILIRUBIN 0.2 0.0 - 1.2 mg/dL [facility] AST 33 0 - 37 U/L [facility] ALT 37 0 - 40 U/L [facility] GLOBULIN 2.3 1 - 4.8 g/dL [facility] EGFR 60 >59 mL/min/1.7 3m2 [facility] Comment:Estimated glomerular filtration rate calculated using the CKD-EPI refit equation. ANION GAP 14 10 - 20 mmol/L [facility] Blood 07/19/2022 9:39 AM EST 07/19/2022 9:40 AM EST us Fifi ORTIZ LAB BLOOD ORDERABLES Fin al Result Performing Organization Address City/State/[facility] Co de Phone Number [facility] [address] [place] [address] from Last 3 Months or Most Recently Relevant to Health Maintenance Insurance [facility] Address: [address] [address] [facility] Member Subscriber Plan / Payer (Ef fective 2019-Present) Name:Fifi Carter Relation to Subscriber:Spouse Name:AMILCAR CARTER Date of :1900 (Home) Address: [address] [place] [address] Payer ID:Not on file Type:O Address: [address] [facility] Address: [facility] [address] [place] [address] [facility] Care Teams Diamond Powder Mixer Relationship Specialty Start Date End Date Sbeas Cutler MD [address] [place] [address] PCP - General Internal Medicine 07/08/19 Additional Source Comments The information contained in this document represents components of the legal health record. It is not the complete legal health record.[facility]
--- OUTSIDE RECORDS SUMMARY | 2025-04-28 09:49 | XMS_ITS | Clinical Summary ---
Author Organization [facility] Address [address] [place] [address] Care Team Providers Care Merchandise Shopper Name Role Phone Sebas Cutler MD Primary Care Provider [phone] Sebas Cutler MD Unavailable [phone] Allergies Active Allergy Reactions Criticality Noted [...] season) 2024, 12/03/2020 Influenza Vaccine 04/09/2025 Insurance [facility] Advance Directives * Full Code (Latest Code Status on File) Date Activated Date Inactivated Comments 11/08/2021 7:18 AM Care Teams Merchandise Shopper Relationship Specialty Start Date End Date Sebas Cutler MD PCP - General 10/12/09 Sebas Cutler MD [address] [place] [address] PCP - [place] [employer] Attributed 11/08/23
--- OUTSIDE RECORDS SUMMARY | 2025-04-28 09:49 | XMS_ITS | Patient Health Record ---
Author Organization [facility] Address [address] [place] [address] Care Team Providers Care Special Education Itinerant Teacher Name Role Phone Omayra GIRALDO, Sebas Primary Care Provider Unavailab Xenia Carey Unavailable [phone] Brock Hogan Unavailable [phone] Hilda Us Unavailable [phone] Allergies Allergen (clinical drug ingredient) Drug/Non Drug [...] Referring Provider Last Name Omayra [facility] Referred Provider Xenia Butterfield Referred Address [address] [facility],[place],[address], Referred Provider Specialty Podiatry Referral Priority Routine [...] First Name Sebas Referring Provider Last Name [facility] Referred Provider Brock Hogan Referred Address [address] [facility],[place],[address],[place] Referred Provider Specialty Podiatry Referral Priority Routine [...] Sebas [facility]erring [facility] Referred Provider Xenia Butterfield Referred Address [address] [facility],[place],[address],[place] Referred Provider Specialty Podiatry General Notes This [...] Problem Acquired hammer toe of right foot (4551657366922644) Other hammer toe(s) (acquired), right foot (M20.41) Active confirmed Problem Acquired hammer toe of left foot (4201774029871197) Other hammer toe(s) (acquired), left foot (M20.42) Active confirmed Problem Plantar fascial fibromatosis (40484000) Plantar fascial fibromatosis (M72.2) Active confirmed Problem Mononeuropathy of lower limb (945118202) Neuritis of right foot (G57.91) Active confirmed Problem Complex regional pain syndrome type I of right lower limb (disorder) (099433432077261) Complex regional pain syndrome type 1 of right lower extremity (G90.521) Active confirmed Problem Localized, primary osteoarthritis of the ankle and/or foot (230925062) Arthritis of joint of lesser toe, left (M19.072) Active confirmed Problem Localized, primary osteoarthritis of the ankle and/or foot (239360800) Arthritis of joint of lesser toe, right (M19.071) Active confirmed Vital Signs Heart Rate 57 /min 09/29/2024 Blood pressure diastolic 65 mm Hg 03/29/2025 Height 5ft5in in 03/29/2025 Blood pressure systolic 128 mm Hg 03/29/2025 Weight 170 lbs 03/29/2025 BMI 28.29 kg/m2 03/29/2025 Encounters Encounter Location Date Provider Diagnosis Surgery [facility] ([facility]) [address] [place] [phone] 09/16/2024 Xenia Butterfield [facility] [address] [place] [address] 07/14/2024 Xenia Butterfield Pain in right toe(s) M79.674 ; Other hammer toe(s) (acquired), right foot M20.41 ; Arthritis of joint of lesser toe, right M19.071 ; Pain in left toe(s) M79.675 ; Other hammer toe(s) (acquired), left foot M20.42 ; Arthritis of joint of lesser toe, left M19.072 and Subluxation of metatarsophalangeal joint of toe, initial encounter S93.149A [facility] [place] [address] [place] [address] 08/18/2024 Brock Edison Pain in left foot M7 9.672 ; Pain in left ankle and joints of left foot M25.572 ; Bursitis of intermetatarsal bursa of left foot M77.52 and Metatarsalgia, left foot M77.42 [facility] [address] [address] 09/04/2024 Xenia Butterfield Pain in right toe(s) M79.674 ; Other hammer toe(s) (acquired), right foot M20.41 ; Arthritis of joint of lesser toe, right M19.071 ; Pain in left toe(s) M79.675 ; Other hammer toe(s) (acquired), left foot M20.42 ; Arthritis of joint of lesser toe, left M19.072 and Subluxation of metatarsophalangeal joint of toe, initial encounter S93.149A [address] [address] 09/10/2024 Xenia Butterfield Pain in right toe(s) M79.674 ; Other hammer toe(s) (acquired), right foot M20.41 ; Arthritis of joint of lesser toe, right M19.071 ; Pain in left toe(s) M79.675 ; Other hammer toe(s) (acquired), left foot M20.42 ; Arthritis of joint of lesser toe, left M19.072 and Subluxation of metatarsophalangeal joint of toe, initial encounter S93.149A [address] [address] 09/22/2024 Xenia Butterfield Other hammer toe(s) (acquired), right foot M20.[address] [address] 09/29/2024 Xenia Butterfield Other hammer toe(s) (acquired), right foot M20.[address] [address] 10/09/2024 Xenia Butterfield Other hammer toe(s) (acquired), right foot M20.[address] [address] 10/23/2024 Hilda Us Other hammer toe(s) (acquired), right foot M20.41 ; Complex regional pain syndrome type 1 of right lower extremity G90.521 and Pain in right foot M79.[address] [address] 11/13/2024 Hilda Drewa Other hammer toe(s) (acquired), right foot M20.41 ; Complex regional pain syndrome type 1 of right lower extremity G90.521 and Pain in right foot M79.[address] [address] 12/08/2024 Hilda Drewa Other hammer toe(s) (acquired), right foot M20.41 ; Complex regional pain syndrome type 1 of right lower extremity G90.521 and Pain in right foot M79.[address] [address] 12/14/2024 Xenia Butterfield Other hammer toe(s) (acquired), right foot M20.41 ; Complex regional pain syndrome type 1 of right lower extremity G90.521 and Pain in right foot M79.[address] [address] 01/07/2025 Xenia Butterfield Other hammer toe(s) (acquired), right foot M20.41 ; Complex regional pain syndrome type 1 of right lower extremity G90.521 and Pain in right foot M79.[address] [address] 03/04/2025 Xenia Butterfield Other hammer toe(s) (acquired), right foot M20.41 ; Complex regional pain syndrome type 1 of right lower extremity G90.521 and Pain in right foot M79.[address] [address] 03/29/2025 Xenia Butterfield Other hammer toe(s) (acquired), right foot M20.41 ; Complex regional pain syndrome type 1 of right lower extremity G90.521 ; Pain in right foot M79.671 and Neuritis of right foot G57.91 [facility] [address] [address] 07/14/2024 [facility] [place] [address] [facility] [place] [address] 07/15/2024 Xenia [facility] [place] [address] [facility] [place] [address] 08/13/2024 Xenia [facility] [place] [address] [facility] [place] [address] 09/04/2024 Xenia [facility] [place] [address] [facility] [place] [address] 09/15/2024 Xenia [facility] [place] [address] [facility] [place] [address] 09/17/2024 Xenia Butterfield [facility] [place] [address] [facility] [place] [address] 09/17/2024 Xenia Butterfield [facility] [address] [place] [phone] 09/18/2024 Xenia Butterfield [facility] [place] [address] [facility] [place] [address] 10/23/2024 Xenia [facility] [address] [place] [address] 10/27/2024 Xenia Butterfield [facility] [place] [address] [facility] [place] [address] 11/13/2024 Xenia Butterfield [facility] [address] [place] [phone] 12/02/2024 Xenia Butterfield [facility] [place] [address] [facility] [place] [address] 12/08/2024 Xenia Butterfield [facility] [place] [address] [facility] [place] [address] 12/09/2024 Xenia [facility] [place] [address] [facility] [place] [address] 01/07/2025 Xenia [facility] [address] [address] 01/13/2025 Xenia Butterfield [facility] [address] [address] 02/25/2025 Xenia Butterfield [facility] [address] [address] 09/14/2024 Xenia Butterfield Assessments Encounter Date Diagnosis [...] Provider Name:Xenia Dominique toby, 04/29/2025 01:00:00 PM, [address] [place] [address], [phone], Provider Name:Xenia Dominique toby, 06/07/2025 08:30:00 AM, [address] [place] [address], [phone], Insurance Providers Payer Name Payer Address Payer Phone Subscriber Number Group Number Insured Name Patient Relationship to Insured Coverage Start Date Coverage End Date [facility] [address] [place] [address] [id number] Amilcar Carter Spouse - patient is the spouse of the insured Medical (General) History Medical History History ICD Code headaches/migraines fibromyalgia chicken pox reflux back, hip, knee pain corns/calluses anxiety Depression High blood pressure Hypercholesterolemia Surgical History Surgery Date(Month/Year) section 2008 tubal ligation 2007 vesico vaginal fistula 2001 hysterectomy 2009 hammertoe repair R5T 1990 oral surgery 06/02/2012 Hammertoe Repair Left 2nd, 3rd, 4th, Cap sulotomy Left MPJ 09/16/2024
--- OUTSIDE RECORDS SUMMARY | 2025-04-28 09:50 | XMS_ITS | Clinical Summary ---
Author Organization [facility] Address [address] [place] [address] Care Team Providers Care Tree Feller Name Role Phone Vinicio Capellan MD Primary Care Provider [phone] Allergies Active Allergy Reactions Criticality Noted Date [...] Advance Directives For more information, please contact: [phone] Documents on File Type Date Recorded Patient Owner Spa Director Expl anation Advance Directive and Living Will 08/22/2020 12:20 PM Power of Set Painter 08/22/2020 ORDER Care Teams Tree Feller Relationship Specialty Start Date End Date Vinicio Capellan MD PCP - General Internal Medicine 09/14/21
--- OUTSIDE RECORDS SUMMARY | 2025-04-28 09:50 | XMS_ITS | Patient Health Record ---
Author Organization [facility] Address [address], [place] [id number] Care Team Providers Care Container Maker Name Role Phone Omayra GIRALDO, Sebas Primary Care Provider Unavailab RAMU Escalante Unavailable [phone] CruzBriseida davis Unavailable [phone] AcostaChas camara Unavailable [phone] Allergies Allergen (clinical drug ingredient) Drug/Non Drug Allergy documented on EMR Reaction Allergy Type Onset Date Status tramadol Ultram Unknown Drug Allergy Active Results Component Value Reference Range Notes HS-CRP Reviewed date:04/14/2025 10:27:55 AM Interpretation: Performing Lab:NL1, [facility], [address] [place] [address], [phone] Santy Salas M.D. Notes/Report: Received Date: FASTING; FASTING; FASTING; FASTING; FASTING FASTING:YES FASTING: YES HS CRP 0.6 Reference Range Optimal <1.0 Jellinger PS et al. Endocr Pract.2017;23(Suppl 2):1-87. For [...] for Disease Control and Prevention and the [place] [employer]. Circulation 2003; 107(3): 499-511. SED RATE BY MODIFIED WESTERG DIANA Reviewed date:04/14/2025 10:27:55 AM Interpretation: Performing Lab:NL1, [facility], [address] [place] [address], [address] Santy Salas M.D. Notes/Report: Received Date: FASTING; FASTING; FASTING; FASTING; FASTING FASTING:YES FASTING: YES SED RATE BY MODIFIED ROLFREN 9 < OR = 30 mm/h CBC (INCLUDES DIFF/PLT) Reviewed date:04/14/2025 10:27:55 AM Interpretation: Performing Lab:NL1, [facility], [address] [place] [address], [address] Santy Salas M.D. Notes/Report: Received Date: FASTING; [...] MPV 11.3 7.5-12.5 fL ABSOLUTE NEUTROPHILS 3445 8217-3038 cells/uL ABSOLUTE LYMPHOCYTES 9074 119-1423 cells/uL ABSOLUTE MONOCYTES 452 200-950 cells/uL ABSOLUTE EOSINOPHILS 58 15-500 cells/uL ABSOLUTE BASOPHILS 58 0-200 cells/uL NEUTROPHILS 59.4 LYMPHOCYTES 30.8 MONOCYTES 7.8 EOSINOPHILS 1.0 BASOPHILS 1.0 CREATININE Reviewed date:04/14/2025 10:27:55 AM Interpretation: Performing Lab:NL1, [facility], [address] [place] [address], [address] Santy Salas M.D. Notes/Report: Received Date: [id number] FASTING; FASTING; FASTING; FASTING; FASTING FASTING:YES FASTING: YES CREATININE 1.47 0.50-1.03 mg/dL EGFR 42 > OR = 60 mL/min/1.73m2 HEPATIC FUNCTION PANEL Reviewed date:04/14/2025 10:27:55 AM Interpretation: Performing Lab:NL1, [facility], [address] [place] [address], [address] Santy Salas M.D. Notes/Report: Received Date: [id number] FASTING; FASTING; FASTING; FASTING; FASTING FASTING:YES FASTING: [...] GOLD Reviewed date:03/23/2025 09:48:31 AM Interpretation: Performing Lab:1, [facility], [address] [place] [address], [address] Santy Salas M.D. Notes/Report: Received Date: [id number] FASTING FASTING:NO FASTING: NO QUANTIFERON(R)-TB GOLD PLUS, [...] T-lymphocytes. For additional information, please refer to https://Cityscape Residential.Circle Technology/faq/MIK764 (This link is being provided for informational/ educational purposes only.) HS-CRP Reviewed date:02/25/2025 12:38:57 PM Interpretation: Performing Lab:NL1, [facility], [address] [place] [address], [phone] Santy Salas M.D. Notes/Report: Received Date: [id number] FASTING; FASTING; FASTING; FASTING; FASTING FASTING:NO FASTING: NO HS CRP 0.7 Reference Range Optimal <1.0 Jepradip PS et [...] for Disease Control and Prevention and the [place] [employer]. Circulation 2003; 107(3): 499-511. SED RATE BY MODIFIED WESTERG DIANA Reviewed date:02/25/2025 12:38:57 PM Interpretation: Performing Lab:NL1, [facility], [address] [place] [address], [phone] Santy Salas M.D. Notes/Report: Received Date: [id number] FASTING; FASTING; FASTING; FASTING; FASTING FASTING:NO FASTING: NO SED RATE BY MODIFIED WESTERGREN 2 < OR = 30 mm/h CBC (INCLUDES DIFF/PLT) Reviewed date:02/25/2025 12:38:57 PM Interpretation: Performing Lab:REGINALD1, [facility], [address] [place] [address], [address] Santy Salas M.D. Notes/Report: Received Date: FASTING; [...] MPV 12.1 7.5-12.5 fL ABSOLUTE NEUTROPHILS 2696 0551-3895 cells/uL ABSOLUTE LYMPHOCYTES 9646 121-8877 cells/uL ABSOLUTE MONOCYTES 366 200-950 cells/uL ABSOLUTE EOSINOPHILS 39 15-500 cells/uL ABSOLUTE BASOPHILS 39 0-200 cells/uL NEUTROPHILS 62.7 LYMPHOCYTES 27.0 MONOCYTES 8.5 EOSINOPHILS 0.9 BASOPHILS 0.9 CREATININE Reviewed date:02/25/2025 12:38:57 PM Interpretation: Performing Lab:NL1, [facility], [address] [place] [address], [address] Santy Salas M.D. Notes/Report: Received Date: [id number] FASTING; FASTING; FASTING; FASTING; FASTING FASTING:NO FASTING: NO CREATININE 1.34 0.50-1.03 mg/dL EGFR 47 > OR = 60 mL/min/1.73m2 HEPATIC FUNCTION PANEL Reviewed date:02/25/2025 12:38:57 PM Interpretation: Performing Lab:NL1, [facility], [address] [place] [address], [address] Santy Salas M.D. Notes/Report: Received Date: [id number] FASTING; FASTING; FASTING; FASTING; FASTING FASTING:NO FASTING: NO PROTEIN, TOTAL 6.7 6.1-8.1 g/dL ALBUMIN 4.5 3.6-5.1 g/dL GLOBULIN 2.2 1.9-3.7 g/dL (calc) ALBUMIN/GLOBULIN RATIO 2.0 1.0-2.5 (calc) BILIRUBIN, TOTAL 0.3 0.2-1.2 mg/dL BILIRUBIN, DIRECT 0.1 < OR = 0.2 mg/dL BILIRUBIN, INDIRECT 0.2 0.2-1.2 mg/d L (calc) ALKALINE PHOSPHATASE 58 37-153 U/L AST 17 10-35 U/L ALT 24 6-29 U/L HS-CRP Reviewed date:01/19/2025 09:23:34 AM Interpretation: Performing Lab:1, [facility], [address] [place] [address], [phone] Santy Salas M.D. Notes/Report: Received Date: [id number] NON-FASTING; NON-FASTING; NON-FASTING; NON-FASTING FASTING:YES FASTING: YES HS CRP 0.2 Reference Range Optimal <1.0 Brijesh PS et [...] for Disease Control and Prevention and the [place] [employer]. Circulation 2003; 107(3): 499-511. CBC (INCLUDES DIFF/PLT) Reviewed date:01/19/2025 09:23:34 AM Interpretation: Performing Lab:NL1, [facility], [address] [place] [address], [phone] Santy Salas M.D. Notes/Report: Received Date: NON-FASTING; [...] MPV 11.5 7.5-12.5 fL ABSOLUTE NEUTROPHILS 2164 4279-6134 cells/uL ABSOLUTE LYMPHOCYTES 9439 510-9459 cells/uL ABSOLUTE MONOCYTES 252 200-950 cells/uL ABSOLUTE EOSINOPHILS 50 15-500 cells/uL ABSOLUTE BASOPHILS 22 0-200 cells/uL NEUTROPHILS 60.1 LYMPHOCYTES 30.9 MONOCYTES 7.0 EOSINOPHILS 1.4 BASOPHILS 0.6 CREATININE Reviewed date:01/19/2025 09:23:34 AM Interpretation: Performing Lab:NL1, [facility], [address] [place] [address], [address] Santy Salas M.D. Notes/Report: Received Date: NON-FASTING; NON-FASTING; NON-FASTING; NON-FASTING FASTING:YES FASTING: YES CREATININE 1.07 0.50-1.03 mg/dL EGFR 61 > OR = 60 mL/min/1.73m2 HEPATIC FUNCTION PANEL Reviewed date:01/19/2025 09:23:34 AM Interpretation: Performing Lab:NL1, [facility], [address] [place] [address], [address] Santy Salas M.D. Notes/Report: Received Date: [id number] NON-FASTING; NON-FASTING; NON-FASTING; NON-FASTING FASTING:YES FASTING: YES PROTEIN, TOTAL 6.3 6.1-8.1 g/dL ALBUMIN 4.4 3.6-5.1 g/dL GLOBULIN 1.9 1.9-3.7 g/dL (calc) ALBUMIN/GLOBULIN RATIO 2.3 1.0-2.5 (calc) BILIRUBIN, TOTAL 0.5 0.2-1.2 mg/dL BILIRUBIN, DIRECT 0.1 < OR = 0.2 mg/dL BILIRUBIN, INDIRECT 0.4 0.2-1.2 mg/d L (calc) ALKALINE PHOSPHATASE 53 37-153 U/L AST 21 10-35 U/L ALT 24 6-29 U/L HS-CRP Reviewed date:11/09/2024 09:17:58 AM Interpretation: Performing Lab:NL1, [facility], [address] [place], [address] Santy Salas M.D. Notes/Report: Received Date: [id number] NON-FASTING; NON-FASTING; NON-FASTING; NON-FASTING; NON-FAST FASTING:YES FASTING: [...] for Disease Control and Prevention and the [place] [employer]. Circulation 2003; 107(3): 499-511. SED RATE BY MODIFIED WESTERG DIANA Reviewed date:11/09/2024 09:17:58 AM Interpretation: Performing Lab:NL1, [facility], [address] [place] [address], [phone] Santy Salas M.D. Notes/Report: Received Date: [id number] NON-FASTING; NON-FASTING; NON-FASTING; NON-FASTING; NON-FAST FASTING:YES FASTING: YES SED RATE BY MODIFIED WESTERGREN 6 < OR = 30 mm/h CBC (INCLUDES DIFF/PLT) Reviewed date:11/09/2024 09:17:58 AM Interpretation: Performing Lab:NL1, [facility], [address] [place] [address], [phone] Santy Salas M.D. Notes/Report: Received Date: NON-FASTING; [...] MPV 12.1 7.5-12.5 fL ABSOLUTE NEUTROPHILS 2558 7204-6644 cells/uL ABSOLUTE LYMPHOCYTES 2954 178-3935 cells/uL ABSOLUTE MONOCYTES 290 200-950 cells/uL ABSOLUTE EOSINOPHILS 41 15-500 cells/uL ABSOLUTE BASOPHILS 32 0-200 cells/uL NEUTROPHILS 55.6 LYMPHOCYTES 36.5 MONOCYTES 6.3 EOSINOPHILS 0.9 BASOPHILS 0.7 CREATININE Reviewed date:11/09/2024 09:17:58 AM Interpretation: Performing Lab:[facility], [facility], [address] [place] [address], [address] Santy Salas M.D. Notes/Report: Received Date: [id number] NON-FASTING; NON-FASTING; NON-FASTING; NON-FASTING; NON-FAST FASTING:YES FASTING: YES CREATININE 1.07 0.50-1.03 mg/dL EGFR 61 > OR = 60 mL/min/1.73m2 HEPATIC FUNCTION PANEL Reviewed date:11/09/2024 09:17:58 AM Interpretation: Performing Lab:NL1, [facility], [address] [place] [address], [phone] Santy Salas M.D. Notes/Report: Received Date: [id number] NON-FASTING; NON-FASTING; NON-FASTING; NON-FASTING; NON-FAST FASTING:YES FASTING: YES PROTEIN, TOTAL 7.0 6.1-8.1 g/dL ALBUMIN 4.7 3.6-5.1 g/dL GLOBULIN 2.3 1.9-3.7 g/dL (calc) ALBUMIN/GLOBULIN RATIO 2.0 1.0-2.5 (calc) BILIRUBIN, TOTAL 0.4 0.2-1.2 mg/dL BILIRUBIN, DIRECT 0.1 < OR = 0.2 mg/dL BILIRUBIN, INDIRECT 0.3 0.2-1.2 mg/d L (calc) ALKALINE PHOSPHATASE 51 37-153 U/L AST 19 10-35 U/L ALT 20 6-29 U/L Myositis 11 Antibody Panel Reviewed date:08/13/2024 11:08:37 AM Interpretation: Performing Lab:EZ, [facility],, [address] [place], [address] Li Arriola MD,PhD,CYNDIE Notes/Report: Received Date: [id number] NON-FASTING; NON-FASTING; NON-FASTING; NON-FASTING; NON-FAST LOIDA-1 AB <11 <[address]-7 AB <11 <[address]-12 AB <11 <11 SI EJ AB <11 <11 SI OJ AB <11 <11 SI SRP AB <11 <11 SI ND-2 ALPHA AB <11 <11 SI ND-2 BETA AB 13 <11 SI MDA5 AB [...] with a rash. Additionally, MSAs to MDA5 ([id number]) have been identified in patients with clinically [...] analytical performance characteristics have been determined by [facility]. It has not been cleared or approved by the FDA. This assay has been validated pursuant to the CLIA regulations and is used for clinical purposes. HS-CRP Reviewed date:08/13/2024 11:08:37 AM Interpretation: Performing Lab:NL1, [facility], [address] [place] [address], [phone] Santy Salas M.D. Notes/Report: Received Date: [id number] NON-FASTING; NON-FASTING; NON-FASTING; NON-FASTING; NON-FAST HS CRP [...] for Disease Control and Prevention and the [place] [employer]. Circulation 2003; 107(3): 499-511. SED RATE BY MODIFIED WESTERG DIANA Reviewed date:08/13/2024 11:08:37 AM Interpretation: Performing Lab:NL1, [facility], [address] [place] [address], [phone] Santy Salas M.D. Notes/Report: Received Date: [id number] NON-FASTING; NON-FASTING; NON-FASTING; NON-FASTING; NON-FAST SED RATE BY MODIFIED WESTERGREN 2 < OR = 30 mm/h CREATININE Reviewed date:08/13/2024 11:08:37 AM Interpretation: Performing Lab:NL1, [facility], [address] [place] [address], [phone] Santy Salas M.D. Notes/Report: Received Date: [id number] NON-FASTING; NON-FASTING; NON-FASTING; NON-FASTING; NON-FAST CREATININE 1.08 0.50-1.03 mg/dL EGFR 61 > OR = 60 mL/min/1.73m2 HEPATIC FUNCTION PANEL Reviewed date:08/13/2024 11:08:37 AM Interpretation: Performing Lab:NL1, [facility], [address] [place] [address], [phone] Santy Salas M.D. Notes/Report: Received Date: [id number] NON-FASTING; NON-FASTING; NON-FASTING; NON-FASTING; NON-FAST PROTEIN, TOTAL [...] Reviewed date:08/13/2024 11:08:37 AM Interpretation: Performing Lab:CHING [facility], [address], [place], [place], Suresh Arguello M.D.,PhD Notes/Report: Received Date: [id number] NON-FASTING; NON-FASTING; NON-FASTING; NON-FASTING; NON-FAST ALDOLASE 4.4 <=8.1 U/L CREATINE KINASE, TOTAL Reviewed date:08/13/2024 11:08:37 AM Interpretation: Performing Lab:1, [facility], [address] [place] [address], [phone] Santy Salas M.D. Notes/Report: Received Date: [id number] NON-FASTING; NON-FASTING; NON-FASTING; NON-FASTING; NON-FAST CREATINE KINASE, TOTAL 178 29-143 U/L METHYLMALONIC ACID Reviewed date:08/13/2024 11:08:37 AM Interpretation: Performing Lab:CHING [facility], [address], [place], [place], Suresh Arguello M.D.,PhD Notes/Report: Received Date: [id number] NON-FASTING; NON-FASTING; NON-FASTING; NON-FASTING; NON-FAST METHYLMALONIC ACID [...] neural tube defects and intrauterine growth restriction. [facility] utilized Multi-Modal Decomposition (MMD) analysis to establish first and second trimester- specific MMA reference intervals in , as given below: MMA, First trimester (<13 wks gestation): 58-167 nmol/L MMA, Second trimester (13-23 wks gestation): 63-241 nmol/L This test was developed and its analytical performance characteristics have been determined by [facility]. It has not been cleared or approved by the FDA. This assay has been validated pursuant to the CLIA regulations and is used for clinical purposes. C-REACTIVE PROTEIN Reviewed date:08/13/2024 11:08:37 AM Interpretation: Performing Lab:NL1, [facility], [address] [place] [address], [address] Santy Salas M.D. Notes/Report: Received Date: [id number] NON-FASTING; NON-FASTING; NON-FASTING; NON-FASTING; NON-FAST C-REACTIVE PROTEIN <3.0 <8.0 mg/L ANAlyzeR MARTIN,IFA with Reflex Titer/Pattern, Systemic Autoimmune Panel 1 Reviewed date:06/24/2024 08:50:14 AM Interpretation: Performing Lab:EZ, [facility],, [address] [place], [phone] Li Arriola MD,PhD,CYNDIE Notes/Report: Received Date: [id number] FASTING; NON-FASTING; NON-FASTING; NON-FASTING; NON-FASTING MARTIN SCREEN, [...] Negative International Consensus on MARTIN Patterns https://doi.org/10.1515/cc sv-9308-7807 For additional information, please refer to http://education.BeachMint.Bivio Networks/faq/YXZ617 (This link is being provided for informational/educational purposes only.) DNA AB (DS) CRITHIDIA,IFA NEGATIVE NEGATIVE CHROMATIN (NUCLEOSOMAL) ANTIBODY <1.0 NEG <1.0 NEGATIVE AI SM ANTIBODY <1.0 NEG <1.0 NEGATIVE AI SM/GRAPHIC ENGINEER ANTIBODY <1.0 NEG <1.0 NEGATIVE AI GRAPHIC ENGINEER ANTIBODY <1.0 NEG <1.0 NEGATIVE AI SJOGREN'S [...] aging. For additional information, please refer to http://education.TextCorner/faq/KSJ028 (This link is being provided for informational/educational [...] Reviewed date:06/24/2024 08:50:14 AM Interpretation: Performing Lab:NL1, [facility], [address] [place] [address], [phone] Santy Salas M.D. Notes/Report: Received Date: FASTING; NON-FASTING; NON-FASTING; NON-FASTING; NON-FASTING INTERPRETATION No [...] HS-CRP Reviewed date:06/17/2024 01:26:58 PM Interpretation: Performing Lab:REGINALD1, [facility], [address] [place] [address], [phone] Santy Salas M.D. Notes/Report: Received Date: FASTING; [...] for Disease Control and Prevention and the [place] [employer]. Circulation 2003; 107(3): 499-511. SED RATE BY MODIFIED WESTERG DIANA Reviewed date:06/17/2024 01:26:58 PM Interpretation: Performing Lab:REGINALD1, [facility], [address] [place] [address], [phone] Santy Salas M.D. Notes/Report: Received Date: FASTING; FASTING; FASTING; FASTING; NON-FASTING; FASTING; FA SED RATE BY MODIFIED WESTERGREN 2 < OR = 30 mm/h CBC (INCLUDES DIFF/PLT) Reviewed date:06/17/2024 01:26:58 PM Interpretation: Performing Lab:REGINALD1, [facility], [address] [place] [address], [phone] Santy Salas M.D. Notes/Report: Received Date: FASTING; [...] MPV 12.5 7.5-12.5 fL ABSOLUTE NEUTROPHILS 2817 0135-7383 cells/uL ABSOLUTE LYMPHOCYTES 6736 156-2094 cells/uL ABSOLUTE MONOCYTES 293 200-950 cells/uL ABSOLUTE EOSINOPHILS 72 15-500 cells/uL ABSOLUTE BASOPHILS 41 0-200 cells/uL NEUTROPHILS 62.6 LYMPHOCYTES 28.4 MONOCYTES 6.5 EOSINOPHILS 1.6 BASOPHILS 0.9 CREATININE Reviewed date:06/17/2024 01:26:58 PM Interpretation: Performing Lab:NL1, [facility], [address] [place] [address], [phone] Santy Salas M.D. Notes/Report: Received Date: [id number] FASTING; FASTING; FASTING; FASTING; NON-FASTING; FASTING; FA CREATININE 1.20 0.50-1.03 mg/dL EGFR 54 > OR = 60 mL/min/1.73m2 HEPATIC FUNCTION PANEL Reviewed date:06/17/2024 01:26:58 PM Interpretation: Performing Lab:NL1, [facility], [address] [place] [address], [phone] Santy Salas M.D. Notes/Report: Received Date: [id number] FASTING; FASTING; FASTING; FASTING; NON-FASTING; FASTING; FA [...] TOTAL Reviewed date:06/17/2024 01:26:58 PM Interpretation: Performing Lab:DEVYN, [facility], [address] [place] [address], [phone] Santy Salas M.D. Notes/Report: Received Date: [id number] FASTING; FASTING; FASTING; FASTING; NON-FASTING; FASTING; FA CREATINE KINASE, TOTAL 197 29-143 U/L IRON TOTAL, TIBC, SATURATION Reviewed date:06/17/2024 01:26:58 PM Interpretation: Performing Lab:DEVYN, [facility], [address] [place] [address], [address] Santy Salas M.D. Notes/Report: Received Date: FASTING; FASTING; FASTING; FASTING; NON-FASTING; FASTING; FA IRON, TOTAL 104 45-160 mcg/dL IRON BINDING CAPACITY 343 250-450 mc g/dL (calc) % SATURATION 30 16-45 % (calc) URIC ACID Reviewed date:06/17/2024 01:26:58 PM Interpretation: Performing Lab:DEVYN [facility], [address] [place] [address], [phone] Santy Salas M.D. Notes/Report: Received Date: [id number] FASTING; FASTING; FASTING; FASTING; NON-FASTING; FASTING; FA URIC ACID 5.1 2.5-7.0 mg/dL Therapeutic ta rget for gout patients: <6.0 mg/dL VITAMIN D, 25-HYDROXY, LC/MS /MS Reviewed date:06/17/2024 01:26:58 PM Interpretation: Performing Lab:DEVYN [facility], [address] [place] [address], [phone] Santy Salas M.D. Notes/Report: Received Date: [id number] FASTING; FASTING; FASTING; FASTING; NON-FASTING; FASTING; FA [...] D, (D2,D3), LC/MS/MS is recommended: order code 72649 (patients >2yrs). See Note 1 Note 1 For additional information, please refer to http://education.BeachMint.Bivio Networks/faq/OJJ932 (This link is being provided for informational/ educational purposes only.) ANGIOTENSIN CONVERTING ENZYM E (CALVIN) Reviewed date:06/17/2024 01:26:58 PM Interpretation: Performing Lab:AMD, [facility], [address], [place], [address] Suresh Arguello M.D.,PhD Notes/Report: Received Date: FASTING; FASTING; FASTING; FASTING; NON-FASTING; FASTING; FA [id number] ENZYME <5 9-67 U/L ANCA SCREEN WITH MPO AND PR3 WITH REFLEX TO ANCA TITER Reviewed date:06/17/2024 01:26:58 PM Interpretation: Performing Lab:NL1, [facility], [address] [place] [address], [phone] Santy Salas M.D. Notes/Report: Received Date: FASTING; [...] = 1.0 Antibody Detected Autoantibodies to proteinase-3 (UT-3) are accepted as characteristic for granulomatosis with polyangiitis (GPA, Masoud's), and are detectable in 95% of the histologically proven cases. The cytoplasmic IFA pattern, (c-ANCA), is based largely on autoantibody to UT-3 which serves as the primary antigen. These autoantibodies are present in active disease. PROTEIN, TOTAL AND PROTEIN E LECTROPHORESIS Reviewed date:06/17/2024 01:26:58 PM Interpretation: Performing Lab:NL1, [facility], [address] [place] [address], [phone] Santy Salas M.D. Notes/Report: Received Date: [id number] FASTING; FASTING; FASTING; FASTING; NON-FASTING; FASTING; FA [...] CALCIUM Reviewed date:06/17/2024 01:26:58 PM Interpretation: Performing Lab:[facility], [facility], [address] [place] [address], [phone] Santy Salas M.D. Notes/Report: Received Date: FASTING; [...] IMMUNOGLOBULIN Reviewed date:06/17/2024 01:26:58 PM Interpretation: Performing Lab:NL1, [facility], [address] [place] [address], [phone] Santy Salas M.D. Notes/Report: Received Date: FASTING; FASTING; FASTING; FASTING; NON-FASTING; FASTING; FA ARNOLD INTERPRETATION No monoclonal proteins detected. IMMUNOGLOBULIN A 258 47-310 mg/dL IMMUNOGLOBULIN G 895 659-7412 mg/dL IMMUNOGLOBULIN M 78 50-300 mg/dL TSH, 3RD GENERATION Reviewed date:06/17/2024 01:26:58 PM Interpretation: Performing Lab:NL1, [facility], [address] [place] [address], [phone] Santy Salas M.D. Notes/Report: Received Date: FASTING; FASTING; FASTING; FASTING; NON-FASTING; FASTING; FA TSH 0.79 Reference Range > or = 20 Years 0.40-4.50 Ranges First trimester 0.26-2.66 Second trimester 0.55-2.73 Third trimester 0.43-2.91 HEPATITIS C ANTIBODY Reviewed date:06/24/2024 08:50:14 AM Interpretation: Performing Lab:NL1, [facility], [address] [place] [address], [phone] Santy Salas M.D. Notes/Report: Received Date: FASTING; NON-FASTING; NON-FASTING; NON-FASTING; NON-FASTING HEPATITIS C ANTIBODY NON-REACTIVE NON-REACTIVE HCV antibody was non-reactive. There is no laboratory evidence of HCV infection. In most cases, no further action is required. However, if recent HCV exposure is suspected, a test for HCV RNA (test code 72327) is suggested. For additional information please refer to http://[employer] Residential.TextCorner/faq/TZS21x5 (This link is being provided for informational/ educational purposes only.) FERRITIN Reviewed date:06/17/2024 01:26:58 PM Interpretation: Performing Lab:NL1, [facility], [address] [place] [address], [phone] Santy Salas M.D. Notes/Report: Received Date: FASTING; FASTING; FASTING; FASTING; NON-FASTING; FASTING; FA FERRITIN 100 16-232 ng/mL VITAMIN B12/FOLATE, SERUM PA RAFA Reviewed date:06/17/2024 01:26:58 PM Interpretation: Performing Lab:1, [facility], [address] [place] [address], [phone] Santy Salas M.D. Notes/Report: Received Date: [id number] FASTING; FASTING VITAMIN B12 967 099-4986 pg/mL FOLATE, SERUM 15.9 Reference Range Low: <3.4 Borderline: 3.4-5.4 Normal: >5.4 HEPATITIS B SURFACE ANTIGEN W/REFL CONFIRM Reviewed date:06/17/2024 01:26:58 PM Interpretation: Performing Lab:[facility], [facility], [address] [place] [address], [phone] Santy Salas M.D. Notes/Report: Received Date: [id number] FASTING; FASTING; FASTING; FASTING; NON-FASTING; FASTING; FA HEPATITIS B SURFACE ANTIGEN NON-REACTIVE NON-REACTIVE For additional information, please refer to http://[employer]ner/faq/YTU876 (This link is being provided for informational/ educational purposes only.) HEPATITIS B CORE ANTIBODY (I GM) Reviewed date:06/17/2024 01:26:58 PM Interpretation: Performing Lab:[facility], [facility], [address] [place] [address], [phone] Santy Salas M.D. Notes/Report: Received Date: [id number] FASTING; FASTING; FASTING; FASTING; NON-FASTING; FASTING; FA HEPATITIS B CORE ANTIBODY (IGM) NON-REACTIVE NON-REACTIVE For additional information, please refer to http://education.[employer]/faq/JSX889 (This link is being provided for informational/ educational purposes only.) LYME DISEASE ANTIBODIES (IGG , IGM) WESTERN BLOT Reviewed date:06/17/2024 01:26:58 PM Interpretation: Performing Lab:NL1, [facility], [address] [place] [address], [phone] Santy Salas M.D. Notes/Report: Received Date: [id number] FASTING; FASTING; FASTING; FASTING; NON-FASTING; FASTING; FA [...] IGM) Reviewed date:06/24/2024 08:50:14 AM Interpretation: Performing Lab:DEVYN, [employer], [address] [place] [address], [phone] Santy Salas M.D. Notes/Report: Received Date: [id number] FASTING; NON-FASTING; NON-FASTING; NON-FASTING; NON-FASTING LYME AB [...] ANTIBODIES Reviewed date:06/17/2024 01:26:58 PM Interpretation: Performing Lab:DEVYN [employer], [address] [place] [address], [phone] Santy Salas M.D. Notes/Report: Received Date: [id number] FASTING; FASTING; FASTING; FASTING; NON-FASTING; FASTING; FA THYROGLOBULIN ANTIBODIES <1 < or = 1 IU/mL C-REACTIVE PROTEIN Reviewed date:06/17/2024 01:26:58 PM Interpretation: Performing Lab:DEVYN [employer], [address] [place] [address], [phone] Santy Salas M.D. Notes/Report: Received Date: [id number] FASTING; FASTING; FASTING; FASTING; NON-FASTING; FASTING; FA C-REACTIVE PROTEIN <3.0 <8.0 mg/L QUANTIFERON(R)-TB GOLD Reviewed date:06/24/2024 08:50:14 AM Interpretation: Performing Lab:DEVYN, [employer], [address] [place] [address], [phone] Santy Salas M.D. Notes/Report: Received Date: FASTING; [...] T-lymphocytes. For additional information, please refer to https://education.[employer]/faq/EIN870 (This link is being provided for informational/ educational purposes only.) HLA-B27 ANTIGEN Reviewed date:06/17/2024 01:26:58 PM Interpretation: Performing Lab:[facility], [address], [place], [phone] Suresh Arguello M.D.,PhD Notes/Report: Received Date: FASTING; FASTING; FASTING; FASTING; NON-FASTING; FASTING; FA HLA-B27 ANTIGEN Negative Negative URINALYSIS, COMPLETE W/REFLE X TO CULTURE Reviewed date:06/17/2024 01:26:58 PM Interpretation: Performing Lab:NL1, [facility], [address] [place] [address], [phone] Santy Salas M.D. Notes/Report: Received Date: FASTING; FASTING; FASTING; FASTING; NON-FASTING; FASTING; FA COLOR TNP TEST NOT PERFORMED Specimen leaked in transit. LUPUS ANTICOAGULANT EVALUATI ON WITH REFLEX Reviewed date:06/17/2024 01:26:58 PM Interpretation: Performing Lab:[facility], [address], [place], [address] Suresh Arguello M.D.,PhD Notes/Report: Received Date: FASTING; FASTING LUPUS ANTICOAGULANT see note A Lupus Anticoagulant is not detected. Common causes for a prolonged screen and negative confirmatory test include factor deficiencies or anticoagulant therapy. Reference Range: Not Detected For additional information, please refer to http://education.[employer]/faq/ENQ49w2 (This link is being provided for informational/ educational purposes only.) This interpretation is based on the following test results. PTT-LA SCREEN 51 <=40 sec DRVVT SCREEN 35 <=45 sec HEXAGONAL PHASE CONFIRM Negative Negative Reason For Referral Reason Consult Nephrology: Creat 1.47 (h), EGFR 42 (L); Diagnosis 1 Glomerular disorders in diseases classified elsewhere (N08) Referral Organization Rheumatology [facility] [employer] Referring Provider First Name RAMU Referring Provider Last Name DIXIE Referring Provider [facility] Referred Provider Brenda Read Referred Provider Specialty Nephrology Referral Priority Routine [...] Acid 1 MG TAKE 3 TABLETS BY [facility] ONCE DAILY EXCEPT ON THE METHOTREXATE [...] type I of right lower limb (disorder) (155991286499235) Complex regional pain syndrome I of right lower limb (G90.521) Active confirmed -As of 04/19/2025 pt to have TENS units placed. -OV 01.26.25 ongoing pain, peripheral nerve stimulator to be placed 02.04.25 per Pain Clinic; OV 12.29.2024 Pt. on LDN 6mg and continues working with pain clinic and had LS injection 11/2024 which was ineffective. Problem Psoriatic spondylitis (079356403) Psoriatic spondylitis (L40.53) Active confirmed -As of [...] Rt foot surgery . Problem Solitary sacroiliitis (209598918) Sacroiliitis, not elsewhere classified (M46.1) Active confirmed Problem Cervical spondylosis without myelopathy (169191254) Spondylosis without myelopathy or radiculopathy, cervical region (M47.812) Active confirmed Problem Spondylosis without myelopathy or radiculopathy, lumbosacral region (M47.817) Active confirmed Problem Glomerular disease (865052253) Glomerular disorders in diseases classified elsewhere (N08) Active confirmed Problem Perimenopausal disorder (634201737) Other specified menopausal and perimenopausal disorders (N95.8) Active confirmed Problem Arthritis of spine (disorder) (665905913) Other specified inflammatory spondylopathies , 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) Active confirmed Seronegative Spondyloarthriti s ( inflammatory back pain that is better with moving, not relieved by rest, prolonged morning stiffness 2 hours, pain in large joints:pain 7-10/10 RT hip, lower back, SI joints, h/o enthesitis (plantar fasciitis,trigge r finger, costochondritis) Problem Gastroesophageal reflux disease (251459230) GERD (gastroesophage al reflux disease) (K21.9) Active confirmed Problem Dry eyes (654756055) Dry eyes (H04.123) Active confirmed Problem Raynaud phenomenon (423416484) Raynaud phenomenon (I73.00) Active confirmed Vital Signs Heart Rate 57 /min 04/19/2025 Temperature 35.4 C 04/19/2025 Blood pressure diastolic 62 mm Hg 04/19/2025 Height 165.8 cm 04/19/2025 Blood pressure systolic 115 mm Hg 04/19/2025 Weight 73.8 kg 06/04/2024 BMI 26.84 kg/m2 06/04/2024 Encounters Encounter Location Date Provider Diagnosis [facility] [address] [id number] 06/04/2024 Briseida Cruz MARTIN positive R76.8 ; [...] R94.4 and Dry eyes H04.123 [facility] [address] [id number] 07/08/2024 Briseida Cruz MARTIN positive R76.8 ; Abnormal results of kidney function studies R94.4 ; Disorder of bone density and structure, unspecified M85.9 ; Raynaud phenomenon I73.00 ; GERD (gastroesophageal reflux disease) K21.9 ; Fatigue R53.83 ; Sacroiliitis, not elsewhere classified M46.1 and Effusion, right hand M25.441 [facility] [address] [id number] 08/19/2024 Briseida Cruz MARTIN positive R76.8 ; Disorder of bone density and structure, unspecified M85.9 ; Raynaud phenomenon I73.00 ; Fatigue R53.83 ; Sacroiliitis, not elsewhere classified M46.1 ; Abnormal results of kidney function studies R94.4 and Other specified inflammatory spondylopathies, site unspecified M46.80 [facility] [address] [place] [id number] 11/12/2024 RAMU COLIN MARTIN positive R76.8 ; Psoriatic spondylitis L40.53 ; Disorder of bone density and structure, unspecified M85.9 ; Raynaud phenomenon I73.00 ; Fatigue R53.83 ; Sacroiliitis, not elsewhere classified M46.1 ; Abnormal results of kidney function studies R94.4 ; Effusion, left hand M25.442 and Complex regional pain syndrome I of right lower limb G90.521 [facility] [address] [place] [id number] 12/29/2024 Chas Acosta MARTIN positive R76.8 ; [...] shoulder lesions, right shoulder M75.81 [facility] [address] [id number] 01/26/2025 Briseida Cruz Psoriatic spondylitis L40.53 ; MARTIN positive R76.8 ; Fatigue R53.83 ; Disorder of bone density and structure, unspecified M85.9 and Complex regional pain syndrome I of right lower limb G90.521 [facility] [address] [id number] 03/04/2025 Briseida Cruz Psoriatic spondylitis L40.53 ; MARTIN positive R76.8 ; Fatigue R53.83 ; Disorder of bone density and structure, unspecified M85.9 and Complex regional pain syndrome I of right lower limb G90.521 [facility] [employer] [address] [id number] 04/19/2025 Briseida Cruz Psoriatic spondylitis L40.53 ; MARTIN positive R76.8 ; Fatigue R53.83 ; Abnormal results of kidney function studies R94.4 ; Complex regional pain syndrome I of right lower limb G90.521 and Disorder of bone density and structure, unspecified M85.9 [facility] [employer] [address] [id number] 05/27/2024 RAMU COLIN [facility] [employer] [address] [id number] 07/10/2024 RAMU COLIN [facility] [employer] [address] [id number] 08/03/2024 Briseida Cruz [facility] [employer] [address] [id number] 02/22/2025 RAMU COLIN Psoriatic spondylitis L40.53 [facility] [employer] [address] [id number] 04/14/2025 Briseida Cruz [facility] [employer] [address] [place] [id number] 04/19/2025 Briseida Cruz Assessments Encounter Date Diagnosis (ICD Code) Assessment Notes Treatment Notes Treatment Clinical Notes Section Notes 06/04/2024 Disorder of bone density and structure, unspecified (ICD-10 - M85.9) 06/04/2024 MARTIN positive (ICD-10 - R76.8) 53yo female w/PMH +MARTIN 1:320 (2021 [facility]), IBS-C, Hypertension, Fibromyalgia and [...] Labs Now RTC in 4-5 weeksBriseida Cruz [facility] [employer]. Pt reviewed by Dr. Colin 07/08/2024 Abnormal [...] up. 53yo female w/PMH +MARTIN 1:320 (2021 [facility]), IBS-C, Hypertension, Fibromyalgia and [...] lesion.; cc PMD.RTC in 6 weeksBriseida Cruz [employer]-. Pt reviewed by Dr. Quezada Naltrexone 1.5 mg once a day x 2 weeks, 3 mg once a day x 2 weeks, then 4.5 mg a day. The prescription for Low Dose Naltrexone is sent to the compounding pharmacy ([facility] [facility] (ph: [phone]) or [facility] (ph: [phone])) 08/19/2024 Disorder of bone density and structure, unspecified (ICD-10 - M85.9) 08/19/2024 MARTIN positive (ICD-10 - R76.8) -As of 08/19/2024 she had ongoing joint pain despite LDN. Pt now on LDN 4.5 mg maintenance dose. Will resume LDN as pt to have foot surgery soon. Will consider adding Methotrexate once cleared by surgeon. Repeat MARTIN neg . Negative MARTIN subserologies:,neg [id number]-[id number] P-Scl 70 aB, neg Centromere ab. Negative Antiphospholipid antibody panel (neg aCL, [id number], neg LAC). No convincing evidence of autoimmune [...] up. 53yo female w/PMH +MARTIN 1:320 (2021 [facility]), IBS-C, Hypertension, Fibromyalgia and [...] to this officeRTC in 8 weeksBriseida Cruz [facility]. Pt reviewed by Dr. Cardenas Naltrexone 4.5 mg a day. The prescription for Low Dose Naltrexone is sent to the compounding pharmacy ([facility] (ph: [phone]) or [facility] (ph: [phone]) RAMU COLIN 08/19/2024 05:20:19 PM EST > [...] Repeat MARTIN neg . Negative MARTIN subserologies:,neg [id number] P-Scl 70 aB, neg Centromere ab. Negative Antiphospholipid antibody panel (neg aCL, [id number], neg LAC). No convincing evidence of autoimmune [...] up. 53yo female w/PMH +MARTIN 1:320 (2021 [facility]), IBS-C, Hypertension, Fibromyalgia and [...] Arthritis, will consider bDMARD. LT HAND XR. 12/29/2024 Psoriatic spondylitis (ICD-10 - L40.53) - OV . Pt. on LDN 6mg. On going fatigue, [...] MARTIN positive (ICD-10 - R76.8) - OV . Pt. on LDN 6mg and continues working [...] Repeat MARTIN neg . Negative MARTIN subserologies:,neg [id number] P-Scl 70 aB, neg Centromere ab. Negative Antiphospholipid antibody panel (neg aCL, [id number], neg LAC). No convincing evidence of autoimmune [...] up. 53yo female w/PMH +MARTIN 1:320 (2021 [facility]), IBS-C, Hypertension, Fibromyalgia and [...] and (B) Heberden and Alvarez's' nodes. 01/26/2025 Psoriatic spondylitis (ICD-10 - L40.53) -As [...] weeks. Pt reviewed by Dr. Dixie Cruz [facility]-. Pt reviewed by Dr. Colin 01/26/2025 MARTIN [...] Repeat MARTIN neg . Negative MARTIN subserologies:,neg [id number]-[id number] P-Scl 70 aB, neg Centromere ab. Negative Antiphospholipid antibody panel (neg aCL, [id number], neg LAC). No convincing evidence of autoimmune [...] up. 53yo female w/PMH +MARTIN 1:320 (2021 [facility]), IBS-C, Hypertension, Fibromyalgia and [...] weeks. Pt reviewed by Dr. Dixie Cruz [facility]. Pt reviewed by Dr. Turner in [...] had LS injection which was ineffective. OV 3..25 pt developed CRPS (Chronic Regional Pain Syndrome) after Rt foot surgery , scheduled for spinal injection 12.10.24. Flare of Left buttock pain, diffuse MSK pain. Psoriatic Arthritis to consider. No evidence of MARTIN associated autoimmune inflammatory Connective Tissue Disease. She had ongoing joint pain despite LDN. Repeat MARTIN neg . Negative MARTIN subserologies:,neg [id number]-SM-[id number] P-Scl 70 aB, neg Centromere ab. Negative Antiphospholipid antibody panel (neg aCL, [id number], neg LAC). No convincing evidence of autoimmune [...] up. 53yo female w/PMH +MARTIN 1:320 (2021 [facility]), IBS-C, Hypertension, Fibromyalgia and [...] tenderness and (B) Heberden and Alvarez's' nodes. 04/19/2025 Psoriatic spondylitis (ICD-10 - L40.53) -As [...] Consult Nephrology (Dr. Read, Dr. Akers ph: [phone]) re: labs 04/13/2025: Creat 1.47 (h), EGFR 42 (L) Discussed suprascapular NB with pt, pt declined d/t high deductible- consider PT for neck pain once PT for foot pain completed Follow up with pain clinic for Tens unit placement for Rt foot pain Follow up with Dr. Abrams podiatry re ongoing Rt foot pain RTC in 8 weeks Briseida Cruz [employer]. Pt reviewed by Dr. Colin 04/19/2025 MARTIN [...] Repeat MARTIN neg . Negative MARTIN subserologies:,neg [id number]-[id number] P-Scl 70 aB, neg [employer]re ab. Negative Antiphospholipid antibody panel (neg aCL, [id number], neg LAC). No convincing evidence of autoimmune [...] up. 53yo female w/PMH +MARTIN 1:320 (2021 [facility]), IBS-C, Hypertension, Fibromyalgia and [...] tenderness and (B) Heberden and Alvarez's' nodes. 02/22/2025 Psoriatic spondylitis (ICD-10 - L40.53) -As [...] developed after Rt foot surgery . 04/19/2025 Fatigue (ICD-10 - R53.83) 01/26/2025 Fatigue (ICD-10 - R53.83) 03/04/2025 Fatigue (ICD-10 - R53.83) 12/29/2024 Disorder of bone density and structure, unspecified (ICD-10 - M85.9) 08/19/2024 Raynaud phenomenon (ICD-10 - I73.00) 11/12/2024 Disorder of bone density and structure, unspecified (ICD-10 - M85.9) 07/08/2024 Disorder of bone density and structure, unspecified (ICD-10 - M85.9) 06/04/2024 Raynaud phenomenon (ICD-10 - I73.00) Raynau'd phenomenon - try Nutrasal Magnesium L-arginine cream 2-3 x a day to minimize RP 06/04/2024 GERD (gastroesophagea l reflux disease) (ICD-10 - K21.9) 11/12/2024 Raynaud phenomenon (ICD-10 - I73.00) 07/08/2024 Raynaud phenomenon (ICD-10 - I73.00) 08/19/2024 Fatigue (ICD-10 - R53.83) 12/29/2024 Raynaud phenomenon (ICD-10 - I73.00) 03/04/2025 Disorder of bone density and structure, unspecified (ICD-10 - M85.9) 01/26/2025 Disorder of bone density and structure, unspecified (ICD-10 - M85.9) 04/19/2025 Abnormal results of kidney function studies (ICD-10 - R94.4) -As of 04/19/2025 labs 04/13/2025 show Creat 1.47 (h), EGFR 42 (L). Nephrology referral given. 04/19/2025 Complex regional pain syndrome I of right lower limb (ICD-10 - G90.521) -As of 04/19/2025 pt to have TENS units placed. -OV 5.20.25 ongoing pain, peripheral nerve stimulator to be placed 5.29.25 per Pain Clinic; OV 4.22.2024 Pt. on LDN 6mg and continues working with pain clinic and had LS injection 11/2024 which was ineffective. 03/04/2025 Complex regional pain syndrome I of right lower limb (ICD-10 - G90.521) OV 5.20.25 ongoing pain, peripheral nerve stimulator to be placed 5.29.25 per Pain Clinic; OV 4.22.2024 Pt. on LDN 6mg and continues working with pain clinic and had LS injection 11/2024 which was ineffective. 12/29/2024 Fatigue (ICD-10 - R53.83) 01/26/2025 Complex regional pain syndrome I of right lower limb (ICD-10 - G90.521) OV 5.20.25 ongoing pain, peripheral nerve stimulator to be placed 5.29.25 per Pain Clinic; OV 4.22.2024 Pt. on LDN 6mg and continues working with pain clinic and had LS injection 11/2024 which was ineffective. 11/12/2024 Fatigue (ICD-10 - R53.83) 06/04/2024 Fatigue (ICD-10 - R53.83) 08/19/2024 Sacroiliitis, not elsewhere classified (ICD-10 - M46.1) 07/08/2024 GERD (gastroesophagea l reflux disease) (ICD-10 - K21.9) 07/08/2024 Fatigue (ICD-10 - R53.83) 06/04/2024 Spondylosis without myelopathy or radiculopathy, cervical region (ICD-10 - M47.812) 11/12/2024 Sacroiliitis, not elsewhere classified (ICD-10 - M46.1) 08/19/2024 Abnormal results of kidney function studies (ICD-10 - R94.4) 12/29/2024 Sacroiliitis, not elsewhere classified (ICD-10 - M46.1) 04/19/2025 Disorder of bone density and structure, unspecified (ICD-10 - M85.9) 12/29/2024 Abnormal results of kidney function studies [...] Sacroiliitis, not elsewhere classified (ICD-10 - M46.1) 07/08/2024 Effusion, right hand (ICD-10 - M25.441) 06/04/2024 Trochanteric bursitis, left hip (ICD-10 - M70.62) 12/29/2024 Complex regional pain syndrome I of right lower limb (ICD-10 - G90.521) - OV 4..2024 Pt. on LDN 6mg and continues working with pain clinic and had LS injection 11/2024 which was ineffective. 11/12/2024 Effusion, left hand (ICD-10 - M25.442) 11/12/2024 Complex regional pain syndrome I of right lower limb (ICD-10 - G90.521) 06/04/2024 Other specified menopausal and perimenopausal disorders (ICD-10 - N95.8) 12/29/2024 Other specified inflammatory spondylopathies, site unspecified (ICD-10 - M46.80) Seronegative Spondyloarthritis ( inflammatory back pain that is better with moving, not relieved by rest, prolonged morning stiffness 2 hours, pain in large joints:pain 7-1010 RT hip, lower back, SI joints, h/o enthesitis (plantar fasciitis,trigger finger, costochondritis) 12/29/2024 Other shoulder lesions, right shoulder (ICD-10 - M75.81) 06/04/2024 Abnormal results of kidney function studies [...] Joints 07/08/2024 Next Appt Details Provider Name:Briseida Anthony , 06/14/2025 08:40:00 AM, [address] [place] [address], [phone], Insurance Providers Payer Name Payer Address Payer Phone Subscriber Number Group Number Insured Name Patient Relationship to Insured Coverage Start Date Coverage End Date FERNANDO KOWALSKI [address] [facility] [place] [id number] [phone] [id number] Fifi Carter Self - patient is the insured Medical (General) History Medical History History ICD Code arthritis: Yes Hypertention: Yes Fibromyalgia: YES Migraine Headaches w/o aura: Yes Costochondritis: Yes Positive MARTIN 1:320 sp 2021: YES RLE CRPS chronic regional pain syndrome 1.2024 Surgical History Surgery Date(Month/Year) Breast reduction 3.2.2021 Partial Hysterectomy 2008 RT foot surgery ([facility]) Xenia Leal, recently diagnosed w/CRPS chronic regional pain syndrome, doing PT and seeing pain mgmt 1.
--- OUTSIDE RECORDS SUMMARY | 2025-04-28 09:50 | XMS_ITS | Clinical Summary ---
Author Organization [facility] [place] [address] Phone Care Team Providers Care Crew Caller Name Role Phone Vinicio Capellan Primary Care Provider [phone] Medications rosuvastatin (CRESTOR) 40 mg tablet TAKE 1 TABLET BY MOUTH EVERYDAY AT BEDTIME 90 tablet 2 09/14/2024 Active lisinopril-hydr oCHLOROthiazide (PRINZIDE,ZESTO RETIC) 10-12.5 mg per tablet TAKE 1 TABLET BY MOUTH EVERY DAY 90 tablet 1 12/17/2024 Active Immunizations Name Administration Dates Next Due [facility] SARS-CoV-2 COVID-19, mRNA, LNP-S, preservative free [...] age to complete this topic Care Teams Crew Caller Relationship Specialty Start Date End Date Vinicio Capellan [address] [place] [id number] PCP - General Internal Medicine 09/14/21
== END 2025-04-28 09:25 | disposition home or self-care (01) ==
LOC: HO.PMC 09:08
PROVIDERS: PCP Internal Medicine; Visit Provider Registered Nurse Emergency
DX: G90.529 Complex regional pain syndrome I of unspecified lower limb (principal); M79.671 Pain in right foot; Z98.890 Other specified postprocedural states; Z87.39 Personal history of other diseases of the musculoskeletal system and connective tissue
CPT/HCPCS: 99213

== ENCOUNTER 2025-05-19 15:42 | Outpatient (AMB) | payer BC, SELFPAY ==
--- OUTSIDE RECORDS SUMMARY | 2024-07-08 14:02 | XMS_ITS | Encounter Summary ---
Author Organization [facility] [place] [address] Care Team Providers Care Inspector Fuel Hose Name Role Phone Vinicio Capellan Primary Care Provider [phone] Encounter Details Date Type Department Care Team (Latest Contact Info) Description 07/08/2024 2:02 PM EDT Hospital Encounter TH HISTORIC ENCOUNTERS EASTERN CONVERSION ONLY Other specified abnormal immunological findings in serum Social History Tobacco Use Types Packs/Day Years Used Date Smoking Tobacco: Never Smokeless Tobacco: Never Alcohol Use Standard Drinks/Week Comments Not Currently 0 (1 standard drink = 0.6 oz pur e alcohol) Comments Unknown Sex and Gender Information Value Date Recorded Sex Assigned at Not on file Legal Sex Female 10:48 AM EST Gender Identity Not on file Sexual Orientation Not on file documented as of this encounter Last Filed Vital Signs Vital Sign Reading Time Taken Comments Blood Pressure - - Pulse - - Temperature - - Respiratory Rate - - Oxygen Saturation - - Inhaled Oxygen Concentration - - Weight 70.3 kg (155 lb) 09/14/2021 1:44 PM EST Height 165.1 cm (5' 5 ) 09/14/2021 1:44 PM EST Body Mass Index 25.79 09/14/2021 1:44 PM EST documented in this encounter Plan of Treatment Not on file documented as of this encounter Procedures Procedure Name Priority Date/Time Associated Diagnosis Comments XR CHEST PA AND LAT Routine 07/08/2024 2:14 PM EDT Other specified abnormal immunological findings in serum documented in this encounter Results * XR CHEST PA AND LAT (07/08/2024 2:14 PM EDT) Anatomical Region Laterality Modality Radiographic Juany ging 07/08/2024 1:58 PM EDT Narrative 07/08/2024 2:19 PM EDT Exam: X-ray chest 2 views INDICATION: MARTIN positive Bases appear clear. No infiltrates or consolidations. Heart size is normal without failure. Incidental pectus carinatum of the sternum. IMPRESSION: No infiltrate seen Report reviewed and signed by : Dr. Syed Pierre on 07/08/2024 2:19 PM. Workstation Name - [email or web address] Procedure Note Syed Pierre MD - 07/11/2024 Exam: X-ray chest 2 views INDICATION: MARTIN positive Bases appear clear. No infiltrates or consolidations. Heart size isnormal without failure. Incidental pectus carinatum of the sternum. IMPRESSION: No infiltrate seen Report reviewed and signed by : Dr. Syed Pierre on 07/08/2024 2:19 PM.Workstation Name - [email or web address] Briseida Cruz [employer] IMG XR PROCEDURES Final Resul t documented in this encounter Visit Diagnoses Diagnosis Other specified abnormal immunological findings in serum documented in this encounter Care Teams Inspector Fuel Hose Relationship Specialty Start Date End Date Timi Jeremyaaron [address] [place] [id number] PCP - General Internal Medicine 09/14/21 documented as of this encounter
--- OUTSIDE RECORDS SUMMARY | 2025-02-17 07:20 | XMS_ITS ---
Author Organization [facility] Address [address] [place] [phone] Care Team Providers Care Air Bag Builder Name Role Phone Omayra GIRALDO, Sebas Primary Care Provider Unavailab RAMU Escalante Unavailable [phone] Briseida Cruz Unavailable [phone] Encounters Encounter Location Date Provider Diagnosis [facility] [address] [id number] 02/17/2025 Briseida Cruz Plan Of Treatment Next Appt Details Provider Name:Briseida Cruz , 06/14/2025 08:40:00 AM, [address] [place] [address], [id number], Progress Notes * Fifi CARTER MDOB:[birth year] (54 yo F)Acc No.[id number]:02/17/2025 Progress Notes Patient: Cathie GOMEZ Fifi Guaman Provider: Nikolai Cruz APRN :1970 A ge:54 Y S ex:Female Date:02/17/2025 Phone: Address:[address] [place] [address] [place] [id number] Pcp:Sebas Cutler MD Subjective: * Chief Complaints: * * Medical History: Objective: * Vitals: Assessment: Plan: * Treatment: * * Electronic signature of Morgan Cruz APRN on 05/19/2025 at 06:30 PM EDT Sign off status: Pending * Provider: Nikolai Cruz APRN Date: 02/17/2025 Generated for Printi ng/Faxing/eTransmitting on: 05/19/2025 06:30 PM EDT
--- OUTSIDE RECORDS SUMMARY | 2025-03-08 05:30 | XMS_ITS ---
Author Organization [facility] Address [address] [place] [phone] Care Team Providers Care Station Mechanic Name Role Phone Sebas Cutler MD Primary Care Provider Unavailab RAMU Escalante Unavailable [phone] REASON FOR VISIT cancel d/t the doe of appt Encounters Encounter Location Date Provider Diagnosis [facility] [address] [id number] 03/08/2025 RAMU COLIN Plan Of Treatment Next Appt Details Provider Name:Briseida Cruz , 06/14/2025 08:40:00 AM, [address] [place] [address], [phone], Progress Notes * Fifi CARTER MDOB:[birth year] (54 yo F)Acc No.[id number]:03/08/2025 Progress Note Patient: Cathie GOMEZ Fifi Rowena Provider: Deny Colin MD, FACR :1970 A ge:54 Y S ex:Female Date:03/08/2025 Phone: Address:[address] [place], [place] [address] Pcp:Sebas Cutler MD Subjective: * Chief Complaints: * 1 . Cancel d/t the doe of appt. * Medical History: Objective: * Vitals: Assessment: Plan: * Treatment: * * Electronic signature of JACEY COLIN MD on 05/19/2025 at 06:30 PM EDT Sign off status: Pending * Provider: Deny Colin MD, FACR Date: 03/08/2025 Generated for Davidi arley/Famarie/eTransmitting on: 05/19/2025 06:30 PM EDT
[2025-05-19 15:41] VITALS: BP 128/80; PULSE 70; O2SAT 98; BMI 27.8
--- NOTE | 2025-05-19 15:41 | HO.NEPHOV ---
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 She has a history of hypertension she was on lisinopril with hydrochlorothiazide. In March 2025 serum creatinine was 1.1 mg/dL with a EGFR of 15 mL/minute. She has received 2 doses of Taltz As of April 14 creatinine was 1.49 with a EGFR of 49 mL/minute. She has been referred for evaluation of decline in GFR. She does not take any NSAIDs or Hassan 2 inhibitors. The lisinopril hydrochlorothiazide was switched to lisinopril 10 mg. Clonidine was added. Remote history of kidney stones. No recent history of any kidney stones. No hematuria no polyuria polydipsia. No rash. No pain or swelling of small joints. Father had end stage renal disease and was on dialysis. [facility] Medical History (Updated 05/19/25 @ 15:55 by Moose Layton MD) Hypercholesterolemia Hypertension Depression Anxiety Migraine Headache Fibromyalgia Surgical History H/O oral surgery H/O: hysterectomy H/O tubal ligation Hx of section Review of Systems Const Denies anorexia, Denies fever(s) and Denies weakness Eyes Denies blurry vision Card Denies no additional complaints and Denies dyspnea Resp Reports no additional complaints, Reports cough and Denies dyspnea GI Denies melena and Denies diarrhea Denies hematuria Musc Denies tingling Skin/Breast Denies rash Neuro Denies focal weakness, Denies tingling, Denies tremor(s) and Denies weakness Physical Exam Vital Signs: Last Vital Signs Pulse 70 05/19/25 15:41 BP 128/80 05/19/25 15:41 Pulse Ox 98 05/19/25 15:41 Oxygen Delivery Method Room Air 05/19/25 15:41 BMI result Body Mass Index 27.8 Comfortable Neck supple no JVD. Lungs entry equal no rales. Heart S1-S2 heard no gallop or rub. Abdomen soft nontender. Neuro alert awake oriented. No asterixis. Extremities no edema. Results Reviewed Results Reviewed: Labs was reviewed Assessment & Plan Assessment & Plan (1) HTN (hypertension): Code(s): I10 - Essential (primary) hypertension Category: Medical (2) CKD (chronic kidney disease): Code(s): N18.9 - Chronic kidney disease, unspecified Category: Medical Plan 54-year-old woman with a psoriatic spondylitis and hypertension. Her creatinine was 1.12 months ago which just increased to 1.46. She has sustained acute kidney injury. Differential diagnosis at this point to include hypoperfusion. Other possibilities including underlying glomerular nephritis or interstitial disease should be ruled out. Less likely possibility would include obstructive uropathy. Plan Workup initiated for YARIEL including renal ultrasonogram. At present blood pressure is well controlled. No changes were made to the antihypertensive medications. Agree with discontinue hydrochlorothiazide. Encouraged her to avoid NSAIDs and other nephrotoxic agents. Further management will depend on the outcome of the above baseline investigations. Orders: Orders UA and rflx microscopic 2 Weeks I10 - Essential (primary) hypertension, N18.9 - Chronic kidney disease, unspecified US renal BI 2 Weeks I10 - Essential (primary) hypertension, N18.9 - Chronic kidney disease, unspecified Basic Metabolic Panel 2 Weeks I10 - Essential (primary) hypertension, N18.9 - Chronic kidney disease, unspecified Creatinine 2 Weeks I10 - Essential (primary) hypertension, N18.9 - Chronic kidney disease, unspecified Total Protein Urine Random 2 Weeks I10 - Essential (primary) hypertension, N18.9 - Chronic kidney disease, unspecified Coding Level of Care Code New Pt Level 4 (01197) Diagnoses HTN (hypertension) I10 CKD (chronic kidney disease) N18.9
--- OUTSIDE RECORDS SUMMARY | 2025-05-19 18:29 | XMS_ITS | Clinical Summary ---
Author Organization [facility] Address [address] [place] [address] Phone Care Team Providers Care Regional Director Name Role Phone Sebas Cutler MD Primary [...] 02/18/2022 Overview (10/10/2023): 1:320 sp (2021 - [facility]) ENAs neg 03/2022 Assessment & Plan [...] in small amounts Maintain close f/u with school psychological examiner For mood Assessment & Plan (02/18/2022 10:38 [...] in small amounts Maintain close f/u with school psychological examiner Assessment & Plan (02/14/2021 8:44 PM EDT): [...] in small amounts Maintain close f/u with school psychological examiner for dose adjustment Resolved Problems Problem Noted [...] in small amounts Maintain close f/u with school psychological examiner for mood Assessment & Plan (11/15/2020 3:48 [...] injection activity was discussed with the patient. [facility] # [id number] [facility] # [id number] Lot # [id number] Exp. 09/30 Patient will [...] 07/19/2022, 07/2 05/2022, 11/15/2020, Additional history exists INFLUENZA VACCINE (#1) 2025 07/04/2021 COVID-19 VACCINE (2 - 2024- season) 2025 07/04/2021 SCREENING FOR DIABETES 07/19/2025 07/19/2022 SMOKING [...] EST) SODIUM 139 133 - 146 mmol/L [facility] POTASSIUM 4.6 3.3 - 5.1 mmol/L [facility] CHLORIDE 100 96 - 108 mmol/L [facility] CO2 30 21 - 35 mmol/L [facility] BUN 24(H) 6 - 19 mg/dL [facility] CREATININE 1.10 0.5 - 1.5 mg/dL [facility] GLUCOSE 100(H) 70 - 99 mg/dL [facility] ALBUMIN 4.8 3.9 - 4.8 g/dL [facility] TOTAL PROTEIN 7.1 6.5 - 8.0 g/dL [facility] CALCIUM 10.0 8.4 - 10.3 mg/dL [facility] ALKALINE PHOSPHATASE 86 39 - 117 U/L [facility] TOTAL BILIRUBIN 0.2 0.0 - 1.2 mg/dL [facility] AST 33 0 - 37 U/L [facility] ALT 37 0 - 40 U/L [facility] GLOBULIN 2.3 1 - 4.8 g/dL [facility] EGFR 60 >59 mL/min/1.7 3m2 [facility] Comment:Estimated glomerular filtration rate calculated using the CKD-EPI refit equation. ANION GAP 14 10 - 20 mmol/L [facility] Blood 07/19/2022 9:39 AM EST 07/19/2022 9:40 AM EST us Fifi ORTIZ LAB BLOOD ORDERABLES Fin al Result Performing Organization Address City/State/[facility] Co de Phone Number [address] [address] from Last 3 Months or Most Recently Relevant to Health Maintenance Insurance COUNT INCLUDES THE [facility] Member Subscriber Plan / Payer (Ef fective 2019-Present) Name:Fifi Carter Relation to Subscriber:Spouse Name:AMILCAR CARTER Date of :1900 (Home) Address: [address] [place] [address] Payer ID:Not on file Type:[facility] Address: [address] [facility] Member Subscriber Plan / Payer (Ef fective 2019-Present) Name:Fifi Carter Relation to Subscriber:Spouse Name:AMILCAR CARTER Date of :1900 (Home) Address: [address] [place] [address] Payer ID:Not on file Type:O Address: [address] [facility] Care Teams Regional Director Relationship Specialty Start Date End Date Sebas Cutler MD [address] [place] [address] PCP - General Internal Medicine 07/08/19 Additional Source Comments The information contained in this document represents components of the legal health record. It is not the complete legal health record.[facility]
--- OUTSIDE RECORDS SUMMARY | 2025-05-19 18:29 | XMS_ITS | Clinical Summary ---
Author Organization [facility] Address [address] [place] [address] Care Team Providers Care Watch Supervisor Name Role Phone Sebas Cutler MD Primary Care Provider [phone] Sebas Cutler MD Unavailable [phone] Allergies Active Allergy Reactions Criticality Noted [...] Vaccine (1 of 2) 2019 Influenza Vaccine 04/09/2025 COVID-19 Vaccine (3 - 2024-26 season) 2025, 12/03/[address] [facility] Advance Directives * Full Code (Latest Code Status on File) Date Activated Date Inactivated Comments 11/08/2021 7:18 AM Care Teams Watch Supervisor Relationship Specialty Start Date End Date Sebas Cutler MD PCP - General 10/12/09 Sebas Cutler MD [address] [place] [address] PCP - [place] [employer] Attributed 11/08/23
--- OUTSIDE RECORDS SUMMARY | 2025-05-19 18:30 | XMS_ITS | Patient Health Record ---
Author Organization [facility] Address [address] [place] [phone] Care Team Providers Care Pairer Substandard Name Role Phone Omayra GIRALDO, Sebas Primary Care Provider Unavailab RAMU Escalante Unavailable [phone] Briseida Cruz Unavailable [phone] Chas Acosta Unavailable [phone] Allergies Allergen (clinical drug ingredient) Drug/Non Drug Allergy documented on EMR Reaction Allergy Type Onset Date Status tramadol Ultram Unknown Drug Allergy Active Results Component Value Reference Range Notes IMMUNOFIXATION IGA,IGG,IGM Q T.IMMUNOFIXATION SERUM IMMUNOGLOBULIN Reviewed date:06/17/2024 01:26:58 PM Interpretation: Performing Lab:NL1, [facility], [address] [place] [address], [address] Santy Salas M.D. Notes/Report: Received Date: FASTING; FASTING; FASTING; FASTING; NON-FASTING; FASTING; FA ARNOLD INTERPRETATION No monoclonal proteins detected. IMMUNOGLOBULIN A 258 47-310 mg/dL IMMUNOGLOBULIN G 039 775-2443 mg/dL IMMUNOGLOBULIN M 78 50-300 mg/dL PTH, INTACT AND CALCIUM Reviewed date:06/17/2024 01:26:58 PM Interpretation: Performing Lab:NL1, [facility], [address] [place] [address], [address] Santy Salas M.D. Notes/Report: Received Date: FASTING; [...] Reviewed date:06/17/2024 01:26:58 PM Interpretation: Performing Lab:NL1, [facility], [address] [place] [address], [address] Santy Salas M.D. Notes/Report: Received Date: FASTING; [...] cell dyscrasias are a possible clinical diagnosis. ANCA SCREEN WITH MPO AND PR3 WITH REFLEX TO ANCA TITER Reviewed date:06/17/2024 01:26:58 PM Interpretation: Performing Lab:1, [facility], [address] [place] [address], [address] Santy Salas M.D. Notes/Report: Received Date: FASTING; [...] = 1.0 Antibody Detected Autoantibodies to proteinase-3 (OH-3) are accepted as characteristic for granulomatosis with polyangiitis (GPA, Masoud's), and are detectable in 95% of the histologically proven cases. The cytoplasmic IFA pattern, (c-ANCA), is based largely on autoantibody to OH-3 which serves as the primary antigen. These autoantibodies are present in active disease. ANGIOTENSIN CONVERTING ENZYM E (CALVIN) Reviewed date:06/17/2024 01:26:58 PM Interpretation: Performing Lab:AMD, [facility], [address] , [place], [address] Suresh Arguello M.D.,PhD Notes/Report: Received Date: FASTING; FASTING; FASTING; FASTING; NON-FASTING; FASTING; FA [id number] ENZYME <5 9-67 U/L VITAMIN D, 25-HYDROXY, LC/MS /MS Reviewed date:06/17/2024 01:26:58 PM Interpretation: Performing Lab:NL1, [facility], [address] [place] [address], [address] Santy Salas M.D. Notes/Report: Received Date: [id number] FASTING; FASTING; FASTING; FASTING; NON-FASTING; FASTING; FA [...] D, (D2,D3), LC/MS/MS is recommended: order code [id number] (patients >2yrs). See Note 1 Note 1 For additional information, please refer to http://education.Latest Medical/faq/HMV175 (This link is being provided for informational/ educational purposes only.) URIC ACID Reviewed date:06/17/2024 01:26:58 PM Interpretation: Performing Lab:DEVYN, [facility], [address] [place] [address], [address] Santy Salas M.D. Notes/Report: Received Date: [id number] FASTING; FASTING; FASTING; FASTING; NON-FASTING; FASTING; FA URIC ACID 5.1 2.5-7.0 mg/dL Therapeutic ta rget for gout patients: <6.0 mg/dL IRON TOTAL, TIBC, SATURATION Reviewed date:06/17/2024 01:26:58 PM Interpretation: Performing Lab:DEVYN, [facility], [address] [place] [address], [address] Santy Salas M.D. Notes/Report: Received Date: [id number] FASTING; FASTING; FASTING; FASTING; NON-FASTING; FASTING; FA IRON, TOTAL 104 45-160 mcg/dL IRON BINDING CAPACITY 343 250-450 mc g/dL (calc) % SATURATION 30 16-45 % (calc) CREATINE KINASE, TOTAL Reviewed date:06/17/2024 01:26:58 PM Interpretation: Performing Lab:DEVYN [facility], [address] [place] [address], [address] Santy Salas M.D. Notes/Report: Received Date: [id number] FASTING; FASTING; FASTING; FASTING; NON-FASTING; FASTING; FA CREATINE KINASE, TOTAL 197 29-143 U/L HEPATIC FUNCTION PANEL Reviewed date:06/17/2024 01:26:58 PM Interpretation: Performing Lab:DEVYN, [facility], [address] [place] [address], [address] Santy Salas M.D. Notes/Report: Received Date: [id number] FASTING; FASTING; FASTING; FASTING; NON-FASTING; FASTING; FA [...] Reviewed date:06/17/2024 01:26:58 PM Interpretation: Performing Lab:NL1, [facility], [address] [place] [address], [address] Santy Salas M.D. Notes/Report: Received Date: FASTING; FASTING; FASTING; FASTING; NON-FASTING; FASTING; FA CREATININE 1.20 0.50-1.03 mg/dL EGFR 54 > OR = 60 mL/min/1.73m2 CBC (INCLUDES DIFF/PLT) Reviewed date:06/17/2024 01:26:58 PM Interpretation: Performing Lab:NL1, [facility], [address] [place] [address], [address] Santy Salsa M.D. Notes/Report: Received Date: FASTING; FASTING; FASTING; [...] MPV 12.5 7.5-12.5 fL ABSOLUTE NEUTROPHILS [phone] cells/uL ABSOLUTE LYMPHOCYTES 0965 136-8294 cells/uL ABSOLUTE MONOCYTES 293 200-950 cells/uL ABSOLUTE EOSINOPHILS 72 15-500 cells/uL ABSOLUTE BASOPHILS 41 0-200 cells/uL NEUTROPHILS 62.6 LYMPHOCYTES 28.4 MONOCYTES 6.5 EOSINOPHILS 1.6 BASOPHILS 0.9 SED RATE BY MODIFIED WESTERG DIANA Reviewed date:06/17/2024 01:26:58 PM Interpretation: Performing Lab:NL1, [facility], [address] [place] [address], [address] Santy Salas M.D. Notes/Report: Received Date: [id number] FASTING; FASTING; FASTING; FASTING; NON-FASTING; FASTING; FA SED RATE BY MODIFIED WESTERGREN 2 < OR = 30 mm/h HS-CRP Reviewed date:06/17/2024 01:26:58 PM Interpretation: Performing Lab:NL1, [facility], [address] [place] [address], [address] Santy Salas M.D. Notes/Report: Received Date: [id number] FASTING; FASTING; FASTING; FASTING; NON-FASTING; FASTING; FA [...] for Disease Control and Prevention and the [employer] [employer]. Circulation 2003; 107(3): 499-511. Celiac Disease Comprehensive Panel with Gliadin Antibody (IgG) Reviewed date:06/24/2024 08:50:14 AM Interpretation: Performing Lab:NL1, [facility], [address] [place] [address], [address] Santy Salas M.D. Notes/Report: Received Date: FASTING; [...] Reviewed date:06/24/2024 08:50:14 AM Interpretation: Performing Lab:EZ, [facility],, [address] [place], [address] Li Arriola MD,PhD,CYNDIE Notes/Report: Received Date: FASTING; [...] Negative International Consensus on MARTIN Patterns https://doi.org/10.1515/cc zc-2200-3084 For additional information, please refer to http://education.Crowdlinker.Flyezee.com/faq/KEG158 (This link is being provided for informational/educational purposes only.) DNA AB (DS) CRITHIDIA,IFA NEGATIVE NEGATIVE CHROMATIN (NUCLEOSOMAL) ANTIBODY <1.0 NEG <1.0 NEGATIVE AI SM ANTIBODY <1.0 NEG <1.0 NEGATIVE AI SM/METAL BONDING HELPER ANTIBODY <1.0 NEG <1.0 NEGATIVE AI METAL BONDING HELPER ANTIBODY <1.0 NEG <1.0 NEGATIVE AI SJOGREN'S [...] aging. For additional information, please refer to http://tripJane.Fingo/faq/QNE098 (This link is being provided for informational/educational [...] (CCP). THYROID PEROXIDASE ANTIBODIES 1 <9 IU/mL HEPATIC FUNCTION PANEL Reviewed date:02/25/2025 12:38:57 PM Interpretation: Performing Lab:NL1, [facility], [address] [place] [address], [address] Santy Salas M.D. Notes/Report: Received Date: FASTING; [...] 17 10-35 U/L ALT 24 6-29 U/L CREATININE Reviewed date:02/25/2025 12:38:57 PM Interpretation: Performing Lab:1, [facility], [address] [place] [address], [address] Santy Salas M.D. Notes/Report: Received Date: FASTING; FASTING; FASTING; FASTING; FASTING FASTING:NO FASTING: NO CREATININE 1.34 0.50-1.03 mg/dL EGFR 47 > OR = 60 mL/min/1.73m2 CBC (INCLUDES DIFF/PLT) Reviewed date:02/25/2025 12:38:57 PM Interpretation: Performing Lab:NL1, [facility], [address] [place] [address], [address] Santy Salas M.D. Notes/Report: Received Date: [id number] FASTING; FASTING; FASTING; FASTING; FASTING FASTING:NO FASTING: [...] MPV 12.1 7.5-12.5 fL ABSOLUTE NEUTROPHILS 2696 2938-0784 cells/uL ABSOLUTE LYMPHOCYTES 1594 631-6251 cells/uL ABSOLUTE MONOCYTES 366 200-950 cells/uL ABSOLUTE EOSINOPHILS 39 15-500 cells/uL ABSOLUTE BASOPHILS 39 0-200 cells/uL NEUTROPHILS 62.7 LYMPHOCYTES 27.0 MONOCYTES 8.5 EOSINOPHILS 0.9 BASOPHILS 0.9 SED RATE BY MODIFIED WESTERG DIANA Reviewed date:02/25/2025 12:38:57 PM Interpretation: Performing Lab:NL1, [facility], [address] [place], [address] Santy Salas M.D. Notes/Report: Received Date: [id number] FASTING; FASTING; FASTING; FASTING; FASTING FASTING:NO FASTING: NO SED RATE BY MODIFIED WESTERGREN 2 < OR = 30 mm/h HS-CRP Reviewed date:02/25/2025 12:38:57 PM Interpretation: Performing Lab:NL1, [facility], [address] [place], [address] Santy Salas M.D. Notes/Report: Received Date: [id number] FASTING; FASTING; FASTING; FASTING; FASTING FASTING:NO FASTING: [...] for Disease Control and Prevention and the [employer] [employer]. Circulation 2003; 107(3): 499-511. Myositis 11 Antibody Panel Reviewed date:08/13/2024 11:08:37 AM Interpretation: Performing Lab:EZ, [facility],, [address] [place], [address] Li Arriola MD,PhD,CYNDIE Notes/Report: Received Date: [id number] NON-FASTING; NON-FASTING; NON-FASTING; NON-FASTING; NON-FAST LOIDA-1 AB <11 <[address]-7 AB <11 <[address]-12 AB <11 <11 SI EJ AB <11 <11 SI OJ AB <11 <11 SI SRP AB <11 <11 SI SC-2 ALPHA AB <11 <11 SI SC-2 BETA AB 13 <11 SI MDA5 AB [...] with a rash. Additionally, MSAs to MDA5 ([id number]) have been identified in patients with clinically [...] analytical performance characteristics have been determined by [facility]. It has not been cleared or approved by the FDA. This assay has been validated pursuant to the CLIA regulations and is used for clinical purposes. HS-CRP Reviewed date:08/13/2024 11:08:37 AM Interpretation: Performing Lab:NL1, [facility], [address] [place] [address], [address] Santy Salas M.D. Notes/Report: Received Date: NON-FASTING; [...] for Disease Control and Prevention and the [employer] [employer]. Circulation 2003; 107(3): 499-511. SED RATE BY MODIFIED WESTERG DIANA Reviewed date:08/13/2024 11:08:37 AM Interpretation: Performing Lab:REGINALD1, [facility], [address] [place] [address], [address] Santy Salas M.D. Notes/Report: Received Date: [id number] NON-FASTING; NON-FASTING; NON-FASTING; NON-FASTING; NON-FAST SED RATE BY MODIFIED WESTERGREN 2 < OR = 30 mm/h CREATININE Reviewed date:08/13/2024 11:08:37 AM Interpretation: Performing Lab:NL1, [facility], [address] [place] [address], [address] Santy Salas M.D. Notes/Report: Received Date: [id number] NON-FASTING; NON-FASTING; NON-FASTING; NON-FASTING; NON-FAST CREATININE 1.08 0.50-1.03 mg/dL EGFR 61 > OR = 60 mL/min/1.73m2 HEPATIC FUNCTION PANEL Reviewed date:08/13/2024 11:08:37 AM Interpretation: Performing Lab:NL1, [facility], [address] [place] [address], [address] Santy Salas M.D. Notes/Report: Received Date: [id number] NON-FASTING; NON-FASTING; NON-FASTING; NON-FASTING; NON-FAST PROTEIN, TOTAL [...] Reviewed date:08/13/2024 11:08:37 AM Interpretation: Performing Lab:CHING [facility], [address], [place], [place], Suresh Arguello M.D.,PhD Notes/Report: Received Date: [id number] NON-FASTING; NON-FASTING; NON-FASTING; NON-FASTING; NON-FAST ALDOLASE 4.4 <=8.1 U/L CREATINE KINASE, TOTAL Reviewed date:08/13/2024 11:08:37 AM Interpretation: Performing Lab:1, [facility], [address] [place] [address], [address] Santy Salas M.D. Notes/Report: Received Date: [id number] NON-FASTING; NON-FASTING; NON-FASTING; NON-FASTING; NON-FAST CREATINE KINASE, TOTAL 178 29-143 U/L METHYLMALONIC ACID Reviewed date:08/13/2024 11:08:37 AM Interpretation: Performing Lab:CHING [facility], [address], [place], [place], Suresh Arguello M.D.,PhD Notes/Report: Received Date: [id number] NON-FASTING; NON-FASTING; NON-FASTING; NON-FASTING; NON-FAST METHYLMALONIC ACID [...] neural tube defects and intrauterine growth restriction. [facility] utilized Multi-Modal Decomposition (MMD) analysis to establish first and second trimester- specific MMA reference intervals in , as given below: MMA, First trimester (<13 wks gestation): 58-167 nmol/L MMA, Second trimester (13-23 wks gestation): 63-241 nmol/L This test was developed and its analytical performance characteristics have been determined by [facility]. It has not been cleared or approved by the FDA. This assay has been validated pursuant to the CLIA regulations and is used for clinical purposes. C-REACTIVE PROTEIN Reviewed date:08/13/2024 11:08:37 AM Interpretation: Performing Lab:DEVYN [facility], [address] [place] [address], [address] Santy Salas M.D. Notes/Report: Received Date: [id number] NON-FASTING; NON-FASTING; NON-FASTING; NON-FASTING; NON-FAST C-REACTIVE PROTEIN <3.0 <8.0 mg/L TSH, 3RD GENERATION Reviewed date:06/17/2024 01:26:58 PM Interpretation: Performing Lab:DEVYN [facility], [address] [place] [address], [address] Santy Salas M.D. Notes/Report: Received Date: [id number] FASTING; FASTING; FASTING; FASTING; NON-FASTING; FASTING; FA TSH 0.79 Reference Range > or = 20 Years 0.40-4.50 Ranges First trimester 0.26-2.66 Second trimester 0.55-2.73 Third trimester 0.43-2.91 FERRITIN Reviewed date:06/17/2024 01:26:58 PM Interpretation: Performing Lab:DEVYN [facility], [address] [place] [address], [address] Santy Salas M.D. Notes/Report: Received Date: [id number] FASTING; FASTING; FASTING; FASTING; NON-FASTING; FASTING; FA FERRITIN 100 16-232 ng/mL VITAMIN B12/FOLATE, SERUM PA RAFA Reviewed date:06/17/2024 01:26:58 PM Interpretation: Performing Lab:DEVYN [facility], [address] [place] [address], [address] Santy Salas M.D. Notes/Report: Received Date: FASTING; FASTING VITAMIN B12 960 872-6650 pg/mL FOLATE, SERUM 15.9 Reference Range Low: <3.4 Borderline: 3.4-5.4 Normal: >5.4 HEPATITIS B SURFACE ANTIGEN W/REFL CONFIRM Reviewed date:06/17/2024 01:26:58 PM Interpretation: Performing Lab:NL1, [facility], [address] [place] [address], [address] Santy Salas M.D. Notes/Report: Received Date: FASTING; FASTING; FASTING; FASTING; NON-FASTING; FASTING; FA HEPATITIS B SURFACE ANTIGEN NON-REACTIVE NON-REACTIVE For additional information, please refer to http://tripJane.Fingo/faq/THF817 (This link is being provided for informational/ educational purposes only.) HEPATITIS B CORE ANTIBODY (I GM) Reviewed date:06/17/2024 01:26:58 PM Interpretation: Performing Lab:REGINALD1, [facility], [address] [place] [address], [address] Santy Salas M.D. Notes/Report: Received Date: FASTING; FASTING; FASTING; FASTING; NON-FASTING; FASTING; FA HEPATITIS B CORE ANTIBODY (IGM) NON-REACTIVE NON-REACTIVE For additional information, please refer to http://tripJane.Fingo/faq/RLW418 (This link is being provided for informational/ educational purposes only.) LYME DISEASE ANTIBODIES (IGG , IGM) WESTERN BLOT Reviewed date:06/17/2024 01:26:58 PM Interpretation: Performing Lab:[employer], [facility], [address] [place] [address], [address] Santy Salas M.D. Notes/Report: Received Date: FASTING; [...] antibodies induced by exposure to other spirochetes. THYROGLOBULIN ANTIBODIES Reviewed date:06/17/2024 01:26:58 PM Interpretation: Performing Lab:DEVYN [facility], [address] [place] [address], [address] Santy Salas M.D. Notes/Report: Received Date: [id number] FASTING; FASTING; FASTING; FASTING; NON-FASTING; FASTING; FA THYROGLOBULIN ANTIBODIES <1 < or = 1 IU/mL C-REACTIVE PROTEIN Reviewed date:06/17/2024 01:26:58 PM Interpretation: Performing Lab:DEVYN, [facility], [address] [place] [address], [address] Santy Salas M.D. Notes/Report: Received Date: [id number] FASTING; FASTING; FASTING; FASTING; NON-FASTING; FASTING; FA C-REACTIVE PROTEIN <3.0 <8.0 mg/L QUANTIFERON(R)-TB GOLD Reviewed date:06/24/2024 08:50:14 AM Interpretation: Performing Lab:NL1, [facility], [address] [place] [address], [address] Santy Salas M.D. Notes/Report: Received Date: FASTING; [...] T-lymphocytes. For additional information, please refer to https://education.itembase/faq/SMV544 (This link is being provided for informational/ educational purposes only.) HLA-B27 ANTIGEN Reviewed date:06/17/2024 01:26:58 PM Interpretation: Performing Lab:CHING [facility], [address], [place], [address] Suresh Arguello M.D.,PhD Notes/Report: Received Date: FASTING; FASTING; FASTING; FASTING; NON-FASTING; FASTING; FA HLA-B27 ANTIGEN Negative Negative URINALYSIS, COMPLETE W/REFLE X TO CULTURE Reviewed date:06/17/2024 01:26:58 PM Interpretation: Performing Lab:NL1, [facility], [address] [place] [address], [address] Santy Salas M.D. Notes/Report: Received Date: FASTING; FASTING; FASTING; FASTING; NON-FASTING; FASTING; FA COLOR TNP TEST NOT PERFORMED Specimen leaked in transit. LUPUS ANTICOAGULANT EVALUATI ON WITH REFLEX Reviewed date:06/17/2024 01:26:58 PM Interpretation: Performing Lab:CHING [facility], [address], [place], [address] Suresh Arguello M.D.,PhD Notes/Report: Received Date: [id number] FASTING; FASTING LUPUS ANTICOAGULANT see note A Lupus Anticoagulant is not detected. Common causes for a prolonged screen and negative confirmatory test include factor deficiencies or anticoagulant therapy. Reference Range: Not Detected For additional information, please refer to http://tripJane.Fingo/faq/ZNF29j7 (This link is being provided for informational/ educational purposes only.) This interpretation is based on the following test results. PTT-LA SCREEN 51 <=40 sec DRVVT SCREEN 35 <=45 sec HEXAGONAL PHASE CONFIRM Negative Negative HS-CRP Reviewed date:04/14/2025 10:27:55 AM Interpretation: Performing Lab:NL1, [facility], [address] [place] [address], [address] Santy Salas M.D. Notes/Report: Received Date: [id number] FASTING; FASTING; FASTING; FASTING; FASTING FASTING:YES FASTING: [...] for Disease Control and Prevention and the [employer] [employer]. Circulation 2003; 107(3): 499-511. SED RATE BY MODIFIED ISAIERG DIANA Reviewed date:04/14/2025 10:27:55 AM Interpretation: Performing Lab:[employer], [facility], [address] [place] [address], [address] Santy Salas M.D. Notes/Report: Received Date: [id number] FASTING; FASTING; FASTING; FASTING; FASTING FASTING:YES FASTING: YES SED RATE BY MODIFIED WESTERGREN 9 < OR = 30 mm/h CBC (INCLUDES DIFF/PLT) Reviewed date:04/14/2025 10:27:55 AM Interpretation: Performing Lab:[employer], [facility], [address] [place] [address], [address] Santy Salas M.D. Notes/Report: Received Date: [id number] FASTING; FASTING; FASTING; FASTING; FASTING FASTING:YES FASTING: [...] MPV 11.3 7.5-12.5 fL ABSOLUTE NEUTROPHILS 3445 8193-4768 cells/uL ABSOLUTE LYMPHOCYTES 9821 824-8062 cells/uL ABSOLUTE MONOCYTES 452 200-950 cells/uL ABSOLUTE EOSINOPHILS 58 15-500 cells/uL ABSOLUTE BASOPHILS 58 0-200 cells/uL NEUTROPHILS 59.4 LYMPHOCYTES 30.8 MONOCYTES 7.8 EOSINOPHILS 1.0 BASOPHILS 1.0 CREATININE Reviewed date:04/14/2025 10:27:55 AM Interpretation: Performing Lab:[employer], [facility], [address] [place] [address], [address] Santy Salas M.D. Notes/Report: Received Date: [id number] FASTING; FASTING; FASTING; FASTING; FASTING FASTING:YES FASTING: YES CREATININE 1.47 0.50-1.03 mg/dL EGFR 42 > OR = 60 mL/min/1.73m2 HEPATIC FUNCTION PANEL Reviewed date:04/14/2025 10:27:55 AM Interpretation: Performing Lab:NL1, [facility], [address] [place] [address], [address] Santy Salas M.D. Notes/Report: Received Date: [id number] FASTING; FASTING; FASTING; FASTING; FASTING FASTING:YES FASTING: [...] GOLD Reviewed date:03/23/2025 09:48:31 AM Interpretation: Performing Lab:NL1, [facility], [address] [place] [address], [address] Santy Salas M.D. Notes/Report: Received Date: [id number] FASTING FASTING:NO FASTING: NO QUANTIFERON(R)-TB GOLD PLUS, [...] T-lymphocytes. For additional information, please refer to https://tripJane.itembase/faq/YTF703 (This link is being provided for informational/ educational purposes only.) HS-CRP Reviewed date:01/19/2025 09:23:34 AM Interpretation: Performing Lab:NL1, [facility], [address] [place] [address], [address] Santy Salas M.D. Notes/Report: Received Date: [id number] NON-FASTING; NON-FASTING; NON-FASTING; NON-FASTING FASTING:YES FASTING: YES HS CRP 0.2 Reference Range Optimal <1.0 Jepradip PS et [...] for Disease Control and Prevention and the [employer] [employer]. Circulation 2003; 107(3): 499-511. CREATININE Reviewed date:01/19/2025 09:23:34 AM Interpretation: Performing Lab:NL1, [facility], [address] [place] [address], [address] Santy Salas M.D. Notes/Report: Received Date: [id number] NON-FASTING; NON-FASTING; NON-FASTING; NON-FASTING FASTING:YES FASTING: YES CREATININE 1.07 0.50-1.03 mg/dL EGFR 61 > OR = 60 mL/min/1.73m2 HS-CRP Reviewed date:11/09/2024 09:17:58 AM Interpretation: Performing Lab:1, [facility], [address] [place] [address], [address] Santy Salas M.D. Notes/Report: Received Date: [id number] NON-FASTING; NON-FASTING; NON-FASTING; NON-FASTING; NON-FAST FASTING:YES FASTING: [...] for Disease Control and Prevention and the [employer] [employer]. Circulation 2003; 107(3): 499-511. SED RATE BY MODIFIED WESTERG DIANA Reviewed date:11/09/2024 09:17:58 AM Interpretation: Performing Lab:1, [facility], [address] [place] [address], [address] Santy Salas M.D. Notes/Report: Received Date: [id number] NON-FASTING; NON-FASTING; NON-FASTING; NON-FASTING; NON-FAST FASTING:YES FASTING: YES SED RATE BY MODIFIED WESTERGREN 6 < OR = 30 mm/h CBC (INCLUDES DIFF/PLT) Reviewed date:11/09/2024 09:17:58 AM Interpretation: Performing Lab:[employer], [facility], [address] [place] [address], [address] Santy Salas M.D. Notes/Report: Received Date: NON-FASTING; [...] MPV 12.1 7.5-12.5 fL ABSOLUTE NEUTROPHILS 2558 6375-4765 cells/uL ABSOLUTE LYMPHOCYTES 3247 053-5008 cells/uL ABSOLUTE MONOCYTES 290 200-950 cells/uL ABSOLUTE EOSINOPHILS 41 15-500 cells/uL ABSOLUTE BASOPHILS 32 0-200 cells/uL NEUTROPHILS 55.6 LYMPHOCYTES 36.5 MONOCYTES 6.3 EOSINOPHILS 0.9 BASOPHILS 0.7 CREATININE Reviewed date:11/09/2024 09:17:58 AM Interpretation: Performing Lab:[facility], [facility], [address] [place] [address], [phone] Santy Salas M.D. Notes/Report: Received Date: [id number] NON-FASTING; NON-FASTING; NON-FASTING; NON-FASTING; NON-FAST FASTING:YES FASTING: YES CREATININE 1.07 0.50-1.03 mg/dL EGFR 61 > OR = 60 mL/min/1.73m2 HEPATIC FUNCTION PANEL Reviewed date:11/09/2024 09:17:58 AM Interpretation: Performing Lab:[facility], [facility], [address] [place] [address], [phone] aSnty Salas M.D. Notes/Report: Received Date: [id number] NON-FASTING; NON-FASTING; NON-FASTING; NON-FASTING; NON-FAST FASTING:YES FASTING: YES PROTEIN, TOTAL 7.0 6.1-8.1 g/dL ALBUMIN 4.7 3.6-5.1 g/dL GLOBULIN 2.3 1.9-3.7 g/dL (calc) ALBUMIN/GLOBULIN RATIO 2.0 1.0-2.5 (calc) BILIRUBIN, TOTAL 0.4 0.2-1.2 mg/dL BILIRUBIN, DIRECT 0.1 < OR = 0.2 mg/dL BILIRUBIN, INDIRECT 0.3 0.2-1.2 mg/d L (calc) ALKALINE PHOSPHATASE 51 37-153 U/L AST 19 10-35 U/L ALT 20 6-29 U/L HEPATITIS C ANTIBODY Reviewed date:06/24/2024 08:50:14 AM Interpretation: Performing Lab:NL1, [facility], [address] [place] [address], [phone] Santy Salas M.D. Notes/Report: Received Date: FASTING; NON-FASTING; NON-FASTING; NON-FASTING; NON-FASTING HEPATITIS C ANTIBODY NON-REACTIVE NON-REACTIVE HCV antibody was non-reactive. There is no laboratory evidence of HCV infection. In most cases, no further action is required. However, if recent HCV exposure is suspected, a test for HCV RNA (test code 75156) is suggested. For additional information please refer to http://education.Fingo/faq/SUD84t9 (This link is being provided for informational/ educational purposes only.) LYME DISEASE AB, TOTAL W/REF L WB (IGG, IGM) Reviewed date:06/24/2024 08:50:14 AM Interpretation: Performing Lab:NL1, [facility], [address] [place] [address], [phone] Santy Salas M.D. Notes/Report: Received Date: FASTING; [...] the period when erythema migrans is apparent. CBC (INCLUDES DIFF/PLT) Reviewed date:01/19/2025 09:23:34 AM Interpretation: Performing Lab:NL1, [facility], [address] [place] [address], [phone] Sanyt Salas M.D. Notes/Report: Received Date: NON-FASTING; NON-FASTING; [...] MPV 11.5 7.5-12.5 fL ABSOLUTE NEUTROPHILS 2164 0742-2736 cells/uL ABSOLUTE LYMPHOCYTES 1908 131-7464 cells/uL ABSOLUTE MONOCYTES 252 200-950 cells/uL ABSOLUTE EOSINOPHILS 50 15-500 cells/uL ABSOLUTE BASOPHILS 22 0-200 cells/uL NEUTROPHILS 60.1 LYMPHOCYTES 30.9 MONOCYTES 7.0 EOSINOPHILS 1.4 BASOPHILS 0.6 HEPATIC FUNCTION PANEL Reviewed date:01/19/2025 09:23:34 AM Interpretation: Performing Lab:NL1, [facility], [address] [place] [address], [phone] Santy Salas M.D. Notes/Report: Received Date: [id number] NON-FASTING; NON-FASTING; NON-FASTING; NON-FASTING FASTING:YES FASTING: YES [...] diseases classified elsewhere (N08) Referral Organization [facility] [place] [facility] Referring Provider First Name RAMU Referring Provider Last Name DIXIE [facility] Referred Provider Brenda Read Referred Provider Specialty [...] Acid 1 MG TAKE 3 TABLETS BY [facility] ONCE DAILY EXCEPT ON THE METHOTREXATE DAY; [...] type I of right lower limb (disorder) (083773276763490) Complex regional pain syndrome I of right lower limb (G90.521) Active confirmed -As of 04/19/2025 pt to have TENS units placed. -OV 01.26.25 ongoing pain, peripheral nerve stimulator to be placed 02.04.25 per Pain Clinic; OV 12.29.2024 Pt. on LDN 6mg and continues working with pain clinic and had LS injection 11/2024 which was ineffective. Problem Psoriatic spondylitis (901556918) Psoriatic spondylitis (L40.53) Active confirmed -As of [...] Rt foot surgery . Problem Solitary sacroiliitis (420017902) Sacroiliitis, not elsewhere classified (M46.1) Active confirmed Problem Cervical spondylosis without myelopathy (826268619) Spondylosis without myelopathy or radiculopathy, cervical region (M47.812) Active confirmed Problem Lumbosacral spondylosis without myelopathy (disorder) (84001431) Spondylosis without myelopathy or radiculopathy, lumbosacral region (M47.817) Active confirmed Problem Glomerular disease (659481791) Glomerular disorders in diseases classified elsewhere (N08) Active confirmed Problem Perimenopausal disorder (385582070) Other specified menopausal and perimenopausal disorders (N95.8) Active confirmed Problem Arthritis of spine (disorder) (791251915) Other specified inflammatory spondylopathies , 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) Active confirmed Seronegative Spondyloarthriti s ( inflammatory back pain that is better with moving, not relieved by rest, prolonged morning stiffness 2 hours, pain in large joints:pain 7-10/10 RT hip, lower back, SI joints, h/o enthesitis (plantar fasciitis,trigge r finger, costochondritis) Problem Gastroesophageal reflux disease (423017256) GERD (gastroesophage al reflux disease) (K21.9) Active confirmed Problem Dry eyes (258909469) Dry eyes (H04.123) Active confirmed Problem Raynaud phenomenon (746619399) Raynaud phenomenon (I73.00) Active confirmed Vital Signs Heart Rate 57 /min 04/19/2025 Temperature 35.4 C 04/19/2025 Blood pressure diastolic 62 mm Hg 04/19/2025 Height 165.8 cm 04/19/2025 Blood pressure systolic 115 mm Hg 04/19/2025 Weight 73.8 kg 06/04/2024 BMI 26.84 kg/m2 06/04/2024 Encounters Encounter Location Date Provider Diagnosis [facility] [address] [id number] 06/04/2024 Briseida Cruz MARTIN positive R76.8 ; [...] R94.4 and Dry eyes H04.123 [facility] [address] [id number] 07/08/2024 Brisieda Cruz MARTIN positive R76.8 ; Abnormal results of kidney function studies R94.4 ; Disorder of bone density and structure, unspecified M85.9 ; Raynaud phenomenon I73.00 ; GERD (gastroesophageal reflux disease) K21.9 ; Fatigue R53.83 ; Sacroiliitis, not elsewhere classified M46.1 and Effusion, right hand M25.441 [facility] [place] [address] [id number] 08/19/2024 Briseida Cruz MARTIN positive R76.8 ; Disorder of bone density and structure, unspecified M85.9 ; Raynaud phenomenon I73.00 ; Fatigue R53.83 ; Sacroiliitis, not elsewhere classified M46.1 ; Abnormal results of kidney function studies R94.4 and Other specified inflammatory spondylopathies, site unspecified M46.80 [facility] [address] [place] [id number] 11/12/2024 RAMU COLIN MARTIN positive R76.8 ; Psoriatic spondylitis L40.53 ; Disorder of bone density and structure, unspecified M85.9 ; Raynaud phenomenon I73.00 ; Fatigue R53.83 ; Sacroiliitis, not elsewhere classified M46.1 ; Abnormal results of kidney function studies R94.4 ; Effusion, left hand M25.442 and Complex regional pain syndrome I of right lower limb G90.521 [facility] [address] [place] [id number] 12/29/2024 Chas Acosta MARTIN positive R76.8 ; [...] shoulder lesions, right shoulder M75.81 [facility] [address] [id number] 01/26/2025 Briseida Cruz Psoriatic spondylitis L40.53 ; MARTIN positive R76.8 ; Fatigue R53.83 ; Disorder of bone density and structure, unspecified M85.9 and Complex regional pain syndrome I of right lower limb G90.521 [facility] [address] [id number] 03/04/2025 Briseida Antoineuld Psoriatic spondylitis L40.53 ; MARTIN positive R76.8 ; Fatigue R53.83 ; Disorder of bone density and structure, unspecified M85.9 and Complex regional pain syndrome I of right lower limb G90.521 [facility] [address] [id number] 04/19/2025 Briseida Antoineuld Psoriatic spondylitis L40.53 ; MARTIN positive R76.8 ; Fatigue R53.83 ; Abnormal results of kidney function studies R94.4 ; Complex regional pain syndrome I of right lower limb G90.521 and Disorder of bone density and structure, unspecified M85.9 [facility] [address] [id number] 05/27/2024 RAMU COLIN [facility] [address] [id number] 07/10/2024 RAMU COLIN [facility] [address] [id number] 08/03/2024 Briseida Cruz [facility] [address] [id number] 02/22/2025 RAMU COLIN Psoriatic spondylitis L40.53 [facility] [address] [id number] 04/14/2025 Briseida Cruz [facility] [address] [id number] 04/19/2025 Briseida Cruz Assessments Encounter Date Diagnosis (ICD Code) Assessment Notes Treatment Notes Treatment Clinical Notes Section Notes 06/04/2024 Disorder of bone density and structure, unspecified (ICD-10 - M85.9) 06/04/2024 MARTIN positive (ICD-10 - R76.8) 53yo female w/PMH +MARTIN 1:320 (2021 [facility]), IBS-C, Hypertension, Fibromyalgia and Costochondritis presents with [...] Labs Now RTC in 4-5 weeksBriseida Cruz [facility]. Pt reviewed by Dr. Colin 07/08/2024 Abnormal [...] up. 53yo female w/PMH +MARTIN 1:320 (2021 [facility]), IBS-C, Hypertension, Fibromyalgia and Costochondritis presents with [...] lesion.; cc PMD.RTC in 6 weeksDajabari Cruz [facility]. Pt reviewed by Dr. Quezada Naltrexone 1.5 mg once a day x 2 weeks, 3 mg once a day x 2 weeks, then 4.5 mg a day. The prescription for Low Dose Naltrexone is sent to the compounding pharmacy ([facility] (ph: [phone]) or [employer] [facility] (ph: [phone])) 08/19/2024 Disorder of bone density and structure, unspecified (ICD-10 - M85.9) 08/19/2024 MARTIN positive (ICD-10 - R76.8) -As of 08/19/2024 she had ongoing joint pain despite LDN. Pt now on LDN 4.5 mg maintenance dose. Will resume LDN as pt to have foot surgery soon. Will consider adding Methotrexate once cleared by surgeon. Repeat MARTIN neg . Negative MARTIN subserologies:,neg [id number] P-Scl 70 aB, neg Centromere ab. Negative Antiphospholipid antibody panel (neg aCL, [id number], neg LAC). No convincing evidence of autoimmune [...] up. 53yo female w/PMH +MARTIN 1:320 (2021 [facility]), IBS-C, Hypertension, Fibromyalgia and Costochondritis presents with [...] to this officeRTC in [address] [facility]. Pt reviewed by Dr. Cardenas Naltrexone 4.5 mg a day. The prescription for Low Dose Naltrexone is sent to the compounding pharmacy ([facility] (ph: [phone]) or [employer] [facility] (ph: [phone]) RAMU COLIN 08/19/2024 05:20:19 PM EST > [...] Repeat MARTIN neg . Negative MARTIN subserologies:,neg [id number] P-Scl 70 aB, neg Centromere ab. Negative Antiphospholipid antibody panel (neg aCL, [id number], neg LAC). No convincing evidence of autoimmune [...] up. 53yo female w/PMH +MARTIN 1:320 (2021 [facility]), IBS-C, Hypertension, Fibromyalgia and Costochondritis presents with [...] joints:pain 7-1010 RT hip, lower back, SI joints,, h/o [...] Repeat MARTIN neg . Negative MARTIN subserologies:,neg [id number] P-Scl 70 aB, neg Centromere ab. Negative Antiphospholipid antibody panel (neg aCL, [id number], neg LAC). No convincing evidence of autoimmune [...] up. 53yo female w/PMH +MARTIN 1:320 (2021 [facility]), IBS-C, Hypertension, Fibromyalgia and Costochondritis presents with [...] weeks. Pt reviewed by Dr. Dixie Cruz [facility] Pt reviewed by Dr. Colin 01/26/2025 [...] Repeat MARTIN neg . Negative MARTIN subserologies:,neg [id number] P-Scl 70 aB, neg Centromere ab. Negative Antiphospholipid antibody panel (neg aCL, [id number], neg LAC). No convincing evidence of autoimmune [...] up. 53yo female w/PMH +MARTIN 1:320 (2021 [facility]), IBS-C, Hypertension, Fibromyalgia and Costochondritis presents with [...] weeks. Pt reviewed by Dr. Dixie Cruz [facility]. Pt reviewed by Dr. Turner in [place] [...] is advised when treated with [place]. 03/04/2025 MRATIN positive (ICD-10 - R76.8) - OV 4..2024 [...] Repeat MARTIN neg . Negative MARTIN subserologies:,neg [id number] P-Scl 70 aB, neg Centromere ab. Negative Antiphospholipid antibody panel (neg aCL, [id number], neg LAC). No convincing evidence of autoimmune [...] up. 53yo female w/PMH +MARTIN 1:320 (2021 [facility]), IBS-C, Hypertension, Fibromyalgia and Costochondritis presents with [...] Consult Nephrology (Dr. Read, Dr. Akers ph: [phone]) re: labs 04/13/2025: Creat 1.47 (h), EGFR 42 (L) Discussed suprascapular NB with pt, pt declined d/t high deductible- consider PT for neck pain once PT for foot pain completed Follow up with pain clinic for Tens unit placement for Rt foot pain Follow up with Dr. Abrams podiatry re ongoing Rt foot pain RTC in 8 weeks Briseida Cruz [employer]. Pt reviewed by Dr. Colin 04/19/2025 MARTIN positive (ICD-10 - R76.8) - OV 4..2024 Pt. on LDN 6mg and continues working with pain clinic and had LS injection which was ineffective. OV 3 pt developed CRPS (Chronic Regional Pain Syndrome) after Rt foot surgery , scheduled for spinal injection 12.10.24. Flare of Left buttock pain, diffuse MSK pain. Psoriatic Arthritis to consider. No evidence of MARTIN associated autoimmune inflammatory Connective Tissue Disease. She had ongoing joint pain despite LDN. Repeat MARTIN neg . Negative MARTIN subserologies:,neg [id number] P-Scl 70 aB, neg Centromere ab. Negative Antiphospholipid antibody panel (neg aCL, [id number], neg LAC). No convincing evidence of autoimmune [...] up. 53yo female w/PMH +MARTIN 1:320 (2021 [facility]), IBS-C, Hypertension, Fibromyalgia and Costochondritis presents with [...] joints:pain -06/18 RT hip, lower back, SI joints,, h/o [...] Joints 07/08/2024 Next Appt Details Provider Name:Briseida Antoineuld , 06/14/2025 08:40:00 AM, [address] [place] [address], [phone], Insurance Providers Payer Name Payer Address Payer Phone Subscriber Number Group Number Insured Name Patient Relationship to Insured Coverage Start Date Coverage End Date FERNANDO Wilson Marilou [employer] [address] [place], [place] [phone] [id number] Fifi Carter Self - patient is the insured Medical (General) History Medical History History ICD Code arthritis: Yes Hypertention: Yes Fibromyalgia: YES Migraine Headaches w/o aura: Yes Costochondritis: Yes Positive MARTIN 1:320 sp 2021: YES RLE CRPS chronic regional pain syndrome 1.2024 Surgical History Surgery Date(Month/Year) Breast reduction 3.2.2021 Partial Hysterectomy 2008 [facility] Xenia Leal, recently diagnosed w/CRPS chronic regional pain syndrome, doing PT and seeing pain mgmt 1.
--- OUTSIDE RECORDS SUMMARY | 2025-05-19 18:30 | XMS_ITS | Patient Health Record ---
[facility] Oly Parkerley Address [address] [place] [address] Care Team Providers Care Telephone Interceptor Operator Name Role Phone Omayra GIRALDO, Sebas Primary Care Provider Unavailab Xenia Carey Unavailable [phone] Brock Hogan Unavailable [phone] Hilda Us Unavailable [phone] Allergies Allergen (clinical drug ingredient) Drug/Non Drug [...] Referring Provider Last Name Omayra [facility] Referred Provider Xenia Butterfield Referred Address [address],[place],[address], Referred Provider Specialty Podiatry Referral Priority Routine [...] First Name Sebas Referring Provider Last Name [facility] Referred [facility] Referred Provider Brock Hogan Referred Address [address],[place],[address],[place] Referred Provider Specialty Podiatry Referral Priority Routine [...] First Name Sebas [facility] Referred Provider Xenia Butterfield Referred Address [address],[place],[address],[place] Referred Provider Specialty Podiatry General Notes This referral is cathy id under VPA group NPI # Referral Priority Routine Diagnosis 1 Other hammer [...] of right lower extremity (G90.521) Diagnosis 7 Neuritis of right fo ot (G57.91) Referring Provider First Name Sebas Referring Provider Last Name Omayra Referred [facility] Referred Provider Xenia Butterfield Referred Address [address],[facility] [place],[address],[place] Referred Provider Specialty Podiatry Referral Priority Routine Medications Medication SIG (Take, Route, Frequency, Duration) Notes Start Date End Date Status Lyrica Not-Taking traZODone HCl 150 MG 1 tablet at bedtime Orally Once a day; Duration: 30 day(s) Active Motegrity 2 MG 1 tablet Orally Once a day; Duration: 30 day(s) Not-Taking Crestor 10 MG 1 tablet Orally Once a day; Duration: 30 day(s) Active Wellbutrin XL 150 MG 1 tablet in the morning Orally Once a day; Duration: 30 day(s) Not-Taking Neurontin 300 MG 1 capsule Orally Thr ee times a day; Duration: 30 days 10/23/2024 Active Effexor XR 37.5 mg N ot-Taking Office visit . . . Patient can only stand or walk for 10-15min increments at a time due to severe pain in right foot.; Duration: 90 days 12/08/2024 Not-Taking toprol Not-Taking Naltrexone - as directed Activ e Physical Therapy . . . Patient had roz er toe surgery right foot on 09/16/24; having symptoms of CRPS/RSD, history of Firbomyalgia; Duration: 60 days 10/23/2024 Not-Taking Baby Aspirin Active Gabapentin Not-Takin g Metoprolol Succinate 25 MG 1 capsule Ora lly Once a day; Duration: 30 days Active Zoloft Not-Taking Lisinopril 10 MG 1 tablet Orally Once a day; Duration: 30 days Active CeleBREX Not-Taking Piroxicam 20 MG TAKE ONE CAPSULE BY MOUTH EVERY MORNING Oral; Duration: 30 Not-Taking predniSONE 5 MG 5 tablets once a day for 3 days, 4 tablets once a day for 3 days, 3 tablets once a day for 3 days, 2 tablets once a day for 3 days, 1 tablet once a day for 3 days Orally; Duration: 15 days 03/29/2025 Not-Taking Mirtazapine Not-Taki ng oxyCODONE HCl 5 MG 1 tablet as needed Orally every 6 hrs 09/29/2024 Not-Taking Amitriptyline HCl No t-Taking Immunizations Vaccine Route Administration Date Status Comme [...] Problem Acquired hammer toe of right foot (9362819715748866) Other hammer toe(s) (acquired), right foot (M20.41) Active confirmed Problem Acquired hammer toe of left foot (1730088150408830) Other hammer toe(s) (acquired), left foot (M20.42) Active confirmed Problem Plantar fascial fibromatosis (42640818) Plantar fascial fibromatosis (M72.2) Active confirmed Problem Mononeuropathy of lower limb (195752524) Neuritis of right foot (G57.91) Active confirmed Problem Complex regional pain syndrome type I of right lower limb (disorder) (420660483899546) Complex regional pain syndrome type 1 of right lower extremity (G90.521) Active confirmed Problem Localized, primary osteoarthritis of the ankle and/or foot (285566467) Arthritis of joint of lesser toe, left (M19.072) Active confirmed Problem Localized, primary osteoarthritis of the ankle and/or foot (532619859) Arthritis of joint of lesser toe, right (M19.071) Active confirmed Vital Signs Heart Rate 57 /min 09/29/2024 Blood pressure diastolic 65 mm Hg 04/29/2025 Height 5ft5in in 04/29/2025 Blood pressure systolic 126 mm Hg 04/29/2025 Weight 170 lbs 04/29/2025 BMI 28.29 kg/m2 04/29/2025 Procedures Procedure Date Ordered Date Performed Result Body Sit e , E4433-TNHYT/INJECT, JOINT/BURSA 04/29/2025 N/A Encounters Encounter Location Date Provider Diagnosis Surgery [facility] (Angel/ADARSH) [address] [place] [phone] 09/16/2024 Xenia Butterfield [address] [address] 07/14/2024 Xenia Butterfield Pain in right toe(s) M79.674 ; Other hammer toe(s) (acquired), right foot M20.41 ; Arthritis of joint of lesser toe, right M19.071 ; Pain in left toe(s) M79.675 ; Other hammer toe(s) (acquired), left foot M20.42 ; Arthritis of joint of lesser toe, left M19.072 and Subluxation of metatarsophalangeal joint of toe, initial encounter S93.149A [address] [address] 08/18/2024 Brock Leongunier Pain in left foot M7 9.672 ; Pain in left ankle and joints of left foot M25.572 ; Bursitis of intermetatarsal bursa of left foot M77.52 and Metatarsalgia, left foot M77.[address] [address] 09/04/2024 Xenia Butterfield Pain in right toe(s) M79.674 ; Other hammer toe(s) (acquired), right foot M20.41 ; Arthritis of joint of lesser toe, right M19.071 ; Pain in left toe(s) M79.675 ; Other hammer toe(s) (acquired), left foot M20.42 ; Arthritis of joint of lesser toe, left M19.072 and Subluxation of metatarsophalangeal joint of toe, initial encounter S93.149A [address] [address] 09/10/2024 Xenia Butterfield Pain in right toe(s) M79.674 ; Other hammer toe(s) (acquired), right foot M20.41 ; Arthritis of joint of lesser toe, right M19.071 ; Pain in left toe(s) M79.675 ; Other hammer toe(s) (acquired), left foot M20.42 ; Arthritis of joint of lesser toe, left M19.072 and Subluxation of metatarsophalangeal joint of toe, initial encounter S93.149A [facility] [address] [address] 09/22/2024 Xenia Butterfield Other hammer toe(s) (acquired), right foot M20.41 [facility] [address] [address] 09/29/2024 Xenia Butterfield Other hammer toe(s) (acquired), right foot M20.41 [facility] [address] [address] 10/09/2024 Xenia Butterfield Other hammer toe(s) (acquired), right foot M20.[address] [address] 10/23/2024 Hilda Perica Other hammer toe(s) (acquired), right foot M20.41 ; Complex regional pain syndrome type 1 of right lower extremity G90.521 and Pain in right foot M79.[address] [address] 11/13/2024 Hilda Perica Other hammer toe(s) (acquired), right foot M20.41 ; Complex regional pain syndrome type 1 of right lower extremity G90.521 and Pain in right foot M79.[address] [address] 12/08/2024 Hilda Perica Other hammer toe(s) (acquired), right foot M20.41 ; Complex regional pain syndrome type 1 of right lower extremity G90.521 and Pain in right foot M79.[address] [address] 12/14/2024 Xenia Butterfield Other hammer toe(s) (acquired), right foot M20.41 ; Complex regional pain syndrome type 1 of right lower extremity G90.521 and Pain in right foot M79.[address] [address] 01/07/2025 Xenia Butterfield Other hammer toe(s) (acquired), right foot M20.41 ; Complex regional pain syndrome type 1 of right lower extremity G90.521 and Pain in right foot M79.671 [facility] [address] [address] 03/04/2025 Xenia Butterfield Other hammer toe(s) (acquired), right foot M20.41 ; Complex regional pain syndrome type 1 of right lower extremity G90.521 and Pain in right foot M79.671 [facility] [address] [address] 03/29/2025 Xenia Butterfield Other hammer toe(s) (acquired), right foot M20.41 ; Complex regional pain syndrome type 1 of right lower extremity G90.521 ; Pain in right foot M79.671 and Neuritis of right foot G57.91 [facility] [address] [address] 04/29/2025 Xenia Butterfield Bursitis of left foot M77.52 [facility] [address] [address] 07/14/2024 Brock Hogan [facility] [address] [address] 07/15/2024 Xenia Butterfield [facility] [address] [address] 08/13/2024 Xenia Butterfield [facility] [address] [address] 09/04/2024 Xenia Butterfield [facility] [address] [address] 09/15/2024 Xenia Butterfield [facility] [address] [address] 09/17/2024 Xenia Butterfield [facility] [address] [address] 09/17/2024 Xenia Butterfield [facility] [address] 09/18/2024 [facility] [place] [address] [place] [address] 10/23/2024 [facility] [address] [place] [address] 10/27/2024 [facility] [address] [place] [address] 11/13/2024 [facility] [place] [address] [facility] [address] [place] [address] 12/02/2024 [facility] [address] [place] [address] 12/08/2024 [facility] [address] [place] [address] 12/09/2024 [facility] [address] [address] 01/07/2025 [facility] [address] [place] [address] 01/13/2025 [facility] [address] [place] [address] 02/25/2025 [facility] [address] [place] [address] 09/14/2024 Xenia Butterfield Assessments Encounter Date Diagnosis [...] toe(s) (acquired), right foot (ICD-10 - M20.41) 04/29/2025 Bursitis of left adonay t (ICD-10 - M77.52) Patient Educated with: RICE THERAPY.pdf (RICE THERAPY.pdf) Patient Educated with: INJECTIONTHER APY.pdf (INJECTIONTHE RAPY.pdf) 03/04/2025 Complex regional leanna n syndrome type [...] X ray : Foot, right 3V 06/21/2011 52443, L1394-TEHIU/INJECT, JOINT/BURSA 0 04/29/2025 Next Appt Details Provider Name:Xenia luis, 06/30/2025 03:15:00 PM, [address] [place] [address], [phone], Insurance Providers Payer Name Payer Address Payer Phone Subscriber Number Group Number Insured Name Patient Relationship to Insured Coverage Start Date Coverage End Date [employer] [address] [place] [address] [id number] Amilcar Carter Spouse - patient is the spouse of the insured Medical (General) History Medical History History ICD Code headaches/migraines fibromyalgia chicken pox reflux back, hip, knee pain corns/calluses anxiety Depression High blood pressure Hypercholesterolemia Surgical History Surgery Date(Month/Year) section 2007 tubal ligation 2007 vesico vaginal fistula 2001 hysterectomy 2009 hammertoe repair R5T 1989 oral surgery 06/02/2012 Hammertoe Repair Left 2nd, 3rd, 4th, Cap sulotomy Left MPJ 09/16/2024
--- OUTSIDE RECORDS SUMMARY | 2025-05-19 18:30 | XMS_ITS | Clinical Summary ---
Author Organization [facility] [place] [address] Phone Care Team Providers Care Manual Arts Therapy Teacher Name Role Phone Vinicio Capellan Primary Care Provider [phone] Medications rosuvastatin (CRESTOR) 40 mg tablet TAKE 1 TABLET BY MOUTH EVERYDAY AT BEDTIME 90 tablet 2 09/14/2024 Active lisinopril-hydr oCHLOROthiazide (PRINZIDE,ZESTO RETIC) 10-12.5 mg per tablet TAKE 1 TABLET BY MOUTH EVERY DAY 90 tablet 1 12/17/2024 Active Immunizations Name Administration Dates Next Due [facility] SARS-CoV-2 COVID-19, mRNA, LNP-S, preservative free [...] 08/13/2022 Social Influencers of Health Screening 08/13/2022 Depression Screening 09/09/2024 COVID-19 Vaccine (4 - 2024-2 6 season) 2025 07/04/2021, 12/24/2020, 12/03/2020 Influenza Vaccine (#1) 2025 HIB Vaccines Aged [...] age to complete this topic Care Teams Manual Arts Therapy Teacher Relationship Specialty Start Date End Date Vinicio Capellan [address] [place] [address] PCP - General Internal Medicine 09/14/21
--- OUTSIDE RECORDS SUMMARY | 2025-05-19 18:30 | XMS_ITS | Encounter Summary ---
Author Organization [facility] Address [address] [facility] [address] [place], [place] [id number] Phone Care Team Providers Care Online Marketing Analyst Name Role Phone Sebas Cutler MD Primary Care Provider Encounter Details Date Type Department Care Team (Latest Contact Info) Description 09/18/2019 Transcribe Orders [facility] [address] [place] [address] Higinio [place], [place] [address] [facility] [address] [address] [email or web address] History of fibromyalgia (Primary Dx); Degenerative disc disease, cervical Social History Tobacco Use Types Packs/Day Years Used Date Smoking Tobacco: Never Smokeless Tobacco: Never Alcohol Use Standard Drinks/Week Comments Never 0 (1 standard drink = 0.6 oz pur e alcohol) Comments Unknown Sex and Gender Information Value Date Recorded Sex Assigned at Not on file Legal Sex Female 2:43 PM EDT Gender Identity Not on file Sexual Orientation Not on file documented as of this encounter Plan of Treatment Not on file documented as of this encounter Visit Diagnoses Diagnosis History of fibromyalgia- Primary Personal history of other musculoskeletal disorders Degenerative disc disease, cervical documented in this encounter Care Teams Online Marketing Analyst Relationship Specialty Start Date End Date Sebas Cutler MD [address] [place] [address] PCP - General Internal Medicine 07/08/19 documented as of this encounter Additional Source Comments The information contained in this document represents components of the legal health record. It is not the complete legal health record.[facility]
--- OUTSIDE RECORDS SUMMARY | 2025-05-19 18:31 | XMS_ITS | Clinical Summary ---
Author Organization [facility] Address [address] [place] [address] Care Team Providers Care Nutrition Program Instructor Name Role Phone Vinicio Capellan MD Primary Care Provider + [phone] Allergies Active Allergy Reactions Criticality Noted Date [...] BMI Counseling 09/14/2022 09/14/2021, 06/11/2019 COVID-19 Vaccine (2024-2 6 season) 2025 07/04/2021, 12/24/2020, 12/03/2020 Influenza Vaccine (#1) 2025 Pneumococcal Vaccine Aged Out No long er eligible based on patient's age to complete this topic RSV Ped < 20 months Aged Out No longe r eligible based on patient's age to complete this topic Advance Directives For more information, please contact: [phone] Documents on File Type Date Recorded Patient Certified Income Tax Preparer Expl anation Advance Directive and Living Will 08/22/2020 12:20 PM Power of Final Inspector Shuttle 08/22/2020 ORDER Care Teams Nutrition Program Instructor Relationship Specialty Start Date End Date Vinicio Capellan MD PCP - General Internal Medicine 09/14/21
== END 2025-05-19 16:01 | disposition home or self-care (01) ==
LOC: HO.HKAE 15:42
PROVIDERS: PCP Internal Medicine; Referring Provider Internal Medicine; Visit Provider Internal Medicine Hypertension Specialist
DX: I12.9 Hypertensive chronic kidney disease with stage 1 through stage 4 chronic kidney disease, or unspecified chronic kidney disease (principal); N18.9 Chronic kidney disease, unspecified
CPT/HCPCS: 99204

== ENCOUNTER 2025-06-16 15:29 | Outpatient (AMB) | payer BC, SELFPAY ==
[2025-06-16 15:28] VITALS: BP 138/88; PULSE 60; O2SAT 98; BMI 27.5
--- NOTE | 2025-06-16 15:28 | HO.NEPHOV_ITS ---
Vital Signs 06/16/25 15:28 Height 5 ft 5 in Weight 165 lb BMI 27.5 BP 138/88 Blood Pressure Location Lt brachial Position Sitting Pulse 60 Pulse Source Pulse Oximeter Pulse Oximetry (%) 98 Oxygen Delivery Method Room Air Intake Visit Reasons: 1 Month F/u with labs- Confirmed Registered Diet Technician Required: No Accompanied by: Self / Same As Patient Allergies tramadol (From Ultra) Allergy (Unknown, Verified 06/16/25 15:31) Unknown Medication List - Last Reconciled 06/16/25 by Moose Layton MD clonidine HCl 0.1 mg PO DAILY ixekizumab (Taltz Autoinjector) mg subcut .monthly lisinopril 10 mg PO DAILY methylprednisolone 0 mg PO metoprolol succinate ER 25 mg PO DAILY metoprolol succinate ER 25 mg PO DAILY naltrexone 50 mg PO DAILY rosuvastatin 40 mg PO BEDTIME trazodone 150 mg PO BEDTIME HPI Comments Details: Pleasant 54-year-old woman referred for evaluation of CKD. 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 She has a history of hypertension she was on lisinopril with hydrochlorot hiazide. In March 2025 serum creatinine was 1.1 mg/dL with a EGFR of 15 mL/minute. She has received 2 doses of Taltz As of April 14 creatinine was 1.49 with a EGFR of 49 mL/minute. She has been referred for evaluation of decline in GFR. She does not take any NSAIDs or Hassan 2 inhibitors. The lisinopril hydrochlorothiazide was switched to lisinopril 10 mg. Clonidine was added. Remote history of kidney stones. No recent history of any kidney stones. No hematuria no polyuria polydipsia. No rash. No pain or swelling of small joints. Father had end stage renal disease and was on dialysis. 06/16/2025 - The patient is a 54-year-old female presenting for follow-up on kidney function and blood pressure management. - Chronic Kidney Disease: Improved kidney function after discontinuing hydrochlorothiazide. Creatinine is decreased from 1.46 down to 1.1 2 which is her baseline. - Hypertension: Controlled with lisinopril and clonidine. - Headaches: Frequent over the past month, managed with Tylenol. [facility] Medical History (Updated 05/19/25 @ 15:55 by Moose Layton MD) Hypercholesterolemia Hypertension Depression Anxiety Migraine Headache Fibromyalgia Surgical History H/O oral surgery H/O: hysterectomy H/O tubal ligation Hx of section Physical Exam Vital Signs: Last Vital Signs Pulse 60 06/16/25 15:28 BP 138/88 06/16/25 15:28 Pulse Ox 98 06/16/25 15:28 Oxygen Delivery Method Room Air 06/16/25 15:28 BMI result Body Mass Index 27.5 Comfortable Neck supple no JVD. Lungs entry equal no rales. Heart S1-S2 heard no gallop or rub. Abdomen soft nontender. Neuro alert awake oriented. No asterixis. Extremities no edema. Results Reviewed Results Reviewed: Creatinine 1.12 EGFR 53 Assessment & Plan Assessment & Plan (1) HTN (hypertension): Code(s): I10 - Essential (primary) hypertension Category: Medical (2) CKD (chronic kidney disease): Code(s): N18.9 - Chronic kidney disease, unspecified Category: Medical Plan 54-year-old woman with a psoriatic spondylitis and hypertension. Her creatinine was 1.12 months ago which just increased to 1.46. She has sustained acute kidney injury. After discontinuing hydrochlorothiazide serum creatinine decreased to 1.2. Whic h is her baseline. She had hypoperfusion which has resolved. Urine sediments bland no significant proteinuria hematuria. At this point no further workup is required. Plan At present blood pressure is well controlled. No changes were made to the antihypertensive medications. Maintain blood pressure less than 130/80 Stay on low-sodium diet No need for hydrochlorothiazide. Encouraged her to avoid NSAIDs and other nephrotoxic agents. I would recommend to monitor serum creatinine every 6-12 months. If there is any worsening please feel free to send her back. Coding Level of Care Code Est Pt Level 4 (73685) Diagnoses HTN (hypertension) I10 CKD (chronic kidney disease) N18.9
== END 2025-06-16 15:43 | disposition home or self-care (01) ==
LOC: HO.HKAE 15:30
PROVIDERS: PCP Internal Medicine; Visit Provider Internal Medicine Hypertension Specialist
DX: I12.9 Hypertensive chronic kidney disease with stage 1 through stage 4 chronic kidney disease, or unspecified chronic kidney disease (principal); N18.9 Chronic kidney disease, unspecified
CPT/HCPCS: 99214